=== PATIENT | female | born 1935 | race Caucasian/White ===

== ENCOUNTER 2018-02-02 11:30 | Outpatient (CLI) | payer MEDICARE, BC, SELFPAY ==
[2018-02-02 13:31] LABS: Vitamin B12 418 pg/mL (193-986)
== END 2018-02-02 11:50 ==
PROVIDERS: PCP General Practice; Visit Provider General Practice
DX: R26.89 Other abnormalities of gait and mobility (principal); G62.89 Other specified polyneuropathies
CPT/HCPCS: 36415; 82607

== ENCOUNTER 2018-08-15 01:29 | Outpatient (CLI) | payer MEDICARE, BC, SELFPAY ==
--- NOTE | 2018-08-15 13:38 | DI.MAMMO_ITS ---
SYMPTOMS/DIAGNOSIS: SCREENING MAMMOGRAM: Mammograms were interpreted according to the usual protocol including computer analysis with CAD system, tomosynthesis and C view imaging. The patient has reportedly had a prior right mastectomy and left lumpectomy for breast carcinoma. There is apparent post lumpectomy scarring in the left breast. No dominant mass seen. A few nonspecific calcifications are noted at the lumpectomy site, consistent with dystrophic change. No remote clumped microcalcification seen. No previous images available for comparison. CONCLUSION: No specific evidence of malignancy at this time. Routine screening examinations are suggested at yearly intervals due to the history of breast carcinoma. Category 1, breast density category B. MQSA ASSESSMENT OF FINDINGS: Negative. Category 1. Patient will receive a letter notifying them of these results. BI-RADS category B. There are scattered areas of fibroglandular density.
== END 2018-08-15 01:49 ==
PROVIDERS: PCP General Practice; Visit Provider General Practice
DX: Z12.31 Encounter for screening mammogram for malignant neoplasm of breast (principal); Z85.3 Personal history of malignant neoplasm of breast; Z90.11 Acquired absence of right breast and nipple; Z98.890 Other specified postprocedural states
CPT/HCPCS: 77063; 77067

== ENCOUNTER 2018-09-13 07:30 | Outpatient (CLI) | payer MEDICARE, BC, SELFPAY ==
[2018-09-13 08:41] LABS: Anion Gap 12.1 mmol/L (3-11); BUN 21 mg/dL (7-18); CO2 24.9 mmol/L (21.0-32.0); CREATININE 0.94 mg/dL (0.55-1.02); Chloride 104 mmol/L (98-107); Cholesterol 292 mg/dL (50-200); Estimated GFR 57.01 (mL/min/1.73m2); HDL Cholesterol 64 mg/dL (40-60); LDL CHOLESTEROL 188 mg/dL (<100); Sodium 141 mmol/L (136-145); Triglyceride 218 mg/dL (30-150)
== END 2018-09-13 07:50 ==
PROVIDERS: PCP General Practice; Visit Provider General Practice
DX: I10 Essential (primary) hypertension (principal); E78.5 Hyperlipidemia, unspecified
CPT/HCPCS: 36415; 80051; 80061; 83721; 84520; 82565

== ENCOUNTER 2018-12-29 02:52 | Outpatient (CLI) | payer MEDICARE, BC, SELFPAY ==
--- NOTE | 2018-12-29 10:37 | DI.RAD_ITS ---
SYMPTOMS/DIAGNOSIS: CHRONIC PAIN RIGHT KNEE: Five views were obtained. There is marked loss of the cartilaginous joint spaces of the medial and lateral tibiofemoral joints and probably the patellofemoral joint as well. There are very prominent hypertrophic marginal osteophytes at all the joints. There is deformity of the articular surfaces particularly at the medial tibiofemoral joint. CONCLUSION: Severe DJD as described above, multicompartment.
== END 2018-12-29 03:12 ==
PROVIDERS: PCP General Practice; Visit Provider General Practice
DX: M25.561 Pain in right knee (principal); G89.29 Other chronic pain; M17.11 Unilateral primary osteoarthritis, right knee
CPT/HCPCS: 73562

== ENCOUNTER 2019-07-11 02:49 | Outpatient (CLI) | payer MEDICARE, BC, SELFPAY ==
[2019-07-11 12:50] LABS: Abs Immature Grans 0.02 k/cumm (0.0-0.09); Absolute Basophil Count 0.03 k/cumm (0.0-0.2); Absolute Eosinophil Count 0.21 k/cumm (0.0-0.7); Absolute Lymphocyte Count 1.41 k/cumm (1.2-3.4); Absolute Monocyte Count 0.69 k/cumm (0.11-0.7); Absolute Neutrophil Count 5.95 k/cumm (1.2-6.7); Basophils % 0.4; Eosinophils % 2.5; HCT 37.9 % (36.0-46.0); HGB 12.4 g/dL (12.0-15.5); Immature Grans % 0.2 %; Mean Corp. HGB Concentration 32.7 g/dL (32.0-36.0); Mean Corpuscular Volume 94.8 fL (80-95); Mean Platelet Volume 8.8 fL (8.0-11.0); Monocytes % 8.3; Neutrophils % 71.6; Platelet Count 291 x1000/uL (130-400); RBC Distribution Width 13.1 % (11.7-14.6); White Blood Cell Count 8.31 k/cumm (4.4-10.8)
[2019-07-11 13:04] LABS: PTT Activated 24.7 sec (21.0-31.4); Prothrombin Time 9.9 sec (9.3-11.0)
[2019-07-11 13:34] LABS: Bilirubin Negative (Negative); Blood Negative (Negative); Clarity Clear (Clear); Glucose Negative (Negative); Ketones Negative (Negative); Leukocyte Esterase Negative (Negative); Nitrite Negative (Negative); Specific Gravity 1.025 (1.005-1.025); Urobilinogen 0.2 EU/dL (Up TO 0.2); pH 6.5 (5-8)
[2019-07-11 13:54] LABS: ALT 20 U/L (14-59); AST 17 U/L (15-37); Albumin 3.6 g/dL (3.4-5.0); Alkaline Phosphatase 95 U/L (46-116); Anion Gap 8.9 mmol/L (3-11); BUN 26 mg/dL (7-18); Bilirubin, Total 0.5 mg/dL (0.2-1.0); CO2 27.1 mmol/L (21.0-32.0); CREATININE 0.82 mg/dL (0.55-1.02); Calcium 9.1 mg/dL (8.5-10.1); Chloride 105 mmol/L (98-107); Glucose 90 mg/dL (74-106); Potassium 3.9 mmol/L (3.5-5.1); Sodium 141 mmol/L (136-145); Total Protein 6.7 g/dL (6.4-8.2)
== END 2019-07-11 03:09 ==
PROVIDERS: PCP Family Medicine; Visit Provider Family Medicine
DX: D68.8 Other specified coagulation defects (principal); I10 Essential (primary) hypertension; R39.11 Hesitancy of micturition; Z01.818 Encounter for other preprocedural examination
CPT/HCPCS: 80053; 81003; 85025; 85610; 85730

== ENCOUNTER 2019-11-02 03:29 | Outpatient (CLI) | payer MEDICARE, BC, SELFPAY ==
[2019-11-02 12:42] LABS: Bilirubin Negative (Negative); Blood Negative (Negative); Clarity Clear (Clear); Glucose Negative (Negative); Ketones Trace mg/dL (Negative); Leukocyte Esterase Negative (Negative); Nitrite Negative (Negative); Specific Gravity 1.025 (1.005-1.025); Urobilinogen 0.2 EU/dL (Up TO 0.2)
[2019-11-02 12:47] LABS: Abs Immature Grans 0.03 k/cumm (0.0-0.09); Absolute Basophil Count 0.03 k/cumm (0.0-0.2); Absolute Eosinophil Count 0.21 k/cumm (0.0-0.7); Absolute Lymphocyte Count 1.19 k/cumm (1.2-3.4); Absolute Monocyte Count 0.88 k/cumm (0.11-0.7); Absolute Neutrophil Count 6.39 k/cumm (1.2-6.7); Basophils % 0.3; Eosinophils % 2.4; HCT 40.3 % (36.0-46.0); HGB 12.8 g/dL (12.0-15.5); Immature Grans % 0.3 %; Lymphocytes % 13.6; Mean Corp. HGB Concentration 31.8 g/dL (32.0-36.0); Mean Corpuscular Hemoglobin 30.4 pg (27.0-33.0); Mean Corpuscular Volume 95.7 fL (80-95); Mean Platelet Volume 8.9 fL (8.0-11.0); Monocytes % 10.1; Neutrophils % 73.3; Platelet Count 328 x1000/uL (130-400); RBC 4.21 m/cumm (4.00-5.20); RBC Distribution Width 13.3 % (11.7-14.6); White Blood Cell Count 8.73 k/cumm (4.4-10.8)
[2019-11-02 13:20] LABS: Prothrombin Time 9.8 sec (9.3-11.0)
[2019-11-02 13:43] LABS: ALT 20 U/L (14-59); AST 15 U/L (15-37); Albumin 3.9 g/dL (3.4-5.0); Alkaline Phosphatase 95 U/L (46-116); Anion Gap 8.6 mmol/L (3-11); BUN 25 mg/dL (7-18); Bilirubin, Total 0.4 mg/dL (0.2-1.0); CO2 26.4 mmol/L (21.0-32.0); CREATININE 0.84 mg/dL (0.55-1.02); Calcium 10.1 mg/dL (8.5-10.1); Chloride 104 mmol/L (98-107); Glucose 87 mg/dL (74-106); Potassium 4.5 mmol/L (3.5-5.1); Sodium 139 mmol/L (136-145); Total Protein 6.9 g/dL (6.4-8.2)
[2019-11-02 14:12] LABS: ESR 35 mm/hr (0-30)
== END 2019-11-02 03:49 ==
PROVIDERS: PCP Family Medicine; Visit Provider Family Medicine
DX: Z01.818 Encounter for other preprocedural examination (principal)
CPT/HCPCS: 36415; 80053; 85652; 81003; 85025; 85610

== ENCOUNTER 2019-11-06 10:26 | Outpatient (CLI) | payer MEDICARE, BC, SELFPAY ==
--- NOTE | 2019-11-06 13:35 | DI.US_ITS ---
APPROVED REPORT EXAM: Comprehensive 2D, Doppler, and color-flow Echocardiogram Patient Location: Out-Patient Screen Making Supervisor: Radha Rutherford RDCS (AE) Indications: Edema, Pre op Other Information Study Quality: Adequate Conclusion Normal left ventricular chamber size and wall thickness. Normal wall motion. Estimated ejection fra ction is 60 to 65%. The right ventricle is normal in size and systolic function Left atrium is mildly dilated. The right atrium is normal in size The aortic valve is structurally normal. There is no aortic stenosis or regurgitation Mild mitral annular calcification. Trace to mild mitral regurgitation The pulmonic and tricuspid valves are structurally normal. There is trace physiologic tricuspid regu rgitation with normal estimated right ventricular systolic pressure. Trace physiologic pulmonic regu rgitation Wall motion Left Ventricle The left ventricle is normal size. The left ventricular systolic function is normal. The left ventric ular ejection fraction is within the normal range. There is normal left ventricular wall thickness. T here is normal LV segmental wall motion. Left ventricular filling pattern is normal for age. There is no ventricular septal defect visualized. The RVSP is 26.5mmHg. LVEF is 60%-65%. Right Ventricle The right ventricle is normal size. The right ventricular systolic function is normal. Atria Left atrium is mildly dilated. The right atrium size is normal. The interatrial septum is intact with no evidence for an atrial septal defect. Aortic Valve Aortic valve is trileaflet. There is no aortic valvular stenosis. No aortic regurgitation is present. Mitral Valve Mild mitral annular calcification. No evidence of mitral valve stenosis. Trace to mild mitral regurgi tation. Tricuspid Valve The tricuspid valve is normal in structure. There is no tricuspid valve stenosis. Trace tricuspid reg urgitation. Pulmonic Valve The pulmonary valve is normal in structure. There is no pulmonic valvular stenosis. Trace pulmonic re gurgitation. Great Vessels The aortic root is normal in size. The ascending aorta is borderline normal in size. IVC is normal in size and collapses >50% with inspiration. Pericardium There is no pericardial effusion. There is no pleural effusion. 2D Dimensions IVSD d PLAX 0.93 cm F: 0.6-1.0 LV Vol A2C d MOD 104.8 mL LVPW d PLAX 0.90 cm F: 0.6 - 1.0 LV Vol A4C d MOD 106.1 mL LVID d PLAX 4.44 cm F: 3.8 - 5.2 LA vol/ BSA A2C s A-L 37.1 mL/m2 LVDs 2.90 cm F: 2.2 - 3.5 LA vol/ BSA A4C s A-L 34.8 mL/m2 Ao Root d 2.72 cm F: 2.7 - 3.3 LA Vol/ BSA Biplane s A-L 36.0 mL/m2 RA Area A4C 16.01 cm2 LA Area A4C s MOD 23.05 cm2 RA Vol/ BSA A4C s A-L 20.2 mL/m2 LA Area A2C s MOD 23.85 cm2 Ao Asc Diam d 3.34 cm F: 2.3 - 3.1 LV EF A4C MOD 60.2 % LV EF Teichholz 63.2 % LV EF A2C MOD 60.6 % LVEF (Chiang's) 60.32 % F: 54 - 74 LV EF Biplane MOD 60.3 % LV Volume 79.80 mL F: 46 - 106 SV 64.97 mL LV Volume Index 38.55 mL/m2 F: 29 - 61 SV Index 31.30 mL/m2 LV Vol Biplane MOD 107.7 mL FS 34.00 % M-Mode TAPSE 2.63 cm (M/F) >1.7 LV Diastology MV E' medial 0.072 (>0.07 m/s) E/A Ratio 0.8 LV E/e MED 10.45 (<14) MV E Vmax 0.76 (0.4-1.3 m/s) MV E' lateral 0.086 (>0.1 m/s) MV A Vmax 1.00 (0.4-1.3 m/s) LV E/e LAT 8.80 (<14) MV E/A Ratio 0.74 MV E/E' medial 10.49 MV E/E' lateral 8.84 Aortic Valve LVOT Area 3.08 cm2 AoV Area Vmax 2.01 cm2 LVOT Vmax 1.12 m/s AoV Area/ BSA (Vmax) 0.97 cm2/m2 LVOT Mean Jarrod. 0.85 m/s CARROLL Mean Jarrod. 1.98 cm2 LVOT Peak Grad 5.1 mmHg CARROLL Mean Jarrod. Index 0.95 cm2/m2 LVOT Mean Grad 3.2 mmHg LVOT VTI 0.266 m LVOT Diam s 1.95 cm AoV Vmax 1.73 m/s Velocity Ratio 0.64 AoV Mean Jarrod. 1.32 m/s AoV Peak Grad 11.9 mmHg LVOT SV 82.05 mL AoV Mean Grad 7.5 mmHg AoV VTI 0.410 m AoV Area VTI 2.00 cm2 AoV Area/ BSA (VTI) 0.96 cm/m2 Mitral Valve MV DT 370 (160-240 msec) MV PHT 107 msec MV Area PHT 2.05 cm2 Pulmonary Valve PV Vmax 1.37 (0.5-1.5 m/s) RVOT Peak Gr. 2.15 mmHg PV Peak Grad 7.5 mmHg RVOT Mean Gr. 1.45 mmHg PV Mean Grad 3.6 mmHg RVOT VTI 0.159 m PV VTI 0.261 m RVOT Vmax 0.73 m/s Tricuspid Valve TR Peak Grad 23.5 mmHg TR Vmax 2.43 m/s RA Pressure 3.00 mmHg RVSP (TR) 26.5 mmHg
== END 2019-11-06 10:46 ==
PROVIDERS: PCP Family Medicine; Visit Provider Family Medicine
DX: R60.0 Localized edema (principal); I34.0 Nonrheumatic mitral (valve) insufficiency; I10 Essential (primary) hypertension; E78.00 Pure hypercholesterolemia, unspecified
CPT/HCPCS: 93306

== ENCOUNTER 2019-11-09 08:22 | Outpatient (CLI) | payer MEDICARE, BC, SELFPAY ==
[2019-11-09 21:10] LABS: COVID-19 RT-PCR UVMMC Result Negative (Negative)
== END 2019-11-09 08:42 ==
PROVIDERS: PCP Family Medicine; Visit Provider Family Medicine
DX: Z01.818 Encounter for other preprocedural examination (principal)
CPT/HCPCS: U0003

== ENCOUNTER 2020-06-24 13:37 | Inpatient (IN) | payer MEDICARE, BC, SELFPAY ==
[2020-06-24] VITALS (131 sets, daily range): BP systolic 109–130; BP diastolic 46–101; PULSE 65–84; RESP 11–25; TEMP 36.1–36.5; O2SAT 90–98
--- NOTE | 2020-06-24 13:30 | RT.EKG_ITS ---
APPROVED REPORT Exam: Resting ECG Patient Location: E HR:82 bpm ECG Measurements Heart Rate 82 AXIS AL 165 P 77 QRSd 97 QRS 33 QT 395 T 21 QTc 462 Conclusion Sinus rhythm...normal P axis, V-rate 60- [address] depression, diffuse leads...ST <-0.07mV, ant/lat/inf. No STEMI. I have reviewed and interpreted ECG and agree with software generated interpretation.
--- NOTE | 2020-06-24 13:44 | ED.GENADUL_ITS ---
Discharge Plan Disposition Patient Disposition: [facility] INPATIENT Condition: Serious Discharge Details Clinical Impression: Non-ST elevation OK (NSTEMI), Acute UTI Admit Date/Time: 06/24/20 19:10 Admit Provider: Nicholas Espinoza Attending Provider: Nicholas Espinoza Primary Care Provider: Alfonso Bonilla ED Provider: Anna Nix Discharge Data Discharge Date/Time-TO BE ENTERED AT DEPARTURE: 06/24/20 20:09 Medical Decision Making <Malu Carcamo - Last Filed: 06/25/20 08:31> 85-year-old female presents to the ED via EMS with chief complaint of generalized weakness and frequent falls. Patient states that since her knee replacement October 2019 she has had frequent falls with her knees giving out and buckling today she was walking out to get her food delivery with her walker when she fell landing on her bilateral knees which were bent for approximately 45 minutes she was unable to get up after the fall. EMS was called and transported here. She denies any chest pain, shortness of breath, headache. She states that she took all her normal medications this morning except for her vitamins and Lasix. 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 Vital signs are stable prior to arrival, per EMS report, patient is alert and oriented x4, BGL is 180, Zofran was given prior to arrival. Normal sinus rhythm on monitor. Patient has a history of hyperlipidemia, osteoporosis, obesity, hypertension, breast cancer, obesity, glaucoma. Surgical history includes appendectomy, melanoma removal, left total knee replacement, and cholecystectomy. EKG was reviewed by Dr. Ayleen Benz MD ER attending, old EKG was available for review please see her official read. Shows new ST depression 1433: Critical result received, initial troponin is 0.99. CBC is largely within normal limits, no leukocytosis absolute neutrophils 8.16, sodium 143, potassium 3.5 BUN is 20 creatinine 0.8, GFR greater than 60, urine does show UTI 30 protein positive nitrites trace leukocytes 3-5 RBCs, 20-50 WBCs culture is pending at this time. 1458: Upon further questioning of patient, she does state that she has had chest pressure for the last hour, and the other day she had some sharp left-sided chest pain. She also endorses shortness of breath prior to her knees buckling. At this time Furosemide 20mg PO, 324 mg chewable aspirin ordered, Plavix 75 mg PO, chest x-ray, Micki. 1510: Spoke with patient's sister whom she lives with regarding lab results patient sister verbalized understanding. Patient does give verbal consent for me to discuss her results with her sister. Will keep informed of plan of care. 1520: Spoke with Dr. Worley who is in-house cardiology today he does recommend possible transfer since patient is willing to have a cardiac catheterization or interventional cardiac procedures if needed. Echocardiogram initially ordered which was canceled at this time. 1529: [facility] transfer center page at this time they are currently listing beds for tomorrow. 1545: [facility] transfer center called, theyare at capacity and have no beds at this time. EXAM: XR PORTABLE CHEST AP CLINICAL HISTORY: Weakness, TECHNIQUE: COMPARISON: No exams were available for comparison FINDINGS: The heart is not enlarged. The lungs are predominantly clear, there may be mild changes pulmonary fibrosis and/or senile changes of the lungs. No focal consolidation. No pleural effusion seen on this frontal film. IMPRESSION: No evidence of acute process. Patient care to be transferred over to BECKY Cunha oncoming provider discussed patient case and details of her. Awaiting callback from [facility] regarding cardiology consult and or bed availability. <BECKY Mittal - Last Filed: 06/24/20 19:47> Care transition myself from Maite Lauren NP. Please see her note regarding initial presentation, history and exam. In brief, patient is a pleasant 85-year-old female with past medical history is significant for glaucoma, breast cancer, hyperlipidemia, hypertension, obesity and pulmonary embolism. Patient reports the pulmonary embolism was postsurgical approximately 7 years ago. At the time that she started having symptoms today she did have a cardiac cath which was clean. She presented today with chief complaint of weakness. On further discussion, patient is reporting some shortness of breath as well as some chest tightness associated with exertion. She is denying any chest pain currently. Her initial troponin was 0.99. At the time I assume care, waiting for consultation with cardiology as well as repeat troponin. Patient has received 75 mg of Plavix and full dose of aspirin. There was concern for potential UTI the patient was noted to be nitrite positive with a small amount of leukocyte esterase. Patient denying any increased frequency, urgency or dysuria. No flank pain on exam. Repeat troponin is elevated to 2.71. Consulted with cardiology at [facility]. At this time, they do not have beds states that the patient. However, they plan to assess the patient tomorrow with plan for cardiac catheterization. Advised starting the patient on a heparin drip and augmented with Plavix already given to give a loading dose of 50 mg. He advised use of nitroglycerin as needed if she does develop chest pain. Her blood pressure has been stable. Discussed the risk/benefits of heparin and Plavix with the patient. We discussed bleeding risk. Patient does not have any history of bleeding disorder, does not have intracranial hemorrhage, GI bleed or other acute event in her life. She agrees to move forward with medical management at this time with plan for transfer to [facility] tomorrow. Patient given full dose of 600 mg Plavix and started on the heparin drip. I consulted with Dr. Espinoza who agrees to accept patient for admission for NSTEMI with plan for patient to go to [facility] for definitive management tomorrow. Patient has allergy listed to statin. Also discussed the findings of the patient's UA. As the patient is asymptomatic, will hold off on treatment at this time. He has asked that I place holding orders. Patient remains asymptomatic, resting comfortably eating and drinking. HPI <Malu Carcamo - Last Filed: 06/25/20 08:31> General Mode of arrival: EMS . Date/Time Provider Initiated Documentation: 06/24/20 13:39 . Information obtained by: patient, EMS and RN notes reviewed . HPI Narrative: 85-year-old female presents to the ED via EMS with chief complaint of gene ralized weakness and frequent falls. Patient states that since her knee replacement October 2019 she has had frequent falls with her knees giving out and buckling today she was walking out to get her food delivery with her walker when she fell landing on her bilateral knees which were bent for approximately 45 minutes she was unable to get up after the fall. EMS was called and transported here. She denies any chest pain, shortness of breath, headache. She states that she took all her normal medications this morning except for her vitamins and Lasix. 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 Vital signs are stable prior to arrival, per EMS report, patient is alert and oriented x4, BGL is 180, Zofran was given prior to arrival. Normal sinus rhythm on monitor. Patient has a history of hyperlipidemia, osteoporosis, obesity, hypertension, breast cancer, obesity, glaucoma. Surgical history includes appendectomy, melanoma removal, left total knee replacement, and cholecystectomy Related Data Home Medications Medication Instructions Recorded Confirmed ascorbic acid-ascorbate sodium 1 tab PO DAILY 08/16/17 06/24/20 aspirin [Aspir-81] 1 tab PO DAILY 08/16/17 03/03/20 vitamin B complex 1 cap PO DAILY 08/16/17 06/24/20 calcium carb,citrat 500 tab PO DAILY tab 06/04/19 03/03/20 mg-magnesium #12 250 mg-vit D3 200 unit tablet magnesium 250 mg tablet 250 mg PO DAILY 06/04/19 06/24/20 acetaminophen 325 mg capsule 975 mg PO QID PRN cap 12/14/19 06/24/20 docusate sodium 100 mg capsule 100 mg PO DAILY 12/14/19 06/24/20 furosemide 20 mg tablet 20 mg PO QAM #90 tab 02/18/20 06/24/20 latanoprost 0.005 % eye drops 1 drp OU HS #2.5 ml 02/18/20 06/24/20 alendronate 70 mg tablet 70 mg PO QWEEK #13 tab 03/03/20 06/24/20 losartan 50 mg tablet 50 mg PO DAILY #90 tab 03/03/20 06/24/20 Previous Rx's Medication Instructions Recorded furosemide 20 mg tablet 20 mg PO QAM #90 tab 02/18/20 latanoprost 0.005 % eye drops 1 drp OU HS #2.5 ml 02/18/20 alendronate 70 mg tablet 70 mg PO QWEEK #13 tab 03/03/20 losartan 50 mg tablet 50 mg PO DAILY #90 tab 03/03/20 Allergies Allergy/AdvReac Type Severity Reaction Status Date / Time demeclocycline HCl Allergy Intermediate Hives Unverified 03/03/20 12:15 [From Declomycin] acetaminophen [From Percocet] Allergy Mild Hives Unverified 03/03/20 12:15 aspirin [From Percodan] Allergy Mild Hives Unverified 03/03/20 12:15 oxycodone [From Percocet] Allergy Mild Hives Unverified 03/03/20 12:15 Penicillins Allergy Mild Hives Unverified 03/03/20 12:15 Tdalkfo-Jva-Nov Reductase AdvReac Intermediate nauesa Verified 03/03/20 12:15 Inhibitor /vomiting Review of Systems <Malu Carcamo - Last Filed: 06/25/20 08:31> Narrative: Constitutional: Negative for weight loss, alert and oriented, well groomed, obese body habitus, appears comfortable. HEENT: Denies head trauma, headaches, blurry vision, nasal discharge, sore throat, trouble swallowing. Chest: Denies chest pain, palpitations, irregular rhythm, does have a history of hypertension, hyperlipidemia, obesity Respiratory: Denies Shortness of breath, cough, hemoptysis. GI: Denies abdominal pain, nausea, vomiting, diarrhea, constipation. : Denies dysuria, hematuria, flank pain, rectal bleeding. Neuro: Denies dizziness, blurry vision, syncope, headache or facial numbness. Reports generalized weakness and frequent falls. Musculoskeletal: History of right total knee replacement October 2019 does have a previous history of left total knee replacement as well. Is using a walker and has frequent falls and knees giving out. Hematologic: Denies easy bruising, intolerance to heat or cold, hair loss. PFSH <Malu Carcamo - Last Filed: 06/25/20 08:31> Medical History Glaucoma History of left breast cancer History of right breast cancer Hyperlipidemia Hypertension Left fibular fracture 2018 Melanoma 2017 Obesity Osteoarthritis Pulmonary embolism following a TKR Surgical History History of appendectomy History of melanoma excision History of total left knee replacement (TKR) S/P cholecystectomy Family History Mother , age 100 Heart disease Hypertension Father , age 78 Non-Hodgkin lymphoma Sister Breast cancer Brother Bladder cancer Alcohol abuse Maternal Grandfather , age 58 Heart disease Paternal Grandfather , age 75 No problems noted. Maternal Grandmother , age 63 Thyroid cancer Heart disease Hyperlipidemia Hypertension Stroke Paternal Grandmother , age 93 Heart disease Social History (Updated 06/24/20 @ 22:16 by Nicholas Espinoza) Smoking/Tobacco Use Status: Never Second Hand Exposure: Yes Smoking risk assessment performed?: Yes Alcohol Intake: never Drug use: Never Caregiver/Support person: No Household members: other Details: Sister Housing: house Communication Needs: Hard of Hearing Do you need help understanding health information?: Never Pets and animals: Yes Pets and animals: dog(s) Sexually active: No What is your relationship status?: never How often do you talk on the phone with friends or family?: twice per week How often do you get together with friends or relatives?: twice per week How often do you attend yarsani or pentecostalism services?: 4 or more times per year Do you belong to any clubs or organized social groups?: yes Panel score (0-1 are the most socially isolated patients): 3 What type of physical activity do you participate in: decline to answer Duration: decline to answer Frequency: decline to answer Annia/Caodaism: Yarsanism Special annia needs: Yes (abstain from meat on Tuesday) Seatbelt use: always Helmet use: No Drive intox or ride w/intox hazmat tanker driver: No Do you feel safe at home: Yes (pt states sometimes her and her sister become verbal) Do you feel safe in your relationship?: Yes Additional Social history: Lives in [place], [place] having moved up from [facility]. 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 Appears stated age. Obese body habitus. Head: Normocephalic, no trauma. Eyes: Pupils PERRLA, Red reflex noted, EOM's intact. Eyelids symmetrical without lesions, discharge, or swelling. ENT: Bilateral TM's WNL, External ear normal to inspection, no mastoid TTP, swelling, or erythema, Nasal turbinates WNL, no nasal discharge. Does not have upper dentures in,, Posterior pharynx WNL, no exudate. Chest: RRR, Normal S1, S2, distal pulses intact. Resp: Lungs clear to auscultation bilaterally, no wheezes, rales, or rhonchi. Musculoskeletal: Unable to assess gait, bilateral lower extremities are edematous, does appear to be peripheral vascular disease and appears chronic. Does have redness noted to her bilateral anterior shins. Surgical incisions noted over bilateral knees anteriorly, no obvious deformity or significant swelling noted to her knees. No abrasions noted. Skin: Capillary refill less than 2 sec. Neurologic: Cranial nerves II-XII intact. Alert and oriented x 4. Hematologic/Lymphatic: No ecchymosis, no lymphadenopathy. Sign Out <Malu Carcamo - Last Filed: 06/25/20 08:31> Sign Out Data: Sign Out Comment: NSTEMI, UTI, Pending repeat Troponin, and admission versus transfer. Last updated by Malu Carcamo at 06/24/20 16:16
[2020-06-24 14:14] LABS: Abs Immature Grans 0.04 10^3/uL (0.0-0.06); Absolute Basophil Count 0.04 10^3/uL (0.0-0.2); Absolute Eosinophil Count 0.13 10^3/uL (0.0-0.7); Absolute Lymphocyte Count 0.74 10^3/uL (1.2-3.4); Absolute Monocyte Count 0.75 10^3/uL (0.1-0.8); Absolute Neutrophil Count 8.16 10^3/uL (1.2-6.7); Basophils % 0.4; Eosinophils % 1.3; HGB 12.3 g/dL (11.2-15.7); Immature Grans % 0.4; Lymphocytes % 7.5; MCH 30.7 pg (27.0-33.0); MCHC 32.4 % (32.0-36.0); MCV 94.8 fL (80-95); MPV 8.7 fL (8.0-11.0); Monocytes % 7.6; Neutrophils % 82.8; Nucleated RBC 0 %; Platelet Count 230 10^3/uL (130-400); RBC 4.01 10^6/uL (3.93-5.22); RDW 12.7 % (11.7-14.6); WBC 9.86 10^3/uL (4.4-10.8)
[2020-06-24 14:17] LABS: Bilirubin Negative (Negative); Blood Negative (Negative); Clarity Sl Cloudy (Clear); Glucose Negative (Negative); Ketones Negative (Negative); Leukocyte Esterase Trace (Negative); Nitrite Positive (Negative); Specific Gravity 1.025 (1.005-1.025); Urobilinogen 0.2 EU/dL (Up TO 0.2); pH 6.5 (5-8)
[2020-06-24 14:26] LABS: Epithelial Cells Few HPF (Negative); WBC 20-50 HPF (0-5)
[2020-06-24 14:27] LABS: Bacteria Many HPF (Negative); C & S Indicated? Yes; Casts Negative LPF (Negative); Crystals Rare Calcium Oxalate HPF (Negative); Mucus Negative (Negative)
[2020-06-24 14:32] LABS: ALT 20 U/L (14-59); AST 19 U/L (15-37); Albumin 3.4 g/dL (3.4-5.0); Alkaline Phosphatase 80 U/L (46-116); Anion Gap 8.7 mmol/L (3-11); BUN 20 mg/dL (7-18); Bilirubin, Total 0.5 mg/dL (0.2-1.0); CO2 28.3 mmol/L (21.0-32.0); CREATININE 0.8 mg/dL (0.55-1.02); Calcium 9.7 mg/dL (8.5-10.1); Chloride 106 mmol/L (98-107); Glucose 97 mg/dL (74-106); Magnesium 2.1 mg/dL (1.8-2.4); Potassium 3.5 mmol/L (3.5-5.1); Sodium 143 mmol/L (136-145); Total Protein 6.9 g/dL (6.4-8.2)
[2020-06-24 14:33] LABS: Troponin I 0.99 ng/mL (<0.06)
[2020-06-24] MEDS: Furosemide 20 MG TAB PO (14:43)
--- NOTE | 2020-06-24 14:57 | DI.RAD_ITS ---
EXAM: XR PORTABLE CHEST AP CLINICAL HISTORY: Weakness, TECHNIQUE: COMPARISON: No exams were available for comparison FINDINGS: The heart is not enlarged. The lungs are predominantly clear, there may be mild changes pulmonary fi brosis and/or senile changes of the lungs. No focal consolidation. No pleural effusion seen on this frontal film. IMPRESSION: No evidence of acute process. RADIATION DOSE DELIVERED: Total DLP
[2020-06-24] MEDS: Aspirin 81 MG CHEW 324 MG CH ×2 (15:00→15:01)
[2020-06-24] MEDS: Clopidogrel 75 MG TAB (15:01)
[2020-06-24 15:14] LABS: Prothrombin Time 10.1 sec (9.3-11.0)
[2020-06-24 15:19] LABS: NT-proBNP 267 pg/mL (<300)
[2020-06-24 17:27] LABS: Troponin I 2.71 ng/mL (<0.06)
[2020-06-24] MEDS: Clopidogrel 300 MG TAB 525 MG PO (18:45)
[2020-06-24 19:24] LABS: Source Nasal/Nares
[2020-06-24 20:17] LABS: COVID-19 PCR Negative (Negative); Influenza A PCR Negative (Negative); Influenza B PCR Negative (Negative); RSV PCR Negative (Negative)
--- NOTE | 2020-06-24 22:08 | W.PM.HP.N ---
Date of service: 06/24/20 Time of Service: 22:08 Assessment and Plan Assessment and plan (1) Non-ST elevation MT (NSTEMI): Status: Acute Assessment and plan: I agree with assessment of acute non-ST elevation MT. Patient currently on appropriate dual antiplatelet therapy and heparin drip. Plan per emergency room discussion with [facility] is to transfer her for cardiac catheterization tomorrow. Patient understands this and agrees. Her chest pressure is currently resolved. (2) Acute UTI: Status: Acute Assessment and plan: Patient denies symptoms currently. I will not treat unless symptoms develop. (3) Hyperlipidemia: Status: Acute Assessment and plan: LDL was quite high when last checked in August 2017 at 188 with a total cholesterol of 292 and a HDL of 64. She has not been able to tolerate a statin. We did discuss newer medications including PSK 9 inhibitors. Will defer this to [facility]. (4) Hypertension: Status: Chronic Assessment and plan: Blood pressure adequately controlled, continue outpatient medication. (5) DVT prophylaxis: Status: Acute Assessment and plan: She is on full dose heparin as above. (6) Discharge planning issues: Status: Acute Assessment and plan: Patient is currently medically stable. Awaiting transfer to [facility] for cardiac catheterization tomorrow. She is DNR/DNI but she does want a cardiac procedure. History of Present Illness History of Present Illness Chief Complaint: general weakness Narrative: 85-year-old female with history of hypertension and hyperlipidemia untreated due to statin allergy who presented emergency room today with progressive episodic general weakness associated with chest pressure today. Patient relates her initial symptoms to be buckling of her legs that she experienced after complicated knee replacement in October 2019. This had improved with physical therapy, but for the past week she has been noting increased general weakness when her legs would buckle under her as they did during that post operative period. On the day of admission around 11 AM, she had an episode of general weakness after answering the door and walking back into another room. Her legs gave out and she fell into her walker, but could not push herself back up on her feet. This episode was associated with some pressure in her mid to left chest, which she had never had before. It was associated with shortness of breath, nausea, lightheadedness, and diaphoresis. There was no radiation. It lasted about 30 minutes. This prompted her sister to call 911 to bring her to the emergency room. Review of Systems Constitutional Constitutional: Denies anorexia, Denies chills, Denies fever(s) and Reports lethargy Eyes Eyes: Denies change in vision and Denies irritation ENT Ears, Nose, Mouth, and Throat: Denies dental pain, Denies dysphagia, Denies nasal congestion, Denies nasal discharge and Denies sore throat Comments: She did have a cold with nasal congestion last week Cardiovascular Cardiovascular: Reports leg edema, Denies radiating jaw, neck or arm pain, Denies palpitations and Denies orthopnea Respiratory Respiratory: Denies cough, Denies excessive phlegm production and Denies wheezing Gastrointestinal Gastrointestinal: Denies abdominal pain, Denies hematochezia, Denies constipation, Denies dysphagia, Reports heartburn (Occasionally gets heartburn, none currently or since yesterday) and Denies vomiting Genitourinary Genitourinary: Denies hematuria, Denies dysuria and Denies urinary incontinence Musculoskeletal Musculoskeletal: Denies joint swelling Integumentary/Breasts Skin/Breast: Denies rash and Denies skin ulcer Neurologic Neurologic: Denies sensory deficit Comments: No focal weakness Psychiatric Psychiatric: Denies mood swings and Denies panic attacks Endocrine Endocrine: Denies palpitations Hematologic/Lymphatic Hematologic/Lymphatic: Denies easy bleeding Allergic/Immunologic Allergic/Immunologic: Denies wheezing PFSH Medical History Glaucoma History of left breast cancer History of right breast cancer Hyperlipidemia Hypertension Left fibular fracture 2018 Melanoma 2017 Obesity Osteoarthritis Pulmonary embolism following a TKR Surgical History History of appendectomy History of melanoma excision History of total left knee replacement (TKR) S/P cholecystectomy Family History Mother , age 100 Heart disease Hypertension Father , age 78 Non-Hodgkin lymphoma Sister Breast cancer Brother Bladder cancer Alcohol abuse Maternal Grandfather , age 58 Heart disease Paternal Grandfather , age 75 No problems noted. Maternal Grandmother , age 63 Thyroid cancer Heart disease Hyperlipidemia Hypertension Stroke Paternal Grandmother , age 93 Heart disease Social History (Updated 06/24/20 @ 22:16 by Nicholas Espinoza) Smoking/Tobacco Use Status: Never Second Hand Exposure: Yes Smoking risk assessment performed?: Yes Alcohol Intake: never Drug use: Never Caregiver/Support person: No Household members: other Details: Sister Housing: house Communication Needs: Hard of Hearing Do you need help understanding health information?: Never Pets and animals: Yes Pets and animals: dog(s) Sexually active: No What is your relationship status?: never How often do you talk on the phone with friends or family?: twice per week How often do you get together with friends or relatives?: twice per week How often do you attend zoroastrianism or temple services?: 4 or more times per year Do you belong to any clubs or organized social groups?: yes Panel score (0-1 are the most socially isolated patients): 3 What type of physical activity do you participate in: decline to answer Duration: decline to answer Frequency: decline to answer Annia/Hinduism: Orthodox Special annia needs: Yes (abstain from meat on Tuesday) Seatbelt use: always Helmet use: No Drive intox or 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 [employer] Meds Home Medications and Allergies Allergies Allergy/AdvReac Type Severity Reaction Status Date / Time demeclocycline HCl Allergy Intermediate Hives Unverified 03/03/20 12:15 [From Declomycin] acetaminophen [From Percocet] Allergy Mild Hives Unverified 03/03/20 12:15 aspirin [From Percodan] Allergy Mild Hives Unverified 03/03/20 12:15 oxycodone [From Percocet] Allergy Mild Hives Unverified 03/03/20 12:15 Penicillins Allergy Mild Hives Unverified 03/03/20 12:15 [place]-Jrp-Gsl Reductase AdvReac Intermediate nauesa Verified 03/03/20 12:15 Inhibitor /vomiting Home Medications Medication Instructions Recorded Confirmed Type ascorbic acid-ascorbate sodium 1 tab PO DAILY 08/16/17 06/24/20 History aspirin [Aspir-81] 1 tab PO DAILY 08/16/17 03/03/20 History vitamin B complex 1 cap PO DAILY 08/16/17 06/24/20 History calcium carb,citrat 500 tab PO DAILY tab 06/04/19 03/03/20 History mg-magnesium #12 250 mg-vit D3 200 unit tablet magnesium 250 mg tablet 250 mg PO DAILY 06/04/19 06/24/20 History acetaminophen 325 mg capsule 975 mg PO QID PRN cap 12/14/19 06/24/20 History docusate sodium 100 mg capsule 100 mg PO DAILY 12/14/19 06/24/20 History furosemide 20 mg tablet 20 mg PO QAM #90 tab 02/18/20 06/24/20 Rx latanoprost 0.005 % eye drops 1 drp OU HS #2.5 ml 02/18/20 06/24/20 Rx alendronate 70 mg tablet 70 mg PO QWEEK #13 tab 03/03/20 06/24/20 Rx losartan 50 mg tablet 50 mg PO DAILY #90 tab 03/03/20 06/24/20 Rx Exam Narrative Exam Narrative: GEN: Alert and oriented x3, pleasent and cooperative, gives linear history. No acute distress at rest. HEENT: Head atraumatic. Conjunctiva clear, no icterus. PEERL, EOMI. no rhinorrhea. MMM, OP benign. Neck is supple with no masses or lymphadenopathy, trachea midline LUNGS: CTAB with normal effort CV: RRR with no murmurs, gallops, or rubs. ABD: +BS, soft, NT/ND EXT: no cyanosis, clubbing. 2+ bilateral pitting edema with thickened pink skin on bilateral shins. Calves not tender to palpation, no cords. MSK: No joint redness or swelling NEURO: CN 2-12 grossly intact. Normal movement of 4 extremities. Normal speech and coordination SKIN: No rashs other than venous stasis changes or open wounds. PSYCH: normal mood and affect Results Labs Result diagrams: 06/24/20 14:00 06/24/20 14:00 Labs: Laboratory Results - last 24 hr 06/24/20 06/24/20 06/24/20 14:00 14:00 14:00 WBC 9.86 RBC 4.01 Hgb 12.3 Hct 38.0 MCV 94.8 MCH 30.7 MCHC 32.4 RDW 12.7 Plt Count 230 MPV 8.7 Immature Gran % 0.4 Neutrophils % 82.8 Lymphocytes % 7.5 Monocytes % 7.6 Eosinophils % 1.3 Basophils % 0.4 Nucleated RBC % 0 Absolute Neutrophils 8.16 H Absolute Lymphocytes 0.74 L Absolute Monocytes 0.75 Absolute Eosinophils 0.13 Absolute Basophils 0.04 PT INR Sodium 143 Potassium 3.5 Chloride 106 Carbon Dioxide 28.3 Anion Gap 8.7 BUN 20 H Creatinine 0.8 Estimated GFR/1.73 m2 >= 60.00 Glucose 97 Calcium 9.7 Magnesium 2.1 Total Bilirubin 0.5 AST 19 ALT 20 Alkaline Phosphatase 80 Troponin I 0.99 H* NT-Pro-B Natriuret Pep Total Protein 6.9 Albumin 3.4 Urine Color Yellow Urine Clarity Sl cloudy Urine pH 6.5 Ur Specific [place] 1.025 Urine Protein 30 H Urine Ketones Negative Urine Blood Negative Urine Nitrite Positive H Urine Bilirubin Negative Urine Urobilinogen 0.2 Ur Leukocyte Esterase Trace H Urine RBC 3-5 H Urine WBC 20-50 H Ur Epithelial Cells Few Urine Crystals Rare calcium oxalate Urine Bacteria Many Urine Casts Negative Urine Mucus Negative Ur Culture Indicated? Yes Urine Glucose Negative COVID-19 Source SARS-CoV-2 (PCR) Influenza Type A (PCR) Influenza Type B (PCR) RSV (PCR) 06/24/20 06/24/20 06/24/20 14:00 14:00 16:56 WBC RBC Hgb Hct MCV MCH MCHC RDW Plt Count MPV Immature Gran % Neutrophils % Lymphocytes % Monocytes % Eosinophils % Basophils % Nucleated RBC % Absolute Neutrophils Absolute Lymphocytes Absolute Monocytes Absolute Eosinophils Absolute Basophils PT 10.1 INR 1.0 Sodium Potassium Chloride Carbon Dioxide Anion Gap BUN Creatinine Estimated GFR/1.73 m2 Glucose Calcium Magnesium Total Bilirubin AST ALT Alkaline Phosphatase Troponin I 2.71 H* NT-Pro-B Natriuret Pep 267 Total Protein Albumin Urine Color Urine Clarity Urine pH Ur Specific [place] Urine Protein Urine Ketones Urine Blood Urine Nitrite Urine Bilirubin Urine Urobilinogen Ur Leukocyte Esterase Urine RBC Urine WBC Ur Epithelial Cells Urine Crystals Urine Bacteria Urine Casts Urine Mucus Ur Culture Indicated? Urine Glucose COVID-19 Source SARS-CoV-2 (PCR) Influenza Type A (PCR) Influenza Type B (PCR) RSV (PCR) 06/24/20 19:22 WBC RBC Hgb Hct MCV MCH MCHC RDW Plt Count MPV Immature Gran % Neutrophils % Lymphocytes % Monocytes % Eosinophils % Basophils % Nucleated RBC % Absolute Neutrophils Absolute Lymphocytes Absolute Monocytes Absolute Eosinophils Absolute Basophils PT INR Sodium Potassium Chloride Carbon Dioxide Anion Gap BUN Creatinine Estimated GFR/1.73 m2 Glucose Calcium Magnesium Total Bilirubin AST ALT Alkaline Phosphatase Troponin I NT-Pro-B Natriuret Pep Total Protein Albumin Urine Color Urine Clarity Urine pH Ur Specific [place] Urine Protein Urine Ketones Urine Blood Urine Nitrite Urine Bilirubin Urine Urobilinogen Ur Leukocyte Esterase Urine RBC Urine WBC Ur Epithelial Cells Urine Crystals Urine Bacteria Urine Casts Urine Mucus Ur Culture Indicated? Urine Glucose COVID-19 Source Nasal/nares SARS-CoV-2 (PCR) Negative Influenza Type A (PCR) Negative Influenza Type B (PCR) Negative RSV (PCR) Negative Last Vital Signs Temp 36.1 C L 06/24/20 13:48 Pulse 70 06/24/20 19:15 Resp 19 06/24/20 19:20 BP 126/54 L 06/24/20 19:15 Pulse Ox 97 06/24/20 19:20 COVID-19 Screening Have you, or household traveled for leisure in last 14 days?: No Had IN PERSON contact w/suspected or confirmed C-19 person: No
[2020-06-25] VITALS (55 sets, daily range): BP systolic 86–108; BP diastolic 34–59; PULSE 48–93; RESP 10–24; TEMP 36–36.6; O2SAT 93–95
[2020-06-25] MEDS: Latanoprost 0.005% 2.5 ML BTL OU ×2 (00:09→22:02)
[2020-06-25] MEDS: Acetaminophen 325 MG TAB 975 MG PO (00:25)
[2020-06-25 01:15] LABS: PTT Activated 62.4 sec (21.0-27.5)
--- NOTE | 2020-06-25 05:00 | RT.EKG_ITS ---
APPROVED REPORT Exam: Resting ECG Patient Location: I HR:69 bpm ECG Measurements Heart Rate 69 AXIS NV 163 P 51 QRSd 88 QRS 38 QT 442 T 73 QTc 474 Conclusion Sinus rhythm...normal P axis, V-rate 60- 99
--- NOTE | 2020-06-25 05:55 | NUR.NOTE ---
The patient's BP has been trending down and has been 90s/30-40s (MAP 50s) for the past several readings. I took the BP on both arms manually and it matched 90s/50 bilaterally. The patient's urine output is decreased from 500ml evening shift to 150ml the last 6 hours. I did a repeat EKG and it still showed no ST changes from former EKG (no elevation/depression). After reviewing the patient chart, I noted that the patient has a -2,500ml output with less than 150ml intake over the past 2 days. The patient's urine is also concentrated/dark. I called Dr. Espinoza and he ordered LR 500ml bolus with [id number] 75ml/hr maintenance. I started the bolus and fluid and the patient's BP is 100sys (MAP 61, 59). Dr. Espinoza aware of ongoing chest pressure. Further AM labs ordered. Nursing Note:
[2020-06-25] MEDS: Normal Saline Flush 10 ML SYR IVP ×2 (06:14→08:05)
[2020-06-25] MEDS: POTASSIUM CHLORIDE/D5-0.45NACL 1,000 ML 75 MEQ IV ×2 (06:14→18:48)
[2020-06-25] MEDS: Lactated Ringers 1,000 ML 500 ML IV (06:15)
[2020-06-25 06:58] LABS: PTT Activated 42.7 sec (21.0-27.5)
[2020-06-25 06:59] LABS: Calculated LDL 104 mg/dL (<100); Cholesterol 179 mg/dL (<200); HDL Cholesterol 55 mg/dL (40-60); Triglyceride 103 mg/dL (<150)
[2020-06-25 07:09] LABS: Troponin I 1.83 ng/mL (<0.06)
[2020-06-25] MEDS: Vitamins B Comp w/C TAB 1 TAB PO (08:03)
[2020-06-25] MEDS: Calcium 600mg/Vit D 200U TAB 1 TAB PO (08:04)
[2020-06-25] MEDS: Docusate Sodium 100 MG CAP PO ×2 (08:04→19:54)
[2020-06-25] MEDS: Furosemide 20 MG TAB PO (08:04)
[2020-06-25] MEDS: Aspirin E.C. 81 MG TABEC PO (08:04)
[2020-06-25] MEDS: Magnesium Oxide 400 MG TAB PO (08:04)
[2020-06-25] MEDS: Losartan 50 MG TAB PO (08:05)
[2020-06-25] MEDS: Clopidogrel 75 MG TAB PO (08:05)
--- NOTE | 2020-06-25 08:41 | PGE_ITS ---
Subjective Subjective Interval history since last seen: Still having mid-chest pressure. No other sx at this time. No radiation, SOB. SBP in the 90s. Nursing feels she is dry. 150 cc output overnight. Objective Last Vital Signs Temp 36.4 C L 06/25/20 08:12 Pulse 66 06/25/20 08:12 Resp 19 06/25/20 08:12 BP 90/59 L 06/25/20 08:12 Pulse Ox 93 06/25/20 08:12 Laboratory Results - last 24 hr 06/24/20 06/24/20 06/24/20 14:00 14:00 14:00 WBC 9.86 RBC 4.01 Hgb 12.3 Hct 38.0 MCV 94.8 MCH 30.7 MCHC 32.4 RDW 12.7 Plt Count 230 MPV 8.7 Immature Gran % 0.4 Neutrophils % 82.8 Lymphocytes % 7.5 Monocytes % 7.6 Eosinophils % 1.3 Basophils % 0.4 Nucleated RBC % 0 Absolute Neutrophils 8.16 H Absolute Lymphocytes 0.74 L Absolute Monocytes 0.75 Absolute Eosinophils 0.13 Absolute Basophils 0.04 PT INR APTT Sodium 143 Potassium 3.5 Chloride 106 Carbon Dioxide 28.3 Anion Gap 8.7 BUN 20 H Creatinine 0.8 Estimated GFR/1.73 m2 >= 60.00 Glucose 97 Calcium 9.7 Magnesium 2.1 Total Bilirubin 0.5 AST 19 ALT 20 Alkaline Phosphatase 80 Troponin I 0.99 H* NT-Pro-B Natriuret Pep Total Protein 6.9 Albumin 3.4 Triglycerides Total Cholesterol LDL Cholesterol, Calc HDL Cholesterol Urine Color Yellow Urine Clarity Sl cloudy Urine pH 6.5 Ur Specific [place] 1.025 Urine Protein 30 H Urine Ketones Negative Urine Blood Negative Urine Nitrite Positive H Urine Bilirubin Negative Urine Urobilinogen 0.2 Ur Leukocyte Esterase Trace H Urine RBC 3-5 H Urine WBC 20-50 H Ur Epithelial Cells Few Urine Crystals Rare calcium oxalate Urine Bacteria Many Urine Casts Negative Urine Mucus Negative Ur Culture Indicated? Yes Urine Glucose Negative COVID-19 Source SARS-CoV-2 (PCR) Influenza Type A (PCR) Influenza Type B (PCR) RSV (PCR) 06/24/20 06/24/20 06/24/20 14:00 14:00 16:56 WBC RBC Hgb Hct MCV MCH MCHC RDW Plt Count MPV Immature Gran % Neutrophils % Lymphocytes % Monocytes % Eosinophils % Basophils % Nucleated RBC % Absolute Neutrophils Absolute Lymphocytes Absolute Monocytes Absolute Eosinophils Absolute Basophils PT 10.1 INR 1.0 APTT Sodium Potassium Chloride Carbon Dioxide Anion Gap BUN Creatinine Estimated GFR/1.73 m2 Glucose Calcium Magnesium Total Bilirubin AST ALT Alkaline Phosphatase Troponin I 2.71 H* NT-Pro-B Natriuret Pep 267 Total Protein Albumin Triglycerides Total Cholesterol LDL Cholesterol, Calc HDL Cholesterol Urine Color Urine Clarity Urine pH Ur Specific [place] Urine Protein Urine Ketones Urine Blood Urine Nitrite Urine Bilirubin Urine Urobilinogen Ur Leukocyte Esterase Urine RBC Urine WBC Ur Epithelial Cells Urine Crystals Urine Bacteria Urine Casts Urine Mucus Ur Culture Indicated? Urine Glucose COVID-19 Source SARS-CoV-2 (PCR) Influenza Type A (PCR) Influenza Type B (PCR) RSV (PCR) 06/24/20 06/25/20 06/25/20 19:22 00:55 06:15 WBC RBC Hgb Hct MCV MCH MCHC RDW Plt Count MPV Immature Gran % Neutrophils % Lymphocytes % Monocytes % Eosinophils % Basophils % Nucleated RBC % Absolute Neutrophils Absolute Lymphocytes Absolute Monocytes Absolute Eosinophils Absolute Basophils PT INR APTT 62.4 H Sodium Potassium Chloride Carbon Dioxide Anion Gap BUN Creatinine Estimated GFR/1.73 m2 Glucose Calcium Magnesium Total Bilirubin AST ALT Alkaline Phosphatase Troponin I NT-Pro-B Natriuret Pep Total Protein Albumin Triglycerides 103 Total Cholesterol 179 LDL Cholesterol, Calc 104 H HDL Cholesterol 55 Urine Color Urine Clarity Urine pH Ur Specific [place] Urine Protein Urine Ketones Urine Blood Urine Nitrite Urine Bilirubin Urine Urobilinogen Ur Leukocyte Esterase Urine RBC Urine WBC Ur Epithelial Cells Urine Crystals Urine Bacteria Urine Casts Urine Mucus Ur Culture Indicated? Urine Glucose COVID-19 Source Nasal/nares SARS-CoV-2 (PCR) Negative Influenza Type A (PCR) Negative Influenza Type B (PCR) Negative RSV (PCR) Negative 06/25/20 06/25/20 06:15 06:15 WBC RBC Hgb Hct MCV MCH MCHC RDW Plt Count MPV Immature Gran % Neutrophils % Lymphocytes % Monocytes % Eosinophils % Basophils % Nucleated RBC % Absolute Neutrophils Absolute Lymphocytes Absolute Monocytes Absolute Eosinophils Absolute Basophils PT INR APTT 42.7 H D Sodium Potassium Chloride Carbon Dioxide Anion Gap BUN Creatinine Estimated GFR/1.73 m2 Glucose Calcium Magnesium Total Bilirubin AST ALT Alkaline Phosphatase Troponin I 1.83 H* NT-Pro-B Natriuret Pep Total Protein Albumin Triglycerides Total Cholesterol LDL Cholesterol, Calc HDL Cholesterol Urine Color Urine Clarity Urine pH Ur Specific [place] Urine Protein Urine Ketones Urine Blood Urine Nitrite Urine Bilirubin Urine Urobilinogen Ur Leukocyte Esterase Urine RBC Urine WBC Ur Epithelial Cells Urine Crystals Urine Bacteria Urine Casts Urine Mucus Ur Culture Indicated? Urine Glucose COVID-19 Source SARS-CoV-2 (PCR) Influenza Type A (PCR) Influenza Type B (PCR) RSV (PCR)
[2020-06-25] MEDS: nitroGLYcerin 0.4 MG TAB SL (08:53)
[2020-06-25] MEDS: Normal Saline 250 ML IV ×2 (08:54→10:09)
[2020-06-25 09:26] LABS: Anion Gap 9.5 mmol/L (3-11); BUN 15 mg/dL (7-18); CO2 25.5 mmol/L (21.0-32.0); CREATININE 0.6 mg/dL (0.55-1.02); Chloride 108 mmol/L (98-107); Glucose 88 mg/dL (74-106); Potassium 3.4 mmol/L (3.5-5.1); Sodium 143 mmol/L (136-145)
[2020-06-25] MEDS: Potassium Chloride 20 MEQ TABCR 40 MEQ PO (11:16)
--- NOTE | 2020-06-25 11:18 | DSE_ITS ---
Date of service: 06/25/20 Time of Service: 11:19 DS: Diagnosis Discharge Diagnosis (1) Non-ST elevation IL (NSTEMI): Status: Acute (2) Hypotension: Status: Acute (3) Dehydration: Status: Acute (4) Hypokalemia: Status: Acute (5) Hyperlipidemia: Status: Chronic (6) Asymptomatic bacteriuria: Status: Acute (7) Hypertension: Status: Chronic Asessment and Plan: history of. Presently borderline hypotensive. (8) COVID-19 ruled out by laboratory testing: Status: Ruled-out Discharge Plan Disposition Patient Disposition: [facility] Condition: Serious Discharge Details Reason For Visit: NSTEMI Admit Date/Time: 06/24/20 19:10 Admit Provider: Nicholas Espinoza Attending Provider: Nicholas Espinoza Primary Care Provider: Alfonso Bonilla [facility] Hospital Course: Ms Colbert is an 85 year old female with PMHx of hypertension, hyperlipidemia (with statin allergy), pulmonary hypertension with RVSP of 26.5 mmHg by echo in 10/2019, and obesity with BMI of 36.6, who was admitted to [facility] ICU on 06/24/2020 under the hospitalist service for an NSTEMI. She had presented to [facility] with weakness and falls. Her initial troponin was 0.99, which then went up to 2.71, and then down to 1.83. Her EKGs have been negative for any obvious acute ischemia with very slight nonspecific St-T changes diffusely. Her chest pain is relieved with nitroglycerin. She has been borderline hypotensive but responsive to IVF. She has not had any arrhythmic events on the monitor. She is being treated with aspirin, plavix, and IV heparin. She was accepted in transfer by Dr Orellana of [facility] cardiology for evaluation for a cardiac cath. Of note, the patient has a positive UA, but no dysuria/frequncy. For this reason, she is not being treated with antibiotics. Total Critical Care Time 35 minutes. For current inpatient medications, please see MAR. Home Meds and New Rx's Prescriptions: No Action calcium carb,[id number] D3 500-250-200 mg-mg-unit tablet PO DAILY RF: 0 magnesium 250 mg tablet 250 mg PO DAILY RF: 0 docusate sodium [Colace] 100 mg capsule 100 mg PO DAILY RF: 0 acetaminophen [Tylenol] 325 mg capsule 975 mg PO QID PRNRF: 0 latanoprost 0.005 % drops 1 drp OU HS Qty: 2.5 RF: 5 furosemide 20 mg tablet 20 mg PO QAM Qty: 90 RF: 1 alendronate 70 mg tablet 70 mg PO QWEEK Qty: 13 RF: 3 losartan 50 mg tablet 50 mg PO DAILY Qty: 90 RF: 3 aspirin [Aspir-81] 81 MG tablet,delayed release (DR/EC) 1 tab PO DAILY RF: 0 vitamin B complex 1 EACH capsule 1 cap PO DAILY RF: 0 ascorbic acid-ascorbate sodium 500 MG wafer 1 tab PO DAILY RF: 0 Discharge Instructions Referrals: Alfonso Bonilla [Primary Care Provider] - Barry Worley MD [MD CONSULTING PHYSICIAN] - Activity:: bedrest Diet:: NPO Discharge Orders Discharge Orders: Discharge Order (Routine); Ordered 06/25/20 Ordered By: Luisa Bethea DS: Summary Time Spent with Patient providing and/or coordinating discharge services: Greater than 30 minutes Status at Discharge Functional status at discharge: bed bound Overall status at discharge: patient is not back to baseline Mental Status: mental status grossly normal Speech and Movement: speech and movement normal Mood: congruent mood Affect: normal affect Exam Narrative Exam Narrative: General: Pleasant elderly female, A&Ox3, laying comfortably in bed HEENT: EOMI, MMM Heart: RRR, no m/r/g Lungs: CTAB Abdomen: soft, nontender, nondistended Extremities: trace edema BLEs. Psych Mental Status: mental status grossly normal Speech and Movement: speech and movement normal Mood: congruent mood Affect: normal affect DS: Data Vitals/I&O Vitals and I&O: Vital Signs Temperature 36.4 C L 06/25/20 08:12 Temperature Source Temporal Artery Scan 06/25/20 08:12 Pulse 67 06/25/20 08:58 Pulse 67 06/25/20 08:58 Respiratory Rate 19 06/25/20 08:58 Respiratory Effort Non-Labored 06/25/20 08:12 Respiratory Depth Normal 06/25/20 08:12 Respiratory Pattern Normal 06/25/20 08:12 Blood Pressure 86/47 L 06/25/20 08:58 Blood Pressure Mean 56 06/25/20 08:58 Blood Pressure Position Supine 06/25/20 08:12 Pulse Oximetry 93 06/25/20 08:12 Oxygen Delivery Method Room Air 06/25/20 08:12 Oxygen Flow Rate 0 06/25/20 08:12 Pain Level 1 06/25/20 09:01 Comment 06/25/20 04:35 Intake & Output 06/24/20 06/24/20 06/25/20 11:59 23:59 11:59 Intake Total 43 / 43 1666.1 / 1666.1 Output Total 1999 250 / 250 Balance -195 / -1956 1416.1 / 1416.1 Weight 99.7 kg Intake: IV 43 / 43 1576.1 / 1576.1 Oral 90 / 90 Output: Urine 1999 250 / 250 Other: Urine Color Pale Light Edith Yellow Urine Appearance Clear Sediment Comment bella patent Bella catheter intact and draining clear yellow urine with sediment. Data Completed and Pending Completed studies during hospitalization [Text1]: EKG #1: HR 74, NSR, Nonspecific ST-T changes EKG #2: HR 69, NSR, nonspecific ST-T changes are less pronounced, no acute ischemia CXR: No evidence of acute process. Labs on day of discharge: Labs from last 24 hours 06/25/20 06/25/20 06/25/20 06:15 06:15 06:15 WBC RBC Hgb Hct MCV MCH MCHC RDW Plt Count MPV Immature Gran % Neutrophils % Lymphocytes % Monocytes % Eosinophils % Basophils % Nucleated RBC % Absolute Neutrophils Absolute Lymphocytes Absolute Monocytes Absolute Eosinophils Absolute Basophils PT INR APTT 42.7 H D Sodium 143 Potassium 3.4 L Chloride 108 H Carbon Dioxide 25.5 Anion Gap 9.5 BUN 15 Creatinine 0.6 Estimated GFR/1.73 m2 >= 60.00 Glucose 88 Calcium 9.0 Magnesium 2.0 Total Bilirubin AST ALT Alkaline Phosphatase Troponin I 1.83 H* NT-Pro-B Natriuret Pep Total Protein Albumin Triglycerides Total Cholesterol LDL Cholesterol, Calc HDL Cholesterol Urine Color Urine Clarity Urine pH Ur Specific [place] Urine Protein Urine Ketones Urine Blood Urine Nitrite Urine Bilirubin Urine Urobilinogen Ur Leukocyte Esterase Urine RBC Urine WBC Ur Epithelial Cells Urine Crystals Urine Bacteria Urine Casts Urine Mucus Ur Culture Indicated? Urine Glucose COVID-19 Source SARS-CoV-2 (PCR) Influenza Type A (PCR) Influenza Type B (PCR) RSV (PCR) 06/25/20 06/25/20 06/24/20 06:15 00:55 19:22 WBC RBC Hgb Hct MCV MCH MCHC RDW Plt Count MPV Immature Gran % Neutrophils % Lymphocytes % Monocytes % Eosinophils % Basophils % Nucleated RBC % Absolute Neutrophils Absolute Lymphocytes Absolute Monocytes Absolute Eosinophils Absolute Basophils PT INR APTT 62.4 H Sodium Potassium Chloride Carbon Dioxide Anion Gap BUN Creatinine Estimated GFR/1.73 m2 Glucose Calcium Magnesium Total Bilirubin AST ALT Alkaline Phosphatase Troponin I NT-Pro-B Natriuret Pep Total Protein Albumin Triglycerides 103 Total Cholesterol 179 LDL Cholesterol, Calc 104 H HDL Cholesterol 55 Urine Color Urine Clarity Urine pH Ur Specific [place] Urine Protein Urine Ketones Urine Blood Urine Nitrite Urine Bilirubin Urine Urobilinogen Ur Leukocyte Esterase Urine RBC Urine WBC Ur Epithelial Cells Urine Crystals Urine Bacteria Urine Casts Urine Mucus Ur Culture Indicated? Urine Glucose COVID-19 Source Nasal/nares SARS-CoV-2 (PCR) Negative Influenza Type A (PCR) Negative Influenza Type B (PCR) Negative RSV (PCR) Negative 06/24/20 06/24/20 06/24/20 16:56 14:00 14:00 WBC RBC Hgb Hct MCV MCH MCHC RDW Plt Count MPV Immature Gran % Neutrophils % Lymphocytes % Monocytes % Eosinophils % Basophils % Nucleated RBC % Absolute Neutrophils Absolute Lymphocytes Absolute Monocytes Absolute Eosinophils Absolute Basophils PT 10.1 INR 1.0 APTT Sodium Potassium Chloride Carbon Dioxide Anion Gap BUN Creatinine Estimated GFR/1.73 m2 Glucose Calcium Magnesium Total Bilirubin AST ALT Alkaline Phosphatase Troponin I 2.71 H* NT-Pro-B Natriuret Pep 267 Total Protein Albumin Triglycerides Total Cholesterol LDL Cholesterol, Calc HDL Cholesterol Urine Color Urine Clarity Urine pH Ur Specific [place] Urine Protein Urine Ketones Urine Blood Urine Nitrite Urine Bilirubin Urine Urobilinogen Ur Leukocyte Esterase Urine RBC Urine WBC Ur Epithelial Cells Urine Crystals Urine Bacteria Urine Casts Urine Mucus Ur Culture Indicated? Urine Glucose COVID-19 Source SARS-CoV-2 (PCR) Influenza Type A (PCR) Influenza Type B (PCR) RSV (PCR) 06/24/20 06/24/20 06/24/20 14:00 14:00 14:00 WBC 9.86 RBC 4.01 Hgb 12.3 Hct 38.0 MCV 94.8 MCH 30.7 MCHC 32.4 RDW 12.7 Plt Count 230 MPV 8.7 Immature Gran % 0.4 Neutrophils % 82.8 Lymphocytes % 7.5 Monocytes % 7.6 Eosinophils % 1.3 Basophils % 0.4 Nucleated RBC % 0 Absolute Neutrophils 8.16 H Absolute Lymphocytes 0.74 L Absolute Monocytes 0.75 Absolute Eosinophils 0.13 Absolute Basophils 0.04 PT INR APTT Sodium 143 Potassium 3.5 Chloride 106 Carbon Dioxide 28.3 Anion Gap 8.7 BUN 20 H Creatinine 0.8 Estimated GFR/1.73 m2 >= 60.00 Glucose 97 Calcium 9.7 Magnesium 2.1 Total Bilirubin 0.5 AST 19 ALT 20 Alkaline Phosphatase 80 Troponin I 0.99 H* NT-Pro-B Natriuret Pep Total Protein 6.9 Albumin 3.4 Triglycerides Total Cholesterol LDL Cholesterol, Calc HDL Cholesterol Urine Color Yellow Urine Clarity Sl cloudy Urine pH 6.5 Ur Specific [place] 1.025 Urine Protein 30 H Urine Ketones Negative Urine Blood Negative Urine Nitrite Positive H Urine Bilirubin Negative Urine Urobilinogen 0.2 Ur Leukocyte Esterase Trace H Urine RBC 3-5 H Urine WBC 20-50 H Ur Epithelial Cells Few Urine Crystals Rare calcium oxalate Urine Bacteria Many Urine Casts Negative Urine Mucus Negative Ur Culture Indicated? Yes Urine Glucose Negative COVID-19 Source SARS-CoV-2 (PCR) Influenza Type A (PCR) Influenza Type B (PCR) RSV (PCR) Preliminary micro results at discharge 06/24/20 14:00 Urine Culture - Preliminary Urine - Reflex from Ua Gram Negative [facility] Medical History Glaucoma History of left breast cancer History of right breast cancer Hyperlipidemia Hypertension Left fibular fracture 2018 Melanoma 2017 Obesity Osteoarthritis Pulmonary embolism following a TKR Surgical History History of appendectomy History of melanoma excision History of total left knee replacement (TKR) S/P cholecystectomy Family History Mother , age 100 Heart disease Hypertension Father , age 78 Non-Hodgkin lymphoma Sister Breast cancer Brother Bladder cancer Alcohol abuse Maternal Grandfather , age 58 Heart disease Paternal Grandfather , age 75 No problems noted. Maternal Grandmother , age 63 Thyroid cancer Heart disease Hyperlipidemia Hypertension Stroke Paternal Grandmother , age 93 Heart disease Social History (Updated 06/24/20 @ 22:16 by Nicholas Espinoza) Smoking/Tobacco Use Status: Never Second Hand Exposure: Yes Smoking risk assessment performed?: Yes Alcohol Intake: never Drug use: Never Caregiver/Support person: No Household members: other Details: Sister Housing: house Communication Needs: Hard of Hearing Do you need help understanding health information?: Never Pets and animals: Yes Pets and animals: dog(s) Sexually active: No What is your relationship status?: never How often do you talk on the phone with friends or family?: twice per week How often do you get together with friends or relatives?: twice per week How often do you attend mosque or yarsani services?: 4 or more times per year Do you belong to any clubs or organized social groups?: yes Panel score (0-1 are the most socially isolated patients): 3 What type of physical activity do you participate in: decline to answer Duration: decline to answer Frequency: decline to answer Annia/Confucianism: Yazidism Special annia needs: Yes (abstain from meat on Tuesday) Seatbelt use: always Helmet use: No Drive intox or ride w/intox otr owner operator truck driver: No Do you feel safe at home: Yes (pt states sometimes her and her sister become verbal) Do you feel safe in your relationship?: Yes Additional Social history: Lives in [place], [place] having moved up from [facility]. 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
--- NOTE | 2020-06-25 12:16 | PDOC.CMPRO ---
- If Service Date Differs Date of service: 06/25/20 Time of Service: 12:16 Care Management Progress Note S/O: Per report, Dinorah has been accepted for transfer at [facility] and will be leaving later today. CM met with her while she was lying in her bed in the ICU. She was aware of the transfer, and his happy to be going to a tertiary facility. She stated that she lives with her sister Bette Vallejo, who is a , and they help support each other. 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 She stated that she has a FWW, which she uses to ambulate, has her groceries delivered, and has had out patient PT in the past, but not currently. She is independent with ADL's, but does not drive. She reported that she has been in contact with her sister, who is aware of her transfer. CM will continue to follow. A: Dinorah is an 85 year old female admitted to [facility] on 06/24/20 with NSTEMI. P: Dinorah is being transferred to [facility] today via [facility]. She will be evaluated by [facility] Cardiology for cardiac cath. She is agreeable to this transfer. CM will continue to follow.
--- NOTE | 2020-06-25 16:36 | CHAPLAIN ---
Dinorah was resting in bed when I visited. She shared some personal history, telling me about living in [facility] with her sister who's a few years ago. Dinorah said they bought the property when she was first out of college and vacationed here. Her brother in law's was at the [facility]. Dinorah said is Alevism. She is expecting to be transferred to [facility] later today.
[2020-06-25] MEDS: Normal Saline 500 ML IV (17:00)
[2020-06-25] MEDS: Bisacodyl 5 MG TABEC 10 MG PO (18:47)
[2020-06-25] MEDS: Senna TAB 1 TAB PO (19:54)
[2020-06-25] MEDS: Acetaminophen 325 MG TAB 650 MG PO (22:12)
[2020-06-26] VITALS (49 sets, daily range): BP systolic 90–129; BP diastolic 29–72; PULSE 55–73; RESP 10–29; TEMP 36.1–36.4; O2SAT 90–97
[2020-06-26] MEDS: Normal Saline 250 ML IV (00:46)
[2020-06-26 05:34] LABS: HCT 33.7 % (36.0-46.0); MCH 30.6 pg (27.0-33.0); MCHC 32.6 % (32.0-36.0); MCV 93.6 fL (80-95); MPV 9.3 fL (8.0-11.0); Platelet Count 204 10^3/uL (130-400); RDW 12.8 % (11.7-14.6); RDW-SD 44.2 fL
[2020-06-26 05:54] LABS: PTT Activated 38.8 sec (21.0-27.5)
[2020-06-26 05:55] LABS: Magnesium 1.9 mg/dL (1.8-2.4)
[2020-06-26 06:07] LABS: ALT 16 U/L (14-59); AST 23 U/L (15-37); Albumin 2.7 g/dL (3.4-5.0); Alkaline Phosphatase 66 U/L (46-116); Anion Gap 8.7 mmol/L (3-11); BUN 12 mg/dL (7-18); Bilirubin, Total 0.4 mg/dL (0.2-1.0); CO2 25.3 mmol/L (21.0-32.0); CREATININE 0.8 mg/dL (0.55-1.02); Calcium 8.7 mg/dL (8.5-10.1); Chloride 107 mmol/L (98-107); Glucose 102 mg/dL (74-106); Potassium 3.9 mmol/L (3.5-5.1); Sodium 141 mmol/L (136-145); Total Protein 5.8 g/dL (6.4-8.2)
[2020-06-26] MEDS: POTASSIUM CHLORIDE/D5-0.45NACL 1,000 ML 75 MEQ IV (07:55)
[2020-06-26] MEDS: Aspirin E.C. 81 MG TABEC PO (08:06)
[2020-06-26] MEDS: Clopidogrel 75 MG TAB PO (08:06)
[2020-06-26] MEDS: Magnesium Oxide 400 MG TAB PO (08:06)
[2020-06-26] MEDS: Calcium 600mg/Vit D 200U TAB 1 TAB PO (08:06)
[2020-06-26] MEDS: Vitamins B Comp w/C TAB 1 TAB PO (08:07)
[2020-06-26] MEDS: Senna TAB 1 TAB PO (08:07)
[2020-06-26] MEDS: Docusate Sodium 100 MG CAP PO (08:07)
--- NOTE | 2020-06-26 08:17 | W.PM.PROGNOT ---
Subjective Subjective Interval history since last seen: Had an episode of feeling claustrophobic, short of breath, anxious. Sat at the side of the bed. Vomited 100 cc of bile. No chest pain with it. No changes on monitor. 90/50 overnight - got 250 cc bolus. SBP 120s this am. O2 sats remains in the 90s. Objective Last Vital Signs Temp 36.2 C L 06/26/20 03:49 Pulse 61 06/26/20 04:00 Resp 19 06/26/20 05:20 BP 122/72 06/26/20 04:00 Pulse Ox 94 06/26/20 05:20 Laboratory Results - last 24 hr 06/25/20 06/26/20 06/26/20 06:15 05:25 05:25 WBC RBC Hgb Hct MCV MCH MCHC RDW Plt Count MPV APTT 38.8 H Sodium 143 Cancelled Potassium 3.4 L Cancelled Chloride 108 H Cancelled Carbon Dioxide 25.5 Cancelled Anion Gap 9.5 Cancelled BUN 15 Cancelled Creatinine 0.6 Cancelled Estimated GFR/1.73 m2 >= 60.00 Cancelled Glucose 88 Cancelled Calcium 9.0 Cancelled Magnesium 2.0 1.9 Total Bilirubin AST ALT Alkaline Phosphatase Troponin I 0.50 H* Total Protein Albumin 06/26/20 06/26/20 05:25 05:25 WBC 8.30 RBC 3.60 L Hgb 11.0 L Hct 33.7 L MCV 93.6 MCH 30.6 MCHC 32.6 RDW 12.8 Plt Count 204 MPV 9.3 APTT Sodium 141 Potassium 3.9 Chloride 107 Carbon Dioxide 25.3 Anion Gap 8.7 BUN 12 Creatinine 0.8 Estimated GFR/1.73 m2 >= 60.00 Glucose 102 Calcium 8.7 Magnesium Total Bilirubin 0.4 AST 23 ALT 16 Alkaline Phosphatase 66 Troponin I Total Protein 5.8 L Albumin 2.7 L
[2020-06-26] MEDS: Normal Saline Flush 10 ML SYR IVP (08:43)
--- NOTE | 2020-06-26 11:00 | DI.US_ITS ---
EXAM: US EXTREMITY VENOUS BI CLINICAL HISTORY: h/o DVT; here with elevated troponin; ?DVT. TECHNIQUE: Bilateral lower extremity venous ultrasound performed using grayscale, color-flow, and sp ectral Doppler analysis. COMPARISON: No exams were available for comparison FINDINGS: The bilateral common femoral, femoral and popliteal veins demonstrate normal compressibility, augment ation, and color Doppler. The posterior tibial veins are patent. The saphenofemoral junctions are unr emarkable. There is no evidence of a Hanson's cyst. The soft tissues are unremarkable. IMPRESSION: Right: Negative for DVT Left: Negative for DVT DATA REPOSITORY:
[2020-06-26 12:09] LABS: D-Dimer 1098 ng/mlFEU (<500)
--- NOTE | 2020-06-26 12:35 | TELEFU_ITS ---
Date of service: 06/26/20 Time of Service: 12:35 Nutritional Follow up NOTE: 85 year old female admitted with NSTEMI, awaiting transfer to [facility]: obesity, HTN. Following heart healthy diet with excellent intake (>75%). Not considered at nutritional risk at this time. will continue to follow. Time Spent in Nutritional Counseling and Treatment: 0
[2020-06-26 13:54] LABS: PTT Activated 56.5 sec (21.0-27.5)
--- NOTE | 2020-06-26 16:47 | CMPROGNOTE_ITS ---
- If Service Date Differs Date of service: 06/26/20 Time of Service: 16:47 Care Management Progress Note S/O: CM met with Dinroah this morning before she transferred to [facility] for possible cardiac cath. She was pleasant and engaged in conversation. She reported that she is feeling much better today, and is anticipating her transfer. She stated that she would call her sister once she knew when she was leaving. CM will continue to follow. A: Dinorah is an 85 year old female admitted to [facility] on 06/24/20 with NSTEMI. P: Dinorah is being transferred to [facility] today via [facility]. She will be evaluated by [facility] for cardiac cath. She is agreeable to this transfer. CM will continue to follow.
--- NOTE | 2020-06-26 16:47 | PDOC.CMPRO ---
- If Service Date Differs Date of service: 06/26/20 Time of Service: 16:47 Care Management Progress Note S/O: CM met with Dinorah this morning before she transferred to [facility] for possible cardiac cath. She was pleasant and engaged in conversation. She reported that she is feeling much better today, and is anticipating her transfer. She stated that she would call her sister once she knew when she was leaving. CM will continue to follow. A: Dinorah is an 85 year old female admitted to [facility] on 06/24/20 with NSTEMI. P: Dinorah is being transferred to [facility] today via [facility]. She will be evaluated by [facility] Cardiology for cardiac cath. She is agreeable to this transfer. CM will continue to follow.
== END 2020-06-26 15:30 | disposition short-term general hospital (02) | DRG 282 ==
LOC: ER 19:47 → ICU 20:14
PROVIDERS: Internal Medicine; Registered Nurse Emergency; Admitting Provider Family Medicine; Emergency Provider Physician Assistant; PCP Family Medicine; Visit Provider Family Medicine
DX: I21.4 Non-ST elevation (NSTEMI) myocardial infarction (principal); I10 Essential (primary) hypertension; E66.9 Obesity, unspecified; E78.5 Hyperlipidemia, unspecified; H40.9 Unspecified glaucoma; E87.6 Hypokalemia; Z20.822 Contact with and (suspected) exposure to COVID-19; E86.0 Dehydration; Z85.3 Personal history of malignant neoplasm of breast; Z68.37 Body mass index [BMI] 37.0-37.9, adult; Z86.711 Personal history of pulmonary embolism; R82.71 Bacteriuria
CPT/HCPCS: 36415; 51702; 80048; 80053; 80061; 85027; 87077; 93005; 96365; 96376; 99222; 99285; 99291; 71045; 81003; 81015; 83735; 83880; 84484; 85025; 85379; 85610; 85730; 87086; 87186; 93010; 93306; 93970; 94667

== ENCOUNTER 2020-09-10 02:38 | Outpatient (CLI) | payer MEDICARE, BC, SELFPAY ==
[2020-09-10 14:32] LABS: CREATININE 0.7 mg/dL (0.55-1.02); Potassium 3.9 mmol/L (3.5-5.1)
== END 2020-09-10 02:39 | disposition home or self-care (01) ==
LOC: LBO 02:38
PROVIDERS: PCP Nurse Practitioner; Visit Provider Nurse Practitioner
DX: I50.9 Heart failure, unspecified (principal); I10 Essential (primary) hypertension
CPT/HCPCS: 36415; 82565; 84132

== ENCOUNTER → 2020-09-12 10:38 | Outpatient (BNVA) | payer MEDICARE, BC, SELFPAY | PROVIDERS: PCP Nurse Practitioner; Referring Provider Nurse Practitioner; Visit Provider Internal Medicine Cardiovascular Disease | DX: I25.2 Old myocardial infarction (principal); I10 Essential (primary) hypertension; E78.5 Hyperlipidemia, unspecified; E66.9 Obesity, unspecified; R60.0 Localized edema | CPT/HCPCS: 99204; 99215 ==

== ENCOUNTER 2020-10-23 15:56 | Outpatient (CLI) | payer MEDICARE, BC, SELFPAY ==
--- NOTE | 2020-10-23 11:30 | DI.RAD_ITS ---
Exam(s) XR ANKLE RT COMPLETE EXAM: XR ANKLE RT COMPLETE CLINICAL HISTORY: ankle pain. TECHNIQUE: 2D digital imaging was performed. COMPARISON: CR LEFT ANKLE COMPLETE from 08/31/2017 FINDINGS: Three views of the right ankle reveal no evidence of fracture nor widening of the ankle mortise. How ever, there is advanced pes planus. Also significant degenerative changes in the talonavicular and c alcaneocuboid joints as well as joints of the midfoot. Talar dome appears unremarkable. There appea rs to be an element of eversion of the foot. IMPRESSION: DATA REPOSITORY: RADIATION DOSE DELIVERED:
== END 2020-10-23 15:57 | disposition home or self-care (01) ==
LOC: DIORS 15:57
PROVIDERS: PCP Nurse Practitioner; Referring Provider Nurse Practitioner; Visit Provider Student in an Organized Health Care Education/Training Program
DX: M21.41 Flat foot [pes planus] (acquired), right foot (principal); I10 Essential (primary) hypertension; M25.571 Pain in right ankle and joints of right foot
CPT/HCPCS: 99214; 73610

== ENCOUNTER 2020-11-17 00:49 | Outpatient (CLI) | payer MEDICARE, BC, SELFPAY ==
--- NOTE | 2020-11-17 07:00 | DI.MAMMO_ITS ---
Exam(s) MG MAMMO SCREENING 60 MIN DUR EXAM: MG MAMMO SCREENING UNILATERAL LEFT CLINICAL HISTORY: breast cancer screening, PERSONAL H/O BREAST CA,Z85.3. TECHNIQUE: Bilateral full field digital CC and MLO mammographic images were obtained with 3D tomosyn thesis and utilizing computer aided detection (CAD). COMPARISON: Prior mammogram performed 08/15/2018, this being the only prior mammogram available. Th is patient has had prior right mastectomy and left lumpectomy for bilateral malignancies. . FINDINGS: Scarring and architectural distortion in the upper-outer quadrant of the left breast is unchanged fro 2018. Few benign microcalcifications in this area are unchanged. Also benign-appearing micro and macrocalcifications are again noted elsewhere in the breast. There are no new spiculated masses nor new malignant appearing microcalcification groups. IMPRESSION: Stable appearance of left breast lumpectomy site. No radiographic evidence of malignancy in left ubaldo ast. There has been previous right mastectomy. BI-RADS Category 2 - Benign Findings Breast Density - Category B - Scattered areas of fibroglandular density Breast density Category C or D implies that the patient has dense breast tissue. Dense breast tissue can make it harder to find cancer on a mammogram. Dense breast tissue is also associated with an incr eased risk of breast cancer. This information about the result of the mammogram report was provided to the patient to raise their awareness. Use this report when you speak with the patient about their risks for breast cancer, which includes their family history. At that time, you may recommend additional screening tests (Ultrasoun d or MRI) as these tests may add significant information. A negative radiographic report should not delay biopsy if a dominant or clinically suspicious mass is present. Up to ten percent of cancers are not identified on mammography. A negative report may reinforce clinical impression. Adenosis and dense breasts may obscure an underlying neoplasm. False positive reports average 6 to 10%. Patient will receive a letter notifying them of these results.
== END 2020-11-17 01:09 ==
PROVIDERS: PCP Nurse Practitioner; Visit Provider Nurse Practitioner
DX: Z12.31 Encounter for screening mammogram for malignant neoplasm of breast (principal); R92.8 Other abnormal and inconclusive findings on diagnostic imaging of breast; Z85.3 Personal history of malignant neoplasm of breast; Z90.13 Acquired absence of bilateral breasts and nipples
CPT/HCPCS: 77063; 77067

== ENCOUNTER 2020-12-04 02:39 | Outpatient (CLI) | payer MEDICARE, BC, SELFPAY ==
--- NOTE | 2020-12-04 06:45 | DI.DEXA_ITS ---
Exam(s) XR DEXA BONE DENSITY W/WO SIRISHA EXAM: XR DEXA BONE DENSITY W/WO SIRISHA CLINICAL HISTORY: osteopenia,osteoporosis, m81.0 TECHNIQUE: COMPARISON: No exams were available for comparison FINDINGS: Lateral Spine Image: Unremarkable. No compression deformities identified. Left hip: Total T-Score: -0.7 Total Z-Score: 1.6 T- and Z-scores: Within normal limits. Lumbar Spine: Total T-Score: 2.2 Total Z-Score: 5.1 T- and Z-scores: Within normal limits. IMPRESSION: No evidence of osteoporosis.
== END 2020-12-04 02:59 ==
PROVIDERS: PCP Nurse Practitioner; Visit Provider Nurse Practitioner
DX: M85.80 Other specified disorders of bone density and structure, unspecified site (principal)
CPT/HCPCS: 77080

== ENCOUNTER → 2021-03-12 10:52 | Outpatient (BNVA) | payer MEDICARE, BC, SELFPAY | PROVIDERS: PCP Nurse Practitioner; Referring Provider Nurse Practitioner; Visit Provider Internal Medicine Cardiovascular Disease | DX: R60.9 Edema, unspecified (principal); I21.4 Non-ST elevation (NSTEMI) myocardial infarction; E78.5 Hyperlipidemia, unspecified; I10 Essential (primary) hypertension; Z79.899 Other long term (current) drug therapy | CPT/HCPCS: 99214; 99213 ==

== ENCOUNTER 2021-04-22 19:06 | Inpatient (IN) | payer MEDICARE, BC, SELFPAY ==
[2021-04-22] VITALS (39 sets, daily range): BP systolic 65–133; BP diastolic 41–53; PULSE 59–98; RESP 18–34; TEMP 37.1; O2SAT 92–96
--- NOTE | 2021-04-22 19:00 | RT.EKG_ITS ---
APPROVED REPORT Exam: Resting ECG Reason for Exam: [facility] Patient Location: E HR:96 bpm ECG Measurements Heart Rate 96 AXIS MI 160 P 68 QRSd 89 QRS 34 QT 322 T 73 QTc 408 Conclusion Sinus rhythm. Borderline repol abnormality, diffuse leads...ST dep, T flat/neg, ant/lat/inf
--- NOTE | 2021-04-22 20:53 | W.ED.GENAD ---
Discharge Plan Disposition Patient Disposition: [facility] INPATIENT Condition: Stable Discharge Details Clinical Impression: Bacteremia, Hypomagnesemia, Hypokalemia, Generalized weakness Admit Date/Time: 04/23/21 00:29 Admit Provider: Nicholas Baron Attending Provider: Nicholas Baron Primary Care Provider: Luisa Rivera ED Provider: Michael Perdomo Discharge Data Discharge Date/Time-TO BE ENTERED AT DEPARTURE: 04/23/21 01:40 Medical Decision Making Patient presenting to the emergency department via EMS for chief complaint of not feeling well. She states that after receiving medication to dilate her eyes at the eye doctor today she began feeling nausea vomiting, chest discomfort, and generalized weakness. She does states she has had bilateral lower extremity edema that has been going on for months with some crusting and erythema but has not rapidly changed recently. EMS did report poor social situation living with elderly sibling and concern for wellbeing of patient at home. Physical exam shows bilateral lower extremity edema with what appears to be venous stasis type wounds to the anterior shins that are chronic in nature. Lungs are clear and regular S1-S2. Patient is neurologically intact with no focal findings except for generalized weakness. Plan to perform labs and ekg. Please see provider's review of EKG. Review of labs show slightly elevated troponin without EKG findings to suggest STEMI. Leukocytosis/bandemia, elevated lactate, hypomagnesemia, hypokalemia. Ordered chest abdomen pelvis CT due to elevated white count and lactate. Plan to give patient IV fluids along with potassium and magnesium replacements. Patient remained stable with no new or worsening complaint. Received results from CT image of the chest abdomen pelvis per radiologist showed no acute findings. We are still pending urinalysis but suspect bacteremia given high white count with bandemia and elevated lactate so plan to treat with broad-spectrum antibiotic pending blood cultures. Still pending repeat troponin but review of previous labs shows patient has had NSTEMI in the past. Comparatively today's troponin is only mildly elevated. Repeat troponin is lower than initial troponin. Patient is agreeable to admission. Called and spoke to Dr. Baron who is willing to admit the patient and ER admission orders were placed per his request. Patient is stable at time of admission order placement and states no further complaints or changing complaint. Lab Data Labs: Abnormal Labs 04/22/21 04/22/21 04/22/21 20:47 20:47 20:47 WBC 22.79 H MCV 95.7 H MCHC 31.9 L Absolute Neutrophils 21.42 H Absolute Lymphocytes 0.23 L Absolute Monocytes 0.91 H VBG Lactate 2.7 H* Potassium 2.9 L Anion Gap 11.6 H BUN 23 H Calcium 10.2 H Magnesium 1.7 L Troponin I 195 H* Albumin 3.3 L Urine Blood Urine Nitrite 04/22/21 04/22/21 23:10 23:27 WBC MCV MCHC Absolute Neutrophils Absolute Lymphocytes Absolute Monocytes VBG Lactate Potassium Anion Gap BUN Calcium Magnesium Troponin I 170 H* Albumin Urine Blood Trace-lysed H Urine Nitrite Positive H 04/22/21 23:27 Urine - Reflex from Ua Urine Culture - Final Escherichia coli HPI General Mode of arrival: EMS. Date/Time Provider Initiated Documentation: 04/22/21 19:23. Limitations to Documentation: no limitations. Information obtained by: patient and family. History of Present Illness 86 year old F presents to the emergency department with the chief complaint of N/V generalized weakness, chest tightness, described as mild, with intensity rated at 3. Quality is described as other (thightness), and is localized to the chest. Patient reports no radiation. Patient started experiencing this hour(s) (7) and it has been constant. No relieving factors improve symptom(s), Other factors that worsen symptoms (Eye dilation medication eye doctors) . Patient notes malaise and weakness. Patient did receive the following treatments prior to arrival, none Related Data Home Medications Medication Instructions Recorded Confirmed ascorbic acid-ascorbate sodium 1 wafer PO DAILY 08/16/17 04/23/21 calcium carb,citrat 500 tab PO DAILY tab 06/04/19 03/26/21 mg-magnesium #12 250 mg-vit D3 200 unit tablet magnesium 250 mg tablet 250 mg PO DAILY 06/04/19 04/23/21 docusate sodium 100 mg capsule 100 mg PO DAILY 12/14/19 04/23/21 latanoprost 0.005 % eye drops 1 drp OU HS #2.5 ml 07/03/20 04/23/21 metoprolol succinate 25 mg 25 mg PO DAILY #90 tab 07/03/20 04/23/21 tablet,extended release 24 hr rosuvastatin 5 mg tablet 5 mg PO .Every other day #90 tab 07/03/20 04/23/21 furosemide 20 mg tablet 20 mg PO BID #180 tab 08/22/20 04/23/21 Ankle Foot Orthosis #1 ea 10/29/20 03/26/21 losartan 50 mg tablet 50 mg PO DAILY #90 tab 03/26/21 04/23/21 aspirin 81 mg PO DAILY 04/23/21 04/23/21 Previous Rx's Medication Instructions Recorded latanoprost 0.005 % eye drops 1 drp OU HS #2.5 ml 07/03/20 metoprolol succinate 25 mg 25 mg PO DAILY #90 tab 07/03/20 tablet,extended release 24 hr rosuvastatin 5 mg tablet 5 mg PO .Every other day #90 tab 07/03/20 furosemide 20 mg tablet 20 mg PO BID #180 tab 08/22/20 Ankle Foot Orthosis #1 ea 10/29/20 losartan 50 mg tablet 50 mg PO DAILY #90 tab 03/26/21 Allergies Allergy/AdvReac Type Severity Reaction Status Date / Time demeclocycline HCl Allergy Intermediate Hives Verified 03/26/21 11:55 [From Declomycin] acetaminophen [From Percocet] Allergy Mild Hives Verified 03/26/21 11:55 oxycodone [From Percocet] Allergy Mild Hives Verified 03/26/21 11:55 Penicillins Allergy Mild Hives Verified 03/26/21 11:55 [id number] Reductase AdvReac Intermediate nauesa Verified 03/26/21 11:55 Inhibitor /vomiting [Jmrleem-Tqk-Fxm Reductase Inhibitor] General Stated Complaint: Nausea/Vomit/Diar ADE: 3 Review of Systems Constitutional Constitutional: Denies fever(s), Reports malaise and Reports weakness Eyes Eyes: Reports blurry vision ENT Ears, Nose, Mouth, and Throat: Reports disequilibrium Cardiovascular Cardiovascular: Reports chest pain, Denies syncope, Reports pedal edema, Reports leg ulcers, Reports leg edema and Reports dyspnea Respiratory Respiratory: Denies chest congestion, Denies cough and Reports dyspnea Gastrointestinal Gastrointestinal: Denies abdominal pain, Reports nausea and Denies vomiting Genitourinary Genitourinary: Denies dysuria and Denies urinary urgency Musculoskeletal Musculoskeletal: Reports other (leg pain) Integumentary/Breasts Skin/Breast: Reports non-healing lesions and Reports wounds Neurologic Neurologic: Denies syncope, Reports disequilibrium and Reports weakness PFSH All Active Problems (Updated 04/24/21 @ 15:32 by Teodoro Hernandes) Wheezing (Acute) UTI (urinary tract infection) (Acute) Painful total knee replacement, left (Acute) Elevated troponin (Acute) Sepsis (Acute) Cellulitis (Acute) Bacteremia (Acute) Hypomagnesemia (Acute) Hypokalemia (Acute) Generalized weakness (Acute) Right knee pain (Acute) 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) Pes planus of right foot (Acute) Edema (Acute) Non-ST elevation IN (NSTEMI) (Acute) Hyperlipidemia (Chronic) Obesity (Chronic) Osteoarthritis (Chronic) Hypertension (Chronic) Medical History Glaucoma History of left breast cancer History of right breast cancer Left fibular fracture 2018 Melanoma 2017 Pulmonary embolism following a TKR Surgical History History of appendectomy History of melanoma excision History of total left knee replacement (TKR) S/P cholecystectomy S/P total knee replacement right 11/12/2019 Family History Mother , age 100 Heart disease Hypertension Dementia Father , age 78 Non-Hodgkin lymphoma Hyperlipidemia Sister Breast cancer Brother Bladder cancer Alcohol abuse Maternal Grandfather , age 58 Heart disease Paternal Grandfather , age 75 No problems noted. Maternal Grandmother , age 63 Thyroid cancer Heart disease Hyperlipidemia Hypertension Stroke Paternal Grandmother , age 93 Heart disease Social History Smoking/Tobacco Use Status: Never Second Hand Exposure: Yes Smoking risk assessment performed?: Yes Alcohol Intake: never Drug use: Never Substance use type: does not use Caregiver/Support person: No Household members: family and other Details: Sister Housing: house Communication Needs: Corrective Lenses Do you need help understanding health information?: Never Pets and animals: Yes Pets and animals: dog(s) Sexually active: No Do you think of yourself as: straight/heterosexual Current gender identity: female What is your relationship status?: never How often do you talk on the phone with friends or family?: three or more times per week How often do you get together with friends or relatives?: twice per week How often do you attend druze or adventist services?: 4 or more times per year Do you belong to any clubs or organized social groups?: yes Panel score (0-1 are the most socially isolated patients): 3 Duration: 45-60 minutes/day Frequency: daily Annia/Mormon: Zoroastrian Special annia needs: Yes (priestly visits for [employer] administrator, [facility]) Seatbelt use: always Helmet use: No Drive intox or ride w/intox hazmat cdl driver: No Do you feel safe at home: Yes (pt states sometimes her and her sister become verbal) Do you feel safe in your relationship?: Yes Additional Social history: Lives in [place], [place] having moved up from [facility]. 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 [employer] Exam Const General: cooperative, comfortable, no acute distress, not diaphoretic and ill appearing Nutritional Appearance: obese Orientation: alert, awake and oriented x3 Limitations: mental status not altered Neck Neck: normal visual inspection, full ROM, trachea midline, supple and no anterior neck swelling Resp Effort & Inspection: normal respiratory effort and able to speak in complete sentences Auscultation: clear to auscultation bilaterally Cardio Jugular venous pressure: no JVD Palpation: normal PMI Rate: regular rate Rhythm: regular rhythm Heart Sounds: S1 normal, S2 normal, no click, no gallops, no murmurs and no rubs Bruits: no abdominal aortic bruits and no carotid bruits Pulses: radial pulses present bilaterally 2+ GI Inspection: obesity Palpation: soft and nontender Auscultation: normal bowel sounds Skin General skin exam: crusts (Bilateral anterior lower legs), dry skin and erythema (Bilateral lower extremities) Neuro General: patient alert, patient awake, patient oriented x3, tone normal and moves all extremities Extrem General: edema Laterality: bilateral (lower extremities) Course Vital Signs Vital signs: Vital Signs Temperature 37.1 C 04/22/21 19:16 Pulse 98 H 04/22/21 19:16 Respiratory Rate 18 04/22/21 19:16 Blood Pressure 133/42 L 04/22/21 19:16 Pulse Oximetry 94 04/22/21 19:16 Temperature 37.1 C 04/22/21 19:16 Temperature Source Temporal Artery Scan 04/22/21 19:16 Pulse 98 H 04/22/21 19:16 Respiratory Rate 18 04/22/21 19:16 Respiratory Effort 04/22/21 19:19 Blood Pressure 133/42 L 04/22/21 19:16 Blood Pressure Position Supine 04/22/21 19:16 Pulse Oximetry 94 04/22/21 19:16 Oxygen Delivery Method Room Air 04/22/21 19:16 Oxygen Flow Rate 0 04/22/21 19:16 Pain Level 4 04/22/21 19:16 Lab/Test Results Lab/Test Results: 04/22/21 19:51 Blood Blood Culture - Pending 04/22/21 19:51 Blood Blood Culture - Pending
[2021-04-22 21:06] LABS: Lactate 2.7 mmol/L (0.6-1.4)
[2021-04-22 21:16] LABS: Abs Immature Grans 0.35 10^3/uL (0.0-0.06); HCT 37.9 % (36.0-46.0); HGB 12.1 g/dL (11.2-15.7); MCH 30.6 pg (27.0-33.0); MCHC 31.9 % (32.0-36.0); MCV 95.7 fL (80-95); MPV 8.9 fL (8.0-11.0); Nucleated RBC 0 %; Platelet Count 204 10^3/uL (130-400); RBC 3.96 10^6/uL (3.93-5.22); RDW 13.1 % (11.7-14.6); RDW-SD 46.1 fL; WBC 22.79 10^3/uL (4.4-10.8)
[2021-04-22 21:22] LABS: ALT 19 U/L (14-59); AST 23 U/L (15-37); Albumin 3.3 g/dL (3.4-5.0); Alkaline Phosphatase 74 U/L (46-116); Anion Gap 11.6 mmol/L (3-11); BUN 23 mg/dL (7-18); Bilirubin, Total 0.6 mg/dL (0.2-1.0); CO2 26.4 mmol/L (21.0-32.0); CREATININE 0.9 mg/dL (0.55-1.02); Calcium 10.2 mg/dL (8.5-10.1); Chloride 105 mmol/L (98-107); Estimated GFR 59.51 (mL/min/1.73m2); Glucose 106 mg/dL (74-106); Lipase 74 U/L (73-393); Magnesium 1.7 mg/dL (1.8-2.4); Sodium 143 mmol/L (136-145); Total Protein 6.9 g/dL (6.4-8.2)
[2021-04-22 21:25] LABS: Potassium 2.9 mmol/L (3.5-5.1); Troponin I 195 ng/L (<or=60)
[2021-04-22 21:53] LABS: Absolute Eosinophil Count 0.23 10^3/uL (0.0-0.7); Absolute Lymphocyte Count 0.23 10^3/uL (1.2-3.4); Absolute Monocyte Count 0.91 10^3/uL (0.1-0.8); Absolute Neutrophil Count 21.42 10^3/uL (1.2-6.7); Atypical Lymphocytes % 0; Bands % 3; Diff Comment Manual Differential; RBC Morphology Normal
[2021-04-22] MEDS: MAGNESIUM SULFATE 2 GM/50 ML BAG IVPB (22:07)
[2021-04-22] MEDS: POTASSIUM CHLORIDE 20 MEQ/100 ML BAG 50 MEQ IVPB (22:08)
[2021-04-22] MEDS: Normal Saline 500 ML IV (22:09)
[2021-04-22 22:17] LABS: Source Nasal/Nares
[2021-04-22] MEDS: Omnipaque 350 MG/ML 100 ML BTL IJ (22:17)
--- NOTE | 2021-04-22 22:23 | DI.CT_ITS ---
Exam(s) CT CHEST/ABD/PEL W EXAM: CT CHEST/ABD/PEL W CLINICAL HISTORY: Chest pain, n/v. TECHNIQUE: Imaging Protocol: Axial computed tomography images with coronal and sagittal reformatted images were created and reviewed CONTRAST MATERIAL: Intravenous: Omnipaque 350 Contrast volume:100 ml Oral: None COMPARISON: No exams were available for comparison FINDINGS: CHEST: Images are somewhat blurred by respiratory motion artifact. LUNGS: There is a 7 x 5 millimeter nodular infiltrate in the posterior basal segment of right lower l obe. (Series a 4/image 31) no other significant focal right lung findings. No discrete focal findin gs in the opposite-left lung. No pleural effusions. No findings in trachea and mainstem bronchi. MEDIASTINUM: There is no hilar nor mediastinal adenopathy. Visualized thyroid unremarkable. CARDIAC: Heart size upper normal. No pericardial effusion.Caliber of the thoracic aorta is within no rmal limits. OSSEOUS: No significant osseous lesions.. ABDOMEN: There is no ascites. LIVER: There are 3 benign-appearing cysts in the right hepatic lobe. The largest of these measures 5 .8 x 4.7 cm. No focal findings in the left hepatic lobe. No dilatation of intrahepatic ducts. GALLBLADDER/BILIARY: Gallbladder surgically absent. CBD is not dilated. PANCREAS: No evidence of pancreatic mass nor dilatation of the pancreatic duct. SPLEEN: Spleen is not enlarged. There are no intrasplenic lesions. Splenic and portal veins are pa nt. ADRENALS: There are no significant adrenal masses. KIDNEYS: No calculi nor hydronephrosis. No solid renal masses. No cysts evident. ABDOMINAL AORTA: Abdominal aorta is not enlarged. LYMPH NODES: There is no retroperitoneal nor paraaortic adenopathy. ABDOMINAL WALL: There is anterior abdominal wall fat supraumbilical fat containing containing hernia sac. This does not contain bowel loops. No bowel obstruction evident. There is also left inguinal hernia which contains streaky fat well as a few sub cm lymph nodes. GI: There is no evidence of bowel obstruction. PELVIS: LYMPH NODES: There is no intrapelvic nor inguinal adenopathy. GI: No evidence of appendicitis.No evidence of sigmoid diverticulitis. URINARY BLADDER: No calculi nor masses evident REPRODUCTIVE: Uterus is surgically absent. There are no abnormal adnexal masses nor free fluid. OSSEOUS: No significant osseous lesions. IMPRESSION: 1. There is a 7 x 5 millimeter small nodular infiltrate in the right lower lobe. Appropriate follow- up recommended. No pleural effusions nor intrathoracic adenopathy. 2. There is a left inguinal hernia which contains streaky fat as well as lymph nodes. Correlation wi th site of tenderness recommended. There is no diverticulitis. 3. Previous cholecystectomy and hysterectomy. 4. Benign hepatic cysts noted. Study 1st read by [facility] Final report called by myself to ER physician 04/23/2021 at 8 :05 a.m. RADIATION DOSE DELIVERED: 1,494.78mGy.cm Total DLP DATA REPOSITORY: All CT scans at this facility are submitted to the National Radiology Data Registry (NRDR) Dose Index Registry (DIR) with the [employer] (A[employer]). RADIATION OPTIMIZATION: All CT scans at this facility use at least one of these dose optimization te chniques: automated exposure control; mA and/or kV adjustment per patient size (includes targeted exa ms where dose is matched to clinical indication); or iterative reconstruction.
--- NOTE | 2021-04-22 22:45 | RT.EKG_ITS ---
APPROVED REPORT Exam: Resting ECG Reason for Exam: Chest tightness Patient Location: E HR:81 bpm ECG Measurements Heart Rate 81 AXIS NC 160 P 62 QRSd 99 QRS 34 QT 359 T 58 QTc 416 Conclusion Sinus rhythm...normal P axis, V-rate 60- [address] depression, anterolateral leads...ST <-0.07mV, I aVL V2-V6 Physician: no stemi
--- NOTE | 2021-04-22 23:08 | DI.VRAD_ITS ---
PROCEDURE INFORMATION: Exam: CT Chest With Contrast; Diagnostic Exam date and time: 04/22/2021 10:09 PM Age: 86 years old Clinical indication: Abdominal pain; Generalized; Chest pressure; Patient HX: Chest pain, n/v TECHNIQUE: Imaging protocol: Diagnostic computed tomography of the chest with contrast. 3D rendering (Not supervised by radiologist): MIP and/or 3D reconstructed images were created by the technologist. Radiation optimization: All CT scans at this facility use at least one of these dose optimization techniques: automated exposure control; mA and/or kV adjustment per patient size (includes targeted exams where dose is matched to clinical indication); or iterative reconstruction. Contrast material: OMNI-PAQUE 350; Contrast volume: 100 ml; Contrast route: INTRAVENOUS (IV); COMPARISON: CR XR PORTABLE CHEST AP 06/24/2020 2:52 PM FINDINGS: Lungs: Unremarkable. No consolidation. No masses. Pleural spaces: Unremarkable. No pneumothorax. No pleural effusion. Heart: Unremarkable. No cardiomegaly. No pericardial effusion. Aorta: Unremarkable. No aortic aneurysm. Lymph nodes: Unremarkable. No enlarged lymph nodes. Bones/joints: Unremarkable. No acute fracture. Soft tissues: Unremarkable. IMPRESSION: No acute findings. PROCEDURE INFORMATION: Exam: CT Abdomen And Pelvis With Contrast Exam date and time: 04/22/2021 10:09 PM Age: 86 years old Clinical indication: Abdominal pain; Generalized; Chest pressure; Patient HX: Chest pain, n/v TECHNIQUE: Imaging protocol: Computed tomography of the abdomen and pelvis with contrast. 3D rendering (Not supervised by radiologist): MIP and/or 3D reconstructed images were created by the technologist. Radiation optimization: All CT scans at this facility use at least one of these dose optimization techniques: automated exposure control; mA and/or kV adjustment per patient size (includes targeted exams where dose is matched to clinical indication); or iterative reconstruction. Contrast material: OMNI-PAQUE 350; Contrast volume: 100 ml; Contrast route: INTRAVENOUS (IV); COMPARISON: CR XR PORTABLE CHEST AP 06/24/2020 2:52 PM FINDINGS: Liver: Hepatic cyst. Gallbladder and bile ducts: Status post cholecystectomy. Pancreas: Normal. No ductal dilation. Spleen: Normal. No splenomegaly. Adrenal glands: Normal. No mass. Kidneys and ureters: Normal. No hydronephrosis. Stomach and bowel: Unremarkable. No obstruction. No mucosal thickening. Appendix: No evidence of appendicitis. Intraperitoneal space: Unremarkable. No free air. No significant fluid collection. Vasculature: Unremarkable. No abdominal aortic aneurysm. Lymph nodes: Unremarkable. No enlarged lymph nodes. Urinary bladder: Unremarkable as visualized. Reproductive: Status post hysterectomy. Bones/joints: Unremarkable. No acute fracture. Soft tissues: Unremarkable. IMPRESSION: No acute finding. Dictated and Authenticated by: Ez Leon MD. Ordering:GABINO Rodriguez MD
[2021-04-22 23:16] LABS: COVID-19 PCR Negative (Negative)
[2021-04-22 23:34] LABS: Bilirubin Negative (Negative); Blood Trace-lysed (Negative); Clarity Sl Cloudy (Clear); Glucose Negative (Negative); Ketones Negative (Negative); Leukocyte Esterase Negative (Negative); Nitrite Positive (Negative); Specific Gravity 1.015 (1.005-1.025); Urobilinogen 0.2 EU/dL (Up TO 0.2)
[2021-04-22 23:42] LABS: Troponin I 170 ng/L (<or=60)
[2021-04-22 23:43] LABS: Bacteria Many HPF (Negative); C & S Indicated? Yes; Casts Negative LPF (Negative); Crystals Negative HPF (Negative); Epithelial Cells Few HPF (Negative); Mucus Negative (Negative); RBC 0-2 HPF (0-2)
[2021-04-23] VITALS (37 sets, daily range): BP systolic 98–118; BP diastolic 31–69; PULSE 70–80; RESP 18–37; TEMP 36.2–38.7; O2SAT 89–96
[2021-04-23] MEDS: levoFLOXacin 750 MG/150 ML BAG 100 MG IVPB (00:22)
[2021-04-23] MEDS: Lactated Ringers 1,000 ML 150 ML IV (02:30)
[2021-04-23 03:30] LABS: Lactate 2.7 mmol/L (0.9-1.7)
[2021-04-23 03:41] LABS: Anion Gap 10.5 mmol/L (3-11); BUN 21 mg/dL (7-18); CO2 25.5 mmol/L (21.0-32.0); CREATININE 0.9 mg/dL (0.55-1.02); Calcium 9.4 mg/dL (8.5-10.1); Chloride 106 mmol/L (98-107); Estimated GFR 59.51 (mL/min/1.73m2); Glucose 106 mg/dL (74-106); Potassium 3.4 mmol/L (3.5-5.1); Sodium 142 mmol/L (136-145)
[2021-04-23 03:44] LABS: Troponin I 169 ng/L (<or=60)
--- NOTE | 2021-04-23 06:03 | HPE_ITS ---
Date of service: 04/23/21 Time of Service: 06:03 Assessment and Plan Assessment and plan (1) Hypomagnesemia: Status: Acute Assessment and plan: Her magnesium was replaced in the emergency department. Repeat labs are pending this morning. (2) Hypokalemia: Status: Acute Assessment and plan: Her potassium was low and she was given supplemental potassium in the emergency department. Follow-up potassium is pending for this morning. (3) Generalized weakness: Status: Acute Assessment and plan: This weakness is likely due to urosepsis. I am checking a TSH and CK level this morning. (4) Cellulitis: Status: Acute Assessment and plan: I believe this is a source of her symptoms. She is going to be started on cefazolin this morning. (5) Sepsis: Status: Acute Assessment and plan: She has an elevated white blood cell count as well as an elevated lactate. Both of these will be rechecked this morning. She is receiving intravenous fluids and antibiotics at this time. Blood and urine cultures are pending. (6) Elevated troponin: Status: Acute Assessment and plan: Troponin is slightly elevated on admission and this was repeated today. Electrocardiogram shows slight ST depression in leads II and V4 through V6. This will be repeated today. History of Present Illness History of Present Illness Chief Complaint: weakness and shakiness Narrative: This 86-year-old female came emergency department with some chest tightness, na usea vomiting and weakness. She went to her eye doctor's appointment [facility] yesterday and said she felt fine before going there but she states after her eyes were dilated she began feeling poorly. She had some chest tightness with weakness, nausea and vomiting and dizziness. She presented to the emergency department last night because of the symptoms. She said her eye doctor's appointment was at 11 AM. She began having shakiness of her arms and legs with chills following the appointment. She checked her temperature at home it is about 99.1?F. She says that her sister who she lives with has been sick with the flu. She and her sister both received 2 chronic virus vaccines but has not received a booster yet. The patient did have a NSTEMI in June of this year and went to [facility] and had a cardiac catheterization but she says they did not need to do any stents. She has been having trouble walking for about 1 year. She says she has not talked to her doctor about this problem. 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 She said she is homebound now and is considering moving to an assisted living facility. She acknowledges both she and her sister not well and will likely need more care soon. They do have some friends that help them with various needs that they have. She does not use tobacco or alcohol. She has no children and was never . She did have some central chest discomfort associated with this illness. Emergency department did a CT of her chest abdomen pelvis without any abnormalities noted except for a large hepatic cyst. She has some nitrates in her urine and was treated with levofloxacin. She was noted to have an elevated white blood cell count and an elevated lactate and troponins. Review of Systems Constitutional Constitutional: Reports chills, Denies fever(s), Reports headache(s) and Reports weakness ENT Ears, Nose, Mouth, and Throat: Reports headache(s) Cardiovascular Cardiovascular: Reports chest pain, Denies radiating jaw, neck or arm pain, Denies palpitations and Denies dyspnea Respiratory Respiratory: Denies cough, Denies dyspnea, Denies stridor and Denies wheezing Gastrointestinal Gastrointestinal: Denies abdominal pain, Denies constipation, Denies diarrhea, Reports nausea and Reports vomiting Genitourinary Genitourinary: Denies urinary frequency and Denies difficulty voiding Musculoskeletal Musculoskeletal: Denies back pain and Reports muscle weakness Neurologic Neurologic: Reports headache(s) and Reports weakness Endocrine Endocrine: Denies palpitations Allergic/Immunologic Allergic/Immunologic: Denies wheezing PFSH All Active Problems (Updated 04/23/21 @ 06:44 by Nicholas Baron MD) Elevated troponin (Acute) Sepsis (Acute) Cellulitis (Acute) Bacteremia (Acute) Hypomagnesemia (Acute) Hypokalemia (Acute) Generalized weakness (Acute) Right knee pain (Acute) 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) Pes planus of right foot (Acute) Edema (Acute) Non-ST elevation AK (NSTEMI) (Acute) Hyperlipidemia (Chronic) Obesity (Chronic) Osteoarthritis (Chronic) Hypertension (Chronic) Medical History Glaucoma History of left breast cancer History of right breast cancer Left fibular fracture 2018 Melanoma 2017 Pulmonary embolism following a TKR Surgical History History of appendectomy History of melanoma excision History of total left knee replacement (TKR) S/P cholecystectomy S/P total knee replacement right 11/12/2019 Family History Mother , age 100 Heart disease Hypertension Dementia Father , age 78 Non-Hodgkin lymphoma Hyperlipidemia Sister Breast cancer Brother Bladder cancer Alcohol abuse Maternal Grandfather , age 58 Heart disease Paternal Grandfather , age 75 No problems noted. Maternal Grandmother , age 63 Thyroid cancer Heart disease Hyperlipidemia Hypertension Stroke Paternal Grandmother , age 93 Heart disease Social History Smoking/Tobacco Use Status: Never Second Hand Exposure: Yes Smoking risk assessment performed?: Yes Alcohol Intake: never Drug use: Never Substance use type: does not use Caregiver/Support person: No Household members: family and other Details: Sister Housing: house Communication Needs: Corrective Lenses Do you need help understanding health information?: Never Pets and animals: Yes Pets and animals: dog(s) Sexually active: No Do you think of yourself as: straight/heterosexual Current gender identity: female What is your relationship status?: never How often do you talk on the phone with friends or family?: three or more times per week How often do you get together with friends or relatives?: twice per week How often do you attend gnosticist or yazidism services?: 4 or more times per year Do you belong to any clubs or organized social groups?: yes Panel score (0-1 are the most socially isolated patients): 3 Duration: 45-60 minutes/day Frequency: daily Annia/Sabianist: Christian Special annia needs: Yes ([facility] visits for [facility] administrator, [facility]) Seatbelt use: always Helmet use: No Drive intox or ride w/intox city bus driver: No Do you feel safe at home: Yes (pt states sometimes her and her sister become verbal) Do you feel safe in your relationship?: Yes Additional Social history: Lives in [place], [place] having moved up from [facility]. 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 [employer] Meds Allergies and Home Medications Allergies Allergy/AdvReac Type Severity Reaction Status Date / Time demeclocycline HCl Allergy Intermediate Hives Verified 03/26/21 11:55 [From Declomycin] acetaminophen [From Percocet] Allergy Mild Hives Verified 03/26/21 11:55 oxycodone [From Percocet] Allergy Mild Hives Verified 03/26/21 11:55 Penicillins Allergy Mild Hives Verified 03/26/21 11:55 Tcwkeyp-GNZ-OcH Reductase AdvReac Intermediate nauesa Verified 03/26/21 11:55 Inhibitor /vomiting [Dralxnd-Uyc-Ydw Reductase Inhibitor] Home Medications Medication Instructions Recorded Confirmed Type ascorbic acid-ascorbate sodium 1 tab PO DAILY 08/16/17 03/26/21 History aspirin [Aspir-81] 1 tab PO DAILY 08/16/17 03/26/21 History vitamin B complex 1 cap PO DAILY 08/16/17 03/26/21 History calcium carb,citrat 500 tab PO DAILY tab 06/04/19 03/26/21 History mg-magnesium #12 250 mg-vit D3 200 unit tablet magnesium 250 mg tablet 250 mg PO DAILY 06/04/19 03/26/21 History acetaminophen 325 mg capsule 975 mg PO QID PRN cap 12/14/19 03/26/21 History docusate sodium 100 mg capsule 100 mg PO DAILY 12/14/19 03/26/21 History latanoprost 0.005 % eye drops 1 drp OU HS #2.5 ml 07/03/20 03/26/21 Rx metoprolol succinate 25 mg 25 mg PO DAILY #90 tab 07/03/20 03/26/21 Rx tablet,extended release 24 hr rosuvastatin 5 mg tablet 5 mg PO .Every other day #90 tab 07/03/20 03/26/21 Rx furosemide 20 mg tablet 20 mg PO BID #180 tab 08/22/20 03/26/21 Rx Ankle Foot Orthosis #1 ea 10/29/20 03/26/21 Rx losartan 50 mg tablet 50 mg PO DAILY #90 tab 03/26/21 03/26/21 Rx Exam Const General: cooperative, comfortable, no acute distress, not ill appearing and not lethargic Nutritional Appearance: overweight Orientation: alert, awake and oriented x3 HENMT Head: normal to inspection Ears: hearing grossly normal bilaterally Mouth: mucous membranes dry Throat: posterior oropharynx normal Eyes Eyelids: eyelids normal Pupils: PERRL EOM: EOM intact bilaterally Neck Neck: normal visual inspection and no lymphadenopathy Thyroid: thyroid normal Resp Effort & Inspection: normal respiratory effort and able to speak in complete se ntences Auscultation: clear to auscultation bilaterally, no rales, no rhonchi and no wheezes Cardio Rate: regular rate Rhythm: regular rhythm Heart Sounds: S1 normal, S2 normal and murmur (1/6 LILLY) systolic GI Palpation: soft, no hepatosplenomegaly, not firm and nontender Skin Other: She has chronic venous stasis changes of both lower legs but the left lower extremity has some crusting and erythema over the anterior tobias. There is no sharp demarcation between erythema in the surrounding skin but I do think this represents a cellulitis. Extrem General: no calf tenderness Results Labs Result diagrams: 04/22/21 20:47 04/23/21 03:17 Labs: Laboratory Results - last 24 hr 04/22/21 04/22/21 04/22/21 20:47 20:47 20:47 WBC 22.79 H RBC 3.96 Hgb 12.1 Hct 37.9 MCV 95.7 H MCH 30.6 MCHC 31.9 L RDW 13.1 Plt Count 204 MPV 8.9 Immature Gran % 0.0 Neutrophils % 91.0 Band Neutrophils % 3 Lymphocytes % 1.0 Atypical Lymphs % 0 Monocytes % 4.0 Eosinophils % 1.0 Basophils % 0.0 Nucleated RBC % 0 Absolute Neutrophils 21.42 H Absolute Lymphocytes 0.23 L Absolute Monocytes 0.91 H Absolute Eosinophils 0.23 Absolute Basophils 0.00 RBC Morphology Normal VBG Lactate 2.7 H* Sodium 143 Potassium 2.9 L Chloride 105 Carbon Dioxide 26.4 Anion Gap 11.6 H BUN 23 H Creatinine 0.9 Estimated GFR/1.73 m2 59.51 Glucose 106 Calcium 10.2 H Magnesium 1.7 L Total Bilirubin 0.6 AST 23 ALT 19 Alkaline Phosphatase 74 Troponin I 195 H* Total Protein 6.9 Albumin 3.3 L Lipase 74 Urine Color Urine Clarity Urine pH Ur Specific Reed Urine Protein Urine Ketones Urine Blood Urine Nitrite Urine Bilirubin Urine Urobilinogen Ur Leukocyte Esterase Urine RBC Urine WBC Ur Epithelial Cells Urine Crystals Urine Bacteria Urine Casts Urine Mucus Ur Culture Indicated? Urine Glucose COVID-19 Source SARS-CoV-2 (PCR) 1204/22/21 04/22/21 22:12 23:10 23:27 WBC RBC Hgb Hct MCV MCH MCHC RDW Plt Count MPV Immature Gran % Neutrophils % Band Neutrophils % Lymphocytes % Atypical Lymphs % Monocytes % Eosinophils % Basophils % Nucleated RBC % Absolute Neutrophils Absolute Lymphocytes Absolute Monocytes Absolute Eosinophils Absolute Basophils RBC Morphology VBG Lactate Sodium Potassium Chloride Carbon Dioxide Anion Gap BUN Creatinine Estimated GFR/1.73 m2 Glucose Calcium Magnesium Total Bilirubin AST ALT Alkaline Phosphatase Troponin I 170 H* Total Protein Albumin Lipase Urine Color Yellow Urine Clarity Sl Cloudy Urine pH 6.0 Ur Specific Reed 1.015 Urine Protein Negative Urine Ketones Negative Urine Blood Trace-lysed H Urine Nitrite Positive H Urine Bilirubin Negative Urine Urobilinogen 0.2 Ur Leukocyte Esterase Negative Urine RBC 0-2 Urine WBC 3-5 Ur Epithelial Cells Few Urine Crystals Negative Urine Bacteria Many Urine Casts Negative Urine Mucus Negative Ur Culture Indicated? Yes Urine Glucose Negative COVID-19 Source Nasal/Nares SARS-CoV-2 (PCR) Negative 04/23/21 04/23/21 04/23/21 03:17 03:17 03:17 WBC RBC Hgb Hct MCV MCH MCHC RDW Plt Count MPV Immature Gran % Neutrophils % Band Neutrophils % Lymphocytes % Atypical Lymphs % Monocytes % Eosinophils % Basophils % Nucleated RBC % Absolute Neutrophils Absolute Lymphocytes Absolute Monocytes Absolute Eosinophils Absolute Basophils RBC Morphology VBG Lactate Cancelled 2.7 H* Sodium 142 Potassium 3.4 L Chloride 106 Carbon Dioxide 25.5 Anion Gap 10.5 BUN 21 H Creatinine 0.9 Estimated GFR/1.73 m2 59.51 Glucose 106 Calcium 9.4 Magnesium Total Bilirubin AST ALT Alkaline Phosphatase Troponin I 169 H* Total Protein Albumin Lipase Urine Color Urine Clarity Urine pH Ur Specific Reed Urine Protein Urine Ketones Urine Blood Urine Nitrite Urine Bilirubin Urine Urobilinogen Ur Leukocyte Esterase Urine RBC Urine WBC Ur Epithelial Cells Urine Crystals Urine Bacteria Urine Casts Urine Mucus Ur Culture Indicated? Urine Glucose COVID-19 Source SARS-CoV-2 (PCR) Last Vital Signs Temp 36.4 C L 04/23/21 04:15 Pulse 70 04/23/21 02:00 Resp 18 04/23/21 04:00 BP 113/39 L 04/23/21 04:15 Pulse Ox 92 04/23/21 04:00
--- NOTE | 2021-04-23 06:45 | RT.EKG_ITS ---
APPROVED REPORT Exam: Resting ECG Reason for Exam: elevated Troponin, abn ECG Patient Location: I HR:73 bpm ECG Measurements Heart Rate 73 AXIS GA 159 P 53 QRSd 76 QRS 24 QT 405 T 31 QTc 447 Conclusion Sinus rhythm...normal P axis, V-rate 60- 99
[2021-04-23 06:48] LABS: Lactate 1.7 mmol/L (0.6-1.4)
[2021-04-23 07:07] LABS: Anion Gap 9.3 mmol/L (3-11); BUN 21 mg/dL (7-18); CO2 24.7 mmol/L (21.0-32.0); CREATININE 0.9 mg/dL (0.55-1.02); Chloride 106 mmol/L (98-107); Creatine Kinase 181 U/L (26-192); Estimated GFR 59.51 (mL/min/1.73m2); Glucose 109 mg/dL (74-106); Magnesium 2.1 mg/dL (1.8-2.4); Potassium 3.4 mmol/L (3.5-5.1); Sodium 140 mmol/L (136-145)
[2021-04-23 07:08] LABS: Troponin I 154 ng/L (<or=60)
--- NOTE | 2021-04-23 08:25 | PGE_ITS ---
Date of Service Date of service: 04/23/21 Time of Service: 12:33 Subjective Subjective Interval history since last seen: Ms Colbert states that she feels better today. Her biggest complaint is L knee pain. She has had a h/o infection in that knee, and she is s/p TKR. It was treated at [facility] by Dr Brown. We are requesting those records. She requests ibuprofen for the pain. She denies dizziness, chest pain/heaviness, shortness of breath, n/v today. She states that when she had chest heaviness yesterday, it was at the same time as having rigors, n/v and shortness of breath. I discussed her case with Dr Warren today who pointed out that she had a negative cardiac cath in 06/2020 and that her elevated troponin is not due to an ACS. I have ordered XR of L knee and consulted Dr Clarke for what I suspect is a infected prosthesis. Blood cultures are pending. Being transferred [facility] floor. Objective Last Vital Signs Temp 36.4 C L 04/23/21 04:15 Pulse 70 04/23/21 02:00 Resp 18 04/23/21 04:00 BP 113/39 L 04/23/21 04:15 Pulse Ox 92 04/23/21 04:00 Laboratory Results - last 24 hr 04/22/21 04/22/21 04/22/21 20:47 20:47 20:47 WBC 22.79 H RBC 3.96 Hgb 12.1 Hct 37.9 MCV 95.7 H MCH 30.6 MCHC 31.9 L RDW 13.1 Plt Count 204 MPV 8.9 Immature Gran % 0.0 Neutrophils % 91.0 Band Neutrophils % 3 Lymphocytes % 1.0 Atypical Lymphs % 0 Monocytes % 4.0 Eosinophils % 1.0 Basophils % 0.0 Nucleated RBC % 0 Absolute Neutrophils 21.42 H Absolute Lymphocytes 0.23 L Absolute Monocytes 0.91 H Absolute Eosinophils 0.23 Absolute Basophils 0.00 RBC Morphology Normal VBG Lactate 2.7 H* Sodium 143 Potassium 2.9 L Chloride 105 Carbon Dioxide 26.4 Anion Gap 11.6 H BUN 23 H Creatinine 0.9 Estimated GFR/1.73 m2 59.51 Glucose 106 Calcium 10.2 H Magnesium 1.7 L Total Bilirubin 0.6 AST 23 ALT 19 Alkaline Phosphatase 74 Creatine Kinase Troponin I 195 H* Total Protein 6.9 Albumin 3.3 L Lipase 74 TSH Urine Color Urine Clarity Urine pH Ur Specific [place] Urine Protein Urine Ketones Urine Blood Urine Nitrite Urine Bilirubin Urine Urobilinogen Ur Leukocyte Esterase Urine RBC Urine WBC Ur Epithelial Cells Urine Crystals Urine Bacteria Urine Casts Urine Mucus Ur Culture Indicated? Urine Glucose COVID-19 Source SARS-CoV-2 (PCR) 04/22/21 04/22/21 04/22/21 22:12 23:10 23:27 WBC RBC Hgb Hct MCV MCH MCHC RDW Plt Count MPV Immature Gran % Neutrophils % Band Neutrophils % Lymphocytes % Atypical Lymphs % Monocytes % Eosinophils % Basophils % Nucleated RBC % Absolute Neutrophils Absolute Lymphocytes Absolute Monocytes Absolute Eosinophils Absolute Basophils RBC Morphology VBG Lactate Sodium Potassium Chloride Carbon Dioxide Anion Gap BUN Creatinine Estimated GFR/1.73 m2 Glucose Calcium Magnesium Total Bilirubin AST ALT Alkaline Phosphatase Creatine Kinase Troponin I 170 H* Total Protein Albumin Lipase TSH Urine Color Yellow Urine Clarity Sl Cloudy Urine pH 6.0 Ur Specific [place] 1.015 Urine Protein Negative Urine Ketones Negative Urine Blood Trace-lysed H Urine Nitrite Positive H Urine Bilirubin Negative Urine Urobilinogen 0.2 Ur Leukocyte Esterase Negative Urine RBC 0-2 Urine WBC 3-5 Ur Epithelial Cells Few Urine Crystals Negative Urine Bacteria Many Urine Casts Negative Urine Mucus Negative Ur Culture Indicated? Yes Urine Glucose Negative COVID-19 Source Nasal/Nares SARS-CoV-2 (PCR) Negative 04/23/21 04/23/21 04/23/21 03:17 03:17 03:17 WBC RBC Hgb Hct MCV MCH MCHC RDW Plt Count MPV Immature Gran % Neutrophils % Band Neutrophils % Lymphocytes % Atypical Lymphs % Monocytes % Eosinophils % Basophils % Nucleated RBC % Absolute Neutrophils Absolute Lymphocytes Absolute Monocytes Absolute Eosinophils Absolute Basophils RBC Morphology VBG Lactate Cancelled 2.7 H* Sodium 142 Potassium 3.4 L Chloride 106 Carbon Dioxide 25.5 Anion Gap 10.5 BUN 21 H Creatinine 0.9 Estimated GFR/1.73 m2 59.51 Glucose 106 Calcium 9.4 Magnesium Total Bilirubin AST ALT Alkaline Phosphatase Creatine Kinase Troponin I 169 H* Total Protein Albumin Lipase TSH Urine Color Urine Clarity Urine pH Ur Specific [place] Urine Protein Urine Ketones Urine Blood Urine Nitrite Urine Bilirubin Urine Urobilinogen Ur Leukocyte Esterase Urine RBC Urine WBC Ur Epithelial Cells Urine Crystals Urine Bacteria Urine Casts Urine Mucus Ur Culture Indicated? Urine Glucose COVID-19 Source SARS-CoV-2 (PCR) 04/23/21 04/23/21 04/23/21 05:35 06:33 06:33 WBC RBC Hgb Hct MCV MCH MCHC RDW Plt Count MPV Immature Gran % Neutrophils % Band Neutrophils % Lymphocytes % Atypical Lymphs % Monocytes % Eosinophils % Basophils % Nucleated RBC % Absolute Neutrophils Absolute Lymphocytes Absolute Monocytes Absolute Eosinophils Absolute Basophils RBC Morphology VBG Lactate Cancelled Sodium 140 Potassium 3.4 L Chloride 106 Carbon Dioxide 24.7 Anion Gap 9.3 BUN 21 H Creatinine 0.9 Estimated GFR/1.73 m2 59.51 Glucose 109 H Calcium 9.0 Magnesium 2.1 Total Bilirubin AST ALT Alkaline Phosphatase Creatine Kinase 181 Troponin I 154 H* Total Protein Albumin Lipase TSH 0.70 Urine Color Urine Clarity Urine pH Ur Specific [place] Urine Protein Urine Ketones Urine Blood Urine Nitrite Urine Bilirubin Urine Urobilinogen Ur Leukocyte Esterase Urine RBC Urine WBC Ur Epithelial Cells Urine Crystals Urine Bacteria Urine Casts Urine Mucus Ur Culture Indicated? Urine Glucose COVID-19 Source SARS-CoV-2 (PCR) 04/23/21 06:33 WBC RBC Hgb Hct MCV MCH MCHC RDW Plt Count MPV Immature Gran % Neutrophils % Band Neutrophils % Lymphocytes % Atypical Lymphs % Monocytes % Eosinophils % Basophils % Nucleated RBC % Absolute Neutrophils Absolute Lymphocytes Absolute Monocytes Absolute Eosinophils Absolute Basophils RBC Morphology VBG Lactate 1.7 H Sodium Potassium Chloride Carbon Dioxide Anion Gap BUN Creatinine Estimated GFR/1.73 m2 Glucose Calcium Magnesium Total Bilirubin AST ALT Alkaline Phosphatase Creatine Kinase Troponin I Total Protein Albumin Lipase TSH Urine Color Urine Clarity Urine pH Ur Specific [place] Urine Protein Urine Ketones Urine Blood Urine Nitrite Urine Bilirubin Urine Urobilinogen Ur Leukocyte Esterase Urine RBC Urine WBC Ur Epithelial Cells Urine Crystals Urine Bacteria Urine Casts Urine Mucus Ur Culture Indicated? Urine Glucose COVID-19 Source SARS-CoV-2 (PCR)
[2021-04-23 08:28] LABS: C-Reactive Protein 17.77 mg/dL (0.0-0.3)
--- NOTE | 2021-04-23 09:13 | DI.US_ITS ---
APPROVED REPORT EXAM: Comprehensive 2D, Doppler, and color-flow Echocardiogram Patient Location: In-Patient Room/Bed: [id number] Indications: Elevated troponin Other Information Study Quality: Adequate. Technically limited study due to inability to position patient. Conclusion Normal left ventricular wall thickness and chamber size. Estimated ejection fraction is 60%. Wall m otion is normal Borderline dilated right ventricle with normal systolic function Mildly dilated left atrium. Right atrium is normal in size Trileaflet aortic valve without stenosis or regurgitation Mild mitral annular calcification, trace mitral regurgitation Normal tricuspid valve with trace regurgitation. Estimated right ventricular systolic pressure is 34 mmHg Mildly dilated ascending aorta, 3.36 cm Wall motion Left Ventricle The left ventricle is normal size. The left ventricular systolic function is normal. The left ventric ular ejection fraction is within the normal range. There is normal left ventricular wall thickness. T here is normal LV segmental wall motion. There is no ventricular septal defect visualized. LVEF is 60 %. Right Ventricle Right ventricle is borderline dilated. The right ventricular systolic function is normal. The RVSP is 34.4mmHg. Atria Left atrium is mildly dilated. The right atrium size is normal. The interatrial septum is intact with no evidence for an atrial septal defect. Aortic Valve The aortic valve is normal in structure. Aortic valve is trileaflet. There is no aortic valvular sten osis. No aortic regurgitation is present. Mitral Valve Mild mitral annular calcification. No evidence of mitral valve stenosis. Trace mitral regurgitation. Tricuspid Valve The tricuspid valve is normal in structure. There is no tricuspid valve stenosis. Trace tricuspid reg urgitation. Pulmonic Valve The pulmonary valve is normal in structure. There is no pulmonic valvular stenosis. Trace pulmonic re gurgitation. Great Vessels The aortic root is normal in size. The ascending aorta is mildly dilated. Aortic arch is not well vis ualized. IVC is normal in size and collapses >50% with inspiration. Pericardium There is no pericardial effusion. 2D Dimensions IVSD d PLAX 0.96 cm F: 0.6-1.0 LV Vol A2C d MOD 103.9 mL LVPW d PLAX 0.90 cm F: 0.6 - 1.0 LV Vol A4C d MOD 109.4 mL LVID d PLAX 4.52 cm F: 3.8 - 5.2 LA vol/ BSA A4C s A-L 46.4 mL/m2 LVDs 3.05 cm F: 2.2 - 3.5 LA Area A4C s MOD 27.54 cm2 Ao Root d 2.62 cm F: 2.7 - 3.3 LV EF A4C MOD 60.3 % RA Area A4C 18.11 cm2 LV EF A2C MOD 60.6 % RA Vol/ BSA A4C s A-L 25.8 mL/m2 LV EF Biplane MOD 60.4 % Ao Asc Diam d 3.36 cm F: 2.3 - 3.1 SV 64.90 mL LV EF Teichholz 60.7 % SV Index 30.41 mL/m2 LVEF (Chiang's) 60.36 % F: 54 - 74 LV Volume 78.94 mL F: 46 - 106 LV Volume Index 37.06 mL/m2 F: 29 - 61 LV Vol Biplane MOD 107.5 mL FS 32.25 % M-Mode TAPSE 2.86 cm (M/F) >1.7 LV Diastology MV E' medial 0.079 (>0.07 m/s) E/A Ratio 1.1 LV E/e MED 11.40 (<14) MV E Vmax 0.91 (0.4-1.3 m/s) MV E' lateral 0.120 (>0.1 m/s) MV A Vmax 0.85 (0.4-1.3 m/s) LV E/e LAT 7.55 (<14) MV E/A Ratio 1.03 MV E/E' medial 11.41 MV E/E' lateral 7.57 Aortic Valve LVOT Area 3.23 cm2 AoV Area Vmax 2.26 cm2 LVOT Vmax 1.46 m/s AoV Area/ BSA (Vmax) 1.06 cm2/m2 LVOT Mean Jarrod. 0.90 m/s CARROLL Mean Jarrod. 1.89 cm2 LVOT Peak Grad 8.5 mmHg CARROLL Mean Jarrod. Index 0.88 cm2/m2 LVOT Mean Grad 3.9 mmHg LVOT VTI 0.313 m LVOT Diam s 2.00 cm AoV Vmax 2.09 m/s Velocity Ratio 0.69 AoV Mean Jarrod. 1.53 m/s AoV Peak Grad 17.4 mmHg LVOT SV 101.14 mL AoV Mean Grad 10.2 mmHg AoV VTI 0.394 m AoV Area VTI 2.57 cm2 AoV Area/ BSA (VTI) 1.20 cm/m2 Mitral Valve MV DT 184 (160-240 msec) MV PHT 53 msec MV Area PHT 4.13 cm2 MV VTI 0.328 m MV Area VTI 3.08 (4.0-6.0 cm2) Pulmonary Valve PV Vmax 1.24 (0.5-1.5 m/s) RVOT Peak Gr. 4.31 mmHg PV Peak Grad 6.1 mmHg RVOT Mean Gr. 2.20 mmHg PV Mean Grad 3.4 mmHg RVOT VTI 0.216 m PV VTI 0.248 m RVOT Vmax 1.04 m/s Tricuspid Valve TR Peak Grad 31.4 mmHg TR Vmax 2.80 m/s RA Pressure 3.00 mmHg RVSP (TR) 34.4 mmHg
[2021-04-23 09:17] LABS: Procalcitonin 26.1 ng/mL
[2021-04-23] MEDS: Docusate Sodium 100 MG CAP PO (09:17)
[2021-04-23] MEDS: Potassium Chloride 20 MEQ TABCR 40 MEQ PO (09:17)
[2021-04-23] MEDS: Metoprolol CR 25 MG TABCR PO (09:17)
[2021-04-23] MEDS: Aspirin E.C. 81 MG TABEC PO (09:17)
--- NOTE | 2021-04-23 10:20 | PDOC.CMIN ---
- If Service Date Differs Date of service: 04/23/21 Time of Service: 10:20 Care Management Initial Assess REASON FOR HOSPITALIZATION:: Hypomagnesemia, sepsis, cellulitis PAST MEDICAL HISTORY/PAST SURGICAL HISTORY:: All Active Problems (Updated 04/23/21 @ 06:44 by Nicholas Baron MD). Elevated troponin (Acute). Sepsis (Acute). Cellulitis (Acute). Bacteremia (Acute). Hypomagnesemia (Acute). Hypokalemia (Acute). Generalized weakness (Acute). Right knee pain (Acute). 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 Pes planus of right foot (Acute). Edema (Acute). Non-ST elevation AL (NSTEMI) (Acute). Hyperlipidemia (Chronic). Obesity (Chronic). Osteoarthritis (Chronic). Hypertension (Chronic). Medical History . Glaucoma. History of left breast cancer. History of right breast cancer. Left fibular fracture. 2018. Melanoma. 2017. Pulmonary embolism. following a TKR. Surgical History . History of appendectomy. History of melanoma excision. History of total left knee replacement (TKR). S/P cholecystectomy. S/P total knee replacement. right 11/12/2019 PREVIOUS FUNCTIONAL STATUS/SOCIAL/FAMILY SUPPORTS:: Dinorah lives with her sister Bette Vallejo in [place], [place]. Her sister is disabled and unable to help Dinorah at all at this time. 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 where she is from. CURRENT FUNCTIONAL STATUS:: Dinorah was sitting up in bed when BRIDGETT met with her. She was pleasant and agreeable to conversation. She talked about her many years in nursing and the changes in healthcare today. Dinorah informed BRIDGETT that she dooes not plan to return to her home. She would like to transition to an assisted living facility. Per her nurse, her family is all in the [facility] and would like Dinorah to be situated near them. ADVANCE DIRECTIVES:: none on file Has patient been provided with info about the portal/API?: Yes Did the patient sign up for the portal?: No CODE STATUS:: DNR/DNI INSURANCE COVERAGE / FINANCIAL ISSUES:: Medicare. BC BS PRIMARY CARE PHYSICIAN:: Luisa Rivera POTENTIAL DISCHARGE NEEDS:: Follow up with PCP and plan of care PATIENT/FAMILY EDUCATION NEEDS:: Review of discharge instructions, medications, activity, limitations, follow up plan, Ask Me Three TRANSPORTATION:: via private vehicle with family PLAN:: Dinorah's discharge plan is not clear at this time. She has indicated that she does not feel able to return to her home and is seeking alternative living arrangements. CM will explore options with Dinorah and her family and send referrals as appropriate. CM will continue to support Dinorah and her discharge concerns.
[2021-04-23] MEDS: ceFAZolin 1 GM/50 ML BAG IVPB ×3 (11:33→22:52)
[2021-04-23 12:00] LABS: Abs Immature Grans 0.15 10^3/uL (0.0-0.06); HCT 34.5 % (36.0-46.0); HGB 10.9 g/dL (11.2-15.7); MCH 31.1 pg (27.0-33.0); MCHC 31.6 % (32.0-36.0); MCV 98.3 fL (80-95); MPV 9.3 fL (8.0-11.0); Nucleated RBC 0 %; Platelet Count 187 10^3/uL (130-400); RBC 3.51 10^6/uL (3.93-5.22); RDW 13.7 % (11.7-14.6); RDW-SD 49.1 fL; WBC 24.12 10^3/uL (4.4-10.8)
[2021-04-23 12:22] LABS: Absolute Lymphocyte Count 0.24 10^3/uL (1.2-3.4); Absolute Monocyte Count 1.21 10^3/uL (0.1-0.8); Absolute Neutrophil Count 22.67 10^3/uL (1.2-6.7); Atypical Lymphocytes % 0; Bands % 11
[2021-04-23 12:23] LABS: Diff Comment Manual Differential; RBC Morphology Normal
[2021-04-23] MEDS: Normal Saline Flush 10 ML SYR IVP ×3 (13:15→22:53)
[2021-04-23] MEDS: VANCOMYCIN/WATER (PEG) 1.5 GM/300 ML BAG IVPB (13:15)
[2021-04-23] MEDS: Magnesium Oxide 400 MG TAB PO (13:16)
--- NOTE | 2021-04-23 13:22 | CHAPLAIN ---
Dinorah is [employer] and lives in [facility]. She requested a visit from a build master for blessings. I spoke with Fr. Barclay and he said he would be able to visit this morning. Then I called back and asked the school attendance secretary at the [facility] to remind Fr. Barclay that visiting hours are between 1 p.m and 6 p.m. and he'd need to visit within that time frame.
--- NOTE | 2021-04-23 14:15 | DI.RAD_ITS ---
Exam(s) XR KNEE LT 2V AP,LAT EXAM: XR KNEE LT 2V AP,LAT CLINICAL HISTORY: L knee pain, suspected septic knee, h/o TKR. TECHNIQUE: 2D digital imaging was performed. COMPARISON: CR XR knee RT 3V AP,lat,liam from 12/29/2018 . No prior left knee films for comparison FINDINGS: There is a left knee prosthesis Dystrophic calcification is noted anteriorly at the level of the joint. Femoral component appears sa tisfactory. Tibial component appears somewhat radiolucent. Recommend comparison to any prior images of the same-left knee. I do not see any in our PACS; only of the opposite-right knee.. IMPRESSION: DATA REPOSITORY: RADIATION DOSE DELIVERED:
[2021-04-23] MEDS: Ibuprofen 400 MG TAB PO (14:34)
[2021-04-23] MEDS: Furosemide 20 MG/2 ML VIAL IVP (14:34)
--- NOTE | 2021-04-23 15:16 | PHA.REVIEW ---
Pharmacy Admission Review - Admission Clinical Review (Last Reviewed 04/22/21 @ 21:01 by Michael Perdomo NP) Elevated troponin (Acute) Sepsis (Acute) Cellulitis (Acute) Bacteremia (Acute) Hypomagnesemia (Acute) Hypokalemia (Acute) Generalized weakness (Acute) demeclocycline HCl [From Declomycin] Allergy (Intermediate, Verified 03/26/21 11:55) Hives acetaminophen [From Percocet] Allergy (Mild, Verified 03/26/21 11:55) Hives oxycodone [From Percocet] Allergy (Mild, Verified 03/26/21 11:55) Hives Penicillins Allergy (Mild, Verified 03/26/21 11:55) Hives Ohcibkk-PQU-OdE Reductase Inhibitor [Qrypepl-Mto-Jdw Reductase Inhibitor] Adverse Reaction (Intermediate, Verified 03/26/21 11:55) nauesa /vomiting Resuscitation Status DNR/DNI Height 5 ft 6 in Weight 106 kg - Renal Dosing Renal Dosing: BUN 21 mg/dL (7-18) H 04/23/21 06:33 Creatinine 0.9 mg/dL (0.55-1.02) 04/23/21 06:33 Medications needing adjustments: Reviewed (SCr: 0.9, CrCl~56.3mL/min (using adjusted body weight). All medications dosed appropriately.) - Anticoagulation Anticoagulation: Hgb 10.9 g/dL (11.2-15.7) L 04/23/21 06:33 Hct 34.5 % (36.0-46.0) L 04/23/21 06:33 Plt Count 187 10^3/uL (130-400) 04/23/21 06:33 Creatinine 0.9 mg/dL (0.55-1.02) 04/23/21 06:33 DVT Prophylaxis: Intervened Medications: Enoxaparin (Provider will start patient on Enoxaparin.) - Opiate Usage Evaluate Pain Scale/Pains Meds: N/A (No opiates this admission.) - Relevant Labs Sodium 140 mmol/L (136-145) 04/23/21 06:33 Potassium 3.4 mmol/L (3.5-5.1) L 04/23/21 06:33 Chloride 106 mmol/L (98-107) 04/23/21 06:33 Magnesium 2.1 mg/dL (1.8-2.4) 04/23/21 06:33 C-Reactive Protein 17.77 mg/dL (0.0-0.3) H 04/23/21 06:33 Electrolytes, C-Reactive P, ESR: Reviewed (Potassium and magnesium repleted.) - DM Control DM Control: Glucose 109 mg/dL (74-106) H 04/23/21 06:33 Insulin Dosing: N/A - Heart Failure/SC Heart Failure/SC: Troponin I 154 ng/L (<or=60) H* 04/23/21 06:33 EF%, ARETHA's, B-Blockers, Diuretics: N/A - BP Control BP Control: Blood Pressure [Right Arm] 113/39 Blood Pressure 117/49 Blood Pressure 112/41 Blood Pressure 113/39 If elevated: Reviewed (Blood pressure low, Losartan currently held.) - Qtc Review If Elevated: N/A (QTc 408 on admission) - IV to PO Switch IV Medications: Reviewed - Home Meds Home Med List reviewed: Reviewed Relevent Home Meds Not ordered & why?: Furosemide 20mg daily currently not ordered, rec'd 20mg IVP today. - Current meds Current Medication Order Review: Reviewed - Comments Comments/Follow Ups: Continue to monitor potassium, magnesium, blood pressure, labs, vitals and for medication changes. Antibiotic Activity - Pharmacy Antibiotic Review Pharmacy Antibiotic Activity: Reviewed, no change (Vancomycin 1500mg loading dose (day 1), Cefazolin 1gm Q8H (day 1))
--- NOTE | 2021-04-23 16:05 | OCONE_ITS ---
Date of service: 04/23/21 Time of Service: 13:20 History of Present Illness History of Present Illness Chief Complaint: Left knee pain Narrative: Dinorah is a 86-year-old who was admitted to the hospital for concerning features of sepsis. She was admitted from the emergency department for management of fatigue, malaise, fever, chills. She had elevated white blood cell count and there was great concern for bacteremia and sepsis. During the admission she reported having left knee pain. Today, she says that she is feeling better. She has chronic left knee pain. Interestingly, she has a complex story about her left knee. She underwent a knee replacement many years ago and approximate 10 years ago, she remembers correctly, she suffered an infection into the left knee. This was explanted and treated with IV antibiotics. She had a low friction spacer placed by Dr. Perera at [facility]. The decision at the time was to leave the spacer in place since she was doing well from a. It was expected that this would need to be revised at some time but she never had it revised. She reports having some baseline pain about the left knee. It always aches. Always has some restricted motion. Most the pain that she has in the knee is over the anterior medial aspect of the knee. When I discussed this with her today she feels that it is roughly the same as it always is. It is somewhat painful but not excruciatingly so. She has had a right knee replacement done at [facility] in 2020 which has no pain. She does report having increasing swelling about both legs and increasing redness and warmth in addition to longstanding exudate. Currently all blood cultures are still pending. She is COVID-19 negative. Consult Reason Concern for left periprosthetic knee infection Assessment and Plan Assessment and plan (1) Painful total knee replacement, left: Status: Acute Assessment and plan: Dinorah is a 89-year-old who clinically has a picture of sepsis with an unclear source. She has significantly elevated sed rate and C- reactive protein in addition to an elevated procalcitonin and white blood cell count. There was concern about her left knee. Her clinical history suggest that she has had left knee pain for some time, which would not be that unexpected given the longstanding low friction spacer that she has had. The x-rays do not show any suspicious lesions but she does have a spacer which was placed previously for an infection in the left knee. Given her other medical issues and how well she was doing, her and her surgeon had decided to leave the spacer in place to revise at a later date. Her clinical picture and exam is not fitting for infection at this point. However, I am quite concerned especially with her lab markers and the apparent cellulitis adjacent to both knees. I think she is a high risk for developing bilateral periprosthetic knee infections. The appearance of the legs would indicate this has been longstanding and I would not be surprised if the blood cultures do turn positive. At this point I would follow her with serial exams. An aspiration was attempted today but was unsuccessful with no significant fluid and she does not have much of an effusion at all and her exam is also reassuring. I will continue to follow her clinical examination. If anything changes, such as acute pain, we may need to consider intervention. As for the left knee, if you become infected there would be an exchange of spacer required. Qualifiers: Encounter type: initial encounter Qualified Code(s): T84.84XA - Pain due to internal orthopedic prosthetic devices, implants and grafts, initial encounter; Z96.652 - Presence of left artificial knee joint Review of Systems All systems reviewed & are unremarkable except as noted in HPI and below PFSH All Active Problems (Updated 04/23/21 @ 21:12 by Matthew Clarke MD) Painful total knee replacement, left (Acute) Elevated troponin (Acute) Sepsis (Acute) Cellulitis (Acute) Bacteremia (Acute) Hypomagnesemia (Acute) Hypokalemia (Acute) Generalized weakness (Acute) Right knee pain (Acute) 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) Pes planus of right foot (Acute) Edema (Acute) Non-ST elevation [place] (NSTEMI) (Acute) Hyperlipidemia (Chronic) Obesity (Chronic) Osteoarthritis (Chronic) Hypertension (Chronic) Medical History Glaucoma History of left breast cancer History of right breast cancer Left fibular fracture 2018 Melanoma 2017 Pulmonary embolism following a TKR Surgical History History of appendectomy History of melanoma excision History of total left knee replacement (TKR) S/P cholecystectomy S/P total knee replacement right 11/12/2019 Family History Mother , age 100 Heart disease Hypertension Dementia Father , age 78 Non-Hodgkin lymphoma Hyperlipidemia Sister Breast cancer Brother Bladder cancer Alcohol abuse Maternal Grandfather , age 58 Heart disease Paternal Grandfather , age 75 No problems noted. Maternal Grandmother , age 63 Thyroid cancer Heart disease Hyperlipidemia Hypertension Stroke Paternal Grandmother , age 93 Heart disease Social History Smoking/Tobacco Use Status: Never Second Hand Exposure: Yes Smoking risk assessment performed?: Yes Alcohol Intake: never Drug use: Never Substance use type: does not use Caregiver/Support person: No Household members: family and other Details: Sister Housing: house Communication Needs: Corrective Lenses Do you need help understanding health information?: Never Pets and animals: Yes Pets and animals: dog(s) Sexually active: No Do you think of yourself as: straight/heterosexual Current gender identity: female What is your relationship status?: never How often do you talk on the phone with friends or family?: three or more times per week How often do you get together with friends or relatives?: twice per week How often do you attend advent or church services?: 4 or more times per year Do you belong to any clubs or organized social groups?: yes Panel score (0-1 are the most socially isolated patients): 3 Duration: 45-60 minutes/day Frequency: daily Annia/Advent: Orthodoxy Special annia needs: Yes ([facility] visits for [facility] 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 She is in no acute distress. She is alert and oriented x3. Evaluation of the left lower extremity shows a well-healed incision over the anterior aspect of the knee. There is no notable redness but there is a notable bogginess about the knee. With deep palpation I do not detect any effusion. She has very minimal pain to palpation throughout the knee. Passive range of motion of the is limited to about 15 degrees of extension to 80 degrees of flexion. She does have pain at those endpoints. Through the passive range of motion arc of 20-70 she has no significant pain. Due to positioning the bed is difficult to appreciate significant straight leg raise there does appear to be a flexion contracture. Just distal to the incision starting about the mid proximal aspect of the leg there is notable erythema. There is peau d'orange changes of the skin with notable edematous changes. There is a thickened exudate seen over the anterior surface of the tibia which is well fixed without gross purulence. This roughly stops at the level of the ankle. She is able to demonstrate active dorsiflexion and plantarflexion of the ankle as well as extension flexion of the great toe. She endorses good sensation over the deep and superficial peroneal nerve and tibial nerve. CR < 2 seconds. Evaluation of the right knee shows a well-healed incision over the midline of the anterior right knee. There is no associated erythema. No effusion. No significant pain to palpation. No significant pain with passive range of motion of the right knee. As in the left knee there is notable erythematous changes from the proximal aspect of the right leg down through the ankle. There is associated notable edema and exudative changes to the anterior surface of the right leg. Results Last Vital Signs Temp 37.9 C H 04/23/21 12:28 Pulse 72 04/23/21 08:01 Resp 23 04/23/21 14:00 BP 117/49 L 04/23/21 08:01 Pulse Ox 96 04/23/21 14:00 Labs Result diagrams: 04/23/21 06:33 04/23/21 06:33 Labs: Laboratory Results - last 24 hr 04/22/21 04/22/21 04/22/21 20:47 20:47 20:47 WBC 22.79 H RBC 3.96 Hgb 12.1 Hct 37.9 MCV 95.7 H MCH 30.6 MCHC 31.9 L RDW 13.1 Plt Count 204 MPV 8.9 Immature Gran % 0.0 Neutrophils % 91.0 Band Neutrophils % 3 Lymphocytes % 1.0 Atypical Lymphs % 0 Monocytes % 4.0 Eosinophils % 1.0 Basophils % 0.0 Nucleated RBC % 0 Absolute Neutrophils 21.42 H Absolute Lymphocytes 0.23 L Absolute Monocytes 0.91 H Absolute Eosinophils 0.23 Absolute Basophils 0.00 RBC Morphology Normal VBG Lactate 2.7 H* Sodium 143 Potassium 2.9 L Chloride 105 Carbon Dioxide 26.4 Anion Gap 11.6 H BUN 23 H Creatinine 0.9 Estimated GFR/1.73 m2 59.51 Glucose 106 Calcium 10.2 H Magnesium 1.7 L Total Bilirubin 0.6 AST 23 ALT 19 Alkaline Phosphatase 74 Creatine Kinase Troponin I 195 H* C-Reactive Protein Total Protein 6.9 Albumin 3.3 L Lipase 74 Procalcitonin TSH Urine Color Urine Clarity Urine pH Ur Specific Rebuck Urine Protein Urine Ketones Urine Blood Urine Nitrite Urine Bilirubin Urine Urobilinogen Ur Leukocyte Esterase Urine RBC Urine WBC Ur Epithelial Cells Urine Crystals Urine Bacteria Urine Casts Urine Mucus Ur Culture Indicated? Urine Glucose COVID-19 Source SARS-CoV-2 (PCR) 04/22/21 04/22/21 04/22/21 22:12 23:10 23:27 WBC RBC Hgb Hct MCV MCH MCHC RDW Plt Count MPV Immature Gran % Neutrophils % Band Neutrophils % Lymphocytes % Atypical Lymphs % Monocytes % Eosinophils % Basophils % Nucleated RBC % Absolute Neutrophils Absolute Lymphocytes Absolute Monocytes Absolute Eosinophils Absolute Basophils RBC Morphology VBG Lactate Sodium Potassium Chloride Carbon Dioxide Anion Gap BUN Creatinine Estimated GFR/1.73 m2 Glucose Calcium Magnesium Total Bilirubin AST ALT Alkaline Phosphatase Creatine Kinase Troponin I 170 H* C-Reactive Protein Total Protein Albumin Lipase Procalcitonin TSH Urine Color Yellow Urine Clarity Sl Cloudy Urine pH 6.0 Ur Specific Rebuck 1.015 Urine Protein Negative Urine Ketones Negative Urine Blood Trace-lysed H Urine Nitrite Positive H Urine Bilirubin Negative Urine Urobilinogen 0.2 Ur Leukocyte Esterase Negative Urine RBC 0-2 Urine WBC 3-5 Ur Epithelial Cells Few Urine Crystals Negative Urine Bacteria Many Urine Casts Negative Urine Mucus Negative Ur Culture Indicated? Yes Urine Glucose Negative COVID-19 Source Nasal/Nares SARS-CoV-2 (PCR) Negative 04/23/21 04/23/21 04/23/21 03:17 03:17 03:17 WBC RBC Hgb Hct MCV MCH MCHC RDW Plt Count MPV Immature Gran % Neutrophils % Band Neutrophils % Lymphocytes % Atypical Lymphs % Monocytes % Eosinophils % Basophils % Nucleated RBC % Absolute Neutrophils Absolute Lymphocytes Absolute Monocytes Absolute Eosinophils Absolute Basophils RBC Morphology VBG Lactate Cancelled 2.7 H* Sodium 142 Potassium 3.4 L Chloride 106 Carbon Dioxide 25.5 Anion Gap 10.5 BUN 21 H Creatinine 0.9 Estimated GFR/1.73 m2 59.51 Glucose 106 Calcium 9.4 Magnesium Total Bilirubin AST ALT Alkaline Phosphatase Creatine Kinase Troponin I 169 H* C-Reactive Protein Total Protein Albumin Lipase Procalcitonin TSH Urine Color Urine Clarity Urine pH Ur Specific Rebuck Urine Protein Urine Ketones Urine Blood Urine Nitrite Urine Bilirubin Urine Urobilinogen Ur Leukocyte Esterase Urine RBC Urine WBC Ur Epithelial Cells Urine Crystals Urine Bacteria Urine Casts Urine Mucus Ur Culture Indicated? Urine Glucose COVID-19 Source SARS-CoV-2 (PCR) 04/23/21 04/23/21 04/23/21 05:35 06:33 06:33 WBC 24.12 H RBC 3.51 L Hgb 10.9 L Hct 34.5 L MCV 98.3 H MCH 31.1 MCHC 31.6 L RDW 13.7 Plt Count 187 MPV 9.3 Immature Gran % 0.0 Neutrophils % 83.0 Band Neutrophils % 11 Lymphocytes % 1.0 Atypical Lymphs % 0 Monocytes % 5.0 Eosinophils % 0.0 Basophils % 0.0 Nucleated RBC % 0 Absolute Neutrophils 22.67 H Absolute Lymphocytes 0.24 L Absolute Monocytes 1.21 H Absolute Eosinophils 0.00 Absolute Basophils 0.00 RBC Morphology Normal VBG Lactate Cancelled Sodium 140 Potassium 3.4 L Chloride 106 Carbon Dioxide 24.7 Anion Gap 9.3 BUN 21 H Creatinine 0.9 Estimated GFR/1.73 m2 59.51 Glucose 109 H Calcium 9.0 Magnesium 2.1 Total Bilirubin AST ALT Alkaline Phosphatase Creatine Kinase 181 Troponin I 154 H* C-Reactive Protein 17.77 H Total Protein Albumin Lipase Procalcitonin TSH Urine Color Urine Clarity Urine pH Ur Specific Rebuck Urine Protein Urine Ketones Urine Blood Urine Nitrite Urine Bilirubin Urine Urobilinogen Ur Leukocyte Esterase Urine RBC Urine WBC Ur Epithelial Cells Urine Crystals Urine Bacteria Urine Casts Urine Mucus Ur Culture Indicated? Urine Glucose COVID-19 Source SARS-CoV-2 (PCR) 04/23/21 04/23/21 06:33 06:33 WBC RBC Hgb Hct MCV MCH MCHC RDW Plt Count MPV Immature Gran % Neutrophils % Band Neutrophils % Lymphocytes % Atypical Lymphs % Monocytes % Eosinophils % Basophils % Nucleated RBC % Absolute Neutrophils Absolute Lymphocytes Absolute Monocytes Absolute Eosinophils Absolute Basophils RBC Morphology VBG Lactate 1.7 H Sodium Potassium Chloride Carbon Dioxide Anion Gap BUN Creatinine Estimated GFR/1.73 m2 Glucose Calcium Magnesium Total Bilirubin AST ALT Alkaline Phosphatase Creatine Kinase Troponin I C-Reactive Protein Total Protein Albumin Lipase Procalcitonin 26.1 TSH 0.70 Urine Color Urine Clarity Urine pH Ur Specific Rebuck Urine Protein Urine Ketones Urine Blood Urine Nitrite Urine Bilirubin Urine Urobilinogen Ur Leukocyte Esterase Urine RBC Urine WBC Ur Epithelial Cells Urine Crystals Urine Bacteria Urine Casts Urine Mucus Ur Culture Indicated? Urine Glucose COVID-19 Source SARS-CoV-2 (PCR) Imaging Imaging Studies: X-ray of the left knee shows a knee with a spacer currently in place. There is cement seen in the proximal tibia and a cruciate retaining type femoral component. There seems to be some dystrophic application over the anterior medial aspect of the knee. The patella does seem to be slightly high riding. No suspicious lesions are identified.
[2021-04-23] MEDS: Enoxaparin 40 MG/0.4 ML SYR SC (17:08)
[2021-04-23] MEDS: Latanoprost 0.005% 2.5 ML BTL OU (21:29)
[2021-04-24] VITALS (8 sets, daily range): BP systolic 108–151; BP diastolic 63–70; PULSE 69–81; RESP 3–20; TEMP 37–37.6; O2SAT 94–98
[2021-04-24] MEDS: VANCOMYCIN/WATER (PEG) 1 GM/200 ML BAG IV ×2 (03:17→18:17)
[2021-04-24] MEDS: Normal Saline Flush 10 ML SYR IVP ×4 (03:20→20:02)
[2021-04-24] MEDS: ceFAZolin 1 GM/50 ML BAG IVPB (04:28)
[2021-04-24 06:50] LABS: Absolute Eosinophil Count 0.25 10^3/uL (0.0-0.7); Absolute Monocyte Count 0.83 10^3/uL (0.1-0.8); Basophils % 0.2; Eosinophils % 1.1; HCT 29.5 % (36.0-46.0); HGB 9.4 g/dL (11.2-15.7); Immature Grans % 1.8; Lymphocytes % 3.3; MCH 30.8 pg (27.0-33.0); MCHC 31.9 % (32.0-36.0); MCV 96.7 fL (80-95); Monocytes % 3.7; Neutrophils % 89.9; Nucleated RBC 0 %; Platelet Count 136 10^3/uL (130-400); RBC 3.05 10^6/uL (3.93-5.22); RDW 13.5 % (11.7-14.6); RDW-SD 48.1 fL; WBC 22.32 10^3/uL (4.4-10.8)
[2021-04-24 06:52] LABS: Absolute Basophil Count 0.04 10^3/uL (0.0-0.2); Absolute Lymphocyte Count 0.74 10^3/uL (1.2-3.4); Absolute Neutrophil Count 20.07 10^3/uL (1.2-6.7)
[2021-04-24 07:05] LABS: BUN 22 mg/dL (7-18); CREATININE 0.8 mg/dL (0.55-1.02); Calcium 8.3 mg/dL (8.5-10.1); Chloride 104 mmol/L (98-107); Glucose 100 mg/dL (74-106); Magnesium 2.3 mg/dL (1.8-2.4); Potassium 3.3 mmol/L (3.5-5.1); Sodium 136 mmol/L (136-145)
[2021-04-24 07:15] LABS: C-Reactive Protein > 25.00 mg/dL (0.0-0.3)
[2021-04-24 07:29] LABS: Calculated LDL 81 mg/dL (<100); Cholesterol 149 mg/dL (<200); HDL Cholesterol 52 mg/dL (40-60); Triglyceride 82 mg/dL (<150)
[2021-04-24] MEDS: Docusate Sodium 100 MG CAP PO (07:47)
[2021-04-24] MEDS: Rosuvastatin 5 MG TAB PO (07:47)
[2021-04-24] MEDS: Metoprolol CR 25 MG TABCR PO (07:47)
[2021-04-24] MEDS: Aspirin E.C. 81 MG TABEC PO (07:48)
[2021-04-24] MEDS: Magnesium Oxide 400 MG TAB PO (07:48)
[2021-04-24] MEDS: cefTRIAXone 2 GM/50 ML BAG IVPB (08:49)
[2021-04-24] MEDS: Potassium Chloride 20 MEQ TABCR PO ×4 (08:50→20:20)
--- NOTE | 2021-04-24 10:11 | PT.INIE ---
Date of service: 04/24/21 Time of Service: 09:00 PT Notes Visit Reasons: Sepsis,NSTEMI Inpatient Physical Therapy Evaluation Date: March Referring Doctor: Luisa Bethea PT Orders: PT CONSULT: limited ability Precautions: Standard, Falls Patient Profile/Admitting Diagnosis: Dinorah is a 86 year old female admitted to hospital secondary to hypomagnesemia, sepsis, cellulitis and generalized weakness. 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) Pes planus of right foot (Acute) Edema (Acute) Non-ST elevation MS (NSTEMI) (Acute) Hyperlipidemia (Chronic) Obesity (Chronic) Osteoarthritis (Chronic) Hypertension (Chronic) Medical History Glaucoma History of left breast cancer History of right breast cancer Left fibular fracture 2018 Melanoma 2017 Pulmonary embolism following a TKR Surgical History History of appendectomy History of melanoma excision History of total left knee replacement (TKR) S/P cholecystectomy S/P total knee replacement right 11/12/2019 Social History/Home Situation: Dinorah reports that she lives with her sister in a private home in [place]. She reports that her sister is also disabled due to her back and is unable to assist her. She would like to look into an Assisted Living Center more around her family in the [place] area Current Functional Limitations: generalized weakness with limited ability to ambulate. Utilizes a FWW at all times. Reports independence prior to admission with ADL's including showering and dressing with use of shower bench. Equipment Owned/DME: Shower chair, FWW Subjective: Dinorah is very pleasant and was agreeable to PT consult this am. She notes that she is very weak and needs PT to get her strength back. Objective: General Observation: IV access, catheter, telemetry. Significant erythema bilateral lower extremity with notable erythematous changes into the anterior tobias with appearance of venous stasis ulcerations. No drainage present Mental Status: Alert and oriented x3 Pain: 8/10 left knee ROM: Right Upper Extremity: Limited right shoulder flexion to 80 degrees with significant crepitation. IR chest wall. ER to neutral. WFL elbow, wrist, and hand Left Upper Extremity: Demonstrates WNL AROM L UE Right Lower Extremity: Hip flexion 90 degrees, knee 90 degrees, knee extension lacking 10 degrees, DF limited to neutral Left Lower Extremity: Hip flexion 90 degrees, knee flexion 80 degrees, extension lacking 15 degrees, dorsiflexion neutral Strength: Right Upper Extremity: Shoulder flexion 3/5, bicep 4/5, good functional grasp Left Upper Extremity: Demonstrates 4+/5 left upper extremity strength Right Lower Extremity: Independent straight leg raise with notable extension lag. Hip flexion 3+/5, knee flexion 4 -/5 Left Lower Extremity: Unable to perform independent straight leg raise. Hip flexion 3/5, knee flexion 3+/5 Sensation: Intact light touch Bed Mobility/Transfers: Transfers not assessed for patient had just gotten up with nursing to bedside chair. Patient reports need of moderate assistance of 2 nurses due to extreme weakness of the left lower extremity. Heavy UE assistance also required. Gait: Not assessed- patient refused at time of PT consult for had just gotten up with nursing to bedside chair. She notes that this really tired her out and was very frustrated by this for prior to admission was independent with use of her FWW for all ambulation. Balance: Static Sitting: Normal Dynamic Sitting: Good Static Standing: Not assessed Dynamic Standing: Not assessed Special Tests: Mobility Limitations Standardized Measure [facility] AM-PAC 6 clicks Basic Mobility Inpatient Short Form: Raw Score: 13 CMS Score: 65% Completed LE strengthening in recliner per flow sheet via A/AAROM and isometric activities. Tolerated these well without complaints. Informed Consent/Education: Patient instructed in purpose of PT consult and plan of care. Assessment: Patient is a 86 year old female referred to physical therapy services with the diagnosis of hypomagnesium, sepsis, cellulitis and generalized weakness. Patient presents with clinical signs and symptoms consistent with diagnosis, as demonstrated by the following impairment level findings: Impaired joint mobility bilateral knees, impaired muscle performance bilateral lower extremities and right shoulder, requires significant assistance for all functional transfers and mobility even with use of front wheeled walker. Impairments are contributing to the following functional limitations: Diminished range of motion bilateral knees, diminished range of motion right shoulder, diminished lower extremity strength, decreased functional transfers and limited ambulation tolerance Patient is assessed as a Moderate 66808 complexity based on the following: History: As above Examination: As above Presentation: Evolving Decision Making: Moderate Goals: Goals X1 week 1. Supine-Sit independent 2. Sit-Supine independent 3. Sit-Stand standby assist with front wheeled walker 4. Stand-Sit standby assist 5. Bed-Chair contact-guard assist with front wheeled walker 6. Chair-Bed contact-guard assist with front wheel walker 7. Gait contact-guard assist with front wheeled walker x50 feet or greater 8. Stairs up/down 3-5 steps with contact-guard assist 9. Independent with home exercise program Plan of Care/Treatment Plan: 1-2x/day, 7 days/week x 1 week. Plan of care has been reviewed with the CREDIT COUNSELOR providing the service under Physical Therapy direction. Initiate Physical Therapy intervention for strengthening, bed mobility, transfers, gait, stairs, balance training, use of assistive device. DISCHARGE RECOMMENDATIONS: Patient expressed concerns regarding her current living situation and would like to look into Assisted Living options closer to her family in [place]. TREATMENT CODE/TIME: 68694, IE, 25 minutes [facility] Disclaimer: This note was created using [employer] voice recognition software. It was reviewed for major content. However, there may be multiple small discrepancies and errors due to the voice recognition aspects of the software.
[2021-04-24 12:40] LABS: Clarity Purulent
[2021-04-24 12:42] LABS: Mononuclear Cells 6 %; Polynuclear Cells 94 %
--- NOTE | 2021-04-24 12:45 | PDOC.CMPRO ---
- If Service Date Differs Date of service: 04/24/21 Time of Service: 12:45 Care Management Progress Note S/O:Dinorah was sitting up in bed when CM met with her. She stated that she is feeling better but is still weak. In discussing discharge plans, Dinorah indicated that she definitely does not want to return home. She shared that she will feel more comfortable in an assisted living facility in the [place] area where her niece Rajani lives. She and her niece are very close and she will feel more supported in that environment. Dinorah talked a lot about her family today. Her grandfather was the president and chief operating officer at [employer] in [place], [place]. Her great nephew, Rajani's son, also wants to be a psychiatrist. Dinorah also talked about her father and what a kind man and wonderful father he was. A: Dinorah is an 86 year old woman admitted on 04/23/21 with sepsis and NSTEMI P:Dinorah will likely go to a senior living facility for short term rehab before transitioning to an assisted living facility near [place] where her family is. Referrals were sent by [facility] to [facility] and [facility].She will follow up with the facility providers and plan of care and transport via private vehicle vs RCT. CM will continue to support Dinorah and assess for ongoing discharge planning concerns.
--- NOTE | 2021-04-24 13:55 | DI.RAD_ITS ---
Exam(s) XR KNEE RT 2V AP,LAT EXAM: XR KNEE RT 2V AP,LAT CLINICAL HISTORY: eval R TKA in setting of [id number] TECHNIQUE: COMPARISON: CR XR KNEE LT 2V AP,LAT from 04/23/2021 FINDINGS: Two views were obtained. There is a total knee joint replacement in position. Components appear wel l seated. There is reportedly history of infectious process, there is no specific evidence of osteom yelitis on this study. IMPRESSION: RADIATION DOSE DELIVERED: Total DLP
[2021-04-24] MEDS: Ibuprofen 400 MG TAB PO (14:12)
--- NOTE | 2021-04-24 14:30 | DI.RAD_ITS ---
Exam(s) XR PORTABLE CHEST AP EXAM: XR PORTABLE CHEST AP CLINICAL HISTORY: dyspnea, wheezing TECHNIQUE: COMPARISON: CR XR PORTABLE CHEST AP from 06/24/2020 FINDINGS: Portable upright chest at 1454 hours. The heart is at the upper limits of normal in size. Lungs are grossly clear and well expanded. No pleural effusion seen on this frontal film. IMPRESSION: No evidence of acute process. RADIATION DOSE DELIVERED: Total DLP
--- NOTE | 2021-04-24 14:36 | CHAPLAIN ---
Dinorah remembered meeting me on a previous admission, and remembered receiving a prayer shawl. She told me she just found out that her left knee is infected and she may need surgery, here or at [facility]. (Later, I saw her in the hallway, in her bed, being wheeled somewhere and she told me she is having surgery tomorrow. I don't know where the surgery will be.) Dinorah talked about moving to the [facility] to be closer to her niece and nephew with whom she is very close. She also enjoys the company of her 16 year old great nephew who lives there.
--- NOTE | 2021-04-24 14:36 | W.PM.PROGNOT ---
Date of Service Date of service: 04/24/21 Time of Service: 14:36 Assessment and Plan Assessment and plan (1) Sepsis: Status: Acute Assessment and plan: continue w/ Rocephin and Vancomycin pending culture results. plan for knee washout and polymer exchange tomorrow. adjust antibiotics per culture results Qualifiers: Sepsis type: sepsis due to unspecified organism Sepsis acute organ dysfunction status: without acute organ dysfunction Qualified Code(s): A41.9 - Sepsis, unspecified organism (2) Septic arthritis of knee, left: Status: Suspected Assessment and plan: still suspected septic arthritis. Dr. Clarke did an aspiration today. Fluid results are pending but he suspects that the joint is infected and plans to proceed w/ surgery tomorrow. Qualifiers: Septic arthritis organism: due to unspecified organism Qualified Code(s): M00.9 - Pyogenic arthritis, unspecified (3) Cellulitis: Status: Acute Assessment and plan: as above Qualifiers: Site of cellulitis: extremity Site of cellulitis of extremity: lower extremity Laterality: left Qualified Code(s): L03.116 - Cellulitis of left lower limb (4) UTI (urinary tract infection): Status: Acute Assessment and plan: gram negative Qualifiers: Urinary tract infection type: acute cystitis Hematuria presence: without hematuria Qualified Code(s): N30.00 - Acute cystitis without hematuria (5) Elevated troponin: Status: Acute Assessment and plan: echocardiogram showed no RWMA and EKG was unremarkable. Suspect that elevated troponin is d/t sepsis (6) Wheezing: Status: Acute Assessment and plan: may be bronchospasm however given her chronic bilateral leg edema I am concerned for possible fluid overload/CHF. Will check CXR and BNP and give her DuoNeb to see if this clears up. If BNP is significantly high and CXR shows congestion then will give lasix. Subjective Subjective Interval history since last seen: Patient still w/ swelling and pain in her left knee and redness and increased warmth over her left lower leg. She is currently on Ancef and Vancomycin. However, her urine is now growing >100,000 CFU gram negative rods. Her WBC remains high at 22,000. Blood cultures so far show no growth. Today, Dr. Clarke again performed arthrocentesis of her left knee. 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 Apparently she had this before and had been [place] [facility] [place]. Per Dr. Clarke, she just has a spacer in her left knee and he plans to take her to the OR tomorrow for washout and removal of the spacer w/ replacement. Patient notes some increased dyspnea and wheezing that began last night. Some vague chest discomfort last night but none now. Patient had cardiac cath in June 2020 which reportedly was negative for any hemodynamically significant stenosis and she did not get any stents. I will check PCXR and EKG and BNP. She has significant bilateral leg edema and apparently on a chronic basis. I suspect that she has some degree of diastolic CHF, however her recent echo from 04/23 did not support this diagnosis (see LV E/e medial and lateral). Exam Narrative Exam Narrative: Obese white female sitting up in her chair; no acute respiratory distress Lungs: diffuse expiratory wheezing; no rhonchi or rales Heart: RRR, no appreciable murmur Abdomen: soft, nontender Legs: 2+ pitting edema; excoriation over left pretibial surface; diffuse redness over left pretibial surface; increased warmth over left leg compared to right leg left knee tender and swollen but not erythematous Objective Last Vital Signs Temp 37 C 04/24/21 08:55 Pulse 74 04/24/21 08:55 Resp 18 04/24/21 08:55 BP 135/70 04/24/21 08:55 Pulse Ox 95 04/24/21 08:55 Laboratory Results - last 24 hr 04/23/21 04/24/21 04/24/21 12:35 06:30 06:30 WBC 22.32 H RBC 3.05 L Hgb 9.4 L Hct 29.5 L MCV 96.7 H MCH 30.8 MCHC 31.9 L RDW 13.5 Plt Count 136 MPV 9.0 Immature Gran % 1.8 Neutrophils % 89.9 Lymphocytes % 3.3 Monocytes % 3.7 Eosinophils % 1.1 Basophils % 0.2 Nucleated RBC % 0 Absolute Neutrophils 20.07 H Absolute Lymphocytes 0.74 L Absolute Monocytes 0.83 H Absolute Eosinophils 0.25 Absolute Basophils 0.04 Sodium 136 Potassium 3.3 L Chloride 104 Carbon Dioxide 27.0 Anion Gap 5.0 BUN 22 H Creatinine 0.8 Estimated GFR/1.73 m2 >= 60.00 Glucose 100 Calcium 8.3 L Magnesium 2.3 C-Reactive Protein > 25.00 H Triglycerides 82 Total Cholesterol 149 LDL Cholesterol, Calc 81 HDL Cholesterol 52 Fluid Source Cancelled Fluid Color Cancelled Fluid Clarity Cancelled Fluid WBC Cancelled Fld Polynuclear WBCs % Cancelled Fluid Mononuclear Cell Cancelled Fluid Other Cells Cancelled Path Cons Comment Cancelled 04/24/21 11:50 WBC RBC Hgb Hct MCV MCH MCHC RDW Plt Count MPV Immature Gran % Neutrophils % Lymphocytes % Monocytes % Eosinophils % Basophils % Nucleated RBC % Absolute Neutrophils Absolute Lymphocytes Absolute Monocytes Absolute Eosinophils Absolute Basophils Sodium Potassium Chloride Carbon Dioxide Anion Gap BUN Creatinine Estimated GFR/1.73 m2 Glucose Calcium Magnesium C-Reactive Protein Triglycerides Total Cholesterol LDL Cholesterol, Calc HDL Cholesterol Fluid Source L Knee Fluid Color Other Fluid Clarity Purulent Fluid WBC Fld Polynuclear WBCs % 94 Fluid Mononuclear Cell 6 Fluid Other Cells Path Cons Comment
--- NOTE | 2021-04-24 14:45 | RT.EKG_ITS ---
APPROVED REPORT Exam: Resting ECG Reason for Exam: dyspnea Patient Location: I HR:80 bpm ECG Measurements Heart Rate 80 AXIS OR 157 P 52 QRSd 92 QRS 21 QT 369 T 4 QTc 427 Conclusion Sinus rhythm...normal P axis, V-rate 60- 99 Normal Electrocardiogram
--- NOTE | 2021-04-24 15:47 | W.PM.PROGNOT ---
Date of Service Date of service: 04/24/21 Time of Service: 12:47 Assessment and Plan Assessment and plan (1) Septic arthritis of knee, left: Status: Suspected Assessment and plan: Dinorah is a 86-year-old female who has a history of a chronic infection of the left knee which was treated with explantation and spacer. The spacer is been left in place for some years. This is always been somewhat painful but has been relatively stable for her. Is allowed her to walk with assistance of a cane or walker. However, she now is unable to move and unable to lift it. Yesterday, her exam is much more encouraging and there is no fluid on aspiration attempt. However, given the increase in pain today I did perform an aspiration. I was only able to aspirate approximately 8 cc of fluid with the needle contacting the femoral component. However, this fluid was obviously purulent. Cell count was not obtainable since the fluid clotted but it had greater than 90% poly-Redding for nuclear cells. Given this presentation Acticin that is infected. Because she had a previous explantation the best treatment option would be explant of the spacer with aggressive debridement and synovectomy followed by placement of a new spacer with broad-spectrum antibiotic coverage within the cement. I also worry that her right knee consisting going infected as well and I would recommend that we perform an aspiration of the right knee at the same time as we treat the left side. I did express my concerns about the surgery given the longstanding nature of the spacer and some of the dystrophic calcification seen on the x-rays. Her patella also seems to be high riding and I am concerned she could have had some injury to her patellar tendon or the extensor mechanism complex. This will be evaluated at time of surgery and may alter her total recovery plan and potential need for tertiary referral. She also has some medical issues but they all seem to be controlled at this point. She is 86 and obese which unfortunately portends a poor prognosis for her. I reviewed all this with her. She does feel that something is definitely wrong with the left knee at this point and agrees to proceed. I did review risk to include bleeding, continued infection, pain, stiffness, damage to nerves and vessels, damage to muscles and tendons, need for repeat procedures, fracture, blood clot, cardiopulmonary demise. Despite these risk, she elects to proceed. Qualifiers: Septic arthritis organism: due to unspecified organism Qualified Code(s): M00.9 - Pyogenic arthritis, unspecified Subjective Subjective Patient reports: no new complaints Interval history since last seen: Dinorah reports increasing left knee pain. She feels unable to bear weight on the left leg and now feels that any motion is more limited and more painful. This is much worse than yesterday. She reports malaise but no chest pain or fever. Blood cultures are negative. WBC and CRP are still significantly elevated. Urine culture is growing Gram Negative Rods with >100,000 CFU. Exam Narrative Exam Narrative: Sitting up in the chair. NAD. AAOx3. Left leg shows continued errythema of the left leg with crusted exudate and edema from the proximal aspect of the leg down through the ankle. The erythema actually seems to be more proximal and onto the distal aspect o fthe knee today, worse than yesterday. She is unable to straight leg raise. She cannot tolerated any passive motion without significant pain. No significant effusion but there is some bogginess to the knee. No pain with pasive motion of the ankle but it is restricted. Right leg shows similar findings of errythema and crusted exudate. This is largely unchanged from yesterday. There is some bogginess of the right knee but no effusion and only mild pain with passive ROM of the right knee. She is able to actively move it and straight leg raise without significant limitation. Bilateral legs show intact sensation the deep and superficial peroneal nerve and tibial nerve. Capillary refill less than 2 seconds. Objective Last Vital Signs Temp 37.3 C 04/24/21 15:34 Pulse 81 04/24/21 15:34 Resp 20 04/24/21 15:34 BP 151/66 H 04/24/21 15:34 Pulse Ox 98 04/24/21 15:34 Laboratory Results - last 24 hr 04/23/21 04/24/21 04/24/21 12:35 06:30 06:30 WBC 22.32 H RBC 3.05 L Hgb 9.4 L Hct 29.5 L MCV 96.7 H MCH 30.8 MCHC 31.9 L RDW 13.5 Plt Count 136 MPV 9.0 Immature Gran % 1.8 Neutrophils % 89.9 Lymphocytes % 3.3 Monocytes % 3.7 Eosinophils % 1.1 Basophils % 0.2 Nucleated RBC % 0 Absolute Neutrophils 20.07 H Absolute Lymphocytes 0.74 L Absolute Monocytes 0.83 H Absolute Eosinophils 0.25 Absolute Basophils 0.04 Sodium 136 Potassium 3.3 L Chloride 104 Carbon Dioxide 27.0 Anion Gap 5.0 BUN 22 H Creatinine 0.8 Estimated GFR/1.73 m2 >= 60.00 Glucose 100 Calcium 8.3 L Magnesium 2.3 C-Reactive Protein > 25.00 H Triglycerides 82 Total Cholesterol 149 LDL Cholesterol, Calc 81 HDL Cholesterol 52 Fluid Source Cancelled Fluid Color Cancelled Fluid Clarity Cancelled Fluid WBC Cancelled Fld Polynuclear WBCs % Cancelled Fluid Mononuclear Cell Cancelled Fluid Other Cells Cancelled Path Cons Comment Cancelled 04/24/21 11:50 WBC RBC Hgb Hct MCV MCH MCHC RDW Plt Count MPV Immature Gran % Neutrophils % Lymphocytes % Monocytes % Eosinophils % Basophils % Nucleated RBC % Absolute Neutrophils Absolute Lymphocytes Absolute Monocytes Absolute Eosinophils Absolute Basophils Sodium Potassium Chloride Carbon Dioxide Anion Gap BUN Creatinine Estimated GFR/1.73 m2 Glucose Calcium Magnesium C-Reactive Protein Triglycerides Total Cholesterol LDL Cholesterol, Calc HDL Cholesterol Fluid Source L Knee Fluid Color Other Fluid Clarity Purulent Fluid WBC Fld Polynuclear WBCs % 94 Fluid Mononuclear Cell 6 Fluid Other Cells Path Cons Comment
[2021-04-24 16:00] LABS: Potassium 3.6 mmol/L (3.5-5.1)
[2021-04-24 16:13] LABS: NT-proBNP 2317 pg/mL (<300)
[2021-04-24] MEDS: Enoxaparin 40 MG/0.4 ML SYR SC (16:21)
[2021-04-24] MEDS: Albuterol/Ipratropium 3 ML UPD VIAL UPD ×2 (16:21→20:22)
[2021-04-24] MEDS: Furosemide 20 MG/2 ML VIAL IVP ×2 (18:17→22:56)
[2021-04-24] MEDS: Ketorolac 15 MG/ML VIAL IVP (20:02)
[2021-04-24] MEDS: Lactated Ringers 1,000 ML 80 ML IV (20:22)
[2021-04-24] MEDS: Latanoprost 0.005% 2.5 ML BTL OU (22:56)
[2021-04-25] VITALS (10 sets, daily range): BP systolic 109–133; BP diastolic 66–75; PULSE 64–80; RESP 4–19; TEMP 36.4–38.4; O2SAT 93–98
[2021-04-25 07:22] LABS: Abs Immature Grans 0.25 10^3/uL (0.0-0.06); Absolute Monocyte Count 0.73 10^3/uL (0.1-0.8); Absolute Neutrophil Count 13.66 10^3/uL (1.2-6.7); Basophils % 0.2; Eosinophils % 2.5; HCT 29.7 % (36.0-46.0); HGB 9.4 g/dL (11.2-15.7); Immature Grans % 1.5; Lymphocytes % 6.9; MCH 30.1 pg (27.0-33.0); MCHC 31.6 % (32.0-36.0); MCV 95.2 fL (80-95); MPV 9.5 fL (8.0-11.0); Monocytes % 4.5; Neutrophils % 84.4; Nucleated RBC 0 %; Platelet Count 140 10^3/uL (130-400); RBC 3.12 10^6/uL (3.93-5.22); RDW 13.2 % (11.7-14.6); WBC 16.19 10^3/uL (4.4-10.8)
[2021-04-25 07:26] LABS: Absolute Basophil Count 0.03 10^3/uL (0.0-0.2); Absolute Lymphocyte Count 1.12 10^3/uL (1.2-3.4)
[2021-04-25] MEDS: Normal Saline Flush 10 ML SYR IVP ×4 (07:29→10:43)
[2021-04-25] MEDS: Furosemide 20 MG/2 ML VIAL IVP (07:29)
[2021-04-25] MEDS: cefTRIAXone 2 GM/50 ML BAG IVPB (07:32)
[2021-04-25 07:42] LABS: Anion Gap 8.3 mmol/L (3-11); BUN 23 mg/dL (7-18); C-Reactive Protein 23.76 mg/dL (0.0-0.3); CO2 23.7 mmol/L (21.0-32.0); CREATININE 0.8 mg/dL (0.55-1.02); Calcium 8.9 mg/dL (8.5-10.1); Chloride 107 mmol/L (98-107); Glucose 94 mg/dL (74-106); Sodium 139 mmol/L (136-145)
[2021-04-25] MEDS: Ketorolac 15 MG/ML VIAL IVP (08:03)
[2021-04-25] MEDS: Albuterol/Ipratropium 3 ML UPD VIAL UPD ×2 (08:08→21:18)
--- NOTE | 2021-04-25 08:32 | W.PM.PROGNOT ---
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 This was infected about 10 years ago for which she went underwent explantation of the knee components and placement of a low fraction spacer. She has done quite well on this up to recently. She is very clear that prior to this admission she had no difficulty with ambulating. She did have some very mild pain about the left knee, which she was explained was to be expected. This was relatively constant except for more recently when the last few days she is unable to move or stand on this left leg. While the cell count clotted yesterday the fluid was grossly purulent and given her inflammatory markers has to be assumed to be infected and therefore I recommended we proceed with explantation of the left knee spacer, aggressive debridement synovectomy, and placement of a new antibiotic spacer with therapeutic doses of antibiotic cement. I reviewed all this with Dinorah in detail. This will be a challenging procedure given the dystrophic calcification seen on the x-ray about the left knee and the chronic nature of this spacer. Her patella also looks to be slightly high riding which may be projectional on the x-ray but could also signify potential extensor mechanism disruption which would complicate these matters and require further tertiary involvement. I did briefly discuss other technical features about this case including removing all the other components and remnant cement. We would place new spacers after thorough debridement of all 4 material. We would be delivering high-dose antibiotics within the knee to cover broad-spectrum microbes although it could be related to her current UTI and E. coli. Reportedly, her previous and left knee infection was also of a source. I reviewed the risk of the procedure to include bleeding, infection persistence, stiffness, pain, need for repeat procedures, weakness, fracture, rupture of muscles or tendons, damage to nerves and vessels, instability, blood clot, cardiopulmonary demise. Given her starting hemoglobin today I also find that will be necessary to transfuse as we will lose blood today during the case. I greatly appreciate medicine involvement with the management of her medical complexity especially with fluid management in the setting of surgery, anemia, and expected blood loss. I will also take multiple cultures at the time of the case including tissue, sending for aerobic, anaerobic, and fungal. Qualifiers: Septic arthritis organism: due to unspecified organism Qualified Code(s): M00.9 - Pyogenic arthritis, unspecified (2) Painful total knee replacement, left: Status: Acute Qualifiers: Encounter type: initial encounter Qualified Code(s): T84.84XA - Pain due to internal orthopedic prosthetic devices, implants and grafts, initial encounter; Z96.652 - Presence of left artificial knee joint Subjective Subjective Interval history since last seen: Dinorah continues to report pain about the left knee. She denies any pain in the right knee. The pain left knee is precluding her ability to move the left knee or to stand on it. Prior to this hospitalization she was able to ambulate with mild pain but with no significant limitations. She denies any fevers or chills. She does have a positive urine culture for E. coli. Blood cultures are still negative x48 hours. Culture from yesterday is still pending although the fluid was purulent in its appearance with an abundance of polymorphonuclear cells but no cell count due to clotting. He has had some increasing wheezing and dyspnea which is thought to be related to some fluid overload state with an elevated BNP. This morning her white blood cell count and CRP have trended downwards for the first time after the switch to ceftriaxone and vancomycin yesterday. Yesterday I had a long discussion with her about her treatment options and recommended to proceed with explantation, debridement, and antibiotic spacer placement within the left knee. She has no further questions about this procedure. Exam Narrative Exam Narrative: Resting in the hospital bed having a breathing treatment. No acute distress. Alert orient x3. Evaluation the left knee shows erythema throughout the midportion of the left leg. The erythema seems to be slightly less than it was yesterday. However, any attempted passive range of motion of the left knee causes exquisite pain. She is unable to straight leg raise the left side. She has no significant pain with ankle dorsiflexion and plantarflexion or great toe extension or flexion actively. Evaluation of the right knee shows a well-healed incision. Once again there are some chronic changes about the right distal leg with some exudate and erythema to suggest a chronic cellulitis. However, the knee is not involved. She is able to actively straight leg raise the right side. I am also able to flex and extend the right knee without any significant pain. No effusion. Mild bogginess. Objective Last Vital Signs Temp 36.5 C 04/25/21 07:40 Pulse 64 04/25/21 07:40 Resp 19 04/25/21 07:40 BP 109/71 04/25/21 07:40 Pulse Ox 96 04/25/21 07:40 Laboratory Results - last 24 hr 04/24/21 04/24/21 04/24/21 11:50 15:45 15:45 WBC RBC Hgb Hct MCV MCH MCHC RDW Plt Count MPV Immature Gran % Neutrophils % Lymphocytes % Monocytes % Eosinophils % Basophils % Nucleated RBC % Absolute Neutrophils Absolute Lymphocytes Absolute Monocytes Absolute Eosinophils Absolute Basophils Sodium Potassium 3.6 Chloride Carbon Dioxide Anion Gap BUN Creatinine Estimated GFR/1.73 m2 Glucose Calcium C-Reactive Protein NT-Pro-B Natriuret Pep 2317 H Fluid Source L Knee Fluid Color Other Fluid Clarity Purulent Fluid WBC Fld Polynuclear WBCs % 94 Fluid Mononuclear Cell 6 04/25/21 04/25/21 06:42 06:42 WBC 16.19 H RBC 3.12 L Hgb 9.4 L Hct 29.7 L MCV 95.2 H MCH 30.1 MCHC 31.6 L RDW 13.2 Plt Count 140 MPV 9.5 Immature Gran % 1.5 Neutrophils % 84.4 Lymphocytes % 6.9 Monocytes % 4.5 Eosinophils % 2.5 Basophils % 0.2 Nucleated RBC % 0 Absolute Neutrophils 13.66 H Absolute Lymphocytes 1.12 L Absolute Monocytes 0.73 Absolute Eosinophils 0.40 Absolute Basophils 0.03 Sodium 139 Potassium 4.0 Chloride 107 Carbon Dioxide 23.7 Anion Gap 8.3 BUN 23 H Creatinine 0.8 Estimated GFR/1.73 m2 >= 60.00 Glucose 94 Calcium 8.9 C-Reactive Protein 23.76 H NT-Pro-B Natriuret Pep Fluid Source Fluid Color Fluid Clarity Fluid WBC Fld Polynuclear WBCs % Fluid Mononuclear Cell Objective Narrative Objective Narrative: X-ray of the right knee performed yesterday shows a cruciate retaining component. There is no significant signs of loosening. No suspicious lesions.
[2021-04-25] MEDS: VANCOMYCIN/WATER (PEG) 1 GM/200 ML BAG IV ×2 (08:47→22:48)
[2021-04-25 08:53] LABS: NT-proBNP 3048 pg/mL (<300); Troponin I < 50 ng/L (<or=60)
[2021-04-25] MEDS: Metoprolol CR 25 MG TABCR PO (08:54)
--- NOTE | 2021-04-25 09:37 | W.ANESPRE ---
General Info Date of Service Date Performed: 04/25/21 Height: 5 ft 6 in Weight: 106.8 kg Body Mass Index (BMI): 38.0 Surgical Procedure: Operation Date: 04/25/21 07:15 Proposed Procedures Side Surgeon p Knee Polyethylene Exchange Left Matthew Clarke MD Meds Allergies and Home Medications Allergies Allergy/AdvReac Type Severity Reaction Status Date / Time demeclocycline HCl Allergy Intermediate Hives Verified 03/26/21 11:55 [From Declomycin] acetaminophen [From Percocet] Allergy Mild Hives Verified 03/26/21 11:55 oxycodone [From Percocet] Allergy Mild Hives Verified 03/26/21 11:55 Penicillins Allergy Mild Hives Verified 03/26/21 11:55 Ktsoimr-QKN-AkN Reductase AdvReac Intermediate nauesa Verified 03/26/21 11:55 Inhibitor /vomiting [Znhoxni-Oba-Gte Reductase Inhibitor] Home Medication Medication Instructions Recorded ascorbic acid-ascorbate sodium 1 wafer PO DAILY 08/16/17 calcium carb,citrat 500 tab PO DAILY tab 06/04/19 mg-magnesium #12 250 mg-vit D3 200 unit tablet magnesium 250 mg tablet 250 mg PO DAILY 06/04/19 docusate sodium 100 mg capsule 100 mg PO DAILY 12/14/19 latanoprost 0.005 % eye drops 1 drp OU HS #2.5 ml 07/03/20 metoprolol succinate 25 mg 25 mg PO DAILY #90 tab 07/03/20 tablet,extended release 24 hr rosuvastatin 5 mg tablet 5 mg PO .Every other day #90 tab 07/03/20 furosemide 20 mg tablet 20 mg PO BID #180 tab 08/22/20 Ankle Foot Orthosis #1 ea 10/29/20 losartan 50 mg tablet 50 mg PO DAILY #90 tab 03/26/21 aspirin 81 mg PO DAILY 04/23/21 Current Visit Medications: Current Medications Generic Name Dose Route Start Last Admin Trade Name Freq PRN Reason Stop Dose Admin Albuterol/Ipratropium 3 ml 04/24/21 14:43 04/25/21 08:08 Albuterol/Ipratropium 3 Ml Upd Vial UPD 3 ml Q4H PRN PRN Administration Aspirin 81 mg 04/23/21 08:30 04/25/21 08:54 Aspirin E.C. 81 Mg Tabec PO Not Given DAILY CALLY Docusate Sodium 100 mg 04/23/21 08:30 04/25/21 08:54 Docusate Sodium 100 Mg Cap PO Not Given DAILY [facility] Enoxaparin Sodium 40 mg 04/23/21 16:00 04/24/21 16:21 Enoxaparin 40 Mg/0.4 Ml Syr SC 40 mg Q24H CALLY Administration Vancomycin/PEG/NADA/Lysine/Water 1 gm in 200 mls @ 133.333 mls/hr 04/24/21 04:00 04/25/21 08:47 Vancocin Injection IV 133.33 mls/hr Q14H CALLY Administration Protocol Per Protocol Ceftriaxone Sodium/Dextrose 2 gm in 50 mls @ 100 mls/hr 04/24/21 08:00 04/25/21 07:32 Rocephin IVPB 100 mls/hr Q24H CALLY Administration Cefazolin Sodium/Dextrose 2 gm in 50 mls @ 100 mls/hr 04/25/21 06:00 Ancef Duplex IVPB 04/25/21 16:00 PREOP CALLY Tranexamic Acid 1,000 mg/ 60 mls @ 360 mls/hr 04/25/21 06:00 Sodium Chloride IVPB 04/25/21 16:00 PREOP CALLY Ringer's Solution 1,000 mls @ 80 mls/hr 04/24/21 16:45 04/24/21 20:22 IV 80 mls/hr INFUSION CALLY Administration IV Miscellaneous Supplies 1 each 04/22/21 20:00 Iv Access IV DIRECTED [facility] Ketorolac Tromethamine 15 mg 04/24/21 20:00 04/25/21 08:03 Ketorolac 15 Mg/Ml Vial IVP 04/29/21 19:59 15 mg Q6H PRN PRN Administration Latanoprost 0 ml 04/23/21 22:00 04/24/21 22:56 Latanoprost 0.005% 2.5 Ml Btl OU 1 drp HS CALLY Administration Losartan Potassium 50 mg 04/23/21 08:30 Losartan 50 Mg Tab PO DAILY [facility] Magnesium Oxide 400 mg 04/23/21 08:30 04/25/21 08:54 Magnesium Oxide 400 Mg Tab PO Not Given DAILY [facility] Metoprolol Succinate 25 mg 04/23/21 08:30 04/25/21 08:54 Metoprolol Cr 25 Mg Tabcr PO 25 mg DAILY CALLY Administration Rosuvastatin Calcium 5 mg 04/24/21 08:30 04/24/21 07:47 Rosuvastatin 5 Mg Tab PO 5 mg Q48H CALLY Administration Sodium Chloride 0 ml 04/22/21 23:47 04/25/21 08:04 Normal Saline Flush 10 Ml Syr IVP 10 ml PRN PRN Administration PFSH Active Problems Active Problems: Problem Status Onset Code Wheezing R06.2 UTI (urinary tract infection) N39.0 Painful total knee replacement, left T84.84XA, Z96.652 Elevated troponin R77.8 Sepsis A41.9 Cellulitis L03.90 Bacteremia R78.81 Hypomagnesemia E83.42 Hypokalemia E87.6 Generalized weakness R53.1 Right knee pain M25.561 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 Pes planus of right foot M21.41 Edema R60.9 Non-ST elevation [place] (NSTEMI) I21.4 Hyperlipidemia E78.5 Obesity E66.9 Osteoarthritis M19.90 Hypertension I10 Medical History Medical History Glaucoma History of left breast cancer History of right breast cancer Left fibular fracture 2018 Melanoma 2017 Pulmonary embolism following a TKR Surgical History Surgical History History of appendectomy History of melanoma excision History of total left knee replacement (TKR) S/P cholecystectomy S/P total knee replacement right 11/12/2019 Tobacco Smoking/Tobacco Use Status: Never Passive smoking exposure: Yes Second hand exposure: Yes Alcohol Alcohol Intake: never Substance Use Substance use: Never Substance use type: does not use Vital Signs and Lab Results Vital Signs Most Recent Vital Signs in EMR: Most Recent Vital Signs Temp Pulse Resp BP Pulse Ox 36.5 C 64 19 109/71 96 04/25/21 07:40 04/25/21 07:40 04/25/21 07:40 04/25/21 07:40 04/25/21 07:40 Lab Results Result Diagrams: 04/25/21 06:42 04/25/21 06:42 Blood Type / Crossmatch: No Data to Display Complete Blood Count: White Blood Count 16.19 10^3/uL (4.4-10.8) H 04/25/21 06:42 04/25/21 Red Blood Count 3.12 10^6/uL (3.93-5.22) L 04/25/21 06:42 04/25/21 Hemoglobin 9.4 g/dL (11.2-15.7) L 04/25/21 06:42 04/25/21 Hematocrit 29.7 % (36.0-46.0) L 04/25/21 06:42 04/25/21 Platelet Count 140 10^3/uL (130-400) 04/25/21 06:42 04/25/21 Venous Blood Lactate 1.7 mmol/L (0.6-1.4) H 04/23/21 06:33 04/23/21 Complete Metabolic Panel: Sodium Level 139 mmol/L (136-145) 04/25/21 06:42 04/25/21 Potassium Level 4.0 mmol/L (3.5-5.1) 04/25/21 06:42 04/25/21 Chloride Level 107 mmol/L (98-107) 04/25/21 06:42 04/25/21 Carbon Dioxide Level 23.7 mmol/L (21.0-32.0) 04/25/21 06:42 04/25/21 Blood Urea Nitrogen 23 mg/dL (7-18) H 04/25/21 06:42 04/25/21 Creatinine 0.8 mg/dL (0.55-1.02) 04/25/21 06:42 04/25/21 Estimated GFR/1.73 m2 >= 60.00 (mL/min/1.73m2) 04/25/21 06:42 04/25/21 Magnesium Level 2.3 mg/dL (1.8-2.4) 04/24/21 06:30 04/24/21 Calcium Level 8.9 mg/dL (8.5-10.1) 04/25/21 06:42 04/25/21 Albumin 3.3 g/dL (3.4-5.0) L 04/22/21 20:47 04/22/21 Glucose Level 94 mg/dL (74-106) 04/25/21 06:42 04/25/21 C-Reactive Protein 23.76 mg/dL (0.0-0.3) H 04/25/21 06:42 04/25/21 Liver Function Panel: Alanine Aminotransferase (ALT/SGPT) 19 U/L (14-59) 04/22/21 20:47 04/22/21 Aspartate Amino Transf (AST/SGOT) 23 U/L (15-37) 04/22/21 20:47 04/22/21 Coagulation Panel: No Data to Display Cardiac Panel: Troponin I < 50 ng/L (<or=60) 04/25/21 06:42 04/25/21 TA-Wce-O-Type Natriuretic Peptide 3048 pg/mL (<300) H 04/25/21 06:42 04/25/21 Creatine Kinase 181 U/L (26-192) 04/23/21 06:33 04/23/21 Arterial Blood Gas: No Data to Display Venous Blood Gas: No Data to Display Pancreas Panel: Lipase 74 U/L (73-393) 04/22/21 20:47 04/22/21 Thyroid Panel: Thyroid Stimulating Hormone (TSH) 0.70 uIU/mL (0.36-3.74) 04/23/21 06:33 04/23/21 Infectious Disease: Coronavirus (COVID-19)(PCR) Negative (Negative) 04/22/21 22:12 04/22/21 Coronavirus 2019 Source Nasal/Nares 04/22/21 22:12 04/22/21 Blood Cultures: No Data to Display Toxicology Panel: No Data to Display Imaging and Studies Imaging and Studies Study information below may be from another EMR and interpreted by another provider. Please see original notes in EMR for more complete details. EKG Summary: Conclusion Sinus rhythm...normal P axis, V-rate 60- 99 04/23/21 Echocardiogram Summary: Conclusion Normal left ventricular wall thickness and chamber size. Estimated ejection fraction is 60%. Wall motion is normal Borderline dilated right ventricle with normal systolic function Mildly dilated left atrium. Right atrium is normal in size Trileaflet aortic valve without stenosis or regurgitation Mild mitral annular calcification, trace mitral regurgitation Normal tricuspid valve with trace regurgitation. Estimated right ventricular systolic pressure is 34 mmHg Mildly dilated ascending aorta, 3.36 cm 04/23/21 Anesthesia Assessment and Plan Anesthesia History Personal History: No History of Anesthesia Complications Family History: No Family History of Anesthesia Complications Exercise Tolerance Exercise Tolerance: Metabolic Equivalents<4 Pertinent Negatives Pertinent Negatives: No Major Cardiovascular Symptoms or Complaints and No Major Pulmonary Symptoms or Complaints Cardiac & Pulmonary Exam Cardiac Exam: Normal S1/S2 Heart Sounds Pulmonary Exam: Clear Bilateral Breath Sounds (Occ. wheeze with cough, otherwise clear. Diuresed 4-5 L in last 24 hours. Plan nebulizer just prior to surgery. ) Implantable Cardiac Device Does patient have a Pacemaker or an ICD?: No Airway Exam Known Difficult Airway: Yes Previous Airway Comments:: In distant past was a difficult intubation, ?they said my tongue was the problem?. States she has had intubations since without a problem. Mallampati Class: 4 Mouth Opening: Normal (> 3cm) Thyromental Distance: Greater than 3 cm Neck Range of Motion: Full ROM Neck Circumference: Normal Teeth Condition: Normal Dentition (Lower teeth only, all bottom molars missing, edentulous upper) and Removable Dentures/Plates Upper ASA Classification ASA Score: ASA 3 Emergency Case?: Yes NPO Status NPO Status: NPO Clears >2 hours, Solids >8 hours Anesthesia Plan Resuscitation Status: DNR Fully Suspended During Perioperative Period Anesthesia Technique: General Anesthesia Airway Planned: Endotracheal Tube Pain Management: Surgeon and patient request nerve block Monitors Used: Standard Monitors Preoperative Comments:: Suspect elevated troponin is attributed to sepsis per Dr. Hernandes. Patient had cardiac cath in June 2020 which reportedly was negative for any hemodynamically significant stenosis and she did not get any stents.
--- NOTE | 2021-04-25 09:52 | NT_ITS ---
PT Notes Visit Reasons: Sepsis,NSTEMI 04/25/2021 Hold PT today as pt is going into surgery. Hedy Kuamr, RESERVOIR ENGINEER
--- NOTE | 2021-04-25 09:55 | W.PM.PROGNOT ---
Date of Service Date of service: 04/25/21 Time of Service: 09:55 Assessment and Plan Assessment and plan (1) Sepsis: Status: Acute Assessment and plan: Blood cultures have shown no growth. Urine culture shows E. coli which is pansensitive.Patient remains afebrile and her white cell count is gone down to 16,000. CRP remains elevated at 23. Patient remains on ceftriaxone 2 g IV daily along with vancomycin dosing per pharmacy. Ancef was added perioperatively for her left knee surgery. Source of her sepsis likely from her left knee but may have originated from urinary tract infection. We will see with the washout from the left knee shows. Qualifiers: Sepsis acute organ dysfunction status: without acute organ dysfunction Sepsis type: sepsis due to unspecified organism Qualified Code(s): A41.9 - Sepsis, unspecified organism (2) Septic arthritis of knee, left: Status: Suspected Assessment and plan: Left knee aspirate from yesterday Gram stain showed many white blood cells but no bacteria were seen. Patient is to go to the OR today for washout of the left knee and replacement of the polymer spacer. Per my discussion with Dr. Clarke he anticipates significant blood loss and patient likely will need transfusion. I advised him that the patient has some CHF but that I am diuresing her. Ideally we should try to diurese her more prior to surgery and anticipated blood transfusions to avoid any perioperative pulmonary edema. Other than her wheezing, she is relatively asymptomatic from the CHF i.e. not hypoxemic, not tachypneic and not dyspneic however, I would like her more euvolemic prior to surgery. I will discuss management further w/ anesthesia. Apparently the OR room is already prepped. I had anticipated that she would have had a better response overnight from the diuretics yesterday. Qualifiers: Septic arthritis organism: due to unspecified organism Qualified Code(s): M00.9 - Pyogenic arthritis, unspecified (3) Cellulitis: Status: Acute Assessment and plan: as above Qualifiers: Laterality: left Site of cellulitis: extremity Site of cellulitis of extremity: lower extremity Qualified Code(s): L03.116 - Cellulitis of left lower limb (4) UTI (urinary tract infection): Status: Acute Assessment and plan: E. coli which is pansensitive currently responding to high-dose Rocephin. Qualifiers: Hematuria presence: without hematuria Urinary tract infection type: acute cystitis Qualified Code(s): N30.00 - Acute cystitis without hematuria (5) Elevated troponin: Status: Acute Assessment and plan: echocardiogram showed no RWMA and EKG was unremarkable. Suspect that elevated troponin is d/t sepsis. Troponin is now normalized. (6) Wheezing: Status: Acute Assessment and plan: Her wheezing is most likely due to CHF. I will put her on scheduled Lasix and give her a dose preoperatively.. (7) Right heart failure: Status: Acute Assessment and plan: echo showed borderline dilated RV but normal RV systolic function. Mild PHTN RVSP 34 mm. I suspect underlying MYLES (never worked up for this per patient) Will diurese her overnight and hopefully plan for surgery tomorrow. Case discussed w/ Dr. Duvall and the nurse parts department supervisor Subjective Subjective Interval history since last seen: Patient still is having some wheezing. Nursing staff is given her an albuterol treatment which they felt improved her wheezing however by my exam she still has audible wheezing. Her proBNP remains elevated 3048. However troponin is now normal. Patient denies any chest pain or chest pressure or dyspnea. Patient did receive Lasix last night did not get much response from the first dose of 20 mg so she was given additional 20 mg. She did get a diuretics response. She put out a total of 2800 mL throughout the entire 24 hours yesterday and since midnight has put out 2400. However since midnight she has been put on IV fluids. Exam Narrative Exam Narrative: Pleasant 86-year-old white female who is lying in bed alert and oriented person place time circumstance not wearing any oxygen not tachypneic not using accessory respiratory muscles able to talk to me in complete conversation without getting dyspneic. Neck is difficult to evaluate for JVD due to her obesity. Lungs reveal diffuse bilateral expiratory wheezes without rhonchi Heart regular rate and rhythm no appreciable murmur rub Abdomen is obese soft nontender Both legs are edematous left more so than the right. Left tibia is still erythematous and warm and left knee is tender. Objective Last Vital Signs Temp 36.5 C 04/25/21 07:40 Pulse 64 04/25/21 07:40 Resp 19 04/25/21 07:40 BP 109/71 04/25/21 07:40 Pulse Ox 96 04/25/21 07:40 Laboratory Results - last 24 hr 04/24/21 04/24/21 04/24/21 11:50 15:45 15:45 WBC RBC Hgb Hct MCV MCH MCHC RDW Plt Count MPV Immature Gran % Neutrophils % Lymphocytes % Monocytes % Eosinophils % Basophils % Nucleated RBC % Absolute Neutrophils Absolute Lymphocytes Absolute Monocytes Absolute Eosinophils Absolute Basophils Sodium Potassium 3.6 Chloride Carbon Dioxide Anion Gap BUN Creatinine Estimated GFR/1.73 m2 Glucose Calcium Troponin I C-Reactive Protein NT-Pro-B Natriuret Pep 2317 H Fluid Source L Knee Fluid Color Other Fluid Clarity Purulent Fluid WBC Fld Polynuclear WBCs % 94 Fluid Mononuclear Cell 6 04/25/21 04/25/21 04/25/21 06:42 06:42 06:42 WBC 16.19 H RBC 3.12 L Hgb 9.4 L Hct 29.7 L MCV 95.2 H MCH 30.1 MCHC 31.6 L RDW 13.2 Plt Count 140 MPV 9.5 Immature Gran % 1.5 Neutrophils % 84.4 Lymphocytes % 6.9 Monocytes % 4.5 Eosinophils % 2.5 Basophils % 0.2 Nucleated RBC % 0 Absolute Neutrophils 13.66 H Absolute Lymphocytes 1.12 L Absolute Monocytes 0.73 Absolute Eosinophils 0.40 Absolute Basophils 0.03 Sodium 139 Potassium 4.0 Chloride 107 Carbon Dioxide 23.7 Anion Gap 8.3 BUN 23 H Creatinine 0.8 Estimated GFR/1.73 m2 >= 60.00 Glucose 94 Calcium 8.9 Troponin I < 50 C-Reactive Protein 23.76 H NT-Pro-B Natriuret Pep 3048 H Fluid Source Fluid Color Fluid Clarity Fluid WBC Fld Polynuclear WBCs % Fluid Mononuclear Cell
[2021-04-25] MEDS: Furosemide 40 MG/4 ML VIAL IVP ×2 (10:43→15:38)
[2021-04-25] MEDS: Docusate Sodium 100 MG CAP PO ×2 (11:28→21:18)
[2021-04-25] MEDS: Aspirin E.C. 81 MG TABEC PO (11:28)
[2021-04-25] MEDS: Magnesium Oxide 400 MG TAB PO (11:28)
[2021-04-25] MEDS: Polyethylene Glycol 3350 17 GM PACKET PO (13:30)
[2021-04-25] MEDS: Enoxaparin 40 MG/0.4 ML SYR SC (15:38)
[2021-04-25] MEDS: Senna TAB 1 TAB PO (21:18)
[2021-04-25] MEDS: Latanoprost 0.005% 2.5 ML BTL OU (21:18)
[2021-04-25 21:28] LABS: Vancomycin, Trough 15.1 ug/mL (10.0-20.0)
[2021-04-26] VITALS (18 sets, daily range): BP systolic 85–136; BP diastolic 33–77; PULSE 56–84; RESP 1–27; TEMP 36.1–38.3; O2SAT 92–98; BMI 38.0
[2021-04-26] MEDS: Normal Saline Flush 10 ML SYR IVP ×3 (00:56→23:19)
[2021-04-26] MEDS: Ketorolac 15 MG/ML VIAL IVP ×3 (00:57→23:18)
[2021-04-26] MEDS: Metoprolol CR 25 MG TABCR PO (07:16)
[2021-04-26] MEDS: Furosemide 40 MG/4 ML VIAL IVP (07:16)
[2021-04-26] MEDS: cefTRIAXone 2 GM/50 ML BAG IVPB (07:16)
--- NOTE | 2021-04-26 07:17 | W.PM.PROGNOT ---
Date of Service Date of service: 04/26/21 Time of Service: 07:17 Assessment and Plan Assessment and plan (1) Cellulitis: Status: Acute Qualifiers: Site of cellulitis: extremity Site of cellulitis of extremity: lower extremity Laterality: left Qualified Code(s): L03.116 - Cellulitis of left lower limb (2) Septic arthritis of knee, left: Status: Suspected Assessment and plan: Dinorah is a 89-year-old who has what appears to be an infected left knee. This hardware is actually a spacer from a previous infection about 10 years ago. The cell count clotted but the fluid was grossly purulent with greater than 90% PMNs. She continues have pain which limits all activity about the left knee and has continued to have some fevers overnight to elevate inflammatory markers. Blood cultures been negative. Urine culture grew E. coli. It is unclear where the primary sources at this point the knee is definitely infected and therefore I recommend proceeding with explantation of current spacer, aggressive synovectomy debridement with new spacer placement. I will await the greenlight from the hospitalist and anesthesia but she seems to be much better and therefore we should build to proceed today. All questions were answered. Qualifiers: Septic arthritis organism: due to unspecified organism Qualified Code(s): M00.9 - Pyogenic arthritis, unspecified Subjective Subjective Interval history since last seen: In general, Dinorah reports to be feeling better. She no longer has the wheezing and feels the breathing is easier. She continues to have pain in the left knee but no other new complaints. She feels that the right leg swelling/erythema appears much better to her. Surgery yesterday was postponed given her wheezing, ultrasound exam, and fluid positivity with associated high BNP. She did diuresis greater than 5 L yesterday. She has required no oxygen overnight and reports no dyspnea. Exam Narrative Exam Narrative: Laying in the bed comfortably. Evaluation of the right leg shows receding erythema and significant diminishment of swelling about the right leg. No pain with passive or active range of motion of the right knee. Evaluation of the left leg shows continued cellulitis about the left leg although slightly better than on initial evaluation. She attempts active straight leg raise but is limited by pain. She is able to tolerate some range of motion for about 30 to 60 degrees but otherwise she has significant pain which limits further examination. Objective Last Vital Signs Temp 37.2 C 04/26/21 07:16 Pulse 77 04/26/21 07:16 Resp 18 04/26/21 07:16 BP 130/73 04/26/21 07:16 Pulse Ox 95 04/26/21 07:16 Laboratory Results - last 24 hr 04/25/21 04/25/21 04/25/21 06:42 06:42 06:42 WBC 16.19 H RBC 3.12 L Hgb 9.4 L Hct 29.7 L MCV 95.2 H MCH 30.1 MCHC 31.6 L RDW 13.2 Plt Count 140 MPV 9.5 Immature Gran % 1.5 Neutrophils % 84.4 Lymphocytes % 6.9 Monocytes % 4.5 Eosinophils % 2.5 Basophils % 0.2 Nucleated RBC % 0 Absolute Neutrophils 13.66 H Absolute Lymphocytes 1.12 L Absolute Monocytes 0.73 Absolute Eosinophils 0.40 Absolute Basophils 0.03 Sodium 139 Potassium 4.0 Chloride 107 Carbon Dioxide 23.7 Anion Gap 8.3 BUN 23 H Creatinine 0.8 Estimated GFR/1.73 m2 >= 60.00 Glucose 94 Calcium 8.9 Troponin I < 50 C-Reactive Protein 23.76 H NT-Pro-B Natriuret Pep 3048 H Vancomycin Trough 04/25/21 21:00 WBC RBC Hgb Hct MCV MCH MCHC RDW Plt Count MPV Immature Gran % Neutrophils % Lymphocytes % Monocytes % Eosinophils % Basophils % Nucleated RBC % Absolute Neutrophils Absolute Lymphocytes Absolute Monocytes Absolute Eosinophils Absolute Basophils Sodium Potassium Chloride Carbon Dioxide Anion Gap BUN Creatinine Estimated GFR/1.73 m2 Glucose Calcium Troponin I C-Reactive Protein NT-Pro-B Natriuret Pep Vancomycin Trough 15.1
[2021-04-26 07:26] LABS: Abs Immature Grans 0.21 10^3/uL (0.0-0.06); Absolute Basophil Count 0.08 10^3/uL (0.0-0.2); Absolute Eosinophil Count 0.51 10^3/uL (0.0-0.7); Absolute Lymphocyte Count 1.36 10^3/uL (1.2-3.4); Absolute Monocyte Count 1.02 10^3/uL (0.1-0.8); Absolute Neutrophil Count 9.79 10^3/uL (1.2-6.7); Basophils % 0.6; Eosinophils % 3.9; HCT 30.6 % (36.0-46.0); HGB 9.8 g/dL (11.2-15.7); Immature Grans % 1.6; Lymphocytes % 10.5; MCH 30.3 pg (27.0-33.0); MCV 94.7 fL (80-95); MPV 9.3 fL (8.0-11.0); Monocytes % 7.9; Neutrophils % 75.5; Nucleated RBC 0 %; Platelet Count 201 10^3/uL (130-400); RBC 3.23 10^6/uL (3.93-5.22); RDW 13.1 % (11.7-14.6); RDW-SD 45.6 fL; WBC 12.97 10^3/uL (4.4-10.8)
[2021-04-26] MEDS: Albuterol/Ipratropium 3 ML UPD VIAL UPD (07:38)
[2021-04-26 07:41] LABS: Anion Gap 8.1 mmol/L (3-11); BUN 21 mg/dL (7-18); CO2 25.9 mmol/L (21.0-32.0); CREATININE 0.7 mg/dL (0.55-1.02); Calcium 8.8 mg/dL (8.5-10.1); Chloride 104 mmol/L (98-107); Glucose 88 mg/dL (74-106); Potassium 3.5 mmol/L (3.5-5.1); Sodium 138 mmol/L (136-145)
[2021-04-26] MEDS: Lactated Ringers 1,000 ML 30 ML IV (08:27)
[2021-04-26 08:28] LABS: NT-proBNP 2964 pg/mL (<300)
--- NOTE | 2021-04-26 09:05 | W.ANESNERVE ---
Nerve Block Single Injection Procedure Date and Time Date Performed: 04/26/21 Procedure Start: 08:20 Location Where Procedure Performed Procedure Location: Operating Room Procedure Stop: 08:26 Reason Performed: Postoperative Analgesia Requesting Provider: Matthew Clarke Timeout Performed Timeout Performed: Yes Monitoring Used ECG, Blood Pressure and SpO2 Sterility Sterility: Hand Hygiene, Surgical Cap, Surgical Mask, Sterile Gloves and Chlorhexidine Sedation Given During Procedure Sedation Given (Indicate Dose Given): Precedex IV Dose:: 12 mcg Patient Mental Status Patient Mental Status: Sedate with meaningful communication Nerve Block 1st Nerve Block: Laterality: Left Block Type: Adductor Canal Needle / Catheter Used: 120mm SonoPlex II Local Anesthetic Bolus (Indicate Dose Given): Lidocaine used for local infiltration of skin, Injected in 3-5ml increments after negative blood aspiration and Bupivacaine 0.25% Dose:: 15 ml Additives (Indicate Dose Given): None Ultrasound: Sterile probe cover and gel used Ultrasound Image Saved?: Yes Nerve Stimulator: Not Used Paresthesia: None Procedure Tolerated: No Complications and Patient tolerated well Procedure Outcome: Successful Performed By: Eliza Greenfield
[2021-04-26] MEDS: Bupivacaine 0.25% Pres-Free 30 ML VIAL (11:48)
[2021-04-26] MEDS: Normal Saline 50 ML (11:48)
[2021-04-26] MEDS: Ketorolac 30 MG/ML VIAL (11:48)
--- NOTE | 2021-04-26 12:35 | W.PM.OP ---
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 I prediscussed treatment options with her. I recommend proceeding with operative intervention to include explantation of the current knee prosthesis, aggressive debridement and synovectomy, and placement of an antibiotic spacer. I discussed the risk of the procedure with her to include bleeding, infection persistence, damage to nerves and vessels, damage to muscle and tendons, weakness, hardware loosening, fracture, need for repeat procedures, blood clot, cardiopulmonary demise. Despite these risk, she elects to proceed. Findings: There is gross purulent fluid seen within the knee. The femoral component was explanted with flexible osteotomes. There was minimal bone loss with the explantation but the bone itself was quite poor in quality. The tibial component was also removed which appeared to be slightly loose. Once a component was removed cement was removed from the tibia. The tibial canal had some apparent purulent material as well or significant fatty replacement of the bony marrow. Culture swabs were taken from within the knee, within the femoral canal, and within the tibial canal. Tissue samples were also taken from within the knee and within the tibia. A low friction antibiotic spacer was placed utilizing 2 g of vancomycin and 2.4 g of tobramycin per batch of cement. Procedure Description: Dinorah was greeted in the preoperative holding area where the correct side was identified and marked. The consent was previously reviewed with the patient and signed. All questions were answered. An adductor canal block was then administered by the anesthesia team in the operating room. A general anesthestic was administered. The patient was placed into the supine position on the operating room table. Posts were placed for positioning during the procedure. All bony prominences were well padded. Prophylactic antibiotics in the form of Cefazolin were administered. The left leg was then prepped with Chloraprep and draped in a standard fashion with impervious stockinette. A second prep with Chloraprep was performed prior to application of Iodine impregnated skin protection. A timeout to confirm correct identity, side and site, procedure, allergies, anesthesia, and medical concerns was performed. With the knee in some flexion, a midline incision was made overlying the knee utilizing the previous incision. Full thickness skin flaps were raised once the extensor mechanism was encountered. These were raised medially and laterally. Any bleeding was controlled with electrocautery. A medial parapatellar arthrotomy was then performed. The patella was noted to be quite high riding. There is also calcification seen within the patella tendon itself. I stayed medial to this. This is taken down and full-thickness flaps immediately we encountered purulent appearing fluid. Culture swabs were taken of this. Synovial samples were also sent to microbiology for aerobic, anaerobic, fungal. A medial subperiosteal peel was then performed. This had to be extended quite distally given the amount of cement present anteromedially. There also was bone within the patellar tendon and I was concerned that this could have represented a patellar tendon avulsion from her previous surgery. I did remove some of this bone to decrease his prominence but did not violate any of the tissues attachment. There was a soft tissue sleeve connecting this to the tibia which I left intact and elevated slightly off of the periphery of the proximal tibia to expose the tibial component, polyethylene, and cement interface. A thorough synovectomy is then performed utilizing 2 Allis and 2 Tatiana clamps. Starting medially this was performed using blunt dissection to separate the tissue planes and electrocautery to fully dissect this out. This was taken aggressively around each gutter and into the suprapatellar pouch. This was also performed overlying the anterior femur removing all synovium from the anterior distal femur. Likewise, the lateral soft tissues were also dissected down. In general, there was not an appearance of a chronic infection and that the synovium was not particularly thickened but was notably inflamed on its articular surface. This was removed in whole. I then flexed the knee and remove the tibial component with an osteotome. This removed quite freely from the cement. I then used small flexible osteotomes to separate the femoral component from the cement. This was done circumferentially around the femoral component. Then a bone tamp was used to tap the femoral component off of the end of the femur. There is some notable large amount of cement that came with the femoral component attached to the region of the lugs. There was some bone that came off of this as well. The bone in general underneath the femoral component was quite soft and unhealthy appearing. Tibia was subluxed forward and I began removing cement. Using a small osteotome and created cruciate cazares of the cement cement from the bone. Rongeur was utilized to remove these pieces. All the surface cement was removed first. There is significant irregularity on the surface with large rim of cement and of bone both medially and laterally and posteriorly with significant irregularity of the bone underlying the cement. Once the surface of it was removed and then work to remove the cement down into the tibial canal. This segment was quite thick. I proceeded slowly to make sure to not penetrate through the tibia. A drill was also used to penetrate past the distal end of the tibial cement plug. This was removed with a series of osteotomes and curettes as well as rongeurs. Once the cement was fully removed I then had excellent access to the tibial canal. Back onto the femur, I debrided the surface of the femur of any clot and soft tissue. In excess of cement was removed. Any soft bone that could easily be removed with a curette was also removed as well. While there was some bone missing the general outline of the femur was still intact and there was an nice rim both medially and laterally and posteriorly. A size 5 attune femoral component cut the guide was then placed onto the end of the femur. This was compared on the back table to the original component seen to be similar in size. It fit actually quite nicely with good rotational control and therefore was selected as the size to be used. This was then removed. Using a flexible reamer system I then reamed both canals. The tibia was reamed up to a size 12 mm and the femur was reamed to 14 mm. The canals were cleaned with a wire brush and then with a pulse lavage. Measures were taken of each and intramedullary rods were prepared on the back table. 2 batches of medium viscosity cement were mixed by hand with 4 g of vancomycin and 4.8 g of tobramycin. This is maxed without vacuum assistance. The cement was then rolled into rods of appropriate size over a 2.8 mm Steinmann pin, which had been cut for both the tibia and the femur. While these intramedullary dowels were setting up on the back table I continued with an aggressive synovectomy debridement. The wound was thoroughly irrigated with 3 L normal saline using cystoscopy tubing. I washed out the intramedullary spaces as well. Once this was completed and all debridement of soft tissue necrotic tissue had been performed I then performed a dilute Betadine wash using a wash of Betadine (17.5 mL and 500 cc of normal saline). This is allowed to sit in the wound for 3 minutes. It was then irrigated thoroughly afterwards with normal saline. The knee was brought back up into flexion and a tourniquet was inflated. Now that the dowels repair in the back table I trialed components. Unfortunately the extension and flexion spaces were quite large. The extension space was larger than the flexion space by a small amount. Therefore, I went with a posterior stabilized implant. I sized a 20 mm poly which provided adequate balance although still 3 to 4 mm of play in both flexion and extension in both varus and valgus stress. The notch cutting guide for the posterior stabilized implant was placed onto the femur and the notch was prepared. The trial femoral component was placed and the lug holes were drilled. 2 more batches of cement were prepared once again with 2 batches of medium discussed the cement along with 4 g of vancomycin and 4.8 g of tobramycin. This was once again mixed by hand with methylene blue added for distinction. Once this was in a workable phase I placed the dowel for the femur into the femur and allowed to be prominent. Cement was placed onto the back of the femoral component as well as onto the femur itself while it was away. Was then pushed onto the in the femur and manually impacted to place it appropriately. Excess amount was removed and this was held in place while the tibia subluxed forward. Cement was placed on the back of the polyethylene after I had drilled some holes to fenestrate the surface of the polyethylene. The dowel was placed into the tibial canal. Unfortunately, this stuck slightly proud and so I had to advance it with a mallet. Extra cement was then placed on the back of the tibia as well as the tibial surface in the popping was placed in position and the leg was brought into extension removing some extra cement. It was held in extension until the cement had fully cured. The periosteal and capsular tissues were then systematically injected with a periarticular cocktail consisting of 50cc 0.25% Marcaine, 30mg Ketorolac, 20cc of Exparal. It appeared that the polyethylene component had settled medially and slightly posteriorly. However, it seemed to have normal alignment and after the cement cured the testing showed that the extension of flexion gaps were within about 3 to 4 mm at most. I then subluxed the tibial component forward and removed extra cement from around the polyethylene. Once all the cement was removed the tibia was reduced back underneath the femur. The patella was tracking in its normal position, over the lateral femoral condyle through the ridge in the middle portion of the patella. Once again, the knee was thoroughly irrigated with irrisept chlorhexidine solution as well as normal saline. Using #1 Antimicrobial PDS, the arthrotomy and quadriceps split was repaired. This was done in interrupted fashion using [id number] and simple sutures. Focus was also placed the medial soft tissues. There is no notable gapping of the arthrotomy site. Once again, the wound was thoroughly irrigated. Deep tissues were then reapproximated with 0 PDS and 2-0 PDS. The skin was closed with elle. A ceferino vacuum-assisted dressing was applied to assist with skin edge healing and drainage. Following this a [id number] ARETHA wrap was applied. A CryoCuff was applied. Dinorah was transferred to the hospital stretcher without difficulty an suffering no apparent complication. Dinorah has a gaurded prognosis. The position of the tibial polyethylene and the large gap along with the appearance of a chronically subluxed and elongated patellar tendon gives me some pause to recommend that we keep this in place for life. However, at the age of 86 I still think this will suffice. More importantly an aggressive synovectomy debridement was performed along with the delivery of antibiotics locally. She may be weightbearing as tolerated with an assistive device. Aspirin 81mg BID will be used for DVT prophylaxis.
--- NOTE | 2021-04-26 13:10 | PGE_ITS ---
Date of Service Date of service: 04/26/21 Time of Service: 13:10 Assessment and Plan Assessment and plan (1) Septic arthritis of knee, left: Status: Suspected Assessment and plan: Preliminary Gram stain taken from surgical wound culture showed a moderate white blood cells but no bacteria. Left knee aspirate culture from 04/24/2021 showed many white blood cells but no bacteria. Blood cultures from admission show no growth. Continue high-dose ceftriaxone 2 g daily along with vancomycin pending results of her surgical wound culture. Patient will complete perioperative treatment with Ancef. Qualifiers: Septic arthritis organism: due to unspecified organism Qualified Code(s): M00.9 - Pyogenic arthritis, unspecified (2) Cellulitis: Status: Acute Assessment and plan: as above Qualifiers: Site of cellulitis: extremity Site of cellulitis of extremity: lower extremity Laterality: left Qualified Code(s): L03.116 - Cellulitis of left lower limb (3) UTI (urinary tract infection): Status: Acute Assessment and plan: E. coli which is pansensitive currently responding to high-dose Rocephin. Qualifiers: Urinary tract infection type: acute cystitis Hematuria presence: without hematuria Qualified Code(s): N30.00 - Acute cystitis without hematuria (4) Elevated troponin: Status: Acute Assessment and plan: echocardiogram showed no RWMA and EKG was unremarkable. Suspect that elevated troponin is d/t sepsis. Troponin is now normalized. (5) Wheezing: Status: Resolved Assessment and plan: Her wheezing definitey was d/t CHF as this has resolved w/ aggressive diuresis yesterday (6) Right heart failure: Status: Acute Assessment and plan: echo showed borderline dilated RV but normal RV systolic function. Mild PHTN RVSP 34 mm. I suspect underlying MYLES (never worked up for this per patient). Patient has been aggressively diuresed overnight (negative 3800 mL yesterday and another net negative 2400 mL since midnight. At this point I will hold her iv lasix unless she needs transfusion in which I will give lasix w/ her blood transfusion. Once she is taking po well and her BP and hemoglobin are stable she will need to go back on oral lasix to maintain euvolemia. She also would benefit from either ARB or Entresto for HFPEF. Also would consider use of SGLT2 inhibitor Subjective Subjective Interval history since last seen: Patient underwent surgery on her left knee that included explantation of her polymer spacer and washout of her infected knee. I discussed her case with Dr. Clarke who indicated that it was clearly infected. Estimated blood loss around 400 mL. He is going to check a stat H&H and if her hemoglobin is below 8 g we will give her transfusion of blood. Patient did very well with diuresis yesterday and according to the [employer] her lungs were clear prior to going into surgery. I evaluated the patient in PACU the patient is groggy but arousable but states that her breathing is much better today. She has no chest discomfort or dyspnea. She does feel little bit nauseated and the [employer] is medicating her with Phenergan. Patient's blood pressures a little on the low side with a systolic pressure in the mid 90s and for that reason we will get a check of repeat H&H and give her some blood if needed. I will put her Lasix on hold as she clearly has diuresed significantly. Exam Narrative Exam Narrative: Elderly white female who is somewhat groggy but arousable and answers appropriately. Lungs are clear to auscultation Heart is regular rate and rhythm Abdomen soft nondistended Lower extremities feet are warm with palpable pedal pulses. I did not examine the left knee or tobias since this is just been bandaged. Dr. Clarke indicated that he debrided some of the skin off of the left pretibial surface to help with healing from her cellulitis. Objective Last Vital Signs Temp 37.2 C 04/26/21 07:16 Pulse 77 04/26/21 07:16 Resp 18 04/26/21 07:16 BP 130/73 04/26/21 07:16 Pulse Ox 95 04/26/21 07:16 Laboratory Results - last 24 hr 04/25/21 04/26/21 04/26/21 21:00 06:38 06:38 WBC 12.97 H RBC 3.23 L Hgb 9.8 L Hct 30.6 L MCV 94.7 MCH 30.3 MCHC 32.0 RDW 13.1 Plt Count 201 MPV 9.3 Immature Gran % 1.6 Neutrophils % 75.5 Lymphocytes % 10.5 Monocytes % 7.9 Eosinophils % 3.9 Basophils % 0.6 Nucleated RBC % 0 Absolute Neutrophils 9.79 H Absolute Lymphocytes 1.36 Absolute Monocytes 1.02 H Absolute Eosinophils 0.51 Absolute Basophils 0.08 Sodium 138 Potassium 3.5 Chloride 104 Carbon Dioxide 25.9 Anion Gap 8.1 BUN 21 H Creatinine 0.7 Estimated GFR/1.73 m2 >= 60.00 Glucose 88 Calcium 8.8 NT-Pro-B Natriuret Pep 2964 H Vancomycin Trough 15.1
--- NOTE | 2021-04-26 13:40 | W.ANESPOSTOP ---
Postoperative Evaluation Date, Time and Location Date Performed: 04/26/21 Time Performed: 13:40 Patient Location: PACU Vital Signs Most Recent Imported Vital Signs: Most Recent Vital Signs Temp Pulse Resp BP Pulse Ox 36.1 C L 59 L 25 H 101/44 L 94 04/26/21 13:35 04/26/21 13:35 04/26/21 13:35 04/26/21 13:35 04/26/21 13:35 Pain Score Most Recent Pain Score: Most Recent Pain Score Pain Level 0 04/26/21 13:35 Assessment Mental Status: Awake (Alert & Oriented to Patient Baseline) Airway and Respiratory Function: Patent airway with normal (patient baseline) respiratory exam Cardiovascular Function: Hemodynamically Stable Hydration Status: Adequately Hydrated Nausea & Vomiting: No Nausea or Vomiting (Resolved with phenergan in PACU) Pain: Pt. Denies Any Pain Peripheral Nerve Block: Regional nerve block not resolved at time of post operative discharge
[2021-04-26] MEDS: VANCOMYCIN/WATER (PEG) 1 GM/200 ML BAG IV (14:02)
[2021-04-26 14:06] LABS: HCT 33.1 % (36.0-46.0); HGB 10.3 g/dL (11.2-15.7)
[2021-04-26] MEDS: Magnesium Oxide 400 MG TAB PO (15:55)
[2021-04-26] MEDS: Rosuvastatin 5 MG TAB PO (15:55)
[2021-04-26] MEDS: Senna TAB 1 TAB PO (20:40)
[2021-04-26] MEDS: Docusate Sodium 100 MG CAP PO (20:40)
[2021-04-26] MEDS: Latanoprost 0.005% 2.5 ML BTL OU (20:40)
--- NOTE | 2021-04-26 23:05 | NUR.NOTE ---
Nursing Note: Pt called nursing into room as she was cold and shivering. Ice removed from knee and blanket given to her. Temperature obtained. 38.1. Charge nurse made aware of temperature of 38.1.
[2021-04-27] VITALS (14 sets, daily range): BP systolic 112–136; BP diastolic 49–70; PULSE 69–86; RESP 16–24; TEMP 37.1–39.1; O2SAT 90–96
--- NOTE | 2021-04-27 | DI.RAD_ITS ---
Exam(s) XR KNEE LT 2V AP,LAT EXAM: XR KNEE LT 2V AP,LAT CLINICAL HISTORY: f/u L knee pain s/p TKA explant. TECHNIQUE: 2D digital imaging was performed of the left knee. Two images were obtained. AP and lat eral views were obtained. COMPARISON: CR XR KNEE LT 2V AP,LAT from 04/23/2021 CR XR KNEE RT 2V AP,LAT from 04/24/2021 FINDINGS: BONES: No acute fracture is present. No bony destructive lesion is seen. JOINTS: Since the prior examination there has been a revision of the left total knee replacement. Th e tibial component has been removed. The femoral component appears to have been revised. There is c ortical irregularity at the surface of the proximal tibia. This may be postsurgical. Infection olamide ot be excluded. Please correlate clinically. No joint effusion is seen. SOFT TISSUE: There is diffuse soft tissue swelling. Skin elle are present. IMPRESSION: 1. S/p left TKA explant. 2. Diffuse soft tissue swelling about the knee. DATA REPOSITORY: RADIATION DOSE DELIVERED:
[2021-04-27] MEDS: VANCOMYCIN/WATER (PEG) 1 GM/200 ML BAG IV ×2 (01:44→16:23)
[2021-04-27] MEDS: ACETAMINOPHEN 1,000 MG/100 ML BTL 400 MG IVPB ×3 (06:39→22:47)
--- NOTE | 2021-04-27 06:57 | NUR.NOTE ---
Nursing Note: Temp 39.1. Charge nurse and Surgeon made aware. Bc ordered. IV tylenol ordered and administered. Ice packs placed in groin and under arms. Will recheck temperature for effectivess.
--- NOTE | 2021-04-27 07:04 | PGE_ITS ---
Date of Service Date of service: 04/27/21 Time of Service: 07:05 Assessment and Plan Assessment and plan (1) Septic arthritis of knee, left: Status: Suspected Assessment and plan: Dinorah is an 86-year-old who is status post explantation of her left knee spacer with aggressive synovectomy, debridement, and reimplantation of a new low friction antibiotic spacer. The case was nimesh llenging given the deficiency of her bone from the previous surgeries. There is also some limitations in equipment capabilities that we had here. Nevertheless, she did well and the components should suffice to allow her to mobilize and also treat the local infection. At this point, all cultures continue to be negative. The knee was grossly purulent with a greenish tent which would suggest it could be from a gram-negative source such as E. coli, which has grown in her urine. She also reports that her previous left knee infection was from a source as well. Given this information I think is reasonable to consider stopping vancomycin. An infectious disease consult would be beneficial to sort this out. However, the likelihood of MRSA at this point seems to be relatively low and something like ceftriaxone could adequately treat both sensitive staph and E. coli. I will continue to follow her labs and her clinical exam. Will get x-ray of the left knee today. We will attempt some mobilization a physical therapy if possible. However, would not lema it. It is also possible need to consider use the brace. 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 Qualifiers: Septic arthritis organism: due to unspecified organism Qualified Code(s): M00.9 - Pyogenic arthritis, unspecified Subjective Subjective Interval history since last seen: And reports to be doing fairly well. She does feel the left knee is much better now than it was from before surgery. She is been able to move her left knee in the bed on her own without significant pain. She did have notable pain in the left knee prior to her surgery. She has had fevers overnight, T-max of 39. She otherwise feels well. She denies chest pain or shortness of breath. She denies a cough. She denies significant pain. She has been receiving acetaminophen and ketorolac. She continues on her IV antibiotics. Exam Narrative Exam Narrative: Resting comfortably in the hospital bed. She is alert and orien jeremy x3. No acute distress. Evaluation of the left knee shows it is wrapped in an Hiren wrap. There is notable swelling about the left foot. She does have a palpable DP pulse. He is able demonstrate ankle dorsiflexion and plantarflexion as well as great toe extension and flexion. She is able to gently move the knee in the bed without significant pain. Objective Last Vital Signs Temp 39.1 C H 04/27/21 06:06 Pulse 86 04/27/21 03:08 Resp 16 04/27/21 03:08 BP 121/49 L 04/27/21 03:08 Pulse Ox 95 04/27/21 03:08 Laboratory Results - last 24 hr 04/26/21 04/26/21 04/26/21 06:38 06:38 13:58 WBC 12.97 H RBC 3.23 L Hgb 9.8 L 10.3 L Hct 30.6 L 33.1 L MCV 94.7 MCH 30.3 MCHC 32.0 RDW 13.1 Plt Count 201 MPV 9.3 Immature Gran % 1.6 Neutrophils % 75.5 Lymphocytes % 10.5 Monocytes % 7.9 Eosinophils % 3.9 Basophils % 0.6 Nucleated RBC % 0 Absolute Neutrophils 9.79 H Absolute Lymphocytes 1.36 Absolute Monocytes 1.02 H Absolute Eosinophils 0.51 Absolute Basophils 0.08 Sodium 138 Potassium 3.5 Chloride 104 Carbon Dioxide 25.9 Anion Gap 8.1 BUN 21 H Creatinine 0.7 Estimated GFR/1.73 m2 >= 60.00 Glucose 88 Calcium 8.8 NT-Pro-B Natriuret Pep 2964 H Patient ABO/Rh Antibody Screen 04/26/21 15:25 WBC RBC Hgb Hct MCV MCH MCHC RDW Plt Count MPV Immature Gran % Neutrophils % Lymphocytes % Monocytes % Eosinophils % Basophils % Nucleated RBC % Absolute Neutrophils Absolute Lymphocytes Absolute Monocytes Absolute Eosinophils Absolute Basophils Sodium Potassium Chloride Carbon Dioxide Anion Gap BUN Creatinine Estimated GFR/1.73 m2 Glucose Calcium NT-Pro-B Natriuret Pep Patient ABO/Rh O Positive Antibody Screen NEGATIVE
[2021-04-27 07:36] LABS: HGB 8.3 g/dL (11.2-15.7); MCH 31.1 pg (27.0-33.0); MCHC 32.8 % (32.0-36.0); MCV 94.8 fL (80-95); MPV 8.9 fL (8.0-11.0); Platelet Count 197 10^3/uL (130-400); RBC 2.67 10^6/uL (3.93-5.22); RDW 13.2 % (11.7-14.6); RDW-SD 45.8 fL; WBC 14.66 10^3/uL (4.4-10.8)
[2021-04-27 07:41] LABS: HCT 25.3 % (36.0-46.0)
[2021-04-27 08:01] LABS: ALT 47 U/L (14-59); AST 37 U/L (15-37); Albumin 1.8 g/dL (3.4-5.0); Alkaline Phosphatase 124 U/L (46-116); Anion Gap 9.1 mmol/L (3-11); BUN 23 mg/dL (7-18); Bilirubin, Total 0.4 mg/dL (0.2-1.0); CO2 24.9 mmol/L (21.0-32.0); CREATININE 0.8 mg/dL (0.55-1.02); Calcium 8.6 mg/dL (8.5-10.1); Chloride 103 mmol/L (98-107); Glucose 94 mg/dL (74-106); Sodium 137 mmol/L (136-145); Total Protein 5.6 g/dL (6.4-8.2)
[2021-04-27] MEDS: Polyethylene Glycol 3350 17 GM PACKET PO (08:51)
[2021-04-27] MEDS: Docusate Sodium 100 MG CAP PO ×2 (08:52→20:03)
[2021-04-27] MEDS: Metoprolol CR 25 MG TABCR PO (08:52)
[2021-04-27] MEDS: cefTRIAXone 2 GM/50 ML BAG IVPB (08:52)
[2021-04-27] MEDS: Magnesium Oxide 400 MG TAB PO (08:52)
[2021-04-27] MEDS: Aspirin E.C. 81 MG TABEC PO (08:53)
[2021-04-27 08:57] LABS: Iron 16 ug/dL (50-170); Total Iron Binding Capacity 156 ug/dL (250-450); Transferrin Sat 10 % (15-50)
--- NOTE | 2021-04-27 09:22 | PDOC.CMPRO ---
- If Service Date Differs Date of service: 04/27/21 Time of Service: 09:22 Care Management Progress Note S/O: Dinorah continues to be closely monitored and treated for septic knee, she remains on IV ABX and had a wash out of the infection over the weekend. [facility] called to decline referral today; further SNF discussion and referrals will be completed. CM continues to follow. A: Dinorah is an 86 year old woman admitted on 04/23/21 with sepsis and NSTEMI P: Dinorah will likely go to a detention facility for short term rehab before transitioning to an assisted living facility near [place] where her family is. Referrals were sent by CM to [facility].She will follow up with the facility providers and plan of care and transport via private vehicle vs RCT. CM will continue to support Dinorah and assess for ongoing discharge planning concerns.
[2021-04-27 09:24] LABS: Ferritin 361 ng/mL (8-252); Folate > 20.0 ng/mL (8.6-20.0); Vitamin B12 320 pg/mL (193-986)
--- NOTE | 2021-04-27 09:41 | PT.INIE ---
Date of service: 04/27/21 Time of Service: 09:41 PT Notes Visit Reasons: Sepsis,NSTEMI Inpatient Physical Therapy Evaluation Date: 04/27/2020 Referring Doctor: Matthew Clarke MD PT Orders: PT CONSULT: Status post Ortho surgery. Status post left TKA explant and placement. WBAT with walker. Precautions: WBAT on left LE with AD. Patient Profile/Admitting Diagnosis: Dinorah is a 86-year-old female admitted to this hospital secondary to hypomagnesemia, sepsis, cellulitis and generalized weakness. She is status post left TKA explantation of knee spacer with synovectomy, debridement, and reimplantation of infection antibiotic spacer on postoperative day 1 due to septic arthritis of left knee. 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) Pes planus of right foot (Acute) Edema (Acute) Non-ST elevation NM (NSTEMI) (Acute) Hyperlipidemia (Chronic) Obesity (Chronic) Osteoarthritis (Chronic) Hypertension (Chronic) Medical History Glaucoma History of left breast cancer History of right breast cancer Left fibular fracture 2018 Melanoma 2017 Pulmonary embolism following a TKR Surgical History History of appendectomy History of melanoma excision History of total left knee replacement (TKR) S/P cholecystectomy S/P total knee replacement right 11/12/2019 Social History/Home Situation: Dinorah reports that she lives with her sister in a private home in [place]. She reports that her sister is also disabled due to her back and is unable to assist her. She would like to look into an Assisted Living Center more around her family in the [place] area Current Functional Limitations: generalized weakness with limited ability to ambulate. Utilizes a FWW at all times. Reports independence prior to admission with ADL's including showering and dressing with use of shower bench. Equipment Owned/DME: Shower chair, FWW Subjective: Agreeable to PT consult. Could not wait to get out of bed and sit on chair. Objective: General Observation: IV access, catheter, telemetry. Mental Status: Alert and oriented x3 Pain: 3-4/10 left knee ROM: Right Upper Extremity: Limited right shoulder flexion to 80 degrees with significant crepitation. IR chest wall. ER to neutral. WFL elbow, wrist, and hand Left Upper Extremity: Demonstrates WNL AROM L UE Right Lower Extremity: Hip flexion 90 degrees, knee 90 degrees, knee extension lacking 10 degrees, DF limited to neutral Left Lower Extremity: Hip flexion 90 degrees, knee flexion 80 degrees, extension lacking 15 degrees, dorsiflexion neutral Strength: Right Upper Extremity: Shoulder flexion 3/5, bicep 4/5, good functional grasp Left Upper Extremity: Demonstrates 4+/5 left upper extremity strength Right Lower Extremity: Independent straight leg raise with notable extension lag. Hip flexion 3+/5, knee flexion 4 -/5 Left Lower Extremity: Unable to perform independent straight leg raise. Hip flexion 3/5, knee flexion 3+/5 Sensation: Intact light touch Bed Mobility/Transfers: Supine to sit minimal assist with HOB at 45 degrees Sit to supine minimal assist Sit to stand minimal assist using FWW Stand to sit minimal assist using FWW Bed to chair minimal assist using FWW Gait: Instructed patient with short distance in room ambulation of eight steps using front wheeled walker with WBAT on left LE with step to gait pattern. No report of increased pain level on the left LE. No giving way or buckling on the left knee. Balance: Static Sitting: Normal Dynamic Sitting: Good Static Standing: Fair Dynamic Standing: Fair Special Tests: Mobility Limitations Standardized Measure [facility] AM-PAC 6 clicks Basic Mobility Inpatient Short Form: Raw Score: 18 CMS Score: 47% deficit Informed Consent/Education: Patient instructed in purpose of PT consult and plan of care. Patient provided with quadriceps in child setting exercises along with ankle pumping activities to be done on her own while seated on chair. Assessment: Dinorah demonstrates functional mobility decline requiring the use of front-wheeled walker and assistance of a caregiver for all transfers and ambulation task performance, impairment with balance, decreased activity tolerance, increased risk for falls. Patient presents with clinical signs and symptoms consistent with current/admitting diagnoses that have resulted to mobility limitations, gait instability, generalized weakness, and overall ADL decline as demonstrated by the following impairment level findings: 1. Decreased strength to left knee major muscle groups 2. Impaired standing balance 3. Impaired activity tolerance 4. Limitation of joint range of motion in left knee 5. Swelling of legs [id number] moderate 85 Impairments are contributing to the following functional limitations: 1. Decline in bed mobility skills 2. Decline in transfer skills 3. Difficulty with ambulation without assistive device and physical assistance 4. Increased completion time for mobility ADL performance 5. Increased risk for falls 6. Difficulty with managing steps alone safely Patient is assessed as a complexity based on the following: History: -year-old female with with past medical history as indicated above Examination: Demonstrable impairment in strength, balance, and mobility level with underlying impairments and functional limitations as exhibited above as well as deficit score of 47 % utilizing the [facility] Mobility Inpatient Short Form Presentation: Evolving Decision Makin moderate complexity Goals: Goals X1 week 1. Supine-Sit independent 2. Sit-Supine independent 3. Sit-Stand standby assist with front wheeled walker 4. Stand-Sit standby assist 5. Bed-Chair contact-guard assist with front wheeled walker 6. Chair-Bed contact-guard assist with front wheel walker 7. Gait contact-guard assist with front wheeled walker x50 feet or greater 8. Stairs up/down 3-5 steps with contact-guard assist 9. Independent with home exercise program Plan of Care/Treatment Plan: 1-2x/day, 7 days/week x 1 week. Plan of care has been reviewed with the [employer]PA[employer] providing the service under Physical Therapy direction. Initiate Physical Therapy intervention for strengthening, bed mobility, transfers, gait, stairs, balance training, use of assistive device. DISCHARGE RECOMMENDATIONS: [] Home with no services [] [] Home with services [specify] [] Home with outpatient PT [] [] SNF for continued rehabilitation [] [] [facility] [] [] SNF versus LTC based on ability to participate and progress [] [X] SNF vs LONG TERM depending on patient's progress towards goals. Will update care management as needed regarding D/C recommendatrions TREATMENT CODE/TIME: 9716 2 x 15 minutes, 86734 x 17 minutes beginning at 9:41 AM. Thank you for the opportunity to participate in the care of this patient. Jagruti Nelson PT, DPT, CLT [facility] [place], [place]
[2021-04-27] MEDS: IRON SUCROSE COMPLEX 300 MG in Normal Saline 250 ML 167 MG IVPB (10:23)
--- NOTE | 2021-04-27 13:01 | PGE_ITS ---
Date of Service Date of service: 04/27/21 Time of Service: 13:01 Assessment and Plan Assessment and plan (1) Septic arthritis of knee, left: Status: Suspected Assessment and plan: Patient remains on ceftriaxone 2 g IV daily along with vancomycin dosed per pharmacist. I spoke with the pharmacist she is going to get a repeat trough level before the next dose and adjust the dose accordingly. Blood cultures have been no growth. Left knee aspirate from prior surgery showed white blood cells but no bacteria. Joint fluid cultures from surgery are pending at this time. Qualifiers: Septic arthritis organism: due to unspecified organism Qualified Code(s): M00.9 - Pyogenic arthritis, unspecified (2) Cellulitis: Status: Acute Assessment and plan: Continue ceftriaxone along with vancomycin. Adjust based on her wound cultures from her left knee surgery. Qualifiers: Site of cellulitis: extremity Site of cellulitis of extremity: lower extremity Laterality: left Qualified Code(s): L03.116 - Cellulitis of left lower limb (3) UTI (urinary tract infection): Status: Acute Assessment and plan: E. coli which is pansensitive currently responding to high-dose Rocephin. Patient has a Sweet catheter in place and draining clear yellow urine Qualifiers: Urinary tract infection type: acute cystitis Hematuria presence: without hematuria Qualified Code(s): N30.00 - Acute cystitis without hematuria (4) Elevated troponin: Status: Acute Assessment and plan: echocardiogram showed no RWMA and EKG was unremarkable. Suspect that elevated troponin is d/t sepsis. Troponin is now normalized. (5) Wheezing: Status: Resolved Assessment and plan: Aggressive diuresis improved her wheezing prior to surgery however the patient was on IV fluids overnight is now having some expiratory wheezing and bibasilar rales. Lasix was put on hold because of low blood pressure readings. Blood pressures have recovered. I will resume her furosemide (6) Right heart failure: Status: Acute Assessment and plan: echo showed borderline dilated RV but normal RV systolic function. Mild PHTN RVSP 34 mm. I suspect underlying MYLES (never worked up for this per patient). Resume diuretics. Subjective Subjective Interval history since last seen: Patient had a fever 39.1 this morning. Blood cultures were ordered this morning. Dr. Clarke is indicated that quite often patients after explantation and joint infusion of antibiotics will have low- grade fevers for the first day. Patient has a cough but no sputum production. She is not short of breath. Says her knee feels much better today. Feet edema has improved. She is more anemic this morning with a hemoglobin 8.3 g with low iron counts. I started on venofer. However we will repeat her H&H this afternoon and if it continues to drop she will receive a transfusion of 1 unit of packed cells. Exam Narrative Exam Narrative: Pleasant elderly obese female in no acute distress sitting up in her chair. Lungs with some faint bibasilar rales along with some end expiratory wheezing Heart regular rate and rhythm with a soft systolic murmur Abdomen is obese soft and nontender Lower extremities with 1+ pitting edema. Pedal pulses intact. No cyanosis. Left leg is still bandaged from surgery and she is currently receiving cryotherapy with cold packs to the left knee. Objective Last Vital Signs Temp 37.1 C 04/27/21 11:15 Pulse 85 04/27/21 11:19 Resp 24 04/27/21 11:15 BP 112/49 L 04/27/21 11:15 Pulse Ox 96 04/27/21 11:15 Laboratory Results - last 24 hr 04/26/21 04/26/21 04/27/21 13:58 15:25 07:20 WBC RBC Hgb 10.3 L Hct 33.1 L MCV MCH MCHC RDW Plt Count MPV Sodium 137 Potassium 4.0 Chloride 103 Carbon Dioxide 24.9 Anion Gap 9.1 BUN 23 H Creatinine 0.8 Estimated GFR/1.73 m2 >= 60.00 Glucose 94 Calcium 8.6 Iron TIBC Transferrin % Sat Ferritin Total Bilirubin 0.4 AST 37 ALT 47 Alkaline Phosphatase 124 H C-Reactive Protein 16.40 H Total Protein 5.6 L Albumin 1.8 L Vitamin B12 Folate Patient ABO/Rh O Positive Antibody Screen NEGATIVE 04/27/21 04/27/21 04/27/21 07:20 07:29 07:29 WBC 14.66 H RBC 2.67 L Hgb 8.3 L Hct 25.3 L D MCV 94.8 MCH 31.1 MCHC 32.8 RDW 13.2 Plt Count 197 MPV 8.9 Sodium Potassium Chloride Carbon Dioxide Anion Gap BUN Creatinine Estimated GFR/1.73 m2 Glucose Calcium Iron 16 L TIBC 156 L Transferrin % Sat 10 L Ferritin 361 H Total Bilirubin AST ALT Alkaline Phosphatase C-Reactive Protein Total Protein Albumin Vitamin B12 320 Folate > 20.0 H Patient ABO/Rh Antibody Screen
--- NOTE | 2021-04-27 13:08 | W.NUTRFU ---
Date of service: 04/27/21 Time of Service: 13:08 Nutrition Note NOTE: Ms. Colbert has excellent PO intake on a regular diet. Her BMI is 38.0 kg/m2 c/w class 2 obesity. Her weight has been stable. No nutritional issues noted at this time. Time Spent in Nutritional Counseling and Treatment: 0
--- NOTE | 2021-04-27 13:40 | WOUNDCONS ---
- If Service Date Differs Date of service: 04/27/21 Time of Service: 13:15 Wound Initial Evaluation Narrative: Patient is an 86 yof, she is seen here for Sepsis. She had an I&D performed on the left knee yesterday. Dr. Clarke described the drainage as purulent, and he told wound nursing that he was able to remove most of the Keratosis while performing the I&D. Hiren wrap is in place . Wound nursing will concentrate on the right leg at this time. Goal of treatment was discussed with the patient who agrees to the consult. H&P, allergies, and labs as well as other pertinent information were reviewed. - Wound Right Tib/Fib(lower leg) Wound Type: Other (Rash with edema) Wound General Appearance: Healing Well Wound Bed Greatest Portion: Other (Keratosis) Wound Surrounding Tissue Appearance: Normal/Healthy Wound Length: 13 cm Wound Width: 6.5 cm Wound Depth: 0.1 cm (less than) Wound Drainage Amount: None Wound Drainage Odor: None/Absent Wound Drainage Description: No drainage Wound Topical Solution/Irrigant: Antibiotic Irrigant Wound Debridement Method: Mechanical Wound Debridement Result: Healthy Tissue Revealed Wound Debridement Amount of Tissue Removed: Minimal - Circulation, Sensation, Motion Edema Degree: 3+ Peripheral Pulse Strength: Weak Capillary Refill: Less than 3 seconds Sensation Description: Within Normal Limits Skin Temperature: Warm Skin Color: Pale - MALVIN Comment:: unable to perform at this time - Pain Pain Level: 0 Patient who has had a hx of swollen legs. I&D performed on left knee yesterday, continues here with ABX treatment. Discussed case with Dr. Hernandes and he concurs with goal of treatment. - Treatment/Dressing Change Topicals/Ointments: None Cleanse With: Anasept, Debrisoft Dressing Types: Other (hiren wrap) - Recomendation Recomendation:: Right leg. Cleanse with Anasept spray and Debrisoft sponge. Then pat dry. Apply compression with hiren wrap to just below the knee. Perform daily. Physcian/Nurse Practioner Notified: Yes (Dr. Hernandes) Treatment Time - Time Total Time Spent with Patient: 30 minutes - Patient Will be Seen Weekly Treatment: daily - For: For:: 1 week
[2021-04-27] MEDS: Protein Nutritional Supplement 16 GM 1 OUNCE PACKET PO ×2 (14:02→20:03)
[2021-04-27] MEDS: guaiFENesin/D-METHORPHAN HB 5 ML CUP PO ×2 (14:16→20:17)
[2021-04-27] MEDS: Ketorolac 15 MG/ML VIAL IVP (14:17)
--- NOTE | 2021-04-27 14:28 | PT.INTREAT ---
Date of service: 04/27/21 Time of Service: 14:03 PT Notes Visit Reasons: Sepsis,NSTEMI Inpatient Physical Therapy Treatment Note [facility] Date: 04/27/2020 PRECAUTIONS: Activity as tolerated, WBAT L SUBJECTIVE: Dinorah states that she cannot get out of the chair this afternoon. She feels that she cannot walk at this time. She is agreeable to participating in ther ex program. OBJECTIVE: PAIN: Patient c/o L knee pain BED MOBILITY/TRANSFERS/GAIT: Refused THEREX: Patient was instructed in a long-sitting LE strengthening and stabilization program, as per flow sheet. She requires assist for exercise completion due to pain and weakness. ASSESSMENT: Patient tolerated session with complaint of L knee pain with ther ex completion. PLAN: Continue with global strengthening and general conditioning for improved mobility. TREATMENT CODE/TIME: 10 minutes; 26666 (14:03)
[2021-04-27 15:37] LABS: HCT 27.8 % (36.0-46.0); HGB 8.8 g/dL (11.2-15.7)
[2021-04-27] MEDS: Enoxaparin 40 MG/0.4 ML SYR SC (15:43)
[2021-04-27] MEDS: Furosemide 40 MG TAB PO (15:44)
[2021-04-27 15:58] LABS: Vancomycin, Trough 13.9 ug/mL (10.0-20.0)
--- NOTE | 2021-04-27 18:14 | DI.VRAD_ITS ---
PROCEDURE INFORMATION: Exam: XR Left Knee Exam date and time: 04/27/2021 5:17 PM Age: 86 years old Clinical indication: Left; Prior surgery; Patient HX: F/u L knee pain, S/P tka explant TECHNIQUE: Imaging protocol: XR Left knee. Views: 1 or 2 views. COMPARISON: CR XR KNEE LT 2V AP,LAT 04/23/2021 2:00 PM FINDINGS: Bones/joints: Status post explant of the tibial component of the total knee replacement. Femoral component of the knee replacement is intact. A pin is in place within the proximal tibia. Soft tissues: Skin elle noted anteriorly. Soft tissue swelling is noted. IMPRESSION: 1. Status post explant of the tibial component of the total knee replacement. 2. Soft tissue swelling is noted. Dictated and Authenticated by: Ish Esqueda MD. Ordering:ZAINA Castro MD
[2021-04-27] MEDS: Sacubitril/Valsartan 24 mg/26 mg TAB 1 EACH PO (20:03)
[2021-04-27] MEDS: Normal Saline Flush 10 ML SYR IVP (20:03)
[2021-04-27] MEDS: Senna TAB 1 TAB PO (22:39)
[2021-04-27] MEDS: Latanoprost 0.005% 2.5 ML BTL OU (22:40)
[2021-04-28] MEDS: Ketorolac 15 MG/ML VIAL IVP ×3 (00:29→23:12)
[2021-04-28] MEDS: guaiFENesin/D-METHORPHAN HB 5 ML CUP PO (00:29)
[2021-04-28] MEDS: Normal Saline Flush 10 ML SYR IVP ×4 (00:30→20:24)
[2021-04-28] MEDS: Albuterol/Ipratropium 3 ML UPD VIAL UPD (00:35)
[2021-04-28] MEDS: VANCOMYCIN/WATER (PEG) 1 GM/200 ML BAG IV ×2 (04:25→15:56)
[2021-04-28 04:28] VITALS: BP 127/64; PULSE 74; RESP 19; TEMP 37.1; O2SAT 91
[2021-04-28 07:07] LABS: Abs Immature Grans 1.39 10^3/uL (0.0-0.06); Absolute Basophil Count 0.08 10^3/uL (0.0-0.2); Absolute Eosinophil Count 0.59 10^3/uL (0.0-0.7); Absolute Lymphocyte Count 1.54 10^3/uL (1.2-3.4); Absolute Monocyte Count 1.24 10^3/uL (0.1-0.8); Absolute Neutrophil Count 11.23 10^3/uL (1.2-6.7); Basophils % 0.5; Eosinophils % 3.7; HCT 25.8 % (36.0-46.0); HGB 8.1 g/dL (11.2-15.7); Immature Grans % 8.6; Lymphocytes % 9.6; MCH 30.3 pg (27.0-33.0); MCHC 31.4 % (32.0-36.0); MCV 96.6 fL (80-95); MPV 9.1 fL (8.0-11.0); Monocytes % 7.7; Neutrophils % 69.9; Nucleated RBC 0 %; Platelet Count 240 10^3/uL (130-400); RBC 2.67 10^6/uL (3.93-5.22); RDW 13.2 % (11.7-14.6); RDW-SD 47.1 fL; WBC 16.07 10^3/uL (4.4-10.8)
[2021-04-28 07:36] VITALS: BP 120/72; PULSE 82; RESP 19; TEMP 37.8; O2SAT 95
[2021-04-28] MEDS: Polyethylene Glycol 3350 17 GM PACKET PO ×2 (08:15→20:22)
[2021-04-28] MEDS: Protein Nutritional Supplement 16 GM 1 OUNCE PACKET PO ×3 (08:15→20:22)
[2021-04-28] MEDS: cefTRIAXone 2 GM/50 ML BAG IVPB (08:16)
[2021-04-28] MEDS: Furosemide 40 MG TAB PO ×2 (08:18→16:02)
[2021-04-28] MEDS: Aspirin E.C. 81 MG TABEC PO (08:18)
[2021-04-28] MEDS: Magnesium Oxide 400 MG TAB PO (08:19)
[2021-04-28] MEDS: Metoprolol CR 25 MG TABCR PO (08:19)
[2021-04-28] MEDS: Docusate Sodium 100 MG CAP PO ×2 (08:19→20:22)
[2021-04-28] MEDS: Sacubitril/Valsartan 24 mg/26 mg TAB 1 EACH PO ×2 (08:19→20:23)
[2021-04-28 08:39] LABS: Anion Gap 8.8 mmol/L (3-11); BUN 22 mg/dL (7-18); CO2 26.2 mmol/L (21.0-32.0); CREATININE 0.7 mg/dL (0.55-1.02); Calcium 9.3 mg/dL (8.5-10.1); Chloride 106 mmol/L (98-107); Glucose 88 mg/dL (74-106); Potassium 3.9 mmol/L (3.5-5.1); Sodium 141 mmol/L (136-145)
[2021-04-28 08:43] LABS: C-Reactive Protein > 25.00 mg/dL (0.0-0.3)
[2021-04-28] MEDS: Rosuvastatin 5 MG TAB PO (09:10)
[2021-04-28] MEDS: ACETAMINOPHEN 1,000 MG/100 ML BTL 400 MG IVPB (09:10)
[2021-04-28] MEDS: Senna TAB 2 TAB PO (10:22)
--- NOTE | 2021-04-28 10:26 | PTTR_ITS ---
Date of service: 04/28/21 Time of Service: 07:38 PT Notes Visit Reasons: Sepsis,NSTEMI Inpatient Physical Therapy Treatment Note [facility] Date: 04/28/2021 PRECAUTIONS: Fall, WBAT L, Activity as tolerated SUBJECTIVE: Dinorah reports that she has been out of bed to use the commode already this morning. She reports that she has not received her pain medication yet, but is willing to attempt to transfer to the chair for breakfast. OBJECTIVE: PAIN: Patient c/o L knee discomfort with gait training and ther ex BED MOBILITY/TRANSFERS Supine-sit: CGA with HOB at 50 degrees Sit-stand: SBA Stand-sit: SBA Bed-Chair: SBA GAIT Assistive Device: FWW Weight bearing: WBAT L Assist: SBA Distance: 6' in a.m.; 20' in p.m. Deviation: Step-through gait pattern, slow pacing, minimal increase in L knee discomfort THEREX: Patient was instructed in a LE strengthening and stabilization program, completed in a supine position in a.m., and in a long-sitting position in p.m., as per flow sheet. She ends with cryocuff to L knee for pain and swelling management. ASSESSMENT: Patient tolerated session well with minimal c/o increased L knee pain with gait training and ther ex completion. She continues to tolerate only short distance ambulation with FWW support due to global weakness and deconditioning. PLAN: Continue with global strengthening and general conditioning for improved mobility and activity tolerance. Recommend d/c to SNF level rehab when me dically cleared. TREATMENT CODE/TIME: Session 1: 23 minutes; 52453, [id number] (07:38) Session 2: 23 minutes; 37606, 71512 (14:21)
--- NOTE | 2021-04-28 12:03 | CMPROGNOTE_ITS ---
- If Service Date Differs Date of service: 04/28/21 Time of Service: 12:03 Care Management Progress Note S/O: Dinorah continues to be closely monitored and treated for septic knee, she remains on IV ABX and had a wash out of the infection over the weekend. Per Dr. Clarke, anticipate half-way course of IV ABX will be required; which will likely require SWB1 at [facility] for IV ABX and PT or coordination of IV ABX in home setting, if Dinorah progresses mobility to enable safe discharge home. Dinorah reports having six weeks of IV ABX years ago in her home in [place]. CM continues to follow. A: Dinorah is an 86 year old woman admitted on 04/23/21 with sepsis and NSTEMI P: Anticipate Dinorah will transition to SWB1 for PT and IV ABX when ready per MD. With mobility progression, coordination for IV ABX in home setting may be considered. CM continues to follow. CM will continue to support Dinorah and assess for ongoing discharge planning concerns.
--- NOTE | 2021-04-28 13:31 | PGE_ITS ---
Date of Service Date of service: 04/28/21 Time of Service: 13:31 Assessment and Plan Assessment and plan (1) Septic arthritis of knee, left: Status: Suspected Assessment and plan: Patient remains on ceftriaxone 2 g IV daily along with vancomycin dosed per pharmacist. Blood cultures have been no growth. Left knee aspirate from prior surgery showed white blood cells but no bacteria. Joint fluid cultures from surgery are pending at this time. WBC count has increased from yesterday and CRP significantly increased since yesterday. Rocephin should be providing good joint coverage and coverage of presumed E.Coli infection (+ E.Coli UTI). Clinically improving; no fever/chills. Will d/w Ortho. Qualifiers: Septic arthritis organism: due to unspecified organism Qualified Code(s): M00.9 - Pyogenic arthritis, unspecified (2) Cellulitis: Status: Acute Assessment and plan: Continue ceftriaxone along with vancomycin. Adjust based on her wound cultures from her left knee surgery. Qualifiers: Site of cellulitis: extremity Site of cellulitis of extremity: lower extremity Laterality: left Qualified Code(s): L03.116 - Cellulitis of left lower limb (3) UTI (urinary tract infection): Status: Acute Assessment and plan: E. coli which is pansensitive currently responding to high-dose Rocephin. Patient has a Sweet catheter in place and draining clear yellow urine Qualifiers: Urinary tract infection type: acute cystitis Hematuria presence: without hematuria Qualified Code(s): N30.00 - Acute cystitis without hematuria (4) Elevated troponin: Status: Acute Assessment and plan: echocardiogram showed no RWMA and EKG was unremarkab le. Suspect that elevated troponin is d/t sepsis. Troponin is now normalized. (5) Wheezing: Status: Resolved Assessment and plan: Aggressive diuresis improved her wheezing prior to surgery however the patient was on IV fluids overnight on the 2nd and had recurrence of expiratory wheezing and bibasilar rales. Lasix was put on hold because of low blood pressure readings. Blood pressures have recovered and lasix resumed. (6) Right heart failure: Status: Acute Assessment and plan: echo showed borderline dilated RV but normal RV systolic function. Mild PHTN RVSP 34 mm. Suspected underlying MYLES (never worked up for this per patient). Resume diuretics. (7) Constipation: Status: Acute Assessment and plan: Increase miralax to BID. Cont Senna, 1 tab nightly. Give 2 tabs this AM. Subjective Subjective Patient reports: feels better, tolerating a regular diet, bowel movement (Very small, hard pebble-like stool.) and afebrile; denies nausea, vomiting and shortness of breath Interval history since last seen: Pain controlled. Using her IS routinely and reaching goal level. Exam Narrative Exam Narrative: Pleasant elderly obese female in no acute distress sitting up in her chair. Lungs with some faint bibasilar rales along with some end expiratory wheezing Heart regular rate and rhythm with a soft systolic murmur Abdomen is obese soft and nontender Lower extremities with 1+ pitting edema. Pedal pulses intact. No cyanosis. Left leg is still bandaged from surgery and she is currently receiving cryotherapy with cold packs to the left knee. Const General: no acute distress, not ill appearing and not lethargic Nutritional Appearance: overweight Orientation: oriented x3 HENMT Head: normal to inspection Ears: hearing grossly normal bilaterally Mouth: mucous membranes dry Eyes Eyelids: eyelids normal Pupils: PERRL EOM: EOM intact bilaterally Neck Neck: no JVD Resp Effort & Inspection: normal respiratory effort and able to speak in complete sentences Auscultation: clear to auscultation bilaterally, no rales, no rhonchi and no wheezes Cardio Rate: regular rate Rhythm: regular rhythm Heart Sounds: S1 normal, S2 normal and murmur (1/6 LILLY) systolic GI Palpation: soft, no hepatosplenomegaly, not firm and nontender Extrem General: no calf tenderness and pedal edema bilaterally non-pitting Left lower extremity: knee (Bandage in place. ) Objective Last Vital Signs Temp 37.8 C H 04/28/21 07:36 Pulse 82 04/28/21 07:36 Resp 19 04/28/21 07:36 BP 120/72 04/28/21 07:36 Pulse Ox 95 04/28/21 07:36 Laboratory Results - last 24 hr 04/27/21 04/27/21 04/28/21 15:29 15:29 06:30 WBC RBC Hgb 8.8 L Hct 27.8 L MCV MCH MCHC RDW Plt Count MPV Immature Gran % Neutrophils % Lymphocytes % Monocytes % Eosinophils % Basophils % Nucleated RBC % Absolute Neutrophils Absolute Lymphocytes Absolute Monocytes Absolute Eosinophils Absolute Basophils Sodium 141 Potassium 3.9 Chloride 106 Carbon Dioxide 26.2 Anion Gap 8.8 BUN 22 H Creatinine 0.7 Estimated GFR/1.73 m2 >= 60.00 Glucose 88 Calcium 9.3 C-Reactive Protein > 25.00 H Vancomycin Trough 13.9 04/28/21 06:30 WBC 16.07 H RBC 2.67 L Hgb 8.1 L Hct 25.8 L MCV 96.6 H MCH 30.3 MCHC 31.4 L RDW 13.2 Plt Count 240 MPV 9.1 Immature Gran % 8.6 Neutrophils % 69.9 Lymphocytes % 9.6 Monocytes % 7.7 Eosinophils % 3.7 Basophils % 0.5 Nucleated RBC % 0 Absolute Neutrophils 11.23 H Absolute Lymphocytes 1.54 Absolute Monocytes 1.24 H Absolute Eosinophils 0.59 Absolute Basophils 0.08 Sodium Potassium Chloride Carbon Dioxide Anion Gap BUN Creatinine Estimated GFR/1.73 m2 Glucose Calcium C-Reactive Protein Vancomycin Trough
--- NOTE | 2021-04-28 14:25 | CHAPLAIN ---
Dinorah was on the commode when I visited. She said she would be there for a while, so said it was okay to stay and visit. Dinorah told me about her surgery over the weekend to wash out her knee. She is on IV antibiotics now and waiting to see if she'll need to stay on swingbed for more antibiotics or if she can receive them at home. Her long-term plan is to move back to the [facility] to be closer to her niece.
[2021-04-28 14:44] VITALS: TEMP 36.8
[2021-04-28 15:20] VITALS: BP 128/70; PULSE 71; RESP 19; TEMP 37.3; O2SAT 94
[2021-04-28] MEDS: Enoxaparin 40 MG/0.4 ML SYR SC (16:02)
--- NOTE | 2021-04-28 16:52 | W.PM.PROGNOT ---
Date of Service Date of service: 04/28/21 Time of Service: 14:15 Assessment and Plan Assessment and plan (1) Septic arthritis of knee, left: Status: Suspected Assessment and plan: Dinorah is a 86yo female who is s/p explant of a left knee spacer with synovectomy and revision spacer placement. She is clinically doing much better. Her CRP and WBC did jump up today but this is not surprising given the timing from Tuesday's surgery. I do expect that this is the peak but will continue to follow. I also don't believe that MRSA is a likely pathogen with the appearance of her clinical profile. Interestingly, all cultures are still negative. My suspicion is that this is from the UTI ut I would ask for reocmmendation from ID to determine the best antiobiotic moving foward and duration. 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 I would recommend we d/c the bella catheter. I will change the ARETHA wrap tomorrow. Qualifiers: Septic arthritis organism: due to unspecified organism Qualified Code(s): M00.9 - Pyogenic arthritis, unspecified Subjective Subjective Patient reports: no new complaints Interval history since last seen: In general, Dinorah reports to be doing better. She feels that the knee is much better and she was able to ambulate minimal steps today which she was unable to do previously. Still all cultures except for the urine are negative. Exam Narrative Exam Narrative: Sitting up in the chair. NAD. AAOx3. LLE dressing c/d/i. +ADF/APF/EHL/FHL. SILT DP/SP/Tib. Palpable PT/DP. Able to SLR with minimal pain. Objective Last Vital Signs Temp 36.8 C 04/28/21 14:44 Pulse 82 04/28/21 07:36 Resp 19 04/28/21 07:36 BP 120/72 04/28/21 07:36 Pulse Ox 95 04/28/21 07:36 Laboratory Results - last 24 hr 04/28/21 04/28/21 06:30 06:30 WBC 16.07 H RBC 2.67 L Hgb 8.1 L Hct 25.8 L MCV 96.6 H MCH 30.3 MCHC 31.4 L RDW 13.2 Plt Count 240 MPV 9.1 Immature Gran % 8.6 Neutrophils % 69.9 Lymphocytes % 9.6 Monocytes % 7.7 Eosinophils % 3.7 Basophils % 0.5 Nucleated RBC % 0 Absolute Neutrophils 11.23 H Absolute Lymphocytes 1.54 Absolute Monocytes 1.24 H Absolute Eosinophils 0.59 Absolute Basophils 0.08 Sodium 141 Potassium 3.9 Chloride 106 Carbon Dioxide 26.2 Anion Gap 8.8 BUN 22 H Creatinine 0.7 Estimated GFR/1.73 m2 >= 60.00 Glucose 88 Calcium 9.3 C-Reactive Protein > 25.00 H
[2021-04-28] MEDS: Senna TAB 1 TAB PO (21:30)
[2021-04-28] MEDS: Latanoprost 0.005% 2.5 ML BTL OU (21:30)
[2021-04-28 23:18] VITALS: BP 125/59; PULSE 80; RESP 20; TEMP 38; O2SAT 94
[2021-04-29] VITALS (7 sets, daily range): BP systolic 119–136; BP diastolic 66–68; PULSE 74–81; RESP 16–22; TEMP 36.9–38; O2SAT 94–98
[2021-04-29] MEDS: VANCOMYCIN/WATER (PEG) 1 GM/200 ML BAG IV ×2 (04:05→16:31)
[2021-04-29 07:01] LABS: HGB 8.3 g/dL (11.2-15.7); MCH 30.1 pg (27.0-33.0); MCHC 30.7 % (32.0-36.0); MCV 97.8 fL (80-95); MPV 8.8 fL (8.0-11.0); Nucleated RBC 0 %; Platelet Count 289 10^3/uL (130-400); RBC 2.76 10^6/uL (3.93-5.22); RDW 13.3 % (11.7-14.6); RDW-SD 47.7 fL; WBC 14.55 10^3/uL (4.4-10.8)
[2021-04-29 07:07] LABS: Anion Gap 8.1 mmol/L (3-11); BUN 20 mg/dL (7-18); CO2 25.9 mmol/L (21.0-32.0); CREATININE 0.7 mg/dL (0.55-1.02); Chloride 105 mmol/L (98-107); Glucose 96 mg/dL (74-106); Potassium 3.8 mmol/L (3.5-5.1); Sodium 139 mmol/L (136-145)
[2021-04-29 07:27] LABS: Absolute Basophil Count 0.29 10^3/uL (0.0-0.2); Absolute Eosinophil Count 0.29 10^3/uL (0.0-0.7); Absolute Lymphocyte Count 2.18 10^3/uL (1.2-3.4); Absolute Monocyte Count 0.29 10^3/uL (0.1-0.8); Atypical Lymphocytes % 1; Bands % 3; Diff Comment Manual Differential; Metamyelocytes % 2; RBC Morphology Normal
[2021-04-29] MEDS: Polyethylene Glycol 3350 17 GM PACKET PO (08:37)
[2021-04-29] MEDS: Protein Nutritional Supplement 16 GM 1 OUNCE PACKET PO ×2 (08:37→20:27)
[2021-04-29] MEDS: Magnesium Oxide 400 MG TAB PO (08:38)
[2021-04-29] MEDS: Aspirin E.C. 81 MG TABEC PO (08:38)
[2021-04-29] MEDS: Sacubitril/Valsartan 24 mg/26 mg TAB 1 EACH PO ×2 (08:38→20:27)
[2021-04-29] MEDS: Metoprolol CR 25 MG TABCR PO (08:38)
[2021-04-29] MEDS: Docusate Sodium 100 MG CAP PO (08:38)
[2021-04-29] MEDS: Furosemide 40 MG TAB PO ×2 (08:39→15:44)
[2021-04-29] MEDS: cefTRIAXone 2 GM/50 ML BAG IVPB (08:39)
[2021-04-29] MEDS: Normal Saline Flush 10 ML SYR IVP ×6 (08:41→21:18)
--- NOTE | 2021-04-29 10:44 | PDOC.CMPRO ---
- If Service Date Differs Date of service: 04/29/21 Time of Service: 10:44 Care Management Progress Note S/O: Dinorah was lying in bed when CM met with her. She was pleasant and easily engaged in conversation. She continues to be closely monitored and treated for septic knee. Per Dr. Clarke she will likely need SNF level care for watermaster ABX and PT. She will likely need to transition to SWB1 at [facility] since IV ABX are not traditionally administered at SNF. CM continues to follow. A: Dinorah is an 86 year old woman admitted on 04/23/21 with sepsis and NSTEMI P: Anticipate Dinorah will transition to SWB1 for PT and IV ABX when ready per MD. CM continues to follow. CM will continue to support Dinorah and assess for ongoing discharge planning concerns.
[2021-04-29] MEDS: Ketorolac 15 MG/ML VIAL IVP (12:47)
--- NOTE | 2021-04-29 14:07 | W.PM.PROGNOT ---
Date of Service Date of service: 04/29/21 Time of Service: 14:07 Assessment and Plan Assessment and plan (1) Septic arthritis of knee, left: Status: Suspected Assessment and plan: Patient remains on ceftriaxone 2 g IV daily along with vancomycin dosed per pharmacist. Blood cultures have been no growth. Left knee aspirate from prior surgery showed white blood cells but no bacteria. Joint fluid cultures from surgery are pending at this time. WBC count and CrP decreasing. Rocephin should be providing good joint coverage and coverage of presumed E.Coli infection (+ E.Coli UTI). Clinically improving; no fever/chills. Ortho following. Qualifiers: Septic arthritis organism: due to unspecified organism Qualified Code(s): M00.9 - Pyogenic arthritis, unspecified (2) Cellulitis: Status: Acute Assessment and plan: Continue ceftriaxone along with vancomycin. Adjust based on her wound cultures from her left knee surgery. Qualifiers: Site of cellulitis: extremity Site of cellulitis of extremity: lower extremity Laterality: left Qualified Code(s): L03.116 - Cellulitis of left lower limb (3) UTI (urinary tract infection): Status: Acute Assessment and plan: E. coli which is pansensitive currently responding to high-dose Rocephin. Patient has a Bella catheter in place and draining clear yellow urine Will d/c bella catheter. Qualifiers: Urinary tract infection type: acute cystitis Hematuria presence: without hematuria Qualified Code(s): N30.00 - Acute cystitis without hematuria (4) Elevated troponin: Status: Acute Assessment and plan: echocardiogram showed no RWMA and EKG was unremarkable. Suspect that elevated troponin is d/t sepsis. Troponin is now normalized. (5) Wheezing: Status: Resolved Assessment and plan: Aggressive diuresis improved her wheezing prior to surgery however the patient was on IV fluids overnight on the 2nd and had recurrence of expiratory wheezing and bibasilar rales. Lasix was put on hold because of low blood pressure readings. Blood pressures have recovered and lasix resumed. (6) Right heart failure: Status: Acute Assessment and plan: echo showed borderline dilated RV but normal RV systolic function. Mild PHTN RVSP 34 mm. Suspected underlying MYLES (never worked up for this per patient). Resume diuretics. (7) Constipation: Status: Acute Assessment and plan: Increase miralax to BID. Cont Senna, 1 tab nightly. Give 2 tabs this AM. Subjective Subjective Patient reports: no new complaints, tolerating a regular diet, bowel movement (Very small, hard pebble-like stool.) and afebrile; denies nausea, vomiting and shortness of breath Interval history since last seen: Pain controlled. Using her IS routinely and reaching goal level. Exam Narrative Exam Narrative: Lying in bed. PICC was just inserted prior to my arrival. Const General: no acute distress, not ill appearing and not lethargic Nutritional Appearance: overweight Orientation: oriented x3 HENMT Head: normal to inspection Ears: hearing grossly normal bilaterally Mouth: mucous membranes dry Eyes Eyelids: eyelids normal Pupils: PERRL EOM: EOM intact bilaterally Neck Neck: no JVD Resp Effort & Inspection: normal respiratory effort and able to speak in complete sentences Auscultation: clear to auscultation bilaterally, no rales, no rhonchi and no wheezes Cardio Rate: regular rate Rhythm: regular rhythm Heart Sounds: S1 normal, S2 normal and murmur (1/6 LILLY) systolic GI Palpation: soft, no hepatosplenomegaly, not firm and nontender Extrem General: no calf tenderness and pedal edema bilaterally non-pitting Left lower extremity: knee (Bandage in place. ) Objective Last Vital Signs Temp 37.3 C 04/29/21 07:52 Pulse 81 04/29/21 07:52 Resp 22 04/29/21 07:52 BP 125/59 L 04/28/21 23:18 Pulse Ox 94 04/29/21 07:52 Laboratory Results - last 24 hr 04/24/21 04/29/21 04/29/21 11:50 06:40 06:40 WBC 14.55 H RBC 2.76 L Hgb 8.3 L Hct 27.0 L MCV 97.8 H MCH 30.1 MCHC 30.7 L RDW 13.3 Plt Count 289 MPV 8.8 Immature Gran % 0.0 Neutrophils % 74.0 Band Neutrophils % 3 Lymphocytes % 14.0 Atypical Lymphs % 1 Monocytes % 2.0 Eosinophils % 2.0 Basophils % 2.0 Metamyelocytes % 2 Nucleated RBC % 0 Absolute Neutrophils 11.20 H Absolute Lymphocytes 2.18 Absolute Monocytes 0.29 Absolute Eosinophils 0.29 Absolute Basophils 0.29 H RBC Morphology Normal Sodium 139 Potassium 3.8 Chloride 105 Carbon Dioxide 25.9 Anion Gap 8.1 BUN 20 H Creatinine 0.7 Estimated GFR/1.73 m2 >= 60.00 Glucose 96 Calcium 9.0 C-Reactive Protein 22.10 H Path Cons Comment SEE COMMENT
[2021-04-29] MEDS: Bacitracin 1 PACKET (14:15)
[2021-04-29] MEDS: Enoxaparin 40 MG/0.4 ML SYR SC (15:44)
[2021-04-29 16:10] LABS: Vancomycin, Trough 15.9 ug/mL (10.0-20.0)
--- NOTE | 2021-04-29 19:35 | PGE_ITS ---
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 She is making good progress clinically and I expect that the CRP is going to continue to improve. I would default to Infectious Disease as to the antibotic choice and duration. She may continue to WBAT. ASA for DVT prophylaxis. The initial HIREN wrap is removed and I would recommend that wound care drive the treatment for her cellulitis and leg wounds. The MARQUISE dressing may be removed after 1 week and replaced with a Mepilex. F/U in 2 weeks for wound check and s taple removal. Qualifiers: Septic arthritis organism: due to unspecified organism Qualified Code(s): M00.9 - Pyogenic arthritis, unspecified Subjective Subjective Patient reports: no new complaints Interval history since last seen: Dinorah reports to be feeling much better. She has been able to ambulate with the nursing and physical therapy support. She feels that the left knee is much better. She is able to move it. She able to walk on it. She denies fevers or chills. She denies chest pain or shortness of breath. No new symptoms. She had a PICC line placed today. Sweet catheter has been removed. Exam Narrative Exam Narrative: Sitting up in the hospital bed. She looks well. No acute distress. Alert and oriented x3. Evaluation of the left leg entails removing the outer Hiren wrap. There has been significant reduction in swelling of the left leg although the foot itself is swollen. There still is erythema seen within the leg itself. The marquise dressing is in place and still with suction and minimal drainage. There is bogginess about the left leg and left knee. She is able to straight leg raise. She also has passive range of motion from about 10 degrees to 90 degrees all without pain. Knee is stable to varus and valgus stress. Objective Last Vital Signs Temp 37.7 C H 04/29/21 15:29 Pulse 74 04/29/21 15:29 Resp 18 04/29/21 15:29 BP 136/68 04/29/21 15:29 Pulse Ox 94 04/29/21 15:29 Laboratory Results - last 24 hr 04/24/21 04/29/21 04/29/21 11:50 06:40 06:40 WBC 14.55 H RBC 2.76 L Hgb 8.3 L Hct 27.0 L MCV 97.8 H MCH 30.1 MCHC 30.7 L RDW 13.3 Plt Count 289 MPV 8.8 Immature Gran % 0.0 Neutrophils % 74.0 Band Neutrophils % 3 Lymphocytes % 14.0 Atypical Lymphs % 1 Monocytes % 2.0 Eosinophils % 2.0 Basophils % 2.0 Metamyelocytes % 2 Nucleated RBC % 0 Absolute Neutrophils 11.20 H Absolute Lymphocytes 2.18 Absolute Monocytes 0.29 Absolute Eosinophils 0.29 Absolute Basophils 0.29 H RBC Morphology Normal Sodium 139 Potassium 3.8 Chloride 105 Carbon Dioxide 25.9 Anion Gap 8.1 BUN 20 H Creatinine 0.7 Estimated GFR/1.73 m2 >= 60.00 Glucose 96 Calcium 9.0 C-Reactive Protein 22.10 H Vancomycin Trough Path Cons Comment SEE COMMENT 04/29/21 15:30 WBC RBC Hgb Hct MCV MCH MCHC RDW Plt Count MPV Immature Gran % Neutrophils % Band Neutrophils % Lymphocytes % Atypical Lymphs % Monocytes % Eosinophils % Basophils % Metamyelocytes % Nucleated RBC % Absolute Neutrophils Absolute Lymphocytes Absolute Monocytes Absolute Eosinophils Absolute Basophils RBC Morphology Sodium Potassium Chloride Carbon Dioxide Anion Gap BUN Creatinine Estimated GFR/1.73 m2 Glucose Calcium C-Reactive Protein Vancomycin Trough 15.9 Path Cons Comment
[2021-04-29] MEDS: ACETAMINOPHEN 1,000 MG/100 ML BTL 400 MG IVPB (21:17)
[2021-04-29] MEDS: Latanoprost 0.005% 2.5 ML BTL OU (22:20)
[2021-04-30 04:27] VITALS: BP 144/67; PULSE 75; RESP 16; TEMP 37.1; O2SAT 93
[2021-04-30] MEDS: VANCOMYCIN/WATER (PEG) 1 GM/200 ML BAG IV ×2 (04:27→16:32)
[2021-04-30 06:50] LABS: HCT 25.3 % (36.0-46.0); HGB 7.9 g/dL (11.2-15.7); MCH 30.5 pg (27.0-33.0); MCHC 31.2 % (32.0-36.0); MCV 97.7 fL (80-95); MPV 8.6 fL (8.0-11.0); Nucleated RBC 0 %; Platelet Count 347 10^3/uL (130-400); RBC 2.59 10^6/uL (3.93-5.22); RDW 13.3 % (11.7-14.6); RDW-SD 47.6 fL; WBC 12.84 10^3/uL (4.4-10.8)
[2021-04-30] MEDS: ACETAMINOPHEN 1,000 MG/100 ML BTL 400 MG IVPB ×2 (06:50→15:35)
[2021-04-30 07:01] LABS: C-Reactive Protein 16.36 mg/dL (0.0-0.3)
[2021-04-30 07:18] LABS: Absolute Basophil Count 0.39 10^3/uL (0.0-0.2); Absolute Eosinophil Count 0.39 10^3/uL (0.0-0.7); Absolute Lymphocyte Count 1.67 10^3/uL (1.2-3.4); Absolute Neutrophil Count 9.12 10^3/uL (1.2-6.7); Bands % 9; Metamyelocytes % 3
[2021-04-30 07:19] LABS: Diff Comment Manual Differential; Hypochromasia 1+; Polychromasia Present
[2021-04-30] MEDS: Normal Saline Flush 10 ML SYR IVP ×3 (08:20→19:20)
[2021-04-30] MEDS: Sacubitril/Valsartan 24 mg/26 mg TAB 1 EACH PO ×2 (08:21→19:16)
[2021-04-30] MEDS: Polyethylene Glycol 3350 17 GM PACKET PO (08:21)
[2021-04-30] MEDS: Aspirin E.C. 81 MG TABEC PO (08:21)
[2021-04-30] MEDS: cefTRIAXone 2 GM/50 ML BAG IVPB (08:21)
[2021-04-30] MEDS: Docusate Sodium 100 MG CAP PO ×2 (08:21→19:17)
[2021-04-30] MEDS: Protein Nutritional Supplement 16 GM 1 OUNCE PACKET PO ×2 (08:21→19:17)
[2021-04-30] MEDS: Magnesium Oxide 400 MG TAB PO (08:21)
[2021-04-30] MEDS: Rosuvastatin 5 MG TAB PO (08:21)
[2021-04-30] MEDS: Metoprolol CR 25 MG TABCR PO (08:22)
[2021-04-30] MEDS: Furosemide 40 MG TAB PO ×2 (08:22→15:34)
--- NOTE | 2021-04-30 12:31 | PGE_ITS ---
Date of Service Date of service: 04/30/21 Time of Service: 12:31 Assessment and Plan Assessment and plan (1) Septic arthritis of knee, left: Status: Suspected Assessment and plan: Patient remains on ceftriaxone 2 g IV daily along with vancomycin dosed per pharmacist. Blood cultures have been no growth. Left knee aspirate from prior surgery showed white blood cells but no bacteria. Joint fluid cultures from surgery are pending at this time. WBC count and CrP decreasing. Rocephin should be providing good joint coverage and coverage of presumed E.Coli infection (+ E.Coli UTI). Clinically improving; no fever/chills. Qualifiers: Septic arthritis organism: due to unspecified organism Qualified Code(s): M00.9 - Pyogenic arthritis, unspecified (2) Cellulitis: Status: Acute Assessment and plan: Resolved. Continue ceftriaxone along with vancomycin for intra-articular knee infection. Wound culture and blood culture with no growth. Qualifiers: Site of cellulitis: extremity Site of cellulitis of extremity: lower extremity Laterality: left Qualified Code(s): L03.116 - Cellulitis of left lower limb (3) UTI (urinary tract infection): Status: Acute Assessment and plan: E. coli which is pansensitive currently responding to high-dose Rocephin. D/C'd bella catheter and is urinating. Qualifiers: Urinary tract infection type: acute cystitis Hematuria presence: without hematuria Qualified Code(s): N30.00 - Acute cystitis without hematuria (4) Elevated troponin: Status: Acute Assessment and plan: echocardiogram showed no RWMA and EKG was unremarkable. Suspect that elevated troponin is d/t sepsis. Troponin is now no rmalized. (5) Wheezing: Status: Resolved Assessment and plan: Aggressive diuresis improved her wheezing prior to surgery however the patient was on IV fluids overnight on the 2nd and had recurrence of expiratory wheezing and bibasilar rales. Lasix was put on hold because of low blood pressure readings. Blood pressures have recovered and lasix resumed. (6) Right heart failure: Status: Acute Assessment and plan: echo showed borderline dilated RV but normal RV systolic function. Mild PHTN RVSP 34 mm. Suspected underlying MYLES (never worked up for this per patient). Resume diuretics. (7) Constipation: Status: Acute Assessment and plan: Increase miralax to BID. Cont Senna, 1 tab nightly. Now having soft brown stools. (8) Iron deficiency anemia: Status: Acute Assessment and plan: Total iron of 16. Hgb decreased to 7.9 Venofer 300mg IV today. Monitor. Subjective Subjective Patient reports: still having pain (L knee with more pain today with wt bearing. ), tolerating a regular diet, shortness of breath (with exertion as noted by PT) and afebrile; denies nausea and vomiting Interval history since last seen: Pain controlled. Using her IS routinely and reaching goal level. Exam Narrative Exam Narrative: Sitting in chair. Appears tired. Const General: no acute distress, not ill appearing and not lethargic Nutritional Appearance: overweight Orientation: oriented x3 HENMT Head: normal to inspection Ears: hearing grossly normal bilaterally Mouth: mucous membranes dry Eyes Eyelids: eyelids normal Pupils: PERRL EOM: EOM intact bilaterally Neck Neck: no JVD Resp Effort & Inspection: normal respiratory effort and able to speak in complete sentences Auscultation: clear to auscultation bilaterally, no rales, no rhonchi and no wheezes Cardio Rate: regular rate Rhythm: regular rhythm Heart Sounds: S1 normal, S2 normal and murmur (1/6 LILLY) systolic GI Palpation: soft, no hepatosplenomegaly, not firm and nontender Extrem General: no calf tenderness and pedal edema bilaterally non-pitting Left lower extremity: knee (Bandage in place. ) Objective Last Vital Signs Temp 37.1 C 04/30/21 04:27 Pulse 75 04/30/21 04:27 Resp 16 04/30/21 04:27 BP 144/67 H 04/30/21 04:27 Pulse Ox 93 04/30/21 04:27 Laboratory Results - last 24 hr 04/29/21 04/30/21 04/30/21 15:30 06:30 06:30 WBC 12.84 H RBC 2.59 L Hgb 7.9 L Hct 25.3 L MCV 97.7 H MCH 30.5 MCHC 31.2 L RDW 13.3 Plt Count 347 MPV 8.6 Immature Gran % 0.0 Neutrophils % 62.0 Band Neutrophils % 9 Lymphocytes % 13.0 Monocytes % 7.0 Eosinophils % 3.0 Basophils % 3.0 Metamyelocytes % 3 Nucleated RBC % 0 Absolute Neutrophils 9.12 H Absolute Lymphocytes 1.67 Absolute Monocytes 0.90 H Absolute Eosinophils 0.39 Absolute Basophils 0.39 H RBC Morphology See Below Polychromasia Present Hypochromasia 1+ C-Reactive Protein 16.36 H Vancomycin Trough 15.9
[2021-04-30] MEDS: IRON SUCROSE COMPLEX 300 MG in Normal Saline 250 ML 167 MG IVPB (12:57)
--- NOTE | 2021-04-30 13:58 | PT.INTREAT ---
Date of service: 04/30/21 Time of Service: 07:29 PT Notes Visit Reasons: Sepsis,NSTEMI Inpatient Physical Therapy Treatment Note [facility] Date: 04/30/2021 PRECAUTIONS: Fall, WBAT L, Activity as tolerated SUBJECTIVE: Dinorah states that she is feeling more pain in the L knee today, that the block has likely worn off completely at this point. She states that they removed the catheter and have been diuresing her, so she has been up to the commode frequently. OBJECTIVE: PAIN: Patient c/o L knee pain across the front with ther ex and generalized knee pain with gait training BED MOBILITY/TRANSFERS Supine-sit: CGA with HOB at 50 degrees Sit-stand: SBA Stand-sit: SBA Bed-Chair: SBA GAIT Assistive Device: FWW Weight bearing: WBAT L Assist: SBA Distance: ~15' +10' Deviation: Step-through gait pattern, slow pacing, increased L knee pain, SOB THEREX: Patient was instructed in a LE strengthening and stabilization program, completed in a supine position in a.m., and in a long-sitting position in p.m., as per flow sheet. She ends with cryocuff to L knee for pain and swelling management. ASSESSMENT: Patient tolerated session well, although with c/o increased L knee pain with gait training and ther ex completion. She continues to tolerate only short distance ambulation with FWW support due to global weakness and SOB due to deconditioning. PLAN: Continue with global strengthening and general conditioning for improved mobility and activity tolerance. Recommend d/c to SNF level rehab when medically cleared. TREATMENT CODE/TIME: Session 1: 30 minutes; 15123, [id number] (07:29) Session 2: 15 minutes; 16163 (14:30)
[2021-04-30 15:05] VITALS: BP 143/60; PULSE 73; RESP 20; TEMP 37.9; O2SAT 95
[2021-04-30] MEDS: Enoxaparin 40 MG/0.4 ML SYR SC (15:36)
--- NOTE | 2021-04-30 16:47 | PDOC.CMPRO ---
Care Management Progress Note S/O: Dinorah remains pleasant and easily engages in conversation. She continues to be closely monitored and treated for septic knee. Per Dr. Clarke she will likely need SNF level care for group home ABX and PT. She will likely need to transition to SWB1 at [facility] since IV ABX are not traditionally administered at SNF and she remains a two-assist with mobility at this time. CM continues to follow. A: Dinorah is an 86 year old woman admitted on 04/23/21 with sepsis and NSTEMI P: Anticipate Dinorah will transition to SWB1 for PT and IV ABX when ready per MD. CM continues to follow. CM will continue to support Dinorah and assess for ongoing discharge planning concerns.
[2021-04-30] MEDS: Latanoprost 0.005% 2.5 ML BTL OU (19:16)
[2021-04-30 19:23] VITALS: BP 110/67; TEMP 38.4
[2021-04-30 20:41] VITALS: TEMP 36.9
[2021-04-30 23:25] VITALS: BP 132/70; PULSE 76; RESP 18; TEMP 36.6; O2SAT 95
[2021-05-01] MEDS: VANCOMYCIN/WATER (PEG) 1 GM/200 ML BAG IV ×2 (03:37→16:25)
[2021-05-01] MEDS: Normal Saline Flush 10 ML SYR IVP ×3 (03:37→19:40)
[2021-05-01] MEDS: ACETAMINOPHEN 1,000 MG/100 ML BTL 400 MG IVPB (06:08)
[2021-05-01 06:32] LABS: Abs Immature Grans 1.05 10^3/uL (0.0-0.06); HCT 26.3 % (36.0-46.0); HGB 8.1 g/dL (11.2-15.7); MCHC 30.8 % (32.0-36.0); MCV 97.4 fL (80-95); MPV 8.4 fL (8.0-11.0); Nucleated RBC 0 %; Platelet Count 430 10^3/uL (130-400); RDW 13.7 % (11.7-14.6); RDW-SD 48.3 fL; WBC 14.76 10^3/uL (4.4-10.8)
[2021-05-01 06:36] LABS: Absolute Monocyte Count 1.03 10^3/uL (0.1-0.8)
[2021-05-01 06:48] LABS: Absolute Eosinophil Count 0.44 10^3/uL (0.0-0.7); Absolute Lymphocyte Count 2.21 10^3/uL (1.2-3.4); Absolute Neutrophil Count 10.92 10^3/uL (1.2-6.7); C-Reactive Protein 16.19 mg/dL (0.0-0.3); Diff Comment Manual Differential; Microcytosis 1+; Myelocytes % 1
[2021-05-01 07:22] VITALS: BP 104/54; PULSE 70; RESP 20; TEMP 36.9; O2SAT 94
[2021-05-01] MEDS: Metoprolol CR 25 MG TABCR PO (08:03)
[2021-05-01] MEDS: cefTRIAXone 2 GM/50 ML BAG IVPB (08:03)
[2021-05-01] MEDS: Sacubitril/Valsartan 24 mg/26 mg TAB 1 EACH PO ×2 (08:03→19:39)
[2021-05-01] MEDS: Magnesium Oxide 400 MG TAB PO (08:03)
[2021-05-01] MEDS: Docusate Sodium 100 MG CAP PO ×2 (08:03→19:39)
[2021-05-01] MEDS: Aspirin E.C. 81 MG TABEC PO (08:03)
[2021-05-01] MEDS: Furosemide 40 MG TAB PO ×2 (08:03→16:25)
[2021-05-01] MEDS: Polyethylene Glycol 3350 17 GM PACKET PO ×2 (08:05→19:39)
[2021-05-01] MEDS: Protein Nutritional Supplement 16 GM 1 OUNCE PACKET PO ×3 (08:05→19:39)
--- NOTE | 2021-05-01 09:05 | PDOC.CMPRO ---
- If Service Date Differs Date of service: 05/01/21 Time of Service: 09:05 Care Management Progress Note S/O: Dinorah remains pleasant and easily engages in conversation. She continues to be closely monitored and treated for septic knee. Per MD she will likely need SNF level care for long-term ABX and PT. Anticipate she will transition to SWB1 at [facility] as IV ABX are not available at local SNFs and she remains a two-assist with mobility at this time. CM continues to follow. A: Dinorah is an 86 year old woman admitted on 04/23/21 with sepsis and NSTEMI P: Anticipate Dinorah will transition to SWB1 for PT and IV ABX when ready per MD. CM continues to follow. CM will continue to support Dinorah and assess for ongoing discharge planning concerns.
--- NOTE | 2021-05-01 11:02 | W.NUTRFU ---
Date of service: 05/01/21 Time of Service: 11:02 Nutrition Note NOTE: Ms. Colbert continues with excellent PO intake. She is on a regular diet. She receives 1 oz. liquid protein, tid. She has lost 6% of her body weight in one week, however she is getting lasix. Will continue to monitor nutritional status. Will evaluate nutrition care plan ongoing and adjust as needed. Time Spent in Nutritional Counseling and Treatment: 0
--- NOTE | 2021-05-01 13:26 | PT.INTREAT ---
Date of service: 05/01/21 Time of Service: 07:38 PT Notes Visit Reasons: Sepsis,NSTEMI Inpatient Physical Therapy Treatment Note [facility] Date: 05/01/2021 PRECAUTIONS: Fall, WBAT L, Activity as tolerated SUBJECTIVE: Dinorah is pleasant and agreeable to participating in PT. She reports that she slept well last night. OBJECTIVE: PAIN: Patient c/o L knee pain across the front with ther ex and generalized knee pain with gait training BED MOBILITY/TRANSFERS Supine-sit: S with HOB at 40 degrees Sit-stand: SBA Stand-sit: SBA GAIT Assistive Device: FWW Weight bearing: WBAT L Assist: SBA Distance: ~25' in a.m.; ~10' in p.m. Deviation: Step-through gait pattern, slow pacing, increased L knee pain, decreased SOB compared to yesterday THEREX: Patient was instructed in a LE strengthening and stabilization program, completed in a supine/seated position in a.m., and in a seated position in p.m., as per flow sheet. She ends with cryocuff to L knee for pain and swelling management. ASSESSMENT: Patient tolerated session well, although with c/o increased L knee pain with gait training and ther ex completion. She continues to tolerate only short distance ambulation with FWW support due to global weakness and SOB due to deconditioning. PLAN: Continue with global strengthening and general conditioning for improved mobility and activity tolerance. Recommend d/c to SNF level rehab when medically cleared. TREATMENT CODE/TIME: Session 1: 20 minutes; 19980 (07:38) Session 2: 16 minutes; 10171 (13:38)
--- NOTE | 2021-05-01 13:39 | CHAPLAIN ---
Dinorah was happy to tell me that her infection is better and she doesn't have a temperature. She continues to be in touch with her niece in [place]. She spoke to her sister recently. Her sister lives in [facility] and has health issues. 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 She continues to be pleasant and engage in conversations.
[2021-05-01] MEDS: Acetaminophen 500 MG TAB 1000 MG PO (14:37)
[2021-05-01 15:15] VITALS: BP 120/79; PULSE 69; RESP 18; TEMP 36.9; O2SAT 96
[2021-05-01 15:27] LABS: Vancomycin, Trough 17.1 ug/mL (10.0-20.0)
--- NOTE | 2021-05-01 15:47 | W.PM.PROGNOT ---
Date of Service Date of service: 05/01/21 Time of Service: 15:47 Assessment and Plan Assessment and plan (1) Septic arthritis of knee, left: Status: Suspected Assessment and plan: Patient remains on ceftriaxone 2 g IV daily along with vancomycin dosed per pharmacist. Blood cultures have been no growth. Left knee aspirate from prior surgery showed white blood cells but no bacteria. Joint fluid cultures from surgery are pending at this time. WBC count still elevated and up from 12 yesterday to 14. CRP at 16 yesterday and today. Temp of 38.4 last PM Discussed with ID at [facility]. They suggest discussing with ortho needle aspiration with cultures or proceeding with a wash-out of the knee. Will d/w ortho when they are available/out of a surgical procedure. Qualifiers: Septic arthritis organism: due to unspecified organism Qualified Code(s): M00.9 - Pyogenic arthritis, unspecified (2) Cellulitis: Status: Acute Assessment and plan: Abraded area of the left tobias likely the portal of entry. Continue ceftriaxone along with vancomycin for intra-articular knee infection. Erythema significantly improved. Wound culture and blood culture with no growth. Qualifiers: Site of cellulitis: extremity Site of cellulitis of extremity: lower extremity Laterality: left Qualified Code(s): L03.116 - Cellulitis of left lower limb (3) UTI (urinary tract infection): Status: Acute Assessment and plan: E. coli which is pansensitive currently responding to high-dose Rocephin. D/C'd bella catheter and is urinating. Qualifiers: Urinary tract infection type: acute cystitis Hematuria presence: without hematuria Qualified Code(s): N30.00 - Acute cystitis without hematuria (4) Elevated troponin: Status: Acute Assessment and plan: echocardiogram showed no RWMA and EKG was unremarkable. Suspect that elevated troponin is d/t sepsis. Troponin is now normalized. (5) Wheezing: Status: Resolved Assessment and plan: Aggressive diuresis improved her wheezing prior to surgery however the patient was on IV fluids overnight on the 2nd and had recurrence of expiratory wheezing and bibasilar rales. Lasix was put on hold because of low blood pressure readings. Blood pressures have recovered and lasix resumed. (6) Right heart failure: Status: Acute Assessment and plan: echo showed borderline dilated RV but normal RV systolic function. Mild PHTN RVSP 34 mm. Suspected underlying MYLES (never worked up for this per patient). Resume diuretics. (7) Constipation: Status: Acute Assessment and plan: Increased miralax to BID. Cont Senna, 1 tab nightly. Now having soft brown stools. (8) Iron deficiency anemia: Status: Acute Assessment and plan: Total iron of 16. Hgb decreased to 7.9 on 04/30. Hgb now 8.1. Venofer 300mg IV today. Has received a previous 300mg dose during this admission. Monitor. Subjective Subjective Patient reports: no new complaints, tolerating a regular diet and fever (38.4C last PM); denies nausea, vomiting and shortness of breath Interval history since last seen: No lethargy. No drainage noted at L knee surgical site. Less warmth of L knee. Exam Narrative Exam Narrative: Sitting in chair. Appears tired. Const General: no acute distress, not ill appearing and not lethargic Nutritional Appearance: overweight Orientation: oriented x3 HENMT Head: normal to inspection Ears: hearing grossly normal bilaterally Mouth: mucous membranes dry Eyes Eyelids: eyelids normal Pupils: PERRL EOM: EOM intact bilaterally Neck Neck: no JVD Resp Effort & Inspection: normal respiratory effort and able to speak in complete sentences Auscultation: clear to auscultation bilaterally, no rales, no rhonchi and no wheezes Cardio Rate: regular rate Rhythm: regular rhythm Heart Sounds: S1 normal, S2 normal and murmur (1/6 LILLY) systolic GI Palpation: soft, no hepatosplenomegaly, not firm and nontender Extrem General: no calf tenderness and pedal edema bilaterally non-pitting Left lower extremity: knee (Bandage in place. Cryopack in place.) Objective Last Vital Signs Temp 36.9 C 05/01/21 15:15 Pulse 69 05/01/21 15:15 Resp 18 05/01/21 15:15 BP 120/79 05/01/21 15:15 Pulse Ox 96 05/01/21 15:15 Laboratory Results - last 24 hr 05/01/21 05/01/21 05/01/21 06:20 06:20 15:00 WBC 14.76 H RBC 2.70 L Hgb 8.1 L Hct 26.3 L MCV 97.4 H MCH 30.0 MCHC 30.8 L RDW 13.7 Plt Count 430 H MPV 8.4 Immature Gran % 0.0 Neutrophils % 74.0 Lymphocytes % 15.0 Monocytes % 7.0 Eosinophils % 3.0 Basophils % 0.0 Myelocytes % 1 Nucleated RBC % 0 Absolute Neutrophils 10.92 H Absolute Lymphocytes 2.21 Absolute Monocytes 1.03 H Absolute Eosinophils 0.44 Absolute Basophils 0.00 RBC Morphology See Below Microcytosis 1+ C-Reactive Protein 16.19 H Vancomycin Trough 17.1
[2021-05-01] MEDS: Enoxaparin 40 MG/0.4 ML SYR SC (16:25)
[2021-05-01] MEDS: Latanoprost 0.005% 2.5 ML BTL OU (21:25)
[2021-05-02 00:01] VITALS: BP 136/76; PULSE 69; RESP 19; TEMP 36.5; O2SAT 95
[2021-05-02] MEDS: VANCOMYCIN/WATER (PEG) 1 GM/200 ML BAG IV ×2 (03:21→16:22)
[2021-05-02 05:36] LABS: HCT 26.3 % (36.0-46.0); HGB 8.1 g/dL (11.2-15.7); MCH 29.9 pg (27.0-33.0); MCHC 30.8 % (32.0-36.0); MPV 8.2 fL (8.0-11.0); Nucleated RBC 0 %; Platelet Count 497 10^3/uL (130-400); RBC 2.71 10^6/uL (3.93-5.22); RDW 13.8 % (11.7-14.6); RDW-SD 48.6 fL; WBC 15.33 10^3/uL (4.4-10.8)
[2021-05-02 05:44] LABS: ESR 43 mm/hr (0-30)
[2021-05-02 06:05] LABS: ALT 63 U/L (14-59); AST 39 U/L (15-37); Alkaline Phosphatase 145 U/L (46-116); Anion Gap 8.9 mmol/L (3-11); BUN 21 mg/dL (7-18); Bilirubin, Total 0.3 mg/dL (0.2-1.0); CO2 26.1 mmol/L (21.0-32.0); CREATININE 0.7 mg/dL (0.55-1.02); Calcium 8.6 mg/dL (8.5-10.1); Chloride 102 mmol/L (98-107); Glucose 92 mg/dL (74-106); Potassium 3.7 mmol/L (3.5-5.1); Sodium 137 mmol/L (136-145); Total Protein 6.2 g/dL (6.4-8.2)
[2021-05-02 06:14] LABS: C-Reactive Protein 13.56 mg/dL (0.0-0.3)
[2021-05-02 06:58] LABS: Absolute Lymphocyte Count 2.15 10^3/uL (1.2-3.4); Absolute Neutrophil Count 11.34 10^3/uL (1.2-6.7)
[2021-05-02 06:59] LABS: Absolute Eosinophil Count 0.31 10^3/uL (0.0-0.7); Absolute Monocyte Count 0.92 10^3/uL (0.1-0.8); Diff Comment Manual Differential; Metamyelocytes % 4; Microcytosis 2+; Polychromasia Present
[2021-05-02 07:36] VITALS: BP 114/64; PULSE 71; RESP 16; TEMP 37.5; O2SAT 94
[2021-05-02] MEDS: Normal Saline Flush 10 ML SYR IVP ×2 (07:52→19:49)
[2021-05-02] MEDS: Polyethylene Glycol 3350 17 GM PACKET PO (07:52)
[2021-05-02] MEDS: cefTRIAXone 2 GM/50 ML BAG IVPB (07:52)
[2021-05-02] MEDS: Protein Nutritional Supplement 16 GM 1 OUNCE PACKET PO ×3 (07:52→19:46)
[2021-05-02] MEDS: Sacubitril/Valsartan 24 mg/26 mg TAB 1 EACH PO ×2 (07:53→19:46)
[2021-05-02] MEDS: Furosemide 40 MG TAB PO ×2 (07:53→14:13)
[2021-05-02] MEDS: Acetaminophen 500 MG TAB 1000 MG PO ×2 (07:53→16:18)
[2021-05-02] MEDS: Docusate Sodium 100 MG CAP PO (07:54)
[2021-05-02] MEDS: Aspirin E.C. 81 MG TABEC PO (07:54)
[2021-05-02] MEDS: Rosuvastatin 5 MG TAB PO (07:54)
[2021-05-02] MEDS: Metoprolol CR 25 MG TABCR PO (07:54)
[2021-05-02] MEDS: Magnesium Oxide 400 MG TAB PO (07:54)
--- NOTE | 2021-05-02 11:35 | PT.INTREAT ---
Date of service: 05/02/21 Time of Service: 10:30 PT Notes Visit Reasons: Sepsis,NSTEMI Inpatient Physical Therapy Treatment Note [facility] Date: 05/02/2021 PRECAUTIONS:Fall, WBAT on left SUBJECTIVE: Stated she was told she is probably going back to the operating room to have her knee cleaned out. Have done my exercises twice this morning prior to PT. OBJECTIVE: PAIN: Not complaining to me of any increased pain with activity performed while doing PT BED MOBILITY/TRANSFERS Up in chair when I arrived to room Sit-stand: SBA Stand-sit: SBA GAIT Assistive Device: FWW Weight bearing: WBAT on left Assist: SBA Distance: 15ft THEREX: AP, GS, QS and LAQs as per flow sheet ASSESSMENT: Tolerated today's session well. PLAN: Continue with current POC with focus on strengthening and ambulation for improved ADL function. TREATMENT CODE/TIME: [id number], 10:30 to 10:50 (20')
[2021-05-02 15:44] VITALS: BP 146/67; PULSE 69; RESP 20; TEMP 37.1; O2SAT 96
--- NOTE | 2021-05-02 15:53 | W.PM.PROGNOT ---
Date of Service Date of service: 05/02/21 Time of Service: 15:54 Assessment and Plan Assessment and plan (1) Septic arthritis of knee, left: Status: Acute Assessment and plan: Unfortunately, there is not enough fluid in the lab to send for PCR analysis. Nursing is concerned about clinical worsening, but CRP is better today. Also, afebrile. Continue empiric ceftriaxone 2 g IV/ vancomycin as fluid and blood cx have been negative. Per Dr Narvaez's conversation with ID at [facility] [place], recommended repeat needle aspiration with cultures or proceeding with a wash-out of the knee by ortho. Discussed with both Dr Lundberg and Dr Clarke: the source is likely urinary (E. Coli). If CRP continued to trend down, would consider d/c vancomycin on Tuesday and keep on ceftriaxone. But if clinically worsens, may have to consider a re-aspiration and/or repeat visit to the OR, but this is not being currently planned. The cement spacer she has implanted currently is impregnated with tobramycin and vancomycin. Qualifiers: Septic arthritis organism: due to unspecified organism Qualified Code(s): M00.9 - Pyogenic arthritis, unspecified (2) Cellulitis: Status: Acute Assessment and plan: Abraded area of the left tobias could have been the port of entry. Continue ceftriaxone/ vancomycin as above. Blood cx neg. Qualifiers: Site of cellulitis: extremity Site of cellulitis of extremity: lower extremity Laterality: left Qualified Code(s): L03.116 - Cellulitis of left lower limb (3) UTI (urinary tract infection): Status: Acute Assessment and plan: Due to E. coli, present on admission. Pansensitive, on high-dose Rocephin. Sweet is out. Qualifiers: Urinary tract infection type: acute cystitis Hematuria presence: without hematuria Qualified Code(s): N30.00 - Acute cystitis without hematuria (4) Elevated troponin: Status: Resolved Assessment and plan: Suspect Type 2 NSTEMI due to sepsis. Negative Cardiac cath in 06/2020. (5) Wheezing: Status: Resolved Assessment and plan: Likely in setting of acute fluid overload in setting of R heart failure. Resolved with diuresis. Continue lasix. (6) Right heart failure: Status: Acute Assessment and plan: RVSP 34 mm. Will need outpatient workup for MYLES. Continue managing volume status. (7) Constipation: Status: Resolved Assessment and plan: Continue bowel regimen. (8) Iron deficiency anemia: Status: Acute Assessment and plan: Hgb stable, not actively bleeding. S/p IV iron x 2 on this admission. Continue to monitor H/H. (9) DVT prophylaxis: Status: Acute Assessment and plan: SC enoxaparin (10) Discharge planning issues: Status: Acute Assessment and plan: DNR/DNI Continues to require hospitalization. The patient will likely require snf IV abx - may require a swing bed level stay. Subjective Subjective Interval history since last seen: Ms Colbert states that she is feeling better. She states she is impressed that she was able to walk today with a walker. She has been participating with PT. She states that her pain is controlled as long as the pain medication is given 30 minutes before PT. Pain is in the L knee and L ankle. Denies dizziness, chest pain, shortness of breath, nausea. Constipation is controlled. Has been working with IS and acapella. Discussed case with microbiology: they do not have enough fluid left from the L knee to send for a PCR. Discussed with orthopedics. Currently, there is no plan to retap the knee unless the knee gets clinically worse. Exam Narrative Exam Narrative: General: Very pleasant elderly female who is sitting comfortably in a chair HEENT: EOMI, MMM Heart: RRR, no m/r/g Lungs: CTAB anteriorly Abdomen: soft, full, nontender, nondistended Extremities: 2+ BLE edema, B ankles in lee ann wrap. L knee incision is dressed - c/d/i. Mild erythema laterally superiorly and medially inferiorly from the dressing. Objective Last Vital Signs Temp 37.1 C 05/02/21 15:44 Pulse 69 05/02/21 15:44 Resp 20 05/02/21 15:44 BP 146/67 H 05/02/21 15:44 Pulse Ox 96 05/02/21 15:44 Laboratory Results - last 24 hr 05/02/21 05/02/21 05/02/21 05:12 05:12 05:12 WBC 15.33 H RBC 2.71 L Hgb 8.1 L Hct 26.3 L MCV 97.0 H MCH 29.9 MCHC 30.8 L RDW 13.8 Plt Count 497 H MPV 8.2 Immature Gran % 0.0 Neutrophils % 74.0 Lymphocytes % 14.0 Monocytes % 6.0 Eosinophils % 2.0 Basophils % 0.0 Metamyelocytes % 4 Nucleated RBC % 0 Absolute Neutrophils 11.34 H Absolute Lymphocytes 2.15 Absolute Monocytes 0.92 H Absolute Eosinophils 0.31 Absolute Basophils 0.00 RBC Morphology See Below Polychromasia Present Microcytosis 2+ ESR 43 H Sodium 137 Potassium 3.7 Chloride 102 Carbon Dioxide 26.1 Anion Gap 8.9 BUN 21 H Creatinine 0.7 Estimated GFR/1.73 m2 >= 60.00 Glucose 92 Calcium 8.6 Total Bilirubin 0.3 AST 39 H ALT 63 H Alkaline Phosphatase 145 H C-Reactive Protein 13.56 H Total Protein 6.2 L Albumin 2.0 L
[2021-05-02] MEDS: Enoxaparin 40 MG/0.4 ML SYR SC (16:22)
[2021-05-02 16:33] VITALS: TEMP 38.3
--- NOTE | 2021-05-02 16:51 | NUR.NOTE ---
Nursing Note: Discussed concerns with Dr. Bethea, increased pain, and swelling left knee. Increased calf tenderness, left calf. Patient developing a temperature again (38.1) . Following interventions to be performed. Measure circumference of knee, take a picture of the knee for chart. Venous US left lower extremity, remove lee ann wrap. blood cultures, one set off the line. continue supportive care, tylenol for pain and fever. will monitor and report changes.
--- NOTE | 2021-05-02 16:59 | WOUNDCONS_ITS ---
- If Service Date Differs Date of service: 05/02/21 Time of Service: 16:59 Wound Initial Evaluation Narrative: Clinically patient has started to present worse. Increased pain, redness, and swelling, calf tenderness, and a fever. Measurements in centimeters below the knee 49, at the knee cap 55, above the knee 61. Discussed all findings with Dr. bethea, At this time will dc lee ann wrap. Venous US tomorrow to rule out DVT. Blood cultures, one set nursing will draw off the line. procalcitonin. Wound nurse and DR.. Bethea will visit tomorrow together in the am. Nursing to cont inue supportive measures including, Tylenol for pain and fever, cryo cuff for swelling. Potential for Ortho to visit patient tomorrow.
[2021-05-02 17:10] VITALS: BP 139/74; PULSE 71; RESP 20; TEMP 38.2; O2SAT 96
[2021-05-02] MEDS: Latanoprost 0.005% 2.5 ML BTL OU (21:21)
[2021-05-02 23:09] VITALS: BP 130/70; PULSE 74; RESP 20; TEMP 37.1; O2SAT 93
--- NOTE | 2021-05-03 | DI.US_ITS ---
Exam(s) US LOWER EXTREMITY VENOUS LT EXAM: US LOWER EXTREMITY VENOUS LT CLINICAL HISTORY: worsening LE edema. TECHNIQUE: Lower extremity venous ultrasound performed using grayscale, color-flow, and spectral Do ppler analysis. COMPARISON: No exams were available for comparison FINDINGS: The common femoral, femoral and popliteal veins demonstrate normal compressibility, augmentation, and color Doppler. The posterior tibial veins are patent. No saphenous vein thrombosis or other superfi cial venous thrombosis is seen. No hematoma or Hanson's cyst is seen. IMPRESSION: Negative lower extremity ultrasound. No evidence of DVT. DATA REPOSITORY:
--- NOTE | 2021-05-03 | DI.RAD_ITS ---
Exam(s) XR FOOT LT LIMITED EXAM: XR FOOT LT LIMITED CLINICAL HISTORY: LLE 2nd digit erythema. TECHNIQUE: 2D digital imaging was performed. COMPARISON: No exams were available for comparison FINDINGS: This is a limited two view study (AP and lateral views only). There is soft tissue swelling around the entire foot. No soft tissue gas evident. No radiopaque for eign body. There is no evidence of acute fracture or diastasis of the Alycia frida joint. No pes planus. On the d orsal aspect of the navicular bone there is dorsal beaking, probably degenerative. Also digit degene rative changes are noted at the midfoot articulations between the navicular and medial cuneiform. No radiopaque foreign body. No obvious radiographic evidence of osteomyelitis evident on this limited two view study. IMPRESSION: There is abundant soft tissue swelling around the entire foot. Findings as above but no evidence of acute fracture on this limited two view study. Also no radiographic evidence of osteomyelitis. DATA REPOSITORY: RADIATION DOSE DELIVERED:
[2021-05-03] MEDS: VANCOMYCIN/WATER (PEG) 1 GM/200 ML BAG IV ×2 (03:25→16:14)
[2021-05-03] MEDS: Normal Saline Flush 10 ML SYR IVP ×4 (03:26→19:41)
[2021-05-03] MEDS: Furosemide 40 MG TAB PO (05:30)
[2021-05-03 06:41] VITALS: BP 147/71; PULSE 74; RESP 18; TEMP 37; O2SAT 97
[2021-05-03 07:00] LABS: Abs Immature Grans 0.56 10^3/uL (0.0-0.06); HCT 26.3 % (36.0-46.0); MCH 30.3 pg (27.0-33.0); MCHC 30.4 % (32.0-36.0); MCV 99.6 fL (80-95); MPV 8.2 fL (8.0-11.0); Platelet Count 551 10^3/uL (130-400); RBC 2.64 10^6/uL (3.93-5.22); RDW 13.9 % (11.7-14.6); RDW-SD 49.3 fL; WBC 14.66 10^3/uL (4.4-10.8)
[2021-05-03 07:16] LABS: ESR 49 mm/hr (0-30)
[2021-05-03 07:30] LABS: Anion Gap 7.5 mmol/L (3-11); BUN 26 mg/dL (7-18); C-Reactive Protein 12.19 mg/dL (0.0-0.3); CO2 27.5 mmol/L (21.0-32.0); CREATININE 0.6 mg/dL (0.55-1.02); Calcium 8.8 mg/dL (8.5-10.1); Chloride 104 mmol/L (98-107); Glucose 87 mg/dL (74-106); Magnesium 2.2 mg/dL (1.8-2.4); Potassium 3.7 mmol/L (3.5-5.1); Sodium 139 mmol/L (136-145)
[2021-05-03] MEDS: Protein Nutritional Supplement 16 GM 1 OUNCE PACKET PO ×3 (07:39→19:40)
[2021-05-03] MEDS: Polyethylene Glycol 3350 17 GM PACKET PO (07:39)
[2021-05-03] MEDS: cefTRIAXone 2 GM/50 ML BAG IVPB (07:39)
[2021-05-03 07:42] LABS: Procalcitonin 0.4 ng/mL
[2021-05-03 07:46] VITALS: TEMP 38.1
[2021-05-03] MEDS: Acetaminophen 500 MG TAB 1000 MG PO (07:46)
[2021-05-03] MEDS: Aspirin E.C. 81 MG TABEC PO (07:47)
[2021-05-03] MEDS: Metoprolol CR 25 MG TABCR PO (07:47)
[2021-05-03] MEDS: Docusate Sodium 100 MG CAP PO (07:47)
[2021-05-03] MEDS: Magnesium Oxide 400 MG TAB PO (07:47)
[2021-05-03] MEDS: Sacubitril/Valsartan 24 mg/26 mg TAB 1 EACH PO ×2 (07:47→19:40)
[2021-05-03 08:22] LABS: Absolute Basophil Count 0.15 10^3/uL (0.0-0.2); Absolute Eosinophil Count 0.15 10^3/uL (0.0-0.7); Absolute Lymphocyte Count 1.32 10^3/uL (1.2-3.4); Absolute Monocyte Count 0.88 10^3/uL (0.1-0.8); Absolute Neutrophil Count 12.17 10^3/uL (1.2-6.7); Nucleated RBC 3 %
[2021-05-03 08:23] LABS: Diff Comment Manual Differential; RBC Morphology Normal
--- NOTE | 2021-05-03 09:15 | DI.VRAD_ITS ---
PROCEDURE INFORMATION: Exam: US Duplex Left Lower Extremity Veins, Limited Exam date and time: 05/03/2021 8:35 AM Age: 86 years old Clinical indication: Edema, localized; Lower extremity, left TECHNIQUE: Imaging protocol: Real-time Duplex ultrasound of the Left Lower Extremity with 2-D mclain scale, color Doppler flow and spectral waveform analysis with image documentation. Limited exam focused on the left lower extremity veins. COMPARISON: US EXTREMITY VENOUS BI 06/26/2020 12:21 PM FINDINGS: Left deep veins: Unremarkable. The common femoral, femoral, proximal profunda femoral and popliteal veins are patent without thrombus. Normal Doppler waveforms. Normal compressibility and/or augmentation response. Left superficial veins: Unremarkable. Saphenofemoral junction is patent without thrombus. Soft tissues: Unremarkable. IMPRESSION: No evidence of deep vein thrombosis. Dictated and Authenticated by: Nicholas Santana MD. Ordering:SEAN Moran MD
--- NOTE | 2021-05-03 10:10 | PTTR_ITS ---
Date of service: 05/03/21 Time of Service: 09:40 PT Notes Visit Reasons: Sepsis,NSTEMI Inpatient Physical Therapy Treatment Note [facility] Date: 05/03/2021 PRECAUTIONS:Fall, WBAT on left SUBJECTIVE: Stated she is not feeling as well today. Had 2 bowel movements and now she is feeling weak. OBJECTIVE: PAIN: Indicated her pain was about a 7 out of 10 below left knee while walking. Patient did have pain meds prior to session. BED MOBILITY/TRANSFERS Up in chair when I arrived to room today. Sit-stand: SBA Stand-sit: SBA GAIT Assistive Device: FWW Weight bearing: WBAT on left Assist: SBA Distance: 15ft THEREX: Performed AP x 15, LAQ x 10, seated hip abd / add x 10 and seated m arching 2 x 10. Indicated she likes doing the exercises before walking to loosen her up. ASSESSMENT: Did not appear as motivated today, but gives good effort with activities. PLAN: Continue to focus on mobility and strengthening for improved ADL function. TREATMENT CODE/TIME: [id number], 9:40 to 9:55 (15')
--- NOTE | 2021-05-03 10:47 | WOUNDCARE ---
Wound Care Report Looked at the leg with Dr. Bethea. Leg is less swollen, and red, patient reporting decreased pain. dimensions at the knee, were in centimeters 45 low, 49 mid 60 above.this is a decrease in size. Concern over the 2 nd toe left foot bring red, Patient will have a podiatry consult and an X-ray of the site. Hold compression on left leg until podiatry sees her.
--- NOTE | 2021-05-03 10:50 | W.PM.PROGNOT ---
Date of Service Date of service: 05/03/21 Time of Service: 10:50 Assessment and Plan Assessment and plan (1) Septic arthritis of knee, left: Status: Acute Assessment and plan: Clinically better. CRP and WBC are also better. Unfortunately, there is not enough fluid in the lab to send for PCR analysis. Continue empiric ceftriaxone 2 g IV/ vancomycin. Await blood culture results. Per Dr Narvaez's conversation with ID at [facility] [place] [place], recommended repeat needle aspiration with cultures or proceeding with a wash-out of the knee by ortho. Discussed with both Dr Lundberg and Dr Clarke: the source is likely urinary (E. Coli). If CRP continued to trend down, would consider d/c vancomycin and keep on ceftriaxone, but would like to hear podiatry recommendations first. If clinically worsens, discussed with Dr Clarke - would get a WBC scan and consider transfer to a tertiary care facility if any further surgical intervention is deemed necessary, which it is not currently. The cement spacer she has implanted currently is impregnated with tobramycin and vancomycin. Qualifiers: Septic arthritis organism: due to unspecified organism Qualified Code(s): M00.9 - Pyogenic arthritis, unspecified (2) Cellulitis of second toe of left foot: Status: Acute Assessment and plan: Obtain XR; consult Dr Qureshi of podiatry. Continue above abx. (3) Cellulitis: Status: Acute Assessment and plan: BLEs; Abraded area of the left tobias could have been the port of entry. Continue ceftriaxone/ vancomycin as above. Blood cx neg. Qualifiers: Site of cellulitis: extremity Site of cellulitis of extremity: lower extremity Laterality: left Qualified Code(s): L03.116 - Cellulitis of left lower limb (4) UTI (urinary tract infection): Status: Acute Assessment and plan: Due to E. coli, present on admission. Pansensitive, on high-dose Rocephin. Sweet is out. Repeat UA today. Continue ceftriaxone. Qualifiers: Urinary tract infection type: acute cystitis Hematuria presence: without hematuria Qualified Code(s): N30.00 - Acute cystitis without hematuria (5) Elevated troponin: Status: Resolved Assessment and plan: Suspect Type 2 NSTEMI due to sepsis. Negative Cardiac cath in 06/2020. No further workup at this time. (6) Wheezing: Status: Resolved Assessment and plan: Likely in setting of acute fluid overload in setting of R heart failure. Resolved with diuresis. Continue lasix - switch to IV. (7) Right heart failure: Status: Acute Assessment and plan: RVSP 34 mm. Will need outpatient workup for MYLES. Continue managing volume status. (8) Constipation: Status: Resolved Assessment and plan: Continue bowel regimen. (9) Iron deficiency anemia: Status: Acute Assessment and plan: Hgb stable, not actively bleeding. S/p IV iron x 2 on this admission. Continue to monitor H/H. (10) DVT prophylaxis: Status: Acute Assessment and plan: SC enoxaparin (11) Discharge planning issues: Status: Acute Assessment and plan: DNR/DNI Continues to require hospitalization. The patient will likely require intermediate manager IV abx - may require a swing bed level stay. Subjective Subjective Interval history since last seen: Tmax 38.3 (38.1 on last check). Ms Colbert states she felt weak and nauseated this morning. She had two bowel movements, and then her symptoms got better. She did her PT exercises. The knee feels better. Her LLE 2nd digit is pink today, and she has never seen it pink like this. She sees Dr Qureshi as outpatient. She denies dizziness, chest pain, shortness of breath, nausea now. Blood cultures from yesterday are still pending. Exam Narrative Exam Narrative: General: Very pleasant elderly female who is sitting comfortably in a chair, A&Ox3 HEENT: EOMI, MMM Heart: RRR, no m/r/g Lungs: Crackles L base Abdomen: soft, full, nontender, nondistended Extremities: 2+ BLE edema, much better today on the right, and with some improvement on the left; L knee incision is dressed - c/d/i. Mild erythema laterally superiorly is better; I do not see erythema medially inferiorly today; new LLE 2nd digit erythema. Scabs over the LLE tibial surface visualized today as the Hiren wraps were taken off. Objective Last Vital Signs Temp 38.1 C H 05/03/21 07:46 Pulse 74 05/03/21 06:41 Resp 18 05/03/21 06:41 BP 147/71 H 05/03/21 06:41 Pulse Ox 97 05/03/21 06:41 Laboratory Results - last 24 hr 05/03/21 05/03/21 05/03/21 06:05 06:05 06:05 WBC 14.66 H RBC 2.64 L Hgb 8.0 L Hct 26.3 L MCV 99.6 H MCH 30.3 MCHC 30.4 L RDW 13.9 Plt Count 551 H MPV 8.2 Immature Gran % See Differential Neutrophils % 83.0 Lymphocytes % 9.0 Monocytes % 6.0 Eosinophils % 1.0 Basophils % 1.0 Nucleated RBC % 3 Absolute Neutrophils 12.17 H Absolute Lymphocytes 1.32 Absolute Monocytes 0.88 H Absolute Eosinophils 0.15 Absolute Basophils 0.15 RBC Morphology Normal ESR 49 H Sodium 139 Potassium 3.7 Chloride 104 Carbon Dioxide 27.5 Anion Gap 7.5 BUN 26 H Creatinine 0.6 Estimated GFR/1.73 m2 >= 60.00 Glucose 87 Calcium 8.8 Magnesium 2.2 C-Reactive Protein 12.19 H Procalcitonin 05/03/21 06:05 WBC RBC Hgb Hct MCV MCH MCHC RDW Plt Count MPV Immature Gran % Neutrophils % Lymphocytes % Monocytes % Eosinophils % Basophils % Nucleated RBC % Absolute Neutrophils Absolute Lymphocytes Absolute Monocytes Absolute Eosinophils Absolute Basophils RBC Morphology ESR Sodium Potassium Chloride Carbon Dioxide Anion Gap BUN Creatinine Estimated GFR/1.73 m2 Glucose Calcium Magnesium C-Reactive Protein Procalcitonin 0.4
--- NOTE | 2021-05-03 13:00 | WOUNDCARE ---
Wound Care Report Dr Qureshi has visited the patient and does not feel the left 2nd toe is a matter of great concern and will resolve on its own, he has suggested a change to the compression order on the left leg
--- NOTE | 2021-05-03 13:20 | POCOE_ITS ---
Date of service: 05/03/21 Time of Service: 13:21 History of Present Illness History of Present Illness Chief Complaint: swollen left 2nd toe Narrative: 86 yo Fe, well known to me admitted with a septic left knee, now s/p I&D with poly exchange. I've been asked to evaluate her left 2nd toe which is red and swollen. She denies any pain with the toe at this time. PE: chronic venous stasis changes are noted bilaterally. The RLE is wrappen with lee ann wraps. I did not takr these down. No reported wounds. The left LE has stasis changes with superficial wounds over the anterior tobias with low grade erythema. The left 2nd toe is bulbous but symmetrical to the right 2nd toe. No warmth and no fluid accumulations noted. The skin is intact, no openings detected. A distal corn is noted but no inflammation or signs of infection identified. The joints are free of heat or swelling, no effusion noted. She reported pain in the left calf previously and a negative venous ultra sound has been obtained. The calve is fairly soft to palpation, mildly tender which could be attributed to her knee revision surgery. The toenails are chronically fungal but free of erythema or drainage. Impressions: Non specific erythema, left 2nd toe Stasis dermatitis Onychomycotic toenails Plan: i BELIEVE THE LEFT 2ND TOE IS BENIGN AND WILL RESOLVE with the current care (ceftriaxone). An xray is pending but I suspect it will show degenertive changes, ST swelling, etc. I will follow up if anything surprising is noted. Debrided all toenails to patient tolerance. Recommend mepilex dressing to wounds on left leg and compression via lee ann wraps daily. 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) Pes planus of right foot (Acute) Edema (Acute) Non-ST elevation [place] (NSTEMI) (Acute) Hyperlipidemia (Chronic) Obesity (Chronic) Osteoarthritis (Chronic) Hypertension (Chronic) Medical History Glaucoma History of left breast cancer History of right breast cancer Left fibular fracture 2018 Melanoma 2017 Pulmonary embolism following a TKR Surgical History History of appendectomy History of melanoma excision History of total left knee replacement (TKR) S/P cholecystectomy S/P total knee replacement right 11/12/2019 Family History Mother , age 100 Heart disease Hypertension Dementia Father , age 78 Non-Hodgkin lymphoma Hyperlipidemia Sister Breast cancer Brother Bladder cancer Alcohol abuse Maternal Grandfather , age 58 Heart disease Paternal Grandfather , age 75 No problems noted. Maternal Grandmother , age 63 Thyroid cancer Heart disease Hyperlipidemia Hypertension Stroke Paternal Grandmother , age 93 Heart disease Social History Smoking/Tobacco Use Status: Never Second Hand Exposure: Yes Smoking risk assessment performed?: Yes Alcohol Intake: never Drug use: Never Substance use type: does not use Caregiver/Support person: No Household members: family and other Details: Sister Housing: house Communication Needs: Corrective Lenses Do you need help understanding health information?: Never Pets and animals: Yes Pets and animals: dog(s) Sexually active: No Do you think of yourself as: straight/heterosexual Current gender identity: female What is your relationship status?: never How often do you talk on the phone with friends or family?: three or more times per week How often do you get together with friends or relatives?: twice per week How often do you attend anglican or judaism services?: 4 or more times per year Do you belong to any clubs or organized social groups?: yes Panel score (0-1 are the most socially isolated patients): 3 Duration: 45-60 minutes/day Frequency: daily Annia/Mandaeism: Temple Special annia needs: Yes ([facility] visits for [employer] 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 [employer] Results Last Vital Signs Temp 38.1 C H 05/03/21 07:46 Pulse 74 05/03/21 06:41 Resp 18 05/03/21 06:41 BP 147/71 H 05/03/21 06:41 Pulse Ox 97 05/03/21 06:41 Labs Result diagrams: 05/03/21 06:05 05/03/21 06:05 Labs: Laboratory Results - last 24 hr 05/03/21 05/03/21 05/03/21 06:05 06:05 06:05 WBC 14.66 H RBC 2.64 L Hgb 8.0 L Hct 26.3 L MCV 99.6 H MCH 30.3 MCHC 30.4 L RDW 13.9 Plt Count 551 H MPV 8.2 Immature Gran % See Differential Neutrophils % 83.0 Lymphocytes % 9.0 Monocytes % 6.0 Eosinophils % 1.0 Basophils % 1.0 Nucleated RBC % 3 Absolute Neutrophils 12.17 H Absolute Lymphocytes 1.32 Absolute Monocytes 0.88 H Absolute Eosinophils 0.15 Absolute Basophils 0.15 RBC Morphology Normal ESR 49 H Sodium 139 Potassium 3.7 Chloride 104 Carbon Dioxide 27.5 Anion Gap 7.5 BUN 26 H Creatinine 0.6 Estimated GFR/1.73 m2 >= 60.00 Glucose 87 Calcium 8.8 Magnesium 2.2 C-Reactive Protein 12.19 H Procalcitonin 05/03/21 06:05 WBC RBC Hgb Hct MCV MCH MCHC RDW Plt Count MPV Immature Gran % Neutrophils % Lymphocytes % Monocytes % Eosinophils % Basophils % Nucleated RBC % Absolute Neutrophils Absolute Lymphocytes Absolute Monocytes Absolute Eosinophils Absolute Basophils RBC Morphology ESR Sodium Potassium Chloride Carbon Dioxide Anion Gap BUN Creatinine Estimated GFR/1.73 m2 Glucose Calcium Magnesium C-Reactive Protein Procalcitonin 0.4
[2021-05-03 13:40] LABS: Bilirubin Negative (Negative); Blood Negative (Negative); Clarity Clear (Clear); Glucose Negative (Negative); Ketones Negative (Negative); Leukocyte Esterase Negative (Negative); Nitrite Negative (Negative); Specific Gravity 1.015 (1.005-1.025); Urobilinogen 0.2 EU/dL (Up TO 0.2); pH 5.5 (5-8)
[2021-05-03] MEDS: Furosemide 40 MG/4 ML VIAL IVP (13:40)
--- NOTE | 2021-05-03 14:52 | W.PM.PROGNOT ---
Date of Service Date of service: 05/03/21 Time of Service: 14:52 Assessment and Plan Assessment and plan (1) Septic arthritis of knee, left: Status: Acute Assessment and plan: 86-year-old female 1 week status post Explantation of Left Knee Prosthesis, Aggressive Debridement and Synovectomy, Placement of Antiobiotic Spacer with Intramedullary Rods by Dr. Clarke Clinically, knee appears appropriate without signs or symptoms of recurrent infection. Evaluated with wound care nurse Steven and objective measurements show improvements. Lab work WBC somewhat plateaued and CRP mildly trending down. Intermittent low-grade fevers. Unfortunately, no targeted organism. Would be hesitate to discontinue any antibiotic given high risk situation and skin breakdown on leg possibly leading to gram-positive infection in addition to known gram-negative E. coli urinary infection. At this time, recommend continuing IV antibiotics, physical therapy, and strict elevation. May change Mepilex bandage as needed for any drainage, which may occur distally given dependent position for fluids. May loosen or adjust Hiren bandage compression as needed and as tolerated. Discussed with primary medical team. Recommend decreasing frequency of lab work (WBC, ESR, and CRP) unless there is an obvious change for the worse or high fevers. Continue following cultures. Would consider adding an NSAID as needed for swelling and discomfort. There is no indication for additional orthopedic surgical intervention like aspiration or repeat surgery at this time. Anticipate another 5 weeks of current treatments Qualifiers: Septic arthritis organism: due to unspecified organism Qualified Code(s): M00.9 - Pyogenic arthritis, unspecified (2) Painful total knee replacement, left: Status: Acute Qualifiers: Encounter type: initial encounter Qualified Code(s): T84.84XA - Pain due to internal orthopedic prosthetic devices, implants and grafts, initial encounter; Z96.652 - Presence of left artificial knee joint Subjective Subjective Interval history since last seen: Comfortable resting in chair. No pain in the knee at rest. Weakness and anterior soreness with use. Exam Narrative Exam Narrative: Comfortable. No acute distress. Left knee enlarged soft tissue envelope without any significant edema. Distal leg Mepilex applied over skin breakdown with Hiren wrap foot ankle and leg. Second toe mild generalized erythema without tenderness. Incisional VAC removed. Staple line and incision clean dry and intact. Unable to express any fluid. No fluctuance. No significant knee effusion although evaluation limited by soft tissue. Mepilex dressing placed over incision. No erythema about the knee. Minimal tenderness anteriorly laterally. No significant warmth. No significant Moderate what would appear to be dependent resolving bruising laterally and distally. Unable to strongly maintain straight leg raise. No pain with passive short arc motion. Gentle Hiren bandage compression placed from leg to distal thigh. Objective Last Vital Signs Temp 100.6 F H 05/03/21 07:46 Pulse 74 05/03/21 06:41 Resp 18 05/03/21 06:41 BP 147/71 H 05/03/21 06:41 Pulse Ox 97 05/03/21 06:41 Laboratory Results - last 24 hr 05/03/21 05/03/21 05/03/21 06:05 06:05 06:05 WBC 14.66 H RBC 2.64 L Hgb 8.0 L Hct 26.3 L MCV 99.6 H MCH 30.3 MCHC 30.4 L RDW 13.9 Plt Count 551 H MPV 8.2 Immature Gran % See Differential Neutrophils % 83.0 Lymphocytes % 9.0 Monocytes % 6.0 Eosinophils % 1.0 Basophils % 1.0 Nucleated RBC % 3 Absolute Neutrophils 12.17 H Absolute Lymphocytes 1.32 Absolute Monocytes 0.88 H Absolute Eosinophils 0.15 Absolute Basophils 0.15 RBC Morphology Normal ESR 49 H Sodium 139 Potassium 3.7 Chloride 104 Carbon Dioxide 27.5 Anion Gap 7.5 BUN 26 H Creatinine 0.6 Estimated GFR/1.73 m2 >= 60.00 Glucose 87 Calcium 8.8 Magnesium 2.2 C-Reactive Protein 12.19 H Procalcitonin Urine Color Urine Clarity Urine pH Ur Specific [place] Urine Protein Urine Ketones Urine Blood Urine Nitrite Urine Bilirubin Urine Urobilinogen Ur Leukocyte Esterase Urine Glucose 05/03/21 05/03/21 06:05 13:30 WBC RBC Hgb Hct MCV MCH MCHC RDW Plt Count MPV Immature Gran % Neutrophils % Lymphocytes % Monocytes % Eosinophils % Basophils % Nucleated RBC % Absolute Neutrophils Absolute Lymphocytes Absolute Monocytes Absolute Eosinophils Absolute Basophils RBC Morphology ESR Sodium Potassium Chloride Carbon Dioxide Anion Gap BUN Creatinine Estimated GFR/1.73 m2 Glucose Calcium Magnesium C-Reactive Protein Procalcitonin 0.4 Urine Color Yellow Urine Clarity Clear Urine pH 5.5 Ur Specific [place] 1.015 Urine Protein Negative Urine Ketones Negative Urine Blood Negative Urine Nitrite Negative Urine Bilirubin Negative Urine Urobilinogen 0.2 Ur Leukocyte Esterase Negative Urine Glucose Negative
[2021-05-03 14:54] VITALS: BP 100/68; PULSE 61; RESP 18; TEMP 36.5; O2SAT 96
[2021-05-03] MEDS: Ibuprofen 600 MG TAB PO ×2 (16:13→21:46)
[2021-05-03] MEDS: Enoxaparin 40 MG/0.4 ML SYR SC (16:14)
--- NOTE | 2021-05-03 17:00 | DI.VRAD_ITS ---
PROCEDURE INFORMATION: Exam: XR Left Foot Exam date and time: 05/03/2021 10:54 AM Age: 86 years old Clinical indication: Pain; Other: Redness; Foot; Left TECHNIQUE: Imaging protocol: XR Left foot. Views: 1 or 2 views. COMPARISON: CR LEFT ANKLE COMPLETE 08/31/2017 2:33 PM FINDINGS: Bones/joints: No acute fracture or dislocation. Productive bony degenerative changes of the midfoot. No evidence of bony erosion. Soft tissues: Soft tissue swelling about the foot. IMPRESSION: Prominent soft tissue swelling about the foot without acute bony findings. Dictated and Authenticated by: Ambrocio Garcia MD. Ordering:SEAN Moran MD
[2021-05-03] MEDS: Latanoprost 0.005% 2.5 ML BTL OU (21:47)
[2021-05-03 23:07] VITALS: BP 97/58; PULSE 67; RESP 14; TEMP 36.4; O2SAT 95
[2021-05-04] MEDS: Normal Saline Flush 10 ML SYR IVP ×5 (03:55→23:10)
[2021-05-04] MEDS: VANCOMYCIN/WATER (PEG) 1 GM/200 ML BAG IV ×2 (03:56→23:09)
[2021-05-04] MEDS: Furosemide 40 MG/4 ML VIAL IVP ×2 (05:46→17:17)
[2021-05-04] MEDS: Ibuprofen 600 MG TAB PO (05:49)
[2021-05-04 07:36] VITALS: BP 103/68; PULSE 59; RESP 17; TEMP 37; O2SAT 96
--- NOTE | 2021-05-04 08:13 | PDOC.CMPRO ---
- If Service Date Differs Date of service: 05/04/21 Time of Service: 08:13 Care Management Progress Note S/O: Dinorah remains pleasant and easily engages in conversation. She continues to be closely monitored and treated for septic knee. Per MD she will likely need SNF level care for residential ABX and PT. She continues to be followed by ortho and podiatry. Anticipate she will transition to SWB1 at [facility] as IV ABX are not available at local SNFs and she remains a two-assist with mobility at this time. CM continues to follow. A: Dinorah is an 86 year old woman admitted on 04/23/21 with sepsis and NSTEMI P: Anticipate Dinorah will transition to SWB1 for PT and IV ABX when ready per MD. CM continues to follow. CM will continue to support Dinorah and assess for ongoing discharge planning concerns.
[2021-05-04] MEDS: Sacubitril/Valsartan 24 mg/26 mg TAB 1 EACH PO ×2 (08:44→20:54)
[2021-05-04] MEDS: Rosuvastatin 5 MG TAB PO (08:44)
[2021-05-04] MEDS: Aspirin E.C. 81 MG TABEC PO (08:44)
[2021-05-04] MEDS: Docusate Sodium 100 MG CAP PO ×2 (08:44→20:54)
[2021-05-04] MEDS: Metoprolol CR 25 MG TABCR PO (08:44)
[2021-05-04] MEDS: Magnesium Oxide 400 MG TAB PO (08:44)
[2021-05-04] MEDS: Protein Nutritional Supplement 16 GM 1 OUNCE PACKET PO ×3 (08:45→20:54)
[2021-05-04] MEDS: cefTRIAXone 2 GM/50 ML BAG IVPB (08:46)
--- NOTE | 2021-05-04 14:46 | PT.INTREAT ---
Date of service: 05/04/21 PT Notes Visit Reasons: Sepsis,NSTEMI Inpatient Physical Therapy Treatment Note [facility] Date: 05/04/2021 PRECAUTIONS: Fall, WBAT L, Activity as tolerated SUBJECTIVE: Dinorah states that she slept well and is feeling good this morning. She reports a decrease in her L knee pain with activity compared to last week. She also reports that she has been completing her exercises independently several times throughout the day. OBJECTIVE: PAIN: Patient c/o increased knee discomfort with gait training BED MOBILITY/TRANSFERS Sit-stand: S Stand-sit: S GAIT Assistive Device: FWW Weight bearing: WBAT L Assist:SBA Distance: 70' in a.m.; 75' in p.m. Deviation: Standing rest x2 in a.m., standing rest x1 in p.m., c/o increased L knee discomfort THEREX: Patient was instructed in a LE strengthening and stabilization program, completed in both seated and long-sitting positions, as per flow sheet. She ends with cryocuff to L knee. ASSESSMENT: Patient tolerated session with c/o increased L knee discomfort with gait training, although was able to tolerate a progression in gait distance with FWW support and SBA. PLAN: Continue with gait training with FWW support and LE strengthening improved activity tolerance. TREATMENT CODE/TIME: Session 1: 18 minutes; 18914 (10:00) Session 2: 20 minutes; [id number], [id number] (13:43)
--- NOTE | 2021-05-04 14:47 | W.PM.PROGNOT ---
Date of Service Date of service: 05/04/21 Time of Service: 14:47 Assessment and Plan Assessment and plan (1) Septic arthritis of knee, left: Status: Acute Assessment and plan: Improved. No fever x 24 hrs. Continue empiric ceftriaxone 2 g IV (for the knee)/ vancomycin (covering for cellulitis/skin francis). Repeat blood work in am. No plans for repeat aspiration/OR at this time. If this becomes necessary, would need xfer to a tertiary care facility. The cement spacer she has implanted currently is impregnated with tobramycin and vancomycin. Qualifiers: Septic arthritis organism: due to unspecified organism Qualified Code(s): M00.9 - Pyogenic arthritis, unspecified (2) Cellulitis of second toe of left foot: Status: Acute Assessment and plan: No evidence of osteomyelitis per XR. Seen by Dr Qureshi. Continue above abx. (3) Cellulitis: Status: Acute Assessment and plan: BLEs; Abraded area of the left tobias could have been the port of entry. Continue ceftriaxone/ vancomycin as above. Blood cx neg. Qualifiers: Site of cellulitis: extremity Site of cellulitis of extremity: lower extremity Laterality: left Qualified Code(s): L03.116 - Cellulitis of left lower limb (4) UTI (urinary tract infection): Status: Resolved Assessment and plan: Due to E. coli, present on admission. Repeat UA yesterday is negative. Pansensitive, on high-dose Rocephin. Sweet is out. Possible source of entry for the knee infection - continue ceftriaxone at this time. Qualifiers: Urinary tract infection type: acute cystitis Hematuria presence: without hematuria Qualified Code(s): N30.00 - Acute cystitis without hematuria (5) Elevated troponin: Status: Resolved Assessment and plan: Suspect Type 2 NSTEMI due to sepsis. Negative Cardiac cath in 06/2020. No further workup at this time. (6) Wheezing: Status: Resolved Assessment and plan: Likely in setting of acute fluid overload in setting of R heart failure. Resolved with diuresis. Continue IV lasix. (7) Right heart failure: Status: Acute Assessment and plan: RVSP 34 mm. Will need outpatient workup for MYLES. Continue managing volume status. (8) Constipation: Status: Resolved Assessment and plan: Continue bowel regimen. (9) Iron deficiency anemia: Status: Acute Assessment and plan: Hgb stable, not actively bleeding. S/p IV iron x 2 on this admission. Continue to monitor H/H. (10) DVT prophylaxis: Status: Acute Assessment and plan: SC enoxaparin (11) Discharge planning issues: Status: Acute Assessment and plan: DNR/DNI Continues to require hospitalization. The patient will likely require detention IV abx - may require a swing bed level stay. Subjective Subjective Interval history since last seen: Ms Colbert states she is feeling a little better today. Afebrile. States got a little nauseated when working with PT, but did well with PT. Denies dizziness, chest pain, shortness of breath. Exam Narrative Exam Narrative: General: Very pleasant elderly female who is sitting comfortably in a chair, A&Ox3 HEENT: EOMI, MMM Heart: RRR, no m/r/g Lungs: CTAB Abdomen: soft, full, nontender, nondistended Extremities: 2+ BLE edema, improved, L knee incision is dressed - c/d/i. No erythema visible today.B feet wrapped in hiren bandages. Scabs over the LLE tibial surface visualized today as the Hiren wraps were taken off. Objective Last Vital Signs Temp 37.0 C 05/04/21 07:36 Pulse 59 L 05/04/21 07:36 Resp 17 05/04/21 07:36 BP 103/68 05/04/21 07:36 Pulse Ox 96 05/04/21 07:36
[2021-05-04 16:14] LABS: CREATININE 0.9 mg/dL (0.55-1.02); Estimated GFR 59.51 (mL/min/1.73m2)
[2021-05-04 16:23] LABS: Vancomycin, Trough 25.1 ug/mL (10.0-20.0)
[2021-05-04] MEDS: Enoxaparin 40 MG/0.4 ML SYR SC (17:17)
[2021-05-04 19:40] VITALS: BP 134/71; PULSE 77; RESP 17; TEMP 37.3; O2SAT 96
[2021-05-04] MEDS: Latanoprost 0.005% 2.5 ML BTL OU (21:00)
[2021-05-04 23:23] VITALS: BP 118/68; PULSE 77; RESP 20; TEMP 37.4; O2SAT 96
[2021-05-05] MEDS: Ibuprofen 600 MG TAB PO ×2 (04:21→16:55)
[2021-05-05] MEDS: Normal Saline Flush 10 ML SYR IVP ×3 (05:20→21:01)
[2021-05-05] MEDS: Furosemide 40 MG/4 ML VIAL IVP ×2 (05:20→14:42)
[2021-05-05 07:30] VITALS: BP 96/58; PULSE 63; TEMP 36.7; O2SAT 94
--- NOTE | 2021-05-05 08:34 | PDOC.CMPRO ---
- If Service Date Differs Date of service: 05/05/21 Time of Service: 08:34 Care Management Progress Note S/O: Dinorah remains pleasant and easily engages in conversation. She was sitting up in her chair when CM met with her. She reported having L/T care insurance and stated the information is at her house. She also stated she would like to go to [place], closer to her niece to [facility]. CM printed off information and will review with Dinorah tomorrow; appears both SNF and Assisted living are available. CM will coordinate referral if Dinorah is agreeable-CM will also determine if SNF offers IV ABX at SNF. Dinorah listed other options in [place] including [facility] in [place] and others in [place]. Per MD she will require SNF level care for long-term ABX and PT prior to discharging to SNF-unless SNF in [place] is able to manage IV ABX-CM to outreach tomorrow. CM continues to follow. A: Dinorah is an 86 year old woman admitted on 04/23/21 with sepsis and NSTEMI P: Anticipate Dinorah will transition to [facility] for PT and IV ABX when ready per MD, CM is supporting Dinorah in connecting with SNF/Level 3 options in [place], as above. CM will continue to support Dinorah and assess for ongoing discharge planning concerns.
[2021-05-05] MEDS: Docusate Sodium 100 MG CAP PO ×2 (09:25→21:00)
[2021-05-05] MEDS: Sacubitril/Valsartan 24 mg/26 mg TAB 1 EACH PO ×2 (09:25→21:00)
[2021-05-05] MEDS: Magnesium Oxide 400 MG TAB PO (09:26)
[2021-05-05] MEDS: Aspirin E.C. 81 MG TABEC PO (09:26)
[2021-05-05] MEDS: Protein Nutritional Supplement 16 GM 1 OUNCE PACKET PO ×3 (09:30→21:01)
[2021-05-05] MEDS: cefTRIAXone 2 GM/50 ML BAG IVPB (09:36)
[2021-05-05 10:01] LABS: Anion Gap 10.5 mmol/L (3-11); BUN 39 mg/dL (7-18); C-Reactive Protein 6.99 mg/dL (0.0-0.3); CO2 24.5 mmol/L (21.0-32.0); CREATININE 0.9 mg/dL (0.55-1.02); Calcium 9.3 mg/dL (8.5-10.1); Chloride 103 mmol/L (98-107); Estimated GFR 59.51 (mL/min/1.73m2); Glucose 149 mg/dL (74-106); Magnesium 2.2 mg/dL (1.8-2.4); Potassium 3.7 mmol/L (3.5-5.1); Sodium 138 mmol/L (136-145)
--- NOTE | 2021-05-05 10:10 | INPN_ITS ---
PT Notes Visit Reasons: Sepsis,NSTEMI Date: 05/05/21 Treatment Dates: 04/27/2021 - 05/05/21 Referring Doctor: Matthew Clarke MD PT Orders: PT CONSULT: Status post Ortho surgery. Status post left TKA explant and placement. WBAT with walker. Precautions: WBAT on left LE with AD. Patient Profile/Admitting Diagnosis: Dinorah is a 86-year-old female admitted to this hospital secondary to hypomagnesemia, sepsis, cellulitis and generalized weakness. She is status post left TKA explantation of knee spacer with synovectomy, debridement, and reimplantation of infection antibiotic spacer on postoperative day 1 due to septic arthritis of left knee. She has participated in PT intervention 1-2x/day for the past 9 days. 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) Pes planus of right foot (Acute) Edema (Acute) Non-ST elevation [place] (NSTEMI) (Acute) Hyperlipidemia (Chronic) Obesity (Chronic) Osteoarthritis (Chronic) Hypertension (Chronic) Medical History Glaucoma History of left breast cancer History of right breast cancer Left fibular fracture 2018 Melanoma 2017 Pulmonary embolism following a TKR Surgical History History of appendectomy History of melanoma excision History of total left knee replacement (TKR) S/P cholecystectomy S/P total knee replacement right 11/12/2019 Social History/Home Situation: Dinorah reports that she lives with her sister in a private home in [place]. She reports that her sister is also disabled due to her back and is unable to assist her. She would like to look into an Assisted Living Center more around her family in the [place] area. She has a neighbor who is very helpful and involved. Current Functional Limitations: generalized weakness with limited ability to ambulate. Utilizes a FWW at all times. Reports independence prior to admission with ADL's including showering and dressing with use of shower bench. Equipment Owned/DME: Shower chair, FWW Subjective: Agreeable to PT . States that she has been walking more and more and is feeling more confident. Objective: General Observation: IV access. Dressing over anterior right knee and tobias. Mental Status: Alert and oriented x3 Pain: discomfort in anterior left knee ROM: Right Upper Extremity: Limited right shoulder flexion to 80 degrees with significant crepitation. IR chest wall. ER to neutral. WFL elbow, wrist, and miles nd Left Upper Extremity: Demonstrates WNL AROM L UE Right Lower Extremity: Hip flexion 90 degrees, knee 90 degrees, knee extension lacking 10 degrees, DF limited to neutral Left Lower Extremity: Hip flexion 90 degrees, knee flexion 90 degrees, extension lacking 15 degrees, dorsiflexion neutral Strength: Right Upper Extremity: Shoulder flexion 3/5, bicep 4/5, good functional grasp Left Upper Extremity: Demonstrates 4+/5 left upper extremity strength Right Lower Extremity: Independent straight leg raise with notable extension lag. Hip flexion 3+/5, knee flexion 4 -/5 Left Lower Extremity: Unable to perform independent straight leg raise. Hip flexion 3/5, knee flexion 3+/5. Sensation: Intact light touch Bed Mobility/Transfers: Supine-sit: S with HOB at 40 degrees Sit-stand: SBA Stand-sit: SBA GAIT Assistive Device: FWW Weight bearing: WBAT L Assist: SBA Distance: 30'x1; 60'x1 Deviation: Step-through gait pattern, slow pacing, minimal CASANOVA Balance: Static Sitting: Normal Dynamic Sitting: normal Static Standing: Fair Dynamic Standing: Fair Informed Consent/Education: Patient instructed in purpose of PT consult and plan of care. Therapeutic Activities (12954): Performed gait and transfer training, with patient requiring minimal cues for hand placement during transfers. She requires seated rest between sessions of ambulation, with overall good tolerance and improved distance. Therapeutic Exercises (48092): Patient instructed in therex as noted on flowsheet. Advanced to standing open chain hip PRE on the left, with good tolerance. Continues to require 25% assist with SLR. Assessment: Improving independence and activity tolerance. Continues to lack tolerance for community ambulation, but improving independence with household distances. REquires ongoing PT intervention to maximize independence and allow for safe transition back home once appropriate. Will initiate stair training this week. Goals X1 week 1. Supine-Sit independent (progressing toward) 2. Sit-Supine independent (progressing toward) 3. Sit-Stand standby assist with front wheeled walker (met) 4. Stand-Sit standby assist (met) 5. Bed-Chair contact-guard assist with front wheeled walker (met) 6. Chair-Bed contact-guard assist with front wheel walker(met) 7. Gait contact-guard assist with front wheeled walker x50 feet or greater (met) 8. Stairs up/down 3-5 steps with contact-guard assist (progressing toward) 9. Independent with home exercise program (progressing toward) Plan of Care/Treatment Plan: 1-2x/day, 7 days/week x 1 week. Plan of care has been reviewed with the EMERGENCY MANAGEMENT PROGRAM SPECIALIST providing the service under Physical Therapy direction. Initiate Physical Therapy intervention for strengthening, bed mobility, transfers, gait, stairs, balance training, use of assistive device. DISCHARGE RECOMMENDATIONS: [X] SNF vs FDC depending on patient's progress towards goals. Will update care management as needed regarding D/C recommendatrions TREATMENT CODE/TIME: 30 minutes (56896, [id number]) Thank you for the opportunity to participate in the care of this patient. India De Oliveira PT, DPT [facility] [place], [place]
[2021-05-05 10:28] LABS: Procalcitonin 0.2 ng/mL
--- NOTE | 2021-05-05 14:28 | CHAPLAIN ---
Dinorah was up in the chair when I visited. She said everyone who's come into her room today has mentioned the sunshine coming in through her window. Dinorah has been for nearly two weeks. She is receiving antibiotics for an infected knee. It's likely she'll stay here to finish the course if IV antibiotics. Dinorah lives with her sister in [facility], and is close to a niece who lives in [place]. 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 Dinorah said she thoroughly enjoyed her career and especially loved working with the kids. She said she is receiving great care here.
--- NOTE | 2021-05-05 15:29 | PT.INTREAT ---
Date of service: 05/05/21 Time of Service: 14:34 PT Notes Visit Reasons: Sepsis,NSTEMI Inpatient Physical Therapy Treatment Note [facility] Date: 05/05/2021 PRECAUTIONS: Fall, WBAT L, Activity as tolerated SUBJECTIVE: Dinorah states that she is feeling good today and is happy with the reduction in her LE edema. She reports that she is not willing to return to home and is hoping to transition to SNF or assisted living from here when she is ready. She reports that she has a strained relationship with her sister who also resides in their shared home. OBJECTIVE: PAIN: Patient c/o increased knee discomfort with gait training BED MOBILITY/TRANSFERS Sit-stand: S Stand-sit: S GAIT Assistive Device: FWW Weight bearing: WBAT L Assist: SBA Distance: 80' Deviation: Standing rest x1 THEREX: Patient was instructed in a LE strengthening and stabilization program, completed in both seated and long-sitting positions, as per flow sheet. She ends with cryocuff to L knee. ASSESSMENT: Patient tolerated session with c/o increased L knee discomfort with gait training, although was able to tolerate a progression in gait distance with FWW support and SBA. PLAN: Continue with gait training with FWW support and LE strengthening improved activity tolerance. TREATMENT CODE/TIME: 34 minutes; 50101, 06338 (14:43)
[2021-05-05 15:33] VITALS: BP 146/69; PULSE 76; RESP 19; TEMP 36.8; O2SAT 94
--- NOTE | 2021-05-05 15:57 | PGE_ITS ---
Date of Service Date of service: 05/05/21 Time of Service: 15:57 Assessment and Plan Assessment and plan (1) Septic arthritis of knee, left: Status: Acute Assessment and plan: Improved. No fevers. CRP/procalcitonin are both improving. Continue empiric ceftriaxone 2 g IV (for the knee)/ vancomycin (covering for cellulitis/skin francis). Plan on assessing the skin tomorrow and, if erythema better, will discuss with ortho about possibly discontinuing vancomying. No plans for repeat aspiration/OR at this time. If this becomes necessary, would need xfer to a tertiary care facility. The cement spacer she has implanted currently is impregnated with tobramycin and vancomycin. Qualifiers: Septic arthritis organism: due to unspecified organism Qualified Code(s): M00.9 - Pyogenic arthritis, unspecified (2) Cellulitis of second toe of left foot: Status: Acute Assessment and plan: No evidence of osteomyelitis per XR. 2nd toe erythema is much better today. Seen by Dr Qureshi. Continue above abx. (3) Cellulitis: Status: Acute Assessment and plan: BLEs; Abraded area of the left tobias could have been the port of entry. Continue ceftriaxone/ vancomycin as above. Blood cx neg. Qualifiers: Site of cellulitis: extremity Site of cellulitis of extremity: lower extremity Laterality: left Qualified Code(s): L03.116 - Cellulitis of left lower limb (4) UTI (urinary tract infection): Status: Resolved Assessment and plan: Due to E. coli, present on admission. Repeat UA yesterday is negative. Pansensitive, on high-dose Rocephin. Sweet is out. Possible source of entry for the knee infection - continue ceftriaxone at this time. Qualifiers: Urinary tract infection type: acute cystitis Hematuria presence: without hematuria Qualified Code(s): N30.00 - Acute cystitis without hematuria (5) Elevated troponin: Status: Resolved Assessment and plan: Suspect Type 2 NSTEMI due to sepsis. Negative Cardiac cath in 06/2020. No further workup at this time. (6) Wheezing: Status: Resolved Assessment and plan: Faint on exam today and resolved with clearance of airway. (7) Right heart failure: Status: Acute Assessment and plan: RVSP 34 mm. Will need outpatient workup for MYLES. Continue managing volume status - switch lasix to PO. (8) Constipation: Status: Resolved Assessment and plan: Continue bowel regimen. (9) Iron deficiency anemia: Status: Acute Assessment and plan: Hgb stable, not actively bleeding. S/p IV iron x 2 on this admission. Continue to monitor H/H. (10) DVT prophylaxis: Status: Acute Assessment and plan: SC enoxaparin (11) Discharge planning issues: Status: Acute Assessment and plan: DNR/DNI Continues to require hospitalization. The patient will likely require adjunct faculty for medical terminology IV abx - may require a swing bed level stay. Subjective Subjective Interval history since last seen: I'm feeling better! L knee pain is much better. Redness in the legs is better. No CP/SOB/n. Exam Narrative Exam Narrative: General: Very pleasant elderly female who is sitting comfortably in a chair, A&Ox3 HEENT: EOMI, MMM Heart: RRR, no m/r/g Lungs: faint crackles at L base that resolve with deep inspiration. Abdomen: soft, full, nontender, nondistended Extremities: 2+ BLE edema, improved dince yesterday, L knee incision is dressed - c/d/i. Minimal erythema laterally from the incision. B feet wrapped in lee ann bandages. Objective Last Vital Signs Temp 36.8 C 05/05/21 15:33 Pulse 76 05/05/21 15:33 Resp 19 05/05/21 15:33 BP 146/69 H 05/05/21 15:33 Pulse Ox 94 05/05/21 15:33 Laboratory Results - last 24 hr 05/04/21 05/04/21 05/05/21 15:50 15:50 09:15 Sodium 138 Potassium 3.7 Chloride 103 Carbon Dioxide 24.5 Anion Gap 10.5 BUN 39 H D Creatinine 0.9 0.9 Estimated GFR/1.73 m2 59.51 59.51 Glucose 149 H Calcium 9.3 Magnesium 2.2 C-Reactive Protein 6.99 H Procalcitonin Vancomycin Trough 25.1 H* 05/05/21 09:15 Sodium Potassium Chloride Carbon Dioxide Anion Gap BUN Creatinine Estimated GFR/1.73 m2 Glucose Calcium Magnesium C-Reactive Protein Procalcitonin 0.2 Vancomycin Trough
[2021-05-05] MEDS: Enoxaparin 40 MG/0.4 ML SYR SC (16:32)
[2021-05-05] MEDS: VANCOMYCIN/WATER (PEG) 1 GM/200 ML BAG IV (16:33)
[2021-05-05 20:05] VITALS: BP 110/61; PULSE 68
[2021-05-05] MEDS: Senna TAB 1 TAB PO (21:01)
[2021-05-05] MEDS: Latanoprost 0.005% 2.5 ML BTL OU (21:03)
[2021-05-05 23:20] VITALS: BP 123/65; PULSE 71; RESP 18; TEMP 36; O2SAT 94
[2021-05-06] MEDS: Furosemide 40 MG TAB PO ×2 (05:26→14:24)
[2021-05-06 06:43] LABS: HCT 27.4 % (36.0-46.0); HGB 8.3 g/dL (11.2-15.7); MCH 30.3 pg (27.0-33.0); MCHC 30.3 % (32.0-36.0); Platelet Count 656 10^3/uL (130-400); RBC 2.74 10^6/uL (3.93-5.22); RDW 14.2 % (11.7-14.6); RDW-SD 49.9 fL; WBC 11.15 10^3/uL (4.4-10.8)
[2021-05-06 06:50] VITALS: BP 119/67; PULSE 69; RESP 20; TEMP 36.2; O2SAT 98
--- NOTE | 2021-05-06 08:17 | PT.INTREAT ---
Date of service: 05/06/21 Time of Service: 07:44 PT Notes Visit Reasons: Sepsis,NSTEMI Inpatient Physical Therapy Treatment Note [facility] Date: 05/06/2021 PRECAUTIONS: Fall, WBAT L, Activity as tolerated SUBJECTIVE: Dinorah reports that she slept so-so last night because she has been cold. She is pleasant and agreeable to participating in PT. OBJECTIVE: PAIN: Patient c/o increased knee discomfort with gait training and standing ther ex BED MOBILITY/TRANSFERS Supine-sit: I Sit-stand: S Stand-sit: S GAIT Assistive Device: FWW Weight bearing: WBAT L Assist: SBA-S Distance: 85' Deviation: Standing rest x1 THEREX: Patient was instructed in a LE strengthening and stabilization program, completed in both seated, supine and standing positions, as per flow sheet. She reports increased knee discomfort with standing exercises, specifically. She ends with cryocuff to L knee. ASSESSMENT: Patient tolerated session with c/o increased L knee discomfort with gait training and standing exercises, although was able to tolerate a slight progression in gait distance with FWW support and SBA. PLAN: Issue HEP for LE strengthening and stabilization, and continue with gait training with FWW support and LE strengthening improved activity tolerance. TREATMENT CODE/TIME: 26 minutes; 62575, 46802 (07:44)
[2021-05-06] MEDS: Protein Nutritional Supplement 16 GM 1 OUNCE PACKET PO ×3 (09:15→20:16)
[2021-05-06] MEDS: Normal Saline Flush 10 ML SYR IVP ×2 (09:17→20:17)
[2021-05-06] MEDS: Aspirin E.C. 81 MG TABEC PO (09:17)
[2021-05-06] MEDS: Docusate Sodium 100 MG CAP PO ×2 (09:17→20:16)
[2021-05-06] MEDS: Rosuvastatin 5 MG TAB PO (09:17)
[2021-05-06] MEDS: Magnesium Oxide 400 MG TAB PO (09:17)
[2021-05-06] MEDS: Metoprolol CR 25 MG TABCR PO (09:18)
[2021-05-06] MEDS: Sacubitril/Valsartan 24 mg/26 mg TAB 1 EACH PO ×2 (09:18→20:16)
--- NOTE | 2021-05-06 09:32 | CMPROGNOTE_ITS ---
- If Service Date Differs Date of service: 05/06/21 Time of Service: 09:32 Care Management Progress Note S/O: Dinorah remains pleasant and easily engages in conversation. She was sitting up in her chair when CM met with her. She reported having L/T care insurance and stated the information is at her house. She has asked someone to bring it to her tomorrow so that she can review it with CM. Dinorah again stated she would like to relocate to the [facility], closer to her niece. She identified an assisted living facility in that area that is run by [facility], that she is interested in. CM will coordinate a referral if Dinorah is agreeable. CM will also determine if SNF can accommodate IV antibiotic therapy. Dinorah also listed other options in [place] including [facility] in [place] and [facility] in [place], [place]. which can be pursued. Today, Dinorah indicated that she may be willing to return home and complete her IV antibiotic course there or perhaps at [facility] if that is an option. She is progressing with PT and is able to get up and ambulate independently with supervision. Most of the SNFs in this area are unable to offer IV antibiotic therapy. Dinorah stressed that she is still interested in moving to the [facility] into an assisted living facility after the completion of her treatment. A: Dinorah is an 86 year old woman admitted on 04/23/21 with sepsis and NSTEMI P: Dinorah may transition to [facility] for PT and IV ABX when ready per MD vs discharging home and completing her treatment with home infusions supported by [facility]NA or in an outpatient infusion center. CM is also supporting Dinorah in connecting with SNF/Level 3 options in [place], as above. CM will continue to support Dinorah and assess for ongoing discharge planning concerns.
--- NOTE | 2021-05-06 10:28 | W.PM.PROGNOT ---
Date of Service Date of service: 05/06/21 Time of Service: 10:28 Assessment and Plan Assessment and plan (1) Septic arthritis of knee, left: Status: Acute Assessment and plan: Improving. Remains afebrile. Recheck bloodwork in am. Continue empiric ceftriaxone 2 g IV (for the knee)/ vancomycin (covering for cellulitis/skin francis). Plan on possibly discontinuing vancomycin in 48 hrs and monitoring for worsening of inflammatory markers. No plans for repeat aspiration/OR at this time. If this becomes necessary, would need xfer to a tertiary care facility. The cement spacer she has implanted currently is impregnated with tobramycin and vancomycin. Qualifiers: Septic arthritis organism: due to unspecified organism Qualified Code(s): M00.9 - Pyogenic arthritis, unspecified (2) Cellulitis of second toe of left foot: Status: Acute Assessment and plan: No evidence of osteomyelitis per XR. 2nd toe erythema is improving. Discussed w/ Dr Qureshi yesterday. Continue above abx. (3) Cellulitis: Status: Acute Assessment and plan: of BLEs; Abraded area of the left tobias could have been the port of entry. Continue ceftriaxone/ vancomycin as above. Blood cx neg. Plan to attempt to discontinue vancomycin in 48 hrs if skin exam continues to improve. Qualifiers: Site of cellulitis: extremity Site of cellulitis of extremity: lower extremity Laterality: left Qualified Code(s): L03.116 - Cellulitis of left lower limb (4) UTI (urinary tract infection): Status: Resolved Assessment and plan: Due to E. coli, present on admission. Repeat UA yesterday is negative. Pansensitive, on high-dose Rocephin. Sweet is out. Possible source of entry for the knee infection - continue ceftriaxone at this time. Qualifiers: Urinary tract infection type: acute cystitis Hematuria presence: without hematuria Qualified Code(s): N30.00 - Acute cystitis without hematuria (5) Elevated troponin: Status: Resolved Assessment and plan: Suspect Type 2 NSTEMI due to sepsis. Negative Cardiac cath in 06/2020. No further workup at this time. (6) Wheezing: Status: Resolved Assessment and plan: No wheezing at all today. Continue IS/acapella. Patient is very compliant. (7) Right heart failure: Status: Chronic Assessment and plan: RVSP 34 mm. Will need outpatient workup for MYLES. Monitor volume status on PO lasix. (8) Constipation: Status: Resolved Assessment and plan: Continue bowel regimen. (9) Iron deficiency anemia: Status: Acute Assessment and plan: Hgb stable, not actively bleeding. S/p IV iron x 2 on this admission. Continue to monitor H/H. (10) DVT prophylaxis: Status: Acute Assessment and plan: SC enoxaparin (11) Discharge planning issues: Status: Acute Assessment and plan: DNR/DNI Continues to require hospitalization. The patient will likely require shelter IV abx - may require a swing bed level stay. Subjective Subjective Interval history since last seen: Ms Colbert states she is doing ok. The knee hurts - she is able to deliniate an area across which it hurts in the knee. Denies dizziness, chest pain, nausea. Walked in the hallway with PT. Exam Narrative Exam Narrative: General: Very pleasant elderly female, sitting up in a chair, A&Ox3 HEENT: EOMI, MMM Heart: RRR, no m/r/g Lungs:CTAB Abdomen: soft, nontender, nondistended nondistended Extremities: 1+ BLE edema, improved, L knee incision is dressed - c/d/i. Very minimal erythema laterally from incision. Erythema lower BLEs is significantly better - very mildly pink today. LLE 2nd digit with decreased erythema. Objective Last Vital Signs Temp 36.2 C L 05/06/21 06:50 Pulse 69 05/06/21 06:50 Resp 20 05/06/21 06:50 BP 119/67 05/06/21 06:50 Pulse Ox 98 05/06/21 06:50 Laboratory Results - last 24 hr 05/05/21 05/06/21 09:15 06:15 WBC 11.15 H RBC 2.74 L Hgb 8.3 L Hct 27.4 L MCV 100.0 H MCH 30.3 MCHC 30.3 L RDW 14.2 Plt Count 656 H MPV 8.0 Procalcitonin 0.2
[2021-05-06] MEDS: cefTRIAXone 2 GM/50 ML BAG IVPB (10:31)
[2021-05-06] MEDS: VANCOMYCIN/WATER (PEG) 1 GM/200 ML BAG IV (10:31)
[2021-05-06] MEDS: Ibuprofen 600 MG TAB PO ×2 (14:26→22:23)
[2021-05-06 15:31] VITALS: BP 115/69; PULSE 71; RESP 12; TEMP 36.9; O2SAT 99
[2021-05-06] MEDS: Enoxaparin 40 MG/0.4 ML SYR SC (15:40)
[2021-05-06] MEDS: Acetaminophen 500 MG TAB 1000 MG PO (15:40)
[2021-05-06 20:15] VITALS: BP 103/64; PULSE 63; RESP 16; TEMP 37.1; O2SAT 95
[2021-05-06] MEDS: Latanoprost 0.005% 2.5 ML BTL OU (21:22)
[2021-05-07 00:17] VITALS: BP 111/63; PULSE 65; RESP 17; TEMP 36.6; O2SAT 95
[2021-05-07] MEDS: VANCOMYCIN/WATER (PEG) 1 GM/200 ML BAG IV ×2 (01:24→18:20)
[2021-05-07] MEDS: Normal Saline Flush 10 ML SYR IVP ×4 (01:24→19:50)
[2021-05-07] MEDS: Furosemide 40 MG TAB PO ×2 (05:57→13:42)
[2021-05-07 07:07] LABS: Abs Immature Grans 0.27 10^3/uL (0.0-0.06); Absolute Eosinophil Count 0.56 10^3/uL (0.0-0.7); Absolute Lymphocyte Count 1.74 10^3/uL (1.2-3.4); Absolute Monocyte Count 0.83 10^3/uL (0.1-0.8); Absolute Neutrophil Count 5.99 10^3/uL (1.2-6.7); Basophils % 1.1; Eosinophils % 5.9; HCT 26.7 % (36.0-46.0); HGB 8.2 g/dL (11.2-15.7); Immature Grans % 2.8; Lymphocytes % 18.3; MCH 30.6 pg (27.0-33.0); MCHC 30.7 % (32.0-36.0); MCV 99.6 fL (80-95); Monocytes % 8.7; Neutrophils % 63.2; Nucleated RBC 0 %; Platelet Count 652 10^3/uL (130-400); RBC 2.68 10^6/uL (3.93-5.22); RDW 14.4 % (11.7-14.6); RDW-SD 50.7 fL; WBC 9.49 10^3/uL (4.4-10.8)
[2021-05-07 07:38] LABS: Anion Gap 9.2 mmol/L (3-11); BUN 38 mg/dL (7-18); C-Reactive Protein 2.89 mg/dL (0.0-0.3); CO2 24.8 mmol/L (21.0-32.0); CREATININE 0.7 mg/dL (0.55-1.02); Calcium 8.9 mg/dL (8.5-10.1); Chloride 105 mmol/L (98-107); Glucose 88 mg/dL (74-106); Magnesium 2.3 mg/dL (1.8-2.4); Potassium 3.9 mmol/L (3.5-5.1); Sodium 139 mmol/L (136-145)
[2021-05-07] MEDS: cefTRIAXone 2 GM/50 ML BAG IVPB (07:42)
[2021-05-07] MEDS: Polyethylene Glycol 3350 17 GM PACKET PO (07:42)
[2021-05-07] MEDS: Protein Nutritional Supplement 16 GM 1 OUNCE PACKET PO ×3 (07:42→19:50)
[2021-05-07] MEDS: Docusate Sodium 100 MG CAP PO ×2 (07:42→19:49)
[2021-05-07] MEDS: Sacubitril/Valsartan 24 mg/26 mg TAB 1 EACH PO ×2 (07:42→19:48)
[2021-05-07] MEDS: Metoprolol CR 25 MG TABCR PO (07:43)
[2021-05-07] MEDS: Magnesium Oxide 400 MG TAB PO (07:43)
[2021-05-07] MEDS: Aspirin E.C. 81 MG TABEC PO (07:43)
[2021-05-07 07:45] LABS: Procalcitonin 0.1 ng/mL
--- NOTE | 2021-05-07 08:18 | PDOC.CMPRO ---
- If Service Date Differs Date of service: 05/07/21 Time of Service: 08:19 Care Management Progress Note S/O: Dinorah was sitting up in a chair when CM met with her. She remains pleasant and engaged easily with CM. At Dinorah's request, CM contacted [facility], an assisted living facility in [place], [place] run by [facility]. It was her first choice for an assisted living facility in the [facility]. [facility], a senior living facility, is adjacent to the property. CM shared information about the facility and grounds (26 acres) as well as services provided, crawford structure and availability. The admission coordinator (Eladia) agreed to fax an application to [facility] to begin the admission process. Dinorah was very pleased with the information and stated that she feels that the facility would be ideal and would meet her physical, medical and spiritual support needs. CM will continue to assist Dinorah with the process which will involve an interview, application and physician documentation. Clinically, Dinorah is doing well. She has been getting up in her room and toileting herself as well as ambulating with PT. She continues to receive IV antibiotics and remains afebrile. A: Dinorah is an 86 year old woman admitted on 04/23/21 with sepsis and NSTEMI P: Dinorah may transition to [facility] for PT and IV ABX when ready per MD vs discharging home and completing her treatment with home infusions supported by VNA or in an outpatient infusion center. CM is also supporting Dinorah in connecting with SNF/Level 3 options in [place], as above. Today CM was able to contact Dinorah's first choice for an assisted living facility in the [facility] that has an adjacent SNF. If they are able to provide IVAB, that may be another option for the completion of therapy. CM will continue to support Dinorah and assess for ongoing discharge planning concerns.
[2021-05-07 09:12] VITALS: BP 113/64; PULSE 74; RESP 18; TEMP 37; O2SAT 95
--- NOTE | 2021-05-07 14:41 | PT.INTREAT ---
Date of service: 05/07/21 Time of Service: 07:31 PT Notes Visit Reasons: Sepsis,NSTEMI Inpatient Physical Therapy Treatment Note [facility] Date: 05/07/2021 PRECAUTIONS: Fall, WBAT L, Activity as tolerated SUBJECTIVE: Dinorah reports that she slept better last night. She reports that she ambulated with her walker in her room yesterday independently. She is pleasant and agreeable to participating in PT. OBJECTIVE: PAIN: Patient c/o increased knee discomfort with standing ther ex BED MOBILITY/TRANSFERS Supine-sit: I Sit-stand: I Stand-sit: I Bed-chair: I Chair-bed: I GAIT Assistive Device: FWW Weight bearing: WBAT L Assist: I Distance: 60' (in-room distance) THEREX: Patient was instructed in a LE strengthening and stabilization program, completed in seated, supine and standing positions, as per flow sheet. She reports increased knee discomfort with standing exercises, specifically. She ends with cryocuff to L knee. ASSESSMENT: Patient tolerated session with c/o increased L knee discomfort with standing exercises. She demonstrates independence with bed mobility, transfers, and short (in-room) distances with use of FWW. PLAN: Issue HEP for LE strengthening and stabilization, and continue with gait training with FWW support and LE strengthening improved activity tolerance. Per discussion with primary nurse, Fely, patient has been cleared for independent transfers, bed mobility, and ambulation with FWW at this time. TREATMENT CODE/TIME: 23 minutes; [id number], [id number] (07:31)
[2021-05-07 15:00] VITALS: BP 114/68; PULSE 62; RESP 20; TEMP 36; O2SAT 99
--- NOTE | 2021-05-07 16:06 | W.PM.PROGNOT ---
Date of Service Date of service: 05/07/21 Time of Service: 16:06 Assessment and Plan Assessment and plan (1) Septic arthritis of knee, left: Status: Acute Assessment and plan: Improving. Remains afebrile. Continue empiric ceftriaxone 2 g IV (for the knee)/ vancomycin (covering for cellulitis/skin francis). Discontinue vancomycin tomorrow. No plans for repeat aspiration/OR at this time. If this becomes necessary, would need xfer to a tertiary care facility. The cement spacer she has implanted currently is impregnated with tobramycin and vancomycin. Qualifiers: Septic arthritis organism: due to unspecified organism Qualified Code(s): M00.9 - Pyogenic arthritis, unspecified (2) Cellulitis of second toe of left foot: Status: Acute Assessment and plan: No evidence of osteomyelitis per XR. 2nd toe erythema is improving. Discussed w/ Dr Qureshi. Continue above abx. (3) Cellulitis: Status: Acute Assessment and plan: of BLEs; Abraded area of the left tobias could have been the port of entry. Continue ceftriaxone/ vancomycin with plans to d/c vancomyin tomorrow. Blood cx neg. Qualifiers: Site of cellulitis: extremity Site of cellulitis of extremity: lower extremity Laterality: left Qualified Code(s): L03.116 - Cellulitis of left lower limb (4) UTI (urinary tract infection): Status: Resolved Assessment and plan: Due to E. coli, present on admission. Resolved by repeat UA. Sweet is out. Probable source of entry for the knee infection - continue ceftriaxone at this time. Qualifiers: Urinary tract infection type: acute cystitis Hematuria presence: without hematuria Qualified Code(s): N30.00 - Acute cystitis without hematuria (5) Elevated troponin: Status: Resolved Assessment and plan: Suspect Type 2 NSTEMI due to sepsis. Negative Cardiac cath in 06/2020. No further workup at this time. (6) Wheezing: Status: Resolved Assessment and plan: No wheezing at all today. Continue IS/acapella. Patient is very compliant. (7) Right heart failure: Status: Chronic Assessment and plan: RVSP 34 mm. Will need outpatient workup for MYLES. Monitor volume status on PO lasix. (8) Constipation: Status: Resolved Assessment and plan: Continue bowel regimen. (9) Iron deficiency anemia: Status: Acute Assessment and plan: Hgb stable, not actively bleeding. S/p IV iron x 2 on this admission. Continue to monitor H/H. (10) DVT prophylaxis: Status: Acute Assessment and plan: SC enoxaparin (11) Discharge planning issues: Status: Acute Assessment and plan: DNR/DNI Continues to require hospitalization. The patient will likely require [facility] IV [facility]x - may require a swing bed level stay. Subjective Subjective Interval history since last seen: Ms Colbert states that her knee hurts primarily when she walks on it. Her legs are much less swollen. She denies dizziness, chest pain, shortness of breath, nausea. Not constipated. We discussed the plan to d/c vancomycin tomorrow and recheck labs on Tuesday to see if they are worse. Exam Narrative Exam Narrative: General: Very pleasant elderly female, sitting up in a chair, A&Ox3 HEENT: EOMI, MMM Heart: RRR, no m/r/g Lungs:CTAB Abdomen: soft, nontender, nondistended nondistended Extremities: 1+ BLE edema, improving; L knee incision is dressed - c/d/i. No erythema surrounding incision. Erythema lower BLEs has improved. Objective Last Vital Signs Temp 37 C 05/07/21 09:12 Pulse 74 05/07/21 09:12 Resp 18 05/07/21 09:12 BP 113/64 05/07/21 09:12 Pulse Ox 95 05/07/21 09:12 Laboratory Results - last 24 hr 05/07/21 05/07/21 05/07/21 06:30 06:30 06:30 WBC 9.49 RBC 2.68 L Hgb 8.2 L Hct 26.7 L MCV 99.6 H MCH 30.6 MCHC 30.7 L RDW 14.4 Plt Count 652 H MPV 8.0 Immature Gran % 2.8 Neutrophils % 63.2 Lymphocytes % 18.3 Monocytes % 8.7 Eosinophils % 5.9 Basophils % 1.1 Nucleated RBC % 0 Absolute Neutrophils 5.99 Absolute Lymphocytes 1.74 Absolute Monocytes 0.83 H Absolute Eosinophils 0.56 Absolute Basophils 0.10 Sodium 139 Potassium 3.9 Chloride 105 Carbon Dioxide 24.8 Anion Gap 9.2 BUN 38 H Creatinine 0.7 Estimated GFR/1.73 m2 >= 60.00 Glucose 88 D Calcium 8.9 Magnesium 2.3 C-Reactive Protein 2.89 H Procalcitonin 0.1
[2021-05-07] MEDS: Enoxaparin 40 MG/0.4 ML SYR SC (16:08)
[2021-05-07 17:22] LABS: Vancomycin, Trough 17.5 ug/mL (10.0-20.0)
[2021-05-07] MEDS: Acetaminophen 500 MG TAB 1000 MG PO (18:20)
[2021-05-07 19:21] VITALS: BP 129/66; PULSE 69; RESP 18; TEMP 37.2; O2SAT 97
[2021-05-07] MEDS: Latanoprost 0.005% 2.5 ML BTL OU (22:09)
[2021-05-07 22:30] VITALS: BP 112/66; PULSE 69; RESP 18; TEMP 36.6; O2SAT 94
[2021-05-08] MEDS: Furosemide 40 MG TAB PO ×2 (06:16→13:30)
[2021-05-08] MEDS: Magnesium Oxide 400 MG TAB PO (08:22)
[2021-05-08] MEDS: Sacubitril/Valsartan 24 mg/26 mg TAB 1 EACH PO (08:22)
[2021-05-08] MEDS: Docusate Sodium 100 MG CAP PO (08:22)
[2021-05-08] MEDS: Metoprolol CR 25 MG TABCR PO (08:22)
[2021-05-08] MEDS: Rosuvastatin 5 MG TAB PO (08:22)
[2021-05-08] MEDS: cefTRIAXone 2 GM/50 ML BAG IVPB (08:22)
[2021-05-08] MEDS: Aspirin E.C. 81 MG TABEC PO (08:22)
[2021-05-08] MEDS: Normal Saline Flush 10 ML SYR IVP ×2 (08:23→21:35)
[2021-05-08] MEDS: Protein Nutritional Supplement 16 GM 1 OUNCE PACKET PO ×2 (08:24→13:30)
--- NOTE | 2021-05-08 08:25 | NT_ITS ---
PT Notes Visit Reasons: Sepsis,NSTEMI 05/08/21 Discussed patient status with [facility] [employer] [facility]. Patient has been demonstrating increasing independence this week, and is now transferring and ambulating independently in her room, and completing an independent HEP between PT sessions. Will decrease frequency of visits from 7 days a week down to 5 days per week, with patient completing independent HEP on off days.
--- NOTE | 2021-05-08 08:35 | PT.INTREAT ---
Date of service: 05/08/21 Time of Service: 07:38 PT Notes Visit Reasons: Sepsis,NSTEMI Inpatient Physical Therapy Treatment Note [facility] Date: 05/08/2021 PRECAUTIONS: Fall, WBAT L, Activity as tolerated SUBJECTIVE: Dinorah reports that she is doing well transferring and ambulating independently in her room. She states that she completed her HEP independently twice yesterday. When asked, she states that she does not wish to return back to her home with her sister, I've been punished enough. OBJECTIVE: PAIN: Patient c/o increased knee discomfort with standing ther ex BED MOBILITY/TRANSFERS Sit-stand: I Stand-sit: I Bed-chair: I Chair-bed: I GAIT Assistive Device: FWW Weight bearing: WBAT L Assist: S Distance: 60' x2 Deviation: Seated rest x1, increased L knee discomfort THEREX: Patient completes her LE strengthening and stabilization program independently. Patient will don/doff cryocuff, as needed. ASSESSMENT: Patient tolerated session with c/o increased L knee discomfort with gait training. She demonstrates independence with bed mobility, transfers, and short (in-room) distances with use of FWW. PLAN: Continue with independent completion of HEP for LE strengthening and stabilization. Continue with gait training for improved activity tolerance. TREATMENT CODE/TIME: 20 minutes; [id number] (07:38)
[2021-05-08 08:40] VITALS: BP 112/66; PULSE 95; RESP 18; TEMP 36.7; O2SAT 96
--- NOTE | 2021-05-08 09:19 | PDOC.CMPRO ---
- If Service Date Differs Date of service: 05/08/21 Time of Service: 09:19 Care Management Progress Note S/O: Dinorah was sitting up in a chair when CM met with her. She was pleasant as usual and engaged easily with CM. CM was able to provide Dinorah with an application for admission to the assisted living facility, [facility], she is interested in that is located in [facility]. Dinorah plans to review it and CM will assist as needed. CM contacted the SNF associated with [facility] to determine if they are able to offer IV antibiotic therapy and was informed that they are not accepting patients. The admission director stated that almost all of the SNFs in the [facility] have been closed to admissions due to Covid. BRIDGETT shared this information with Dinorah. She stated that she feels she may decide to go back home after all. She identified concerns about increased Covid cases in the [facility] area and feels that it may be safer to remain in [place]. Dinorah plans to continue to examine her options and will complete the application in the meantime. A: Dinorah is an 86 year old woman admitted on 04/23/21 with sepsis and NSTEMI P: Dinorah may transition to [facility] for PT and IV ABX when ready per MD vs discharging home and completing her treatment with home infusions supported by [facility] or in an outpatient infusion center. Dinorah continues to consider assisted living options as outlined above. CM will continue to support Dinorah and assess for ongoing discharge planning concerns.
--- NOTE | 2021-05-08 14:33 | CHAPLAIN ---
Dinorah was happy to tell me that she's more mobile on the own, although she realizes that the tires very easily. She's been moving around her room by herself. 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 I will continue to visit.
[2021-05-08] MEDS: Enoxaparin 40 MG/0.4 ML SYR SC (15:27)
[2021-05-08 16:03] VITALS: BP 103/63; PULSE 63; RESP 18; TEMP 36.7; O2SAT 96
[2021-05-08] MEDS: Acetaminophen 500 MG TAB 1000 MG PO (18:03)
--- NOTE | 2021-05-08 18:26 | PGE_ITS ---
Date of Service Date of service: 05/08/21 Time of Service: 16:40 Assessment and Plan Assessment and plan (1) Septic arthritis of knee, left: Status: Acute Assessment and plan: Improving. Remains afebrile. Continue empiric ceftriaxone 2 g IV (for the knee). Discontinue vancomycin. Monitor x 48 hrs to see if condition worsens. No plans for repeat aspiration/OR at this time. If this becomes necessary, would need xfer to a tertiary care facility. The cement spacer she has implanted currently is impregnated with tobramycin and vancomycin. Qualifiers: Septic arthritis organism: due to unspecified organism Qualified Code(s): M00.9 - Pyogenic arthritis, unspecified (2) Cellulitis of second toe of left foot: Status: Acute Assessment and plan: No evidence of osteomyelitis per XR. 2nd toe erythema is improving. Evaluated by Dr Qureshi. Abx as above (3) Cellulitis: Status: Acute Assessment and plan: of BLEs; Abraded area of the left tobias could have been the port of entry. Continue ceftriaxone. D/c vancomycin today. Blood cx neg. Qualifiers: Site of cellulitis: extremity Site of cellulitis of extremity: lower extremity Laterality: left Qualified Code(s): L03.116 - Cellulitis of left lower limb (4) UTI (urinary tract infection): Status: Resolved Assessment and plan: Due to E. coli, present on admission. Resolved by repeat UA. Sweet is out. Probable source of entry for the knee infection - continue ceftriaxone at this time. Qualifiers: Urinary tract infection type: acute cystitis Hematuria presence: without hematuria Qualified Code(s): N30.00 - Acute cystitis without hematuria (5) Elevated troponin: Status: Resolved Assessment and plan: Suspect Type 2 NSTEMI due to sepsis. Negative Cardiac cath in 06/2020. No further workup at this time. (6) Wheezing: Status: Resolved Assessment and plan: No wheezing at all today. Continue IS/acapella. Patient is very compliant. (7) Right heart failure: Status: Chronic Assessment and plan: RVSP 34 mm. Will need outpatient workup for MYLES. Monitor volume status on PO lasix. (8) Constipation: Status: Resolved Assessment and plan: Continue bowel regimen. (9) Iron deficiency anemia: Status: Acute Assessment and plan: Hgb stable, not actively bleeding. S/p IV iron x 2 on this admission. Continue to monitor H/H. (10) DVT prophylaxis: Status: Acute Assessment and plan: SC enoxaparin (11) Discharge planning issues: Status: Acute Assessment and plan: DNR/DNI Continues to require hospitalization. The patient will likely require [facility] - will require a swing bed level stay. Subjective Subjective Interval history since last seen: Ms Colbert states her pain is well controlled. She does not feel like she needs a lot of pain medicine. The knee feels stiff when she first wakes up but then feels better. She denies dizziness, chest pain, shortness of breath, nausea. She requested a pickle with her dinner - and we discussed how this may end up in her having to get extra lasix tomorrow. She had expressed to PT as well as to myself that she does not feel comfortable administering her own IV antibiotics at home. At this point, the plan is for Dinorah to complete her IV antibiotics at our facility in swing bed. Exam Narrative Exam Narrative: General: Very pleasant elderly female, sitting up in a chair, A&Ox3 HEENT: EOMI, MMM Heart: RRR, no m/r/g Lungs:CTAB Abdomen: soft, nontender, nondistended nondistended Extremities: 1+ BLE edema, unchanched; L knee incision is dressed - new dressing; c/d/i. Faint erythema BLEs Objective Last Vital Signs Temp 36.7 C 05/08/21 16:03 Pulse 63 05/08/21 16:03 Resp 18 05/08/21 16:03 BP 103/63 05/08/21 16:03 Pulse Ox 96 05/08/21 16:03
[2021-05-08 21:33] VITALS: BP 105/51; PULSE 72; RESP 16; TEMP 37; O2SAT 90
[2021-05-08] MEDS: Latanoprost 0.005% 2.5 ML BTL OU (21:35)
[2021-05-09] MEDS: Ibuprofen 600 MG TAB PO (02:44)
[2021-05-09] MEDS: Normal Saline Flush 10 ML SYR IVP ×2 (06:50→21:45)
[2021-05-09] MEDS: Furosemide 40 MG TAB PO ×2 (06:50→14:46)
[2021-05-09 07:35] VITALS: BP 113/67; PULSE 63; RESP 17; TEMP 36.6; O2SAT 95
[2021-05-09 07:36] LABS: Abs Immature Grans 0.18 10^3/uL (0.0-0.06); Absolute Basophil Count 0.12 10^3/uL (0.0-0.2); Absolute Eosinophil Count 0.63 10^3/uL (0.0-0.7); Absolute Lymphocyte Count 1.66 10^3/uL (1.2-3.4); Absolute Monocyte Count 0.97 10^3/uL (0.1-0.8); Basophils % 1.3; Eosinophils % 6.7; HCT 28.1 % (36.0-46.0); HGB 8.5 g/dL (11.2-15.7); Immature Grans % 1.9; Lymphocytes % 17.7; MCH 30.4 pg (27.0-33.0); MCHC 30.2 % (32.0-36.0); MCV 100.4 fL (80-95); Monocytes % 10.4; Nucleated RBC 0 %; Platelet Count 609 10^3/uL (130-400); RDW 14.5 % (11.7-14.6); RDW-SD 52.2 fL; WBC 9.36 10^3/uL (4.4-10.8)
[2021-05-09] MEDS: cefTRIAXone 2 GM/50 ML BAG IVPB (07:52)
[2021-05-09] MEDS: Metoprolol CR 25 MG TABCR PO (07:52)
[2021-05-09] MEDS: Sacubitril/Valsartan 24 mg/26 mg TAB 1 EACH PO (07:52)
[2021-05-09] MEDS: Aspirin E.C. 81 MG TABEC PO (07:52)
[2021-05-09] MEDS: Docusate Sodium 100 MG CAP PO ×2 (07:52→21:45)
[2021-05-09] MEDS: Magnesium Oxide 400 MG TAB PO (07:53)
[2021-05-09] MEDS: Protein Nutritional Supplement 16 GM 1 OUNCE PACKET PO ×3 (07:55→21:45)
[2021-05-09 08:00] LABS: Anion Gap 6.6 mmol/L (3-11); BUN 34 mg/dL (7-18); C-Reactive Protein 2.16 mg/dL (0.0-0.3); CO2 26.4 mmol/L (21.0-32.0); CREATININE 0.7 mg/dL (0.55-1.02); Calcium 9.2 mg/dL (8.5-10.1); Chloride 105 mmol/L (98-107); Glucose 87 mg/dL (74-106); Magnesium 2.5 mg/dL (1.8-2.4); Sodium 138 mmol/L (136-145)
--- NOTE | 2021-05-09 13:19 | W.PM.PROGNOT ---
Date of Service Date of service: 05/09/21 Time of Service: 13:19 Assessment and Plan Assessment and plan (1) Septic arthritis of knee, left: Status: Acute Assessment and plan: Patient remains on ceftriaxone 2 g IV daily . WBC count normal Remains afebrile. Qualifiers: Septic arthritis organism: due to unspecified organism Qualified Code(s): M00.9 - Pyogenic arthritis, unspecified (2) Cellulitis: Status: Acute Assessment and plan: Abraded area of the left tobias likely the portal of entry. Continue ceftriaxone along with vancomycin for intra-articular knee infection. Cement spacer that was implanted is impregnated with tobramycin and vancomycin. Erythema significantly improved. Wound culture and blood culture with no growth. Qualifiers: Site of cellulitis: extremity Site of cellulitis of extremity: lower extremity Laterality: left Qualified Code(s): L03.116 - Cellulitis of left lower limb (3) UTI (urinary tract infection): Status: Resolved Assessment and plan: Now resolved. Repeat UA was negative. Qualifiers: Urinary tract infection type: acute cystitis Hematuria presence: without hematuria Qualified Code(s): N30.00 - Acute cystitis without hematuria (4) Elevated troponin: Status: Resolved Assessment and plan: echocardiogram showed no RWMA and EKG was unremarkable. Suspect that elevated troponin is d/t sepsis / NSTEMI. Troponin is now normalized. (5) Wheezing: Status: Resolved Assessment and plan: Cont IS/acapella. Has cleared. (6) Right heart failure: Status: Chronic Assessment and plan: echo showed borderline dilated RV but normal RV systolic function. Mild PHTN RVSP 34 mm. Suspected underlying MYLES (never worked up for this per patient). Resume diuretics. (7) Iron deficiency anemia: Status: Acute Assessment and plan: Total iron of 16. Hgb andrew during admission was 7.9. Hgb now 8.5. Venofer 300mg IV x 2 during this admission. Subjective Subjective Patient reports: no new complaints, bowel movement and afebrile; denies nausea, vomiting and shortness of breath Interval history since last seen: Ambulating w/o assistance Exam Narrative Exam Narrative: Sitting in chair. Const General: no acute distress, not ill appearing and not lethargic Nutritional Appearance: overweight Orientation: oriented x3 HENMT Head: normal to inspection Ears: hearing grossly normal bilaterally Mouth: moist mucous membranes Eyes Eyelids: eyelids normal Pupils: PERRL EOM: EOM intact bilaterally Neck Neck: no JVD Resp Effort & Inspection: normal respiratory effort and able to speak in complete sentences Auscultation: clear to auscultation bilaterally, no rales, no rhonchi and no wheezes Cardio Rate: regular rate Rhythm: regular rhythm Heart Sounds: S1 normal, S2 normal and murmur (1/6 LILLY) systolic GI Palpation: soft and nontender Auscultation: normal bowel sounds Skin General skin exam: no rashes or lesions noted Extrem General: no calf tenderness and pedal edema bilaterally non-pitting Left lower extremity: knee (Bandage in place. Cryopack in place.) Psych Appearance: grossly normal Mental Status: mental status grossly normal Affect: normal affect Objective Last Vital Signs Temp 36.6 C 05/09/21 07:35 Pulse 63 05/09/21 07:35 Resp 17 05/09/21 07:35 BP 113/67 05/09/21 07:35 Pulse Ox 95 05/09/21 07:35 Laboratory Results - last 24 hr 05/09/21 05/09/21 07:00 07:00 WBC 9.36 RBC 2.80 L Hgb 8.5 L Hct 28.1 L MCV 100.4 H MCH 30.4 MCHC 30.2 L RDW 14.5 Plt Count 609 H MPV 8.0 Immature Gran % 1.9 Neutrophils % 62.0 Lymphocytes % 17.7 Monocytes % 10.4 Eosinophils % 6.7 Basophils % 1.3 Nucleated RBC % 0 Absolute Neutrophils 5.80 Absolute Lymphocytes 1.66 Absolute Monocytes 0.97 H Absolute Eosinophils 0.63 Absolute Basophils 0.12 Sodium 138 Potassium 4.0 Chloride 105 Carbon Dioxide 26.4 Anion Gap 6.6 BUN 34 H Creatinine 0.7 Estimated GFR/1.73 m2 >= 60.00 Glucose 87 Calcium 9.2 Magnesium 2.5 H C-Reactive Protein 2.16 H
[2021-05-09] MEDS: Enoxaparin 40 MG/0.4 ML SYR SC (14:49)
[2021-05-09 16:04] VITALS: BP 117/69; PULSE 69; RESP 17; TEMP 36.4; O2SAT 97
[2021-05-09 21:36] VITALS: BP 105/43; PULSE 63; RESP 20; TEMP 37.5; O2SAT 94
[2021-05-09] MEDS: Latanoprost 0.005% 2.5 ML BTL OU (21:45)
[2021-05-09] MEDS: Senna TAB 1 TAB PO (21:46)
[2021-05-10] MEDS: Acetaminophen 500 MG TAB 1000 MG PO (00:55)
[2021-05-10] MEDS: Furosemide 40 MG TAB PO ×2 (05:57→14:05)
[2021-05-10 07:26] LABS: C-Reactive Protein 1.82 mg/dL (0.0-0.3)
[2021-05-10 07:35] VITALS: BP 130/67; PULSE 76; RESP 18; TEMP 36.2; O2SAT 94
[2021-05-10] MEDS: Protein Nutritional Supplement 16 GM 1 OUNCE PACKET PO ×3 (07:55→19:47)
[2021-05-10] MEDS: Normal Saline Flush 10 ML SYR IVP ×3 (07:56→19:48)
[2021-05-10] MEDS: Magnesium Oxide 400 MG TAB PO (07:57)
[2021-05-10] MEDS: cefTRIAXone 2 GM/50 ML BAG IVPB (07:57)
[2021-05-10] MEDS: Docusate Sodium 100 MG CAP PO ×2 (07:57→19:47)
[2021-05-10] MEDS: Aspirin E.C. 81 MG TABEC PO (07:57)
[2021-05-10] MEDS: Sacubitril/Valsartan 24 mg/26 mg TAB 1 EACH PO ×2 (07:57→19:47)
[2021-05-10] MEDS: Rosuvastatin 5 MG TAB PO (07:57)
[2021-05-10] MEDS: Metoprolol CR 25 MG TABCR PO (07:58)
[2021-05-10] MEDS: Ibuprofen 600 MG TAB PO (13:10)
--- NOTE | 2021-05-10 15:02 | W.PM.PROGNOT ---
Date of Service Date of service: 05/10/21 Time of Service: 15:03 Assessment and Plan Assessment and plan (1) Septic arthritis of knee, left: Status: Acute Assessment and plan: Patient remains on ceftriaxone 2 g IV daily . WBC count normal Remains afebrile. Qualifiers: Septic arthritis organism: due to unspecified organism Qualified Code(s): M00.9 - Pyogenic arthritis, unspecified (2) Cellulitis: Status: Acute Assessment and plan: Abraded area of the left tobias likely the portal of entry. Healing. Erythema resolving. Continue ceftriaxone Cement spacer that was implanted is impregnated with tobramycin and vancomycin. Erythema significantly improved. Wound culture and blood culture with no growth. Qualifiers: Site of cellulitis: extremity Site of cellulitis of extremity: lower extremity Laterality: left Qualified Code(s): L03.116 - Cellulitis of left lower limb (3) UTI (urinary tract infection): Status: Resolved Assessment and plan: Now resolved. Repeat UA was negative. Qualifiers: Urinary tract infection type: acute cystitis Hematuria presence: without hematuria Qualified Code(s): N30.00 - Acute cystitis without hematuria (4) Elevated troponin: Status: Resolved Assessment and plan: echocardiogram showed no RWMA and EKG was unremarkable. Suspect that elevated troponin is d/t sepsis / NSTEMI. Troponin is now normalized. (5) Wheezing: Status: Resolved Assessment and plan: Cont IS/acapella. Has cleared. (6) Right heart failure: Status: Chronic Assessment and plan: echo showed borderline dilated RV but normal RV systolic function. Mild PHTN RVSP 34 mm. Suspected underlying MYLES (never worked up for this per patient). Resume diuretics. (7) Iron deficiency anemia: Status: Acute Assessment and plan: Total iron of 16. Hgb andrew during admission was 7.9. Hgb now 8.5. Venofer 300mg IV x 2 during this admission. Subjective Subjective Patient reports: no new complaints, bowel movement and afebrile; denies diarrhea, nausea, vomiting and shortness of breath Interval history since last seen: Ambulating w/o assistance Exam Narrative Exam Narrative: Sitting in chair. Const General: no acute distress, not ill appearing and not lethargic Nutritional Appearance: overweight Orientation: oriented x3 HENMT Head: normal to inspection Ears: hearing grossly normal bilaterally Mouth: moist mucous membranes Eyes Eyelids: eyelids normal Pupils: PERRL EOM: EOM intact bilaterally Neck Neck: no JVD Resp Effort & Inspection: normal respiratory effort and able to speak in complete sentences Auscultation: clear to auscultation bilaterally, no rales, no rhonchi and no wheezes Cardio Rate: regular rate Rhythm: regular rhythm Heart Sounds: S1 normal, S2 normal and murmur (1/6 LILLY) systolic GI Palpation: soft and nontender Auscultation: normal bowel sounds Skin General skin exam: no rashes or lesions noted Extrem General: no calf tenderness and pedal edema bilaterally non-pitting Left lower extremity: knee (Bandage in place. ) Psych Appearance: grossly normal Mental Status: mental status grossly normal Affect: normal affect Objective Last Vital Signs Temp 36.2 C L 05/10/21 07:35 Pulse 76 05/10/21 07:35 Resp 18 05/10/21 07:35 BP 130/67 05/10/21 07:35 Pulse Ox 94 05/10/21 07:35 Laboratory Results - last 24 hr 05/10/21 07:00 C-Reactive Protein 1.82 H
[2021-05-10 15:35] VITALS: BP 111/67; PULSE 63; RESP 18; TEMP 36.6; O2SAT 95
[2021-05-10 19:46] VITALS: BP 121/70; PULSE 64; RESP 17; TEMP 36.4; O2SAT 97
[2021-05-10] MEDS: Enoxaparin 40 MG/0.4 ML SYR SC (19:48)
[2021-05-10] MEDS: Latanoprost 0.005% 2.5 ML BTL OU (21:14)
[2021-05-11] MEDS: Acetaminophen 500 MG TAB 1000 MG PO ×2 (02:37→14:11)
[2021-05-11] MEDS: Furosemide 40 MG TAB PO ×2 (05:08→13:35)
[2021-05-11 06:56] LABS: Abs Immature Grans 0.17 10^3/uL (0.0-0.06); Absolute Eosinophil Count 0.68 10^3/uL (0.0-0.7); Absolute Lymphocyte Count 1.49 10^3/uL (1.2-3.4); Absolute Monocyte Count 1.02 10^3/uL (0.1-0.8); Absolute Neutrophil Count 6.37 10^3/uL (1.2-6.7); Eosinophils % 6.9; HCT 29.2 % (36.0-46.0); HGB 8.7 g/dL (11.2-15.7); Immature Grans % 1.7; Lymphocytes % 15.2; MCH 30.2 pg (27.0-33.0); MCHC 29.8 % (32.0-36.0); MCV 101.4 fL (80-95); MPV 8.1 fL (8.0-11.0); Monocytes % 10.4; Neutrophils % 64.8; Nucleated RBC 0 %; Platelet Count 528 10^3/uL (130-400); RBC 2.88 10^6/uL (3.93-5.22); RDW 14.7 % (11.7-14.6); RDW-SD 53.1 fL; WBC 9.83 10^3/uL (4.4-10.8)
[2021-05-11 07:12] VITALS: BP 120/72; PULSE 67; RESP 18; TEMP 36.1; O2SAT 97
[2021-05-11 07:13] LABS: C-Reactive Protein 1.76 mg/dL (0.0-0.3)
[2021-05-11] MEDS: Sacubitril/Valsartan 24 mg/26 mg TAB 1 EACH PO (07:17)
[2021-05-11] MEDS: Aspirin E.C. 81 MG TABEC PO (07:17)
[2021-05-11] MEDS: Magnesium Oxide 400 MG TAB PO (07:18)
[2021-05-11] MEDS: Metoprolol CR 25 MG TABCR PO (07:18)
[2021-05-11] MEDS: cefTRIAXone 2 GM/50 ML BAG IVPB (07:18)
[2021-05-11] MEDS: Protein Nutritional Supplement 16 GM 1 OUNCE PACKET PO ×3 (07:18→20:35)
[2021-05-11] MEDS: Docusate Sodium 100 MG CAP PO ×2 (07:18→20:34)
[2021-05-11] MEDS: Normal Saline Flush 10 ML SYR IVP ×2 (07:19→20:35)
--- NOTE | 2021-05-11 11:14 | WOUNDCARE ---
Wound Care Report One week review of patients wounds. Skin is returning to normal color, though patches of dry flaky skin remain. Edema decreasing to 1-2 +. Patient is now able to be independent in her room. Recommend that current treatment continues for another week.
--- NOTE | 2021-05-11 12:43 | CMPROGNOTE_ITS ---
- If Service Date Differs Date of service: 05/11/21 Time of Service: 12:43 Care Management Progress Note Dinorah will transition to [facility] for ongoing PT and IV ABX, with support for discharge planning as she is hoping to relocate to a SNF or assisted living facility in [place], [place]. BRIDGETT met with Dinorah to review swing bed paperwork. Dinorah was working on application for [facility] 3 in [place]. She reported she had been talking to her sister on the phone who missed her and wanted her to return home. Dinorah described feeling torn as her sister has chronic back pain and can be mean, and anguiano to Dinorah. BRIDGETT provided [place] application to Dinorah who expressed wanting to go to more local level 3 at least for the winter months. She stated that she loved Spring and Summer in [place] as well as her multiple doctors and the health care system, locally. BRIDGETT reviewed [facility] contract and forms- reported later in the day that Dinorah will not enter swing bed until tomorrow. No change to overall plan.
--- NOTE | 2021-05-11 14:09 | PT.INTREAT ---
Date of service: 05/11/21 Time of Service: 13:20 PT Notes Visit Reasons: Sepsis,NSTEMI Inpatient Physical Therapy Treatment Note [facility] Date: 05/11/2021 PRECAUTIONS: Fall, WBAT L, Activity as tolerated SUBJECTIVE: Dinorah is pleasant and agreeable to participating in PT. She states that she has been completing her I HEP over the weekend. She states that she is feeling much better. She reports that she is completing an application to [facility]. OBJECTIVE: PAIN: No c/o pain BED MOBILITY/TRANSFERS Sit-stand: I Stand-sit: I Bed-chair: I Chair-bed: I GAIT Assistive Device: FWW Weight bearing: WBAT L Assist: S Distance: 110' Deviation: Standing rest x1, L LE fatigue THEREX: Patient was instructed in a standing LE strengthening program, as per flow sheet. Patient will don/doff cryocuff, as needed. ASSESSMENT: Patient tolerated session with c/o increased L LE fatigue with gait training and ther ex. She continues to demonstrate independence with bed mobility, transfers, and short (in-room) distances with use of FWW. PLAN: Continue with independent completion of HEP for LE strengthening and stabilization. Continue with gait training for improved activity tolerance. TREATMENT CODE/TIME: 27 minutes; [id number] (13:20)
--- NOTE | 2021-05-11 14:49 | PGE_ITS ---
Date of Service Date of service: 05/11/21 Time of Service: 12:32 Assessment and Plan Assessment and plan (1) Septic arthritis of knee, left: Status: Acute Assessment and plan: Dinorah is an 86-year-old who is just over 2 weeks status post explantation of infected left knee spacer with revision replacement using a low friction spacer model, impregnated with therapeutic doses of vancomycin and tobramycin. She is doing very well. There was some concern about continued elevated lab levels but those have improved significantly and she has no concerning features on her exam. She is mobilizing well at this point needs the IV antibiotics. Given the trend of her C-reactive protein and the likely chronic nature of this, I do think transitioning to oral antibiotics could be considered once we find that the numbers continue to trend down. Our assumption is that this is a genitourinary source with all previous cultures being pansensitive, therefore making this amenable to oral treatments. However, I would default infectious disease before making that transition. From my perspective she is doing quite well. I would recommend we have the elle out by Tuesday of this week. I would default to wound care for her leg it is imperative that we continue to perform daily care to the legs to decrease the amount of exudate and scaling which was present on the legs. From an orthopedic standpoint she is now stable and this spacer will stay in with her for life unless there is a future issue as revision surgery would be challenging and presents a significant risk for reinfection. Qualifiers: Septic arthritis organism: due to unspecified organism Qualified C ode(s): M00.9 - Pyogenic arthritis, unspecified Subjective Subjective Patient reports: no new complaints Interval history since last seen: Dinorah reports to be doing well. She is moving mostly independently throughout her room. She requires minimal assistance. She feels that the knee is 30 and does not have any issues with buckling. She actually mentions that she thinks is better now than it has been in quite a few years and she is walking better now than she was. She still reports to be weak but does not have any significant pain, only achiness and discomfort around the knee. She denies fevers or chills. Her vancomycin has been discontinued and she is only on ceftriaxone at this time with a continually decreasing CRP. Exam Narrative Exam Narrative: Dinorah is sitting up in the chair. She is in no acute distress. Alert and oriented x3. Evaluation of the left knee shows the leg is wrapped with an Hiren wrap. Swelling has come down significantly. A brief examination of the wound shows a well- healed and approximated incision with elle in place. No surrounding erythema. She is able to demonstrate a straight leg raise although with some weakness. Range of motion was not tested. The knee is stable to varus and stress. He has intact great toe extension and flexion as well as ankle dorsiflexion and plantarflexion. Sensation intact to light touch over the deep and posterior peroneal nerve and tibial nerves. Objective Last Vital Signs Temp 36.7 C 05/11/21 20:20 Pulse 69 05/11/21 20:20 Resp 18 05/11/21 20:20 BP 100/67 05/11/21 20:20 Pulse Ox 97 05/11/21 20:20
[2021-05-11 15:00] VITALS: BP 110/69; PULSE 65; RESP 17; TEMP 36.6; O2SAT 93
[2021-05-11] MEDS: Enoxaparin 40 MG/0.4 ML SYR SC (15:50)
--- NOTE | 2021-05-11 16:54 | W.PM.PROGNOT ---
Date of Service Date of service: 05/11/21 Time of Service: 16:54 Assessment and Plan Assessment and plan (1) Septic arthritis of knee, left: Status: Acute Assessment and plan: Patient remains on ceftriaxone 2 g IV daily . WBC count normal Remains afebrile. Qualifiers: Septic arthritis organism: due to unspecified organism Qualified Code(s): M00.9 - Pyogenic arthritis, unspecified (2) Cellulitis: Status: Acute Assessment and plan: Abraded area of the left tobias likely the portal of entry. Healing. Erythema resolving. Continue ceftriaxone Cement spacer that was implanted is impregnated with tobramycin and vancomycin. Erythema significantly improved. Wound culture and blood culture with no growth. Qualifiers: Site of cellulitis: extremity Site of cellulitis of extremity: lower extremity Laterality: left Qualified Code(s): L03.116 - Cellulitis of left lower limb (3) UTI (urinary tract infection): Status: Resolved Assessment and plan: Now resolved. Repeat UA was negative. Qualifiers: Urinary tract infection type: acute cystitis Hematuria presence: without hematuria Qualified Code(s): N30.00 - Acute cystitis without hematuria (4) Elevated troponin: Status: Resolved Assessment and plan: echocardiogram showed no RWMA and EKG was unremarkable. Suspect that elevated troponin is d/t sepsis / NSTEMI. Troponin is now normalized. (5) Wheezing: Status: Resolved Assessment and plan: Cont IS/acapella. Has cleared. (6) Right heart failure: Status: Chronic Assessment and plan: echo showed borderline dilated RV but normal RV systolic function. Mild PHTN RVSP 34 mm. Suspected underlying MYLES (never worked up for this per patient). Resume diuretics. (7) Iron deficiency anemia: Status: Acute Assessment and plan: Total iron of 16. Hgb andrew during admission was 7.9. Hgb now 8.7. Venofer 300mg IV x 2 during this admission. (8) Discharge planning issues: Status: Acute Assessment and plan: Planning to convert to swing bed status on 05/12. Subjective Subjective Patient reports: no new complaints, tolerating a regular diet, bowel movement and afebrile; denies nausea and vomiting Exam Narrative Exam Narrative: Sitting in chair. Const General: no acute distress, not ill appearing and not lethargic Nutritional Appearance: overweight Orientation: oriented x3 HENMT Head: normal to inspection Ears: hearing grossly normal bilaterally Mouth: moist mucous membranes Eyes Eyelids: eyelids normal Pupils: PERRL EOM: EOM intact bilaterally Neck Neck: no JVD Resp Effort & Inspection: normal respiratory effort and able to speak in complete sentences Auscultation: clear to auscultation bilaterally, no rales, no rhonchi and no wheezes Cardio Rate: regular rate Rhythm: regular rhythm Heart Sounds: S1 normal, S2 normal and murmur (1/6 LILLY) systolic GI Palpation: soft and nontender Auscultation: normal bowel sounds Skin General skin exam: no rashes or lesions noted Extrem General: no calf tenderness and pedal edema bilaterally non-pitting Left lower extremity: knee (Bandage in place. ) Psych Appearance: grossly normal Mental Status: mental status grossly normal Affect: normal affect Objective Last Vital Signs Temp 36.6 C 05/11/21 15:00 Pulse 65 05/11/21 15:00 Resp 17 05/11/21 15:00 BP 110/69 05/11/21 15:00 Pulse Ox 93 05/11/21 15:00 Laboratory Results - last 24 hr 05/11/21 05/11/21 06:30 06:30 WBC 9.83 RBC 2.88 L Hgb 8.7 L Hct 29.2 L MCV 101.4 H MCH 30.2 MCHC 29.8 L RDW 14.7 H Plt Count 528 H MPV 8.1 Immature Gran % 1.7 Neutrophils % 64.8 Lymphocytes % 15.2 Monocytes % 10.4 Eosinophils % 6.9 Basophils % 1.0 Nucleated RBC % 0 Absolute Neutrophils 6.37 Absolute Lymphocytes 1.49 Absolute Monocytes 1.02 H Absolute Eosinophils 0.68 Absolute Basophils 0.10 C-Reactive Protein 1.76 H
[2021-05-11 20:20] VITALS: BP 100/67; PULSE 69; RESP 18; TEMP 36.7; O2SAT 97
[2021-05-11] MEDS: Latanoprost 0.005% 2.5 ML BTL OU (21:57)
[2021-05-12] MEDS: Furosemide 40 MG TAB PO ×2 (05:13→12:57)
[2021-05-12] MEDS: Acetaminophen 500 MG TAB 1000 MG PO (07:25)
[2021-05-12] MEDS: Metoprolol CR 25 MG TABCR PO (07:26)
[2021-05-12] MEDS: Sacubitril/Valsartan 24 mg/26 mg TAB 1 EACH PO (07:26)
[2021-05-12] MEDS: Rosuvastatin 5 MG TAB PO (07:26)
[2021-05-12] MEDS: Magnesium Oxide 400 MG TAB PO (07:26)
[2021-05-12] MEDS: Docusate Sodium 100 MG CAP PO (07:26)
[2021-05-12] MEDS: Protein Nutritional Supplement 16 GM 1 OUNCE PACKET PO ×2 (07:26→12:57)
[2021-05-12] MEDS: Aspirin E.C. 81 MG TABEC PO (07:26)
[2021-05-12] MEDS: cefTRIAXone 2 GM/50 ML BAG IVPB (07:27)
[2021-05-12] MEDS: Normal Saline Flush 10 ML SYR IVP (07:27)
[2021-05-12 07:30] VITALS: BP 102/65; PULSE 66; RESP 18; TEMP 36.4; O2SAT 94
--- NOTE | 2021-05-12 08:37 | INPN_ITS ---
PT Notes Visit Reasons: Sepsis,NSTEMI Inpatient Physical Therapy Progress Note Date: 05/12/21 Dates of Service: 05/05- PRECAUTIONS: WBAT on left LE with AD. Dinorah is an 86-year-old female admitted to this hospital secondary to hypomagnesemia, sepsis, cellulitis and generalized weakness. She is status post left TKA explantation of knee spacer with synovectomy, debridement, and reimplantation of infection antibiotic spacer due to septic arthritis of left knee. She is post op day 16 and has been participating in PT intervention 1- 2x/day. 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) Pes planus of right foot (Acute) Edema (Acute) Non-ST elevation [place] (NSTEMI) (Acute) Hyperlipidemia (Chronic) Obesity (Chronic) Osteoarthritis (Chronic) Hypertension (Chronic) Medical History Glaucoma History of left breast cancer History of right breast cancer Left fibular fracture 2018 Melanoma 2017 Pulmonary embolism following a TKR Surgical History History of appendectomy History of melanoma excision History of total left knee replacement (TKR) S/P cholecystectomy S/P total knee replacement right 11/12/2019 Social History/Home Situation: Dinorah reports that she lives with her sister in a private home in [place]. She reports that her sister is also disabled due to her back and is unable to assist her. She would like to look into an Assisted Living Center more around her family in the [place] area. She has a neighbor who is very helpful and involved. Current Functional Limitations: generalized weakness with limited ability to ambulate. Utilizes a FWW at all times. Reports independence prior to admission with ADL's including showering and dressing with use of shower bench. Equipment Owned/DME: Shower chair, FWW Subjective: Agreeable to PT. Objective: General Observation: IV access. Dressing over anterior right knee and tobias. Mental Status: Alert and oriented x3 Pain: discomfort in anterior left knee ROM: Right Upper Extremity: Limited right shoulder flexion to 80 degrees with significant crepitation. IR chest wall. ER to neutral. WFL elbow, wrist, and hand Left Upper Extremity: Demonstrates WNL AROM L UE Right Lower Extremity: Hip flexion 100 degrees, knee 90 degrees, knee extension lacking 10 degrees, dorsiflexion limited to neutral Left Lower Extremity: Hip flexion 100 degrees, knee flexion 90 degrees, extension lacking 15 degrees, dorsiflexion neutral Strength: Right Upper Extremity: Shoulder flexion 3/5, bicep 4/5, good functional grasp Left Upper Extremity: Demonstrates 4+/5 left upper extremity strength Right Lower Extremity: Independent straight leg raise with notable extension lag. Hip flexion 4+/5, knee extension 4/5, knee flexion 4-/5 Left Lower Extremity: Unable to perform independent straight leg raise. Hip flexion 4/5, knee extension 2/5, knee flexion 4/5 Sensation: Intact light touch Bed Mobility/Transfers: Sit-stand: Supervision Stand-sit: Supervision GAIT Assistive Device: FWW Weight bearing: WBAT L Assist: Supervision Distance: 80' Deviation: Step-through gait pattern, slow pacing, minimal [place] Balance: Static Sitting: Normal Dynamic Sitting: normal Static Standing: Fair Dynamic Standing: Fair Informed Consent/Education: Patient instructed in purpose of PT consult and plan of care. Therapeutic Activities ([id number]): Performed gait and transfer training as well as hygiene at sink. Step through gait with FWW and did not need rest with ambulation of 80 ft. Decreased left knee active extension. Improving tolerances and ambulation distance. Assessment: Improving independence and activity tolerance. Patient reports feeling stronger with less fatigue. Continues to lack tolerance for community ambulation, but improving independence with household distances. Requires ongoing PT intervention to maximize independence and allow for safe transition to [facility] once appropriate. GOALS Goals X1 week 1. Supine-Sit independent (progressing toward) 2. Sit-Supine independent (progressing toward) 3. Sit-Stand standby assist with front wheeled walker (met) 4. Stand-Sit standby assist (met) 5. Bed-Chair contact-guard assist with front wheeled walker (met) 6. Chair-Bed contact-guard assist with front wheel walker(met) 7. Gait contact-guard assist with front wheeled walker x50 feet or greater (met) NEW GOAL 150ft SBA 8. Stairs up/down 3-5 steps with contact-guard assist (progressing toward) DISCONTINUE 9. Independent with home exercise program (progressing toward) PLAN OF CARE/TREATMENT PLAN: 1x/day, 5 days/week x1 week Plan of care has been reviewed with the SYSTEM VALIDATION ENGINEER providing the service under Physical therapy direction. Initiate physical therapy intervention for strengthening, bed mobility, transfers, gait, stairs, balance training, use of assistive device. DISCHARGE RECOMMENDATIONS: OUMAR with [facility] TREATMENT CODE/TIME: 8:44-9:10 (26 minutes) [id number] Arminda Swan, PT, DPT, OCS [facility] [place], [place]
--- NOTE | 2021-05-12 12:58 | DSE_ITS ---
Date of service: 05/12/21 Time of Service: 12:58 DS: Diagnosis Discharge Diagnosis (1) Septic arthritis of knee, left: Status: Acute Discharge Plan Disposition Patient Disposition: [facility] SWING BED LEVEL 1 Condition: Stable Discharge Details Reason For Visit: Sepsis,NSTEMI Admit Date/Time: 04/23/21 00:29 Admit Provider: Nicholas Baron Attending Provider: Nicholas Baron [facility] Hospital Course: This 86-year-old female came emergency department with some chest tightness, nausea vomiting and weakness. She went to her eye doctor's appointment [place] yesterday and said she felt fine before going there but she states after her eyes were dilated she began feeling poorly. She had some chest tightness with weakness, nausea and vomiting and dizziness. She presented to the emergency department last night because of the symptoms. She said her eye doctor's appointment was at 11 AM. She began having shakiness of her arms and legs with chills following the appointment. She checked her temperature at home it is about 99.1?F. She says that her sister who she lives with has been sick with the flu. She and her sister both received 2 chronic virus vaccines but has not received a booster yet. The patient did have a NSTEMI in June of this year and went to [facility] and had a cardiac catheterization but she says they did not need to do any stents. She has been having trouble walking for about 1 year. She says she has not talked to her doctor about this problem. 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 She said she is homebound now and is considering moving to an assisted living facility. She acknowledges both she and her sister not well and will likely need more care soon. They do have some friends that help them with various needs that they have. She does not use tobacco or alcohol. She has no children and was never . She did have some central chest discomfort associated with this illness. Emergency department did a CT of her chest abdomen pelvis without any abnormalities noted except for a large hepatic cyst. She has some nitrates in her urine and was treated with levofloxacin. She was noted to have an elevated white blood cell count and an elevated lactate and troponins. Rocephin 2 gram IV daily and IV vancomycin initiated. Her left knee that has a polymer spacer implant that was placed in the distant past after a previous prosthetic knee joint septic joint. The knee was aspirated by orthopedics. She subsequently went to the OR with orthopedics for removal of the spacer and placement of an antibiotic impregnated spacer. Cultures, knee joint and blood, were negative. Urine grew E. Coli. She did have an elevated initial troponin. Echocardiogram showed no RWMA and EKG was unremarkable. Suspect that elevated troponin was due to sepsis. Troponin normalized. Post-operatively her intermittent fevers abated and her WBC count normalized. [facility] regarding ongoing antibiotics was obtained. There are studies that indicate a longer (appx 3 months) oral antibiotic course following initial IV is not inferior to a 6 week IV course. However, given we don't have a specific organism to target, changing to oral antibioitic may not be prudent. She is going into a swing bed status at [facility] today with ongoing Rocephin. She is walking with a walker independently with ongoing PT for strengthening and endurance. Home Meds and New Rx's Prescriptions: No Action calcium carb,[id number] D3 500-250-200 mg-mg-unit tablet PO DAILY RF: 0 magnesium 250 mg tablet 250 mg PO DAILY RF: 0 docusate sodium [Colace] 100 mg capsule 100 mg PO DAILY RF: 0 metoprolol succinate 25 mg tablet extended release 24 hr 25 mg PO DAILY Qty: 90 RF: 4 rosuvastatin [Crestor] 5 mg tablet 5 mg PO .Every other day Qty: 90 RF: 4 latanoprost 0.005 % drops 1 drp OU HS Qty: 2.5 RF: 5 furosemide [Lasix] 20 mg tablet 20 mg PO BID Qty: 180 RF: 3 (DME) Ankle Foot Orthosis See Rx Instructions .Route .MEDSUPPLY Qty: 1 RF: 0 losartan 50 mg tablet 50 mg PO DAILY Qty: 90 RF: 3 aspirin 81 mg Tablet,Delayed Release (Dr/Ec) 81 mg PO DAILY RF: 0 ascorbic acid-ascorbate sodium 500 MG wafer 1 wafer PO DAILY RF: 0 Discharge Instructions Activity:: Activity as Tolerated Equipment/Supplies:: No Equipment Needed Diet:: Heart Healthy Discharge Orders Discharge Orders: Discharge Order (Routine); Ordered 05/12/21 Ordered By: Toro Narvaez DS: Summary Time Spent with Patient providing and/or coordinating discharge services: Greater than 30 minutes Status at Discharge Functional status at discharge: uses cane/walker Overall status at discharge: patient is progressing back to baseline Mental Status: mental status grossly normal Speech and Movement: speech clear Mood: congruent mood Affect: normal affect Exam Narrative Exam Narrative: Sitting in chair. Const General: no acute distress, not ill appearing and not lethargic Nutritional Appearance: overweight Orientation: oriented x3 HENMT Head: normal to inspection Ears: hearing grossly normal bilaterally Mouth: moist mucous membranes Eyes Eyelids: eyelids normal Pupils: PERRL EOM: EOM intact bilaterally Neck Neck: no JVD Resp Effort & Inspection: normal respiratory effort and able to speak in complete sentences Auscultation: clear to auscultation bilaterally, no rales, no rhonchi and no wheezes Cardio Rate: regular rate Rhythm: regular rhythm Heart Sounds: S1 normal, S2 normal and murmur (1/6 LILLY) systolic GI Palpation: soft and nontender Auscultation: normal bowel sounds Skin General skin exam: no rashes or lesions noted Extrem General: no calf tenderness and pedal edema bilaterally non-pitting Left lower extremity: knee (Bandage in place. ) Psych Appearance: grossly normal Mental Status: mental status grossly normal Speech and Movement: speech clear Mood: congruent mood Affect: normal affect DS: Data Vitals/I&O Vitals and I&O: Vital Signs Temperature 36.4 C L 05/12/21 07:30 Temperature Source Tympanic 05/12/21 07:30 Pulse 66 05/12/21 07:30 Pulse Rhythm Regular 05/12/21 09:40 Pulse 76 04/23/21 14:00 Respiratory Rate 18 05/12/21 07:30 Respiratory Effort Non-Labored 05/12/21 09:40 Respiratory Depth Normal 05/12/21 09:40 Respiratory Pattern Normal 05/12/21 09:40 Blood Pressure 102/65 05/12/21 07:30 Blood Pressure Mean 66 04/23/21 08:01 Blood Pressure Position Supine 04/23/21 04:15 Pulse Oximetry 94 05/12/21 07:30 Respiratory End-tidal CO2 31 04/26/21 13:35 Oxygen Delivery Method Room Air 05/12/21 07:30 Oxygen Flow Rate 0 05/12/21 07:30 Pain Level 4 05/12/21 07:25 Comment 05/09/21 07:35 Intake & Output 05/11/21 05/12/21 05/12/21 23:59 11:59 23:59 Intake Total 480 / 770 240 / 240 Output Total 200 / 200 Balance 480 / 670 40 / 40 Weight 98.9 kg Intake: Oral 480 / 720 240 / 240 Output: Urine 200 / 200 Other: Urine Color Yellow Urine Appearance Clear Clear Comment voiding independently voiding independently Voiding Methods Toilet Toilet Data Completed and Pending Labs on day of discharge: Preliminary micro results at discharge 04/26/21 09:02 Surgical Culture - Preliminary Knee - Left Joint 04/26/21 09:02 Anaerobic Culture - Preliminary Knee - Left Joint 04/26/21 09:02 Body Fluid Culture - Preliminary Synovial - Left Knee 04/26/21 10:03 Body Fluid Culture - Preliminary Bone Marrow 04/26/21 10:18 Surgical Culture - Preliminary Tibia - Left 04/26/21 10:15 Body Fluid Culture - Preliminary Bone Marrow 04/24/21 11:50 Body Fluid Culture - Preliminary Synovial - Left Knee PFSH All Active Problems Cellulitis of second toe of left foot (Acute) Discharge planning issues (Acute) DVT prophylaxis (Acute) Iron deficiency anemia (Acute) Right heart failure (Chronic) Septic arthritis of knee, left (Acute) Painful total knee replacement, left (Acute) Sepsis (Acute) Cellulitis (Acute) Bacteremia (Acute) Hypomagnesemia (Acute) Hypokalemia (Acute) Generalized weakness (Acute) Right knee pain (Acute) 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) Pes planus of right foot (Acute) Edema (Acute) Non-ST elevation [place] (NSTEMI) (Acute) Hyperlipidemia (Chronic) Obesity (Chronic) Osteoarthritis (Chronic) Hypertension (Chronic) Medical History Glaucoma History of left breast cancer History of right breast cancer Left fibular fracture 2018 Melanoma 2017 Pulmonary embolism following a TKR Surgical History History of appendectomy History of melanoma excision History of total left knee replacement (TKR) S/P cholecystectomy S/P total knee replacement right 11/12/2019 Family History Mother , age 100 Heart disease Hypertension Dementia Father , age 78 Non-Hodgkin lymphoma Hyperlipidemia Sister Breast cancer Brother Bladder cancer Alcohol abuse Maternal Grandfather , age 58 Heart disease Paternal Grandfather , age 75 No problems noted. Maternal Grandmother , age 63 Thyroid cancer Heart disease Hyperlipidemia Hypertension Stroke Paternal Grandmother , age 93 Heart disease Social History Smoking/Tobacco Use Status: Never Second Hand Exposure: Yes Smoking risk assessment performed?: Yes Alcohol Intake: never Drug use: Never Substance use type: does not use Caregiver/Support person: No Household members: family and other Details: Sister Housing: house Communication Needs: Corrective Lenses Do you need help understanding health information?: Never Pets and animals: Yes Pets and animals: dog(s) Sexually active: No Do you think of yourself as: straight/heterosexual Current gender identity: female What is your relationship status?: never How often do you talk on the phone with friends or family?: three or more times per week How often do you get together with friends or relatives?: twice per week How often do you attend jehovah's witness or moravian services?: 4 or more times per year Do you belong to any clubs or organized social groups?: yes Panel score (0-1 are the most socially isolated patients): 3 Duration: 45-60 minutes/day Frequency: daily Annia/Gnosticist: Oriental Orthodox Special annia needs: Yes ([facility] 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
--- NOTE | 2021-05-12 13:24 | W.PM.HP.N ---
Date of service: 05/12/21 Time of Service: 13:24 Assessment and Plan Assessment and plan (1) Septic arthritis of knee, left: Status: Acute Assessment and plan: Patient remains on ceftriaxone 2 g IV daily . WBC count normal Remains afebrile. Planning on a 6 week total IV antibiotic course. Qualifiers: Septic arthritis organism: due to unspecified organism Qualified Code(s): M00.9 - Pyogenic arthritis, unspecified (2) Discharge planning issues: Status: Acute Assessment and plan: Pt does have a referral in for transition to assisted living at [facility]. She could potentially finish the course of IV antibiotics there with home health. (3) Cellulitis of second toe of left foot: Status: Acute Assessment and plan: Improved after debridement of an eschar that had formed. (4) Iron deficiency anemia: Status: Acute Assessment and plan: Hgb 8.7; improving after 2 doses of Venofer, 300mg each. (5) Hyperlipidemia: Status: Chronic Assessment and plan: Cont Rosuvastatin. (6) Hypertension: Status: Chronic Assessment and plan: On metoprolol as well as Entresto. (7) Obesity: Status: Chronic Assessment and plan: A contributing factor to her knee DJD that initially required a knee replacement. Encourage mobilization and portion control. (8) Right heart failure: Status: Chronic Assessment and plan: Since admission her oral lasix increased from 20mg BID to 40mg BID. Cont Entresto and metoprolol. History of Present Illness History of Present Illness Chief Complaint: Septic knee arthritis Narrative: This 86-year-old female came emergency department with some chest tightness, nausea vomiting and weakness. She went to her eye doctor's appointment [place] yesterday and said she felt fine before going there but she states after her eyes were dilated she began feeling poorly. She had some chest tightness with weakness, nausea and vomiting and dizziness. She presented to the emergency department last night because of the symptoms. She said her eye doctor's appointment was at 11 AM. She began having shakiness of her arms and legs with chills following the appointment. She checked her temperature at home it is about 99.1?F. She says that her sister who she lives with has been sick with the flu. She and her sister both received 2 chronic virus vaccines but has not received a booster yet. The patient did have a NSTEMI in June of this year and went to [facility] and had a cardiac catheterization but she says they did not need to do any stents. She has been having trouble walking for about 1 year. She says she has not talked to her doctor about this problem. 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 She said she is homebound now and is considering moving to an assisted living facility. She acknowledges both she and her sister not well and will likely need more care soon. They do have some friends that help them with various needs that they have. She does not use tobacco or alcohol. She has no children and was never . She did have some central chest discomfort associated with this illness. Emergency department did a CT of her chest abdomen pelvis without any abnormalities noted except for a large hepatic cyst. She has some nitrates in her urine and was treated with levofloxacin. She was noted to have an elevated white blood cell count and an elevated lactate and troponins. Rocephin 2 gram IV daily and IV vancomycin initiated. Her left knee that has a polymer spacer implant that was placed in the distant past after a previous prosthetic knee joint septic joint. The knee was aspirated by orthopedics. She subsequently went to the OR with orthopedics for removal of the spacer and placement of an antibiotic impregnated spacer. Cultures, knee joint and blood, were negative. Urine grew E. Coli. She did have an elevated initial troponin. Echocardiogram showed no RWMA and EKG was unremarkable. Suspect that elevated troponin was due to sepsis. Troponin normalized. Post-operatively her intermittent fevers abated and her WBC count normalized[place] [facility] [place] regarding ongoing antibiotics was obtained. There are studies that indicate a longer (appx 3 months) oral antibiotic course following initial IV is not inferior to a 6 week IV course. However, given we don't have a specific organism to target, changing to oral antibioitic may not be prudent. She is going into a swing bed status at [facility] today with ongoing Rocephin. She is walking with a walker independently with ongoing PT for strengthening and endurance. 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) Pes planus of right foot (Acute) Edema (Acute) Non-ST elevation [place] (NSTEMI) (Acute) Hyperlipidemia (Chronic) Obesity (Chronic) Osteoarthritis (Chronic) Hypertension (Chronic) Medical History Glaucoma History of left breast cancer History of right breast cancer Left fibular fracture 2018 Melanoma 2017 Pulmonary embolism following a TKR Surgical History History of appendectomy History of melanoma excision History of total left knee replacement (TKR) S/P cholecystectomy S/P total knee replacement right 11/12/2019 Family History Mother , age 100 Heart disease Hypertension Dementia Father , age 78 Non-Hodgkin lymphoma Hyperlipidemia Sister Breast cancer Brother Bladder cancer Alcohol abuse Maternal Grandfather , age 58 Heart disease Paternal Grandfather , age 75 No problems noted. Maternal Grandmother , age 63 Thyroid cancer Heart disease Hyperlipidemia Hypertension Stroke Paternal Grandmother , age 93 Heart disease Social History Smoking/Tobacco Use Status: Never Second Hand Exposure: Yes Smoking risk assessment performed?: Yes Alcohol Intake: never Drug use: Never Substance use type: does not use Caregiver/Support person: No Household members: family and other Details: Sister Housing: house Communication Needs: Corrective Lenses Do you need help understanding health information?: Never Pets and animals: Yes Pets and animals: dog(s) Sexually active: No Do you think of yourself as: straight/heterosexual Current gender identity: female What is your relationship status?: never How often do you talk on the phone with friends or family?: three or more times per week How often do you get together with friends or relatives?: twice per week How often do you attend worship or judaism services?: 4 or more times per year Do you belong to any clubs or organized social groups?: yes Panel score (0-1 are the most socially isolated patients): 3 Duration: 45-60 minutes/day Frequency: daily Annia/Zoroastrianism: Moravian Special annia needs: Yes (priestly visits for [employer] administrator, [facility] of sick) Seatbelt use: always Helmet use: No Drive intox or ride w/intox road driver: No Do you feel safe at home: Yes (pt states sometimes her and her sister become verbal) Do you feel safe in your relationship?: Yes Additional Social history: Lives in [place], [place] having moved up from [facility]. 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 [employer] Meds Allergies and Home Medications Allergies Allergy/AdvReac Type Severity Reaction Status Date / Time demeclocycline HCl Allergy Intermediate Hives Verified 03/26/21 11:55 [From Declomycin] acetaminophen [From Percocet] Allergy Mild Hives Verified 04/27/21 06:19 oxycodone [From Percocet] Allergy Mild Hives Verified 03/26/21 11:55 Penicillins Allergy Mild Hives Verified 03/26/21 11:55 Cuxaqok-HWX-IpA Reductase AdvReac Intermediate nauesa Verified 03/26/21 11:55 Inhibitor /vomiting [Qhlzwzh-Ipa-Jba Reductase Inhibitor] Home Medications Medication Instructions Recorded Confirmed Type ascorbic acid-ascorbate sodium 1 wafer PO DAILY 08/16/17 04/23/21 History calcium carb,citrat 500 tab PO DAILY tab 06/04/19 03/26/21 History mg-magnesium #12 250 mg-vit D3 200 unit tablet magnesium 250 mg tablet 250 mg PO DAILY 06/04/19 04/23/21 History docusate sodium 100 mg capsule 100 mg PO DAILY 12/14/19 04/23/21 History latanoprost 0.005 % eye drops 1 drp OU HS #2.5 ml 07/03/20 04/23/21 Rx metoprolol succinate 25 mg 25 mg PO DAILY #90 tab 07/03/20 04/23/21 Rx tablet,extended release 24 hr rosuvastatin 5 mg tablet 5 mg PO .Every other day #90 tab 07/03/20 04/23/21 Rx furosemide 20 mg tablet 20 mg PO BID #180 tab 08/22/20 04/23/21 Rx Ankle Foot Orthosis #1 ea 10/29/20 03/26/21 Rx losartan 50 mg tablet 50 mg PO DAILY #90 tab 03/26/21 04/23/21 Rx aspirin 81 mg PO DAILY 04/23/21 04/23/21 History Exam Narrative Exam Narrative: Sitting in chair. Const General: no acute distress, not ill appearing and not lethargic Nutritional Appearance: overweight Orientation: oriented x3 HENMT Head: normal to inspection Ears: hearing grossly normal bilaterally Mouth: moist mucous membranes Eyes Eyelids: eyelids normal Pupils: PERRL EOM: EOM intact bilaterally Neck Neck: no JVD Resp Effort & Inspection: normal respiratory effort and able to speak in complete sentences Auscultation: clear to auscultation bilaterally, no rales, no rhonchi and no wheezes Cardio Rate: regular rate Rhythm: regular rhythm Heart Sounds: S1 normal, S2 normal and murmur (1/6 LILLY) systolic GI Palpation: soft and nontender Auscultation: normal bowel sounds Skin General skin exam: no rashes or lesions noted Extrem General: no calf tenderness and pedal edema bilaterally non-pitting Left lower extremity: knee (Bandage in place. ) Psych Appearance: grossly normal Mental Status: mental status grossly normal Speech and Movement: speech clear Mood: congruent mood Affect: normal affect Results Labs Result diagrams: 05/11/21 06:30 05/09/21 07:00 Last Vital Signs Temp 36.4 C L 05/12/21 07:30 Pulse 66 05/12/21 07:30 Resp 18 05/12/21 07:30 BP 102/65 05/12/21 07:30 Pulse Ox 94 05/12/21 07:30
--- NOTE | 2021-05-13 12:00 | PT.INDS ---
Date of service: 05/13/21 Time of Service: 12:00 PT Notes Visit Reasons: Sepsis,NSTEMI Physical Therapy Inpatient Discharge Summary Date: 05/13/21 Date of service: 04/27/2020 through 05/12/2021 This is a clinical summary of care provided for the duration of dates listed above. No charge was made in the completion of this documentation. Referring Doctor: Matthew Clarke MD PT Orders: PT CONSULT: Status post Ortho surgery. Status post left TKA explant and placement. WBAT with walker. Precautions: WBAT on left LE with AD. Patient Profile/Admitting Diagnosis: Dinorah is a 86-year-old female admitted to this hospital secondary to hypomagnesemia, sepsis, cellulitis and generalized weakness. She is status post left TKA explantation of knee spacer with synovectomy, debridement, and reimplantation of infection antibiotic spacer on postoperative day 18 due to septic arthritis of left knee. She converts to swing bed level 1 of care as of today. 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) Pes planus of right foot (Acute) Edema (Acute) Non-ST elevation [place] (NSTEMI) (Acute) Hyperlipidemia (Chronic) Obesity (Chronic) Osteoarthritis (Chronic) Hypertension (Chronic) Medical History Glaucoma History of left breast cancer History of right breast cancer Left fibular fracture 2018 Melanoma 2017 Pulmonary embolism following a TKR Surgical History History of appendectomy History of melanoma excision History of total left knee replacement (TKR) S/P cholecystectomy S/P total knee replacement right 11/12/2019 Social History/Home Situation: Dinorah reports that she lives with her sister in a private home in [place]. She reports that her sister is also disabled due to her back and is unable to assist her. She would like to look into an Assisted Living Center more around her family in the [facility]. She has a neighbor who is very helpful and involved. Equipment Owned/DME: Shower chair, FWW Subjective: States that she has been performing well with PT. Reports no pain in her L knee during ambulation. Did indicate that it is the bending that happens during sitting down and standing up that bothers her now but once she is up she feels a lot better. Objective: General Observation: ARETHA wrap over Mepilex Ag on the L LE and L knee Mental Status: Alert and oriented x3 Pain: Denies ROM: Right Upper Extremity: Limited right shoulder flexion to 80 degrees with significant crepitation. IR chest wall. ER to neutral. WFL elbow, wrist, and hand Left Upper Extremity: Demonstrates WNL AROM L UE Right Lower Extremity: Hip flexion 100 degrees, knee 90 degrees, knee extension lacking about 5 degrees, dorsiflexion limited to neutral Left Lower Extremity: Hip flexion 100 degrees, knee flexion 90 degrees, extension lacking 10 degrees, dorsiflexion neutral Strength: Right Upper Extremity: Shoulder flexion 3-/5, bicep 4/5, good functional grasp Left Upper Extremity: Demonstrates 4+/5 left upper extremity strength, good functional grasp Right Lower Extremity: Independent straight leg raise with notable extension lag. Hip flexion 4+/5, knee extension 4/5, knee flexion 4-/5 Left Lower Extremity: SLR to about 30 degrees. Hip flexion 4/5, knee extension 3-/5, knee flexion 3-/5 Sensation: Intact light touch Bed Mobility/Transfers: Sit-stand: Independent Stand-sit: Independent Bed-chair: Independent Cahir-bed: Independent GAIT Assistive Device: FWW Weight bearing: WBAT L Assist: Supervision Distance: 100 feet +150 feet Deviation: Step-through gait pattern. Denies pain in L knee. Reported mild fatigue that resolved with rest. Increased R foot pronation and R tibila external rotation (chronic). Trunk anteroflexed (chronic). Patient is able to fully extend at knee on midstance. Balance: Static Sitting: Normal Dynamic Sitting: Normal Static Standing: Fair Dynamic Standing: Fair Assessment: Agreeable to goals set with her today under swing bed level 1. Happy about how well she did for this session. Patient has been independent with in-room ambulation using the FWW. Demosntrates much improved confidence about ability of L knee to hold her up. Active knee flexion while in supine to about 90 degrees with no end of range pain. Quadriceps strength remains limited but improving compared to start of care, able to straight leg raise to about 30 degrees today. Activity tolerance improving. Pain level diminishing, walked with no report of pain on re-evaluation. Will continue to work on new goals mentioned below to facilitate independence. GOALS x 1 week 1. Supine-Sit independent MET. Patient is now independent. D/C as of 05/13/2021. 2. Sit-Supine independent MET. Patient is now independent. D/C as of 05/13/2021. 3. Sit-Stand standby assist with front wheeled walker MET. Patient is now independent. D/C as of 05/13/2021. 4. Stand-Sit standby assist MET. Patient is now independent. D/C as of 05/13/2021. 5. Bed-Chair contact-guard assist with front wheeled walker MET. Patient is now independent. D/C as of 05/13/2021. 6. Chair-Bed contact-guard assist with front wheel walker MET. Patient is now independent. D/C as of 05/13/2021. 7. Gait contact-guard assist with front-wheeled walker x 50 feet or greater MET. UPGRADE as of 05/13/2021: Independent with level surface ambulation using the FWW for 200 feet with no report of pain in the L knee. 8. Stairs up/down 3-5 steps with contact-guard assist. NOT MET. CONTINUE. 9. Independent with home exercise program. CONTINUE with EXERCISE PROGRESSION. 10. PATIENT GOAL: Be able to use the NuStep safely following parameters given by PT/LEARNING OFFICER as part of maintenance program. DISCHARGE RECOMMENDATIONS: [] Home with no services [] [X] Home with services. Patient will benefit from home health PT services in order to progress mobility level using least restrictive assistive ambulatory device, assess home safety, identify additional equipment needs, and establish a functional maintenance program that will increase ability of patient to remain at home. [] Home with outpatient PT [] [] SNF for continued rehabilitation [] [] [facility] [] [] SNF versus LTC based on ability to participate and progress [] TREATMENT CODE/TIME: MS Thank you for the opportunity to participate in the care of this patient. Jagruti Nelson PT, DPT, CLT [facility], [place]
[2021-05-24 09:54] LABS: Fungus Smear No Fungi Seen
== END 2021-05-12 14:39 | disposition swing bed (61) | DRG 854 ==
LOC: ER 04-23 01:51 → ICU 04-23 01:53 → MS 04-23 15:58
PROVIDERS: Family Medicine; Internal Medicine; Student in an Organized Health Care Education/Training Program; Admitting Provider Family Medicine; Emergency Provider Nurse Practitioner Family; PCP Nurse Practitioner; Visit Provider Family Medicine
PROC: 0SHD08Z Insertion of Spacer into Left Knee Joint, Open Approach (ICD-10-PCS; CPT 27488; principal; 2021-04-26 08:30)
DX: A41.9 Sepsis, unspecified organism (principal); T84.54XA Infection and inflammatory reaction due to internal left knee prosthesis, initial encounter; L03.116 Cellulitis of left lower limb; T84.84XA Pain due to internal orthopedic prosthetic devices, implants and grafts, initial encounter; N30.00 Acute cystitis without hematuria; M00.862 Arthritis due to other bacteria, left knee; I50.30 Unspecified diastolic (congestive) heart failure; I50.811 Acute right heart failure; E83.42 Hypomagnesemia; E87.6 Hypokalemia; I25.2 Old myocardial infarction; E78.5 Hyperlipidemia, unspecified; E66.9 Obesity, unspecified; Z68.35 Body mass index [BMI] 35.0-35.9, adult; I87.2 Venous insufficiency (chronic) (peripheral); Z96.653 Presence of artificial knee joint, bilateral; R74.8 Abnormal levels of other serum enzymes; B96.20 Unspecified Escherichia coli [E. coli] as the cause of diseases classified elsewhere; I11.0 Hypertensive heart disease with heart failure; K59.00 Constipation, unspecified; D50.9 Iron deficiency anemia, unspecified; L03.032 Cellulitis of left toe
CPT/HCPCS: 20610; 27488; 11721; 36410; 36415; 36569; 51701; 74177; 76942; 80048; 80053; 80061; 82550; 83690; 84145; 85027; 85652; 86850; 86900; 86901; 87040; 87077; 87102; 87206; 87635; 93005; 93306; 96361; 96365; 96366; 96368; 97110; 97162; 97530; 99222; 99232; 99285; 99306; J1650; 71045; 71260; 73560; 73620; 80202; 81003; 81015; 82565; 82607; 82728; 82746; 83540; 83550; 83605; 83735; 83880; 84132; 84443; 84484; 85014; 85018; 85025; 86140; 87070; 87075; 87086; 87186; 87205; 89051; 93010; 93971; 99223; 99233; 99239; J0131; J0690; J1756; J1885; J1940; J1941; J1956; J2250; J2370; J2405; J3480; J3490; J7620

== ENCOUNTER 2021-05-12 13:05 | Inpatient (IN) | payer MEDICARE, BC, SELFPAY ==
--- NOTE | 2021-05-11 12:42 | CM.SBPSYCH ---
- If Service Date Differs Date of service: 05/12/21 Time of Service: 16:31 SB Psychosocial/Act.Assessment - Hospital Admission Admission Date: 04/23/21 Admission From:: Home Diagnosis:: Sepsis - Swing Bed Admission Swing Bed Admit Date:: 05/12/21 Swing Bed Level of Care: Level 1/SNF - Social Supports PREVIOUS FUNCTIONAL STATUS/SOCIAL/FAMILY SUPPORTS:: Dinorah lives with her sister Bette Vallejo in [place], [place]. Her sister is disabled and unable to help Dinorah at all at this time. 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 where she is from. - Prior to Admission Living Arrangements/Environment Prior to Admission:: Dinorah resides with her sister in [place], she reports her sister has chronic pain and is sometimes difficult to live with. She reports loving [place] in Spring and Summer but struggles through the Winter. She loves to garden, do embroidery and needlepoint, read magazines, and cook. She used to love to walk but now reports it hurts to stand. 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 Dinorah reports her Bernese Mtn dog Candelaria last October and she misses her. 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 - Interests Hobbies:: Gardening Other Activities:: embroidery and needlepoint, read magazines, and cook - Present Functional Status Physical Abilities:: Progressing in mobility, presented with generalized weakness. Cognitive:: Intact Communication:: Client is alert and oriented x3, cognition grossly intact, and appears to be of average or higher intelligence. Sensory Systems: Intact Behavior:: Cooperative, friendly, calm - Medical History PAST MEDICAL HISTORY/PAST SURGICAL HISTORY:: All Active Problems (Updated 04/23/21 @ 06:44 by Nicholas Baron MD). Elevated troponin (Acute). Sepsis (Acute). Cellulitis (Acute). Bacteremia (Acute). Hypomagnesemia (Acute). Hypokalemia (Acute). Generalized weakness (Acute). Right knee pain (Acute). 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 Pes planus of right foot (Acute). Edema (Acute). Non-ST elevation [place] (NSTEMI) (Acute). Hyperlipidemia (Chronic). Obesity (Chronic). Osteoarthritis (Chronic). Hypertension (Chronic). Medical History . Glaucoma. History of left breast cancer. History of right breast cancer. Left fibular fracture. 2018. Melanoma. 2017. Pulmonary embolism. following a TKR. Surgical History . History of appendectomy. History of melanoma excision. History of total left knee replacement (TKR). S/P cholecystectomy. S/P total knee replacement. right 11/12/2019 General Health:: Developmentally as expected. - Admission Data Reason for Swing Bed Admission:: IV ABX Discharge Plan:: Home with new [facility]NA Blocking Machine Tender: Karely Ladd Date Assessment was completed:: 05/12/21
--- NOTE | 2021-05-11 12:42 | CM.SWINGPC ---
- If Service Date Differs Date of service: 05/11/21 Time of Service: 14:58 Swingbed Plan of Care Plan of care: SWING BED PROGRAM ACTIVITIES/DISCHARGE PLAN OF CARE ACTIVITIES PLAN Date: 05/11/21 Identified Need: Life enrichment during extended hospitalization. Intervention/Plan: Activity cart, television, reiki, plant to be offered (enjoys gardening), talking on the phone with friends and family. 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
--- NOTE | 2021-05-12 13:22 | HPE_ITS ---
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) Pes planus of right foot (Acute) Edema (Acute) Non-ST elevation [place] (NSTEMI) (Acute) Hyperlipidemia (Chronic) Obesity (Chronic) Osteoarthritis (Chronic) Hypertension (Chronic) Medical History Glaucoma History of left breast cancer History of right breast cancer Left fibular fracture 2018 Melanoma 2017 Pulmonary embolism following a TKR Surgical History History of appendectomy History of melanoma excision History of total left knee replacement (TKR) S/P cholecystectomy S/P total knee replacement right 11/12/2019 Family History Mother , age 100 Heart disease Hypertension Dementia Father , age 78 Non-Hodgkin lymphoma Hyperlipidemia Sister Breast cancer Brother Bladder cancer Alcohol abuse Maternal Grandfather , age 58 Heart disease Paternal Grandfather , age 75 No problems noted. Maternal Grandmother , age 63 Thyroid cancer Heart disease Hyperlipidemia Hypertension Stroke Paternal Grandmother , age 93 Heart disease Social History Smoking/Tobacco Use Status: Never Second Hand Exposure: Yes Smoking risk assessment performed?: Yes Alcohol Intake: never Drug use: Never Substance use type: does not use Caregiver/Support person: No Household members: family and other Details: Sister Housing: house Communication Needs: Corrective Lenses Do you need help understanding health information?: Never Pets and animals: Yes Pets and animals: dog(s) Sexually active: No Do you think of yourself as: straight/heterosexual Current gender identity: female What is your relationship status?: never How often do you talk on the phone with friends or family?: three or more times per week How often do you get together with friends or relatives?: twice per week How often do you attend scientology or nondenominational services?: 4 or more times per year Do you belong to any clubs or organized social groups?: yes Panel score (0-1 are the most socially isolated patients): 3 Duration: 45-60 minutes/day Frequency: daily Annia/Restoration: Restorationist Special annia needs: Yes ([facility] 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 [employer] Meds Allergies and Home Medications Allergies Allergy/AdvReac Type Severity Reaction Status Date / Time demeclocycline HCl Allergy Intermediate Hives Verified 03/26/21 11:55 [From Declomycin] acetaminophen [From Percocet] Allergy Mild Hives Verified 04/27/21 06:19 oxycodone [From Percocet] Allergy Mild Hives Verified 03/26/21 11:55 Penicillins Allergy Mild Hives Verified 03/26/21 11:55 [id number] Reductase AdvReac Intermediate nauesa Verified 03/26/21 11:55 Inhibitor /vomiting [[id number]-[id number] Reductase Inhibitor] Home Medications Medication Instructions Recorded Confirmed Type ascorbic acid-ascorbate sodium 1 wafer PO DAILY 08/16/17 04/23/21 History calcium carb,citrat 500 tab PO DAILY tab 06/04/19 03/26/21 History mg-magnesium #12 250 mg-vit D3 200 unit tablet magnesium 250 mg tablet 250 mg PO DAILY 06/04/19 04/23/21 History docusate sodium 100 mg capsule 100 mg PO DAILY 12/14/19 04/23/21 History latanoprost 0.005 % eye drops 1 drp OU HS #2.5 ml 07/03/20 04/23/21 Rx metoprolol succinate 25 mg 25 mg PO DAILY #90 tab 07/03/20 04/23/21 Rx tablet,extended release 24 hr rosuvastatin 5 mg tablet 5 mg PO .Every other day #90 tab 07/03/20 04/23/21 Rx furosemide 20 mg tablet 20 mg PO BID #180 tab 08/22/20 04/23/21 Rx Ankle Foot Orthosis #1 ea 10/29/20 03/26/21 Rx losartan 50 mg tablet 50 mg PO DAILY #90 tab 03/26/21 04/23/21 Rx aspirin 81 mg PO DAILY 04/23/21 04/23/21 History
[2021-05-12] MEDS: Enoxaparin 40 MG/0.4 ML SYR SC (15:18)
--- NOTE | 2021-05-12 16:12 | PCNE_ITS ---
Date of service: 05/12/21 Time of Service: 12:16 History of Present Illness History of Present Illness Chief Complaint: Cellulitis Narrative: 86 y/o MsRadha Guzman consents to a PALC consult today at [facility] 2/2 cellulitis and L septic knee arthritis; pt was admitted on 04/22, is on day 19 of inpatient stay, receiving IV ceftriaxone 2 g daily, ID consult recommends remain on IV abx for at least 2 more weeks prior to considering transition to oral abx; - she is extremely pleased with the care she has received throughout her stay at [facility], is happy to be working w/the staff pt had previously been independently living at home w/sister Bette [address] w/no complaints or need for additional assistance; pt has application for [email or web address] which she is considering as she does not want to return home to care for sister who has increased care needs, concerned for increased COVID exposures; considering moving to [place] however is happy w/her care team here in [place]; has h/o HH in home and is agreeable to them returning to home upon discharge for help w/transition; reports since in hospital has had improved urinary continence, at home will have occassional urinary incontinence w/urgency after Lasix dosing; reports improved energy; improved ambulation, she uses a walker while in home, feels walking longer distances while continuing to work w/PT w/decreased SOB w/ambulation; reports pain in L knee controlled w/tylenol/ibuprofen, pain worse when weight bearing; has not completed COLST or HCA, willing to do so today; [facility] Rajani Colbert, niece, does not have phone or address; would like to be DNR/I, if its my time, its my time; 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; Assessment and Plan Assessment and plan (1) Palliative care status: Status: Acute Assessment and plan: continue to follow while inpt weekly, continue to assist in discharge planning; (2) DNR (do not resuscitate): Status: Acute Assessment and plan: DNR/I status updated, COLST completed and submitted to record, faxed to PCP and pt provided original copy (3) Septic arthritis of knee, left: Status: Acute Assessment and plan: continue ceftriaxone 2g IV daily, 6 wk abx course planned Qualifiers: Septic arthritis organism: due to unspecified organism Qualified Code(s): M00.9 - Pyogenic arthritis, unspecified (4) Cellulitis: Status: Acute Qualifiers: Site of cellulitis: extremity Site of cellulitis of extremity: lower extremity Laterality: left Qualified Code(s): L03.116 - Cellulitis of left lower limb (5) Edema: Status: Acute Assessment and plan: legs elevated and wrapped, on Lasix 40mg BID (6) Generalized weakness: Status: Acute Assessment and plan: improving, continue in house PT, consider HH PT upon discharge Review of Systems Constitutional Constitutional: Denies difficulty sleeping ENT Ears, Nose, Mouth, and Throat: Denies dysphagia Cardiovascular Cardiovascular: Reports dyspnea on exertion (improving) Respiratory Respiratory: Denies cough, Reports dyspnea on exertion (improving) and Denies wheezing Gastrointestinal Gastrointestinal: Denies constipation, Denies dysphagia, Denies diarrhea, Denies nausea and Denies vomiting Genitourinary Genitourinary: Reports as per HPI Musculoskeletal Comments: L knee pain, worse w/ambulation, controlled w/OTC meds Psychiatric Psychiatric: Denies anxiety and Denies depression Allergic/Immunologic Allergic/Immunologic: Denies wheezing PFSH All Active Problems (Updated 05/12/21 @ 16:46 by Cleopatra Reina NP) Palliative care status (Acute) DNR (do not resuscitate) (Acute) Cellulitis of second toe of left foot (Acute) Discharge planning issues (Acute) DVT prophylaxis (Acute) Iron deficiency anemia (Acute) Right heart failure (Chronic) Septic arthritis of knee, left (Acute) Painful total knee replacement, left (Acute) Sepsis (Acute) Cellulitis (Acute) Bacteremia (Acute) Hypomagnesemia (Acute) Hypokalemia (Acute) Generalized weakness (Acute) Right knee pain (Acute) 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) Pes planus of right foot (Acute) Edema (Acute) Non-ST elevation [place] (NSTEMI) (Acute) Hyperlipidemia (Chronic) Obesity (Chronic) Osteoarthritis (Chronic) Hypertension (Chronic) Medical History Glaucoma History of left breast cancer History of right breast cancer Left fibular fracture 2018 Melanoma 2017 Pulmonary embolism following a TKR Surgical History History of appendectomy History of melanoma excision History of total left knee replacement (TKR) S/P cholecystectomy S/P total knee replacement right 11/12/2019 Family History Mother , age 100 Heart disease Hypertension Dementia Father , age 78 Non-Hodgkin lymphoma Hyperlipidemia Sister Breast cancer Brother Bladder cancer Alcohol abuse Maternal Grandfather , age 58 Heart disease Paternal Grandfather , age 75 No problems noted. Maternal Grandmother , age 63 Thyroid cancer Heart disease Hyperlipidemia Hypertension Stroke Paternal Grandmother , age 93 Heart disease Social History Smoking/Tobacco Use Status: Never Second Hand Exposure: Yes Smoking risk assessment performed?: Yes Alcohol Intake: never Drug use: Never Substance use type: does not use Caregiver/Support person: No Household members: family and other Details: Sister Housing: house Communication Needs: Corrective Lenses Do you need help understanding health information?: Never Pets and animals: Yes Pets and animals: dog(s) Sexually active: No Do you think of yourself as: straight/heterosexual Current gender identity: female What is your relationship status?: never How often do you talk on the phone with friends or family?: three or more times per week How often do you get together with friends or relatives?: twice per week How often do you attend tenriism or buddhist services?: 4 or more times per year Do you belong to any clubs or organized social groups?: yes Panel score (0-1 are the most socially isolated patients): 3 Duration: 45-60 minutes/day Frequency: daily Annia/Mosque: Yarsani Special annia needs: Yes ([facility] visits for [facility] trust administrator, [facility] of sick) Seatbelt use: always Helmet use: No Drive intox or ride w/intox refuse driver: No Do you feel safe at home: Yes (pt states sometimes her and her sister become verbal) Do you feel safe in your relationship?: Yes Additional Social history: Lives in [place], [place] having moved up from [facility] [place]. 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 [employer] Exam Const General: cooperative, comfortable and no acute distress Orientation: alert, awake and oriented x3 HENMT Head: normal to inspection, normocephalic and no acral cyanosis Resp Effort & Inspection: normal respiratory effort, able to speak in complete sentences, no audible wheezes and no cough Auscultation: clear to auscultation bilaterally Cardio Jugular venous pressure: no JVD Rate: regular rate Rhythm: regular rhythm Pulses: radial pulses present on the left 2+ GI Palpation: soft, no guarding and nontender Auscultation: normal bowel sounds Skin Other: BLE wrapped 2/2 cellulitis; no other visible lesions/rashes Neuro General: patient alert, patient awake and patient oriented x3 Cognition: normal cognition Speech: speech normal Gait: other (sitting in chair throughout visit) Psych Appearance: grossly normal Mental Status: mental status grossly normal Speech and Movement: speech and movement normal Mood: congruent mood Affect: normal affect Attitude: cooperative Thought Process: normal Thought Content: normal Insight: insight good Judgment: judgment good
[2021-05-12 20:17] VITALS: BP 128/53; RESP 18
[2021-05-12] MEDS: Docusate Sodium 100 MG CAP PO (20:18)
[2021-05-12] MEDS: Normal Saline Flush 10 ML SYR IVP (20:18)
[2021-05-12] MEDS: Protein Nutritional Supplement 16 GM 1 OUNCE PACKET PO (20:18)
[2021-05-12] MEDS: Sacubitril/Valsartan 24 mg/26 mg TAB 1 EACH PO (20:18)
[2021-05-12 20:54] VITALS: BP 108/49; PULSE 63; RESP 18; TEMP 36.6; O2SAT 96
[2021-05-12] MEDS: Senna TAB 1 TAB PO (21:08)
[2021-05-12] MEDS: Latanoprost 0.005% 2.5 ML BTL OU (21:09)
[2021-05-13] MEDS: Acetaminophen 500 MG TAB 1000 MG PO (01:58)
[2021-05-13 02:01] VITALS: BP 120/72; PULSE 65; RESP 19; TEMP 36.6; O2SAT 93
[2021-05-13] MEDS: Furosemide 40 MG TAB PO ×2 (05:15→13:54)
[2021-05-13 05:16] VITALS: BP 115/66; PULSE 70; RESP 18; TEMP 36.6; O2SAT 93
[2021-05-13 08:10] VITALS: BP 122/61; PULSE 69; RESP 17; TEMP 36.1; O2SAT 92
[2021-05-13] MEDS: Protein Nutritional Supplement 16 GM 1 OUNCE PACKET PO ×3 (08:17→19:48)
[2021-05-13] MEDS: cefTRIAXone 2 GM/50 ML BAG IVPB (08:18)
[2021-05-13] MEDS: Metoprolol CR 25 MG TABCR PO (08:19)
[2021-05-13] MEDS: Magnesium Oxide 400 MG TAB PO (08:19)
[2021-05-13] MEDS: Aspirin E.C. 81 MG TABEC PO (08:19)
[2021-05-13] MEDS: Docusate Sodium 100 MG CAP PO ×2 (08:19→19:47)
[2021-05-13] MEDS: Normal Saline Flush 10 ML SYR IVP ×2 (08:19→19:48)
[2021-05-13] MEDS: Sacubitril/Valsartan 24 mg/26 mg TAB 1 EACH PO ×2 (08:20→19:47)
--- NOTE | 2021-05-13 10:27 | CMPROGNOTE_ITS ---
- If Service Date Differs Date of service: 05/13/21 Time of Service: 10:27 Care Management Progress Note S/O:Dinorah was sitting up in a chair when CM met with her. She was pleasant as usual and interacted well with CM. Dinorah was provided with information about additional assisted living facilities in the area. Dinorah informed CM that after much soul searching she has decided that she wants to return to her own home. She shared that she understands that her sister has health issues that can affect her temperament but also that every family has some issues to deal with. She informed CM that she loves her home and that she is looking forward to spending the spring and summer months there. Dinorah and CM also talked about options for additional support in the community such as private caregivers and housekeepers. A: Dinorah is an 86 year old woman admitted on 05/12/21 with sepsis P:Dinorah will likely be discharged home with new home health services. She has investigated several assisted living facilities both locally and in the [place] area but has decided that she prefers to return to her own home. CM will continue to support Dinorah through her SB stay for rn long term care IVAB.
--- NOTE | 2021-05-13 12:01 | CHAPLAIN ---
Dinorah was up in her chair as usual. She said she's getting her stitches out today and will be here the rest of this week and next finishing her course of IV antibiotics. She said she doesn't mind being here, and continues to tell me that she is getting good care and that staff at [facility] have been very pleasant with her. 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 She is close to a niece in [place], where Dinorah is from [facility] and is considering moving to an assisted living place closer to her.
--- NOTE | 2021-05-13 12:43 | PT.INIE ---
Date of service: 05/13/21 Time of Service: 12:43 PT Notes Visit Reasons: Sepsis Swing Bed Level 1 Physical Therapy Initial Evaluation Date: 05/13/21 Referring Doctor: Matthew Clarke MD PT Orders: PT CONSULT: Status post Ortho surgery. Status post left TKA explant and placement. WBAT with walker. Precautions: WBAT on left LE with AD. Patient Profile/Admitting Diagnosis: Dinorah is a 86-year-old female admitted to this hospital secondary to hypomagnesemia, sepsis, cellulitis and generalized weakness. She is status post left TKA explantation of knee spacer with synovectomy, debridement, and reimplantation of infection antibiotic spacer on postoperative day 18 due to septic arthritis of left knee. She converts to swing bed level of care as of today. 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) Pes planus of right foot (Acute) Edema (Acute) Non-ST elevation [place] (NSTEMI) (Acute) Hyperlipidemia (Chronic) Obesity (Chronic) Osteoarthritis (Chronic) Hypertension (Chronic) Medical History Glaucoma History of left breast cancer History of right breast cancer Left fibular fracture 2018 Melanoma 2017 Pulmonary embolism following a TKR Surgical History History of appendectomy History of melanoma excision History of total left knee replacement (TKR) S/P cholecystectomy S/P total knee replacement right 11/12/2019 Social History/Home Situation: Dinorah reports that she lives with her sister in a private home in [place]. She reports that her sister is also disabled due to her back and is unable to assist her. She would like to look into an Assisted Living Center more around her family in the [place] area. She has a neighbor who is very helpful and involved. Equipment Owned/DME: Shower chair, FWW Subjective: States that she has been performing well with PT. Reports no pain in her L knee during ambulation. Did indicate that it is the bending that happens during sitting down and standing up that bothers her now but once she is up she feels a lot better. Objective: General Observation: ARETHA wrap over Mepilex Ag on the L LE and L knee Mental Status: Alert and oriented x3 Pain: Denies ROM: Right Upper Extremity: Limited right shoulder flexion to 80 degrees with significant crepitation. IR chest wall. ER to neutral. WFL elbow, wrist, and hand Left Upper Extremity: Demonstrates WNL AROM L UE Right Lower Extremity: Hip flexion 100 degrees, knee 90 degrees, knee extension lacking about 5 degrees, dorsiflexion limited to neutral Left Lower Extremity: Hip flexion 100 degrees, knee flexion 90 degrees, extension lacking 10 degrees, dorsiflexion neutral Strength: Right Upper Extremity: Shoulder flexion 3-/5, bicep 4/5, good functional grasp Left Upper Extremity: Demonstrates 4+/5 left upper extremity strength, good functional grasp Right Lower Extremity: Independent straight leg raise with notable extension lag. Hip flexion 4+/5, knee extension 4/5, knee flexion 4-/5 Left Lower Extremity: SLR to about 30 degrees. Hip flexion 4/5, knee extension 3-/5, knee flexion 3-/5 Sensation: Intact light touch Bed Mobility/Transfers: Sit-stand: Independent Stand-sit: Independent Bed-chair: Independent Cahir-bed: Independent GAIT Assistive Device: FWW Weight bearing: WBAT L Assist: Supervision Distance: 100 feet +150 feet Deviation: Step-through gait pattern. Denies pain in L knee. Reported mild fatigue that resolved with rest. Increased R foot pronation and R tibila external rotation (chronic). Trunk anteroflexed (chronic). Patient is able to fully extend at knee on midstance. Balance: Static Sitting: Normal Dynamic Sitting: Normal Static Standing: Fair Dynamic Standing: Fair Informed Consent/Education: Patient instructed in purpose of PT consult and plan of care. Assessment: Agreeable to goals set with her today under swing bed level 1. Happy about how well she did for this session. Patient has been independent with in-room ambulation using the FWW. Demosntrates much improved confidence about ability of L knee to hold her up. Active knee flexion while in supine to about 90 degrees with no end of range pain. Quadriceps strength remains limited but improving compared to start of care, able to straight leg raise to about 30 degrees today. Activity tolerance improving. Pain level diminishing, walked with no report of pain on re-evaluation. Will continue to work on new goals mentioned below to facilitate independence. GOALS x 1 week 1. Supine-Sit independent MET. Patient is now independent. D/C as of 05/13/2021. 2. Sit-Supine independent MET. Patient is now independent. D/C as of 05/13/2021. 3. Sit-Stand standby assist with front wheeled walker MET. Patient is now independent. D/C as of 05/13/2021. 4. Stand-Sit standby assist MET. Patient is now independent. D/C as of 05/13/2021. 5. Bed-Chair contact-guard assist with front wheeled walker MET. Patient is now independent. D/C as of 05/13/2021. 6. Chair-Bed contact-guard assist with front wheel walker MET. Patient is now independent. D/C as of 05/13/2021. 7. Gait contact-guard assist with front-wheeled walker x 50 feet or greater MET. UPGRADE as of 05/13/2021: Independent with level surface ambulation using the FWW for 200 feet with no report of pain in the L knee. 8. Stairs up/down 3-5 steps with contact-guard assist. NOT MET. CONTINUE. 9. Independent with home exercise program. CONTINUE with EXERCISE PROGRESSION. 10. PATIENT GOAL: Be able to use the NuStep safely following parameters given by PT/HOME WEATHERIZING WORKER as part of maintenance program. Plan of Care/Treatment Plan: 1/day, 5 days/week x 1 week. Plan of care has been reviewed with the HOME WEATHERIZING WORKER providing the service under Physical Therapy direction. Initiate Physical Therapy intervention for strengthening, bed mobility, transfers, gait, stairs, balance training, use of assistive device. DISCHARGE RECOMMENDATIONS: [] Home with no services [] [X] Home with services. Patient will benefit from home health PT services in order to progress mobility level using least restrictive assistive ambulatory device, assess home safety, identify additional equipment needs, and establish a functional maintenance program that will increase ability of patient to remain at home. [] Home with outpatient PT [] [] SNF for continued rehabilitation [] [] [employer] [facility] [] [] SNF versus LTC based on ability to participate and progress [] TREATMENT CODE/TIME: 19495 x 20 minutes, 35410 x 27 minutes beginning at 12:43 PM. Thank you for the opportunity to participate in the care of this patient. Jagruti Nelson PT, DPT, CLT [facility] [place], [place]
[2021-05-13] MEDS: Enoxaparin 40 MG/0.4 ML SYR SC (15:55)
[2021-05-13 19:10] VITALS: BP 125/62; PULSE 72; RESP 18; TEMP 37; O2SAT 93
[2021-05-13] MEDS: Latanoprost 0.005% 2.5 ML BTL OU (21:41)
[2021-05-13] MEDS: Senna TAB 1 TAB PO (21:41)
[2021-05-13 23:56] VITALS: BP 108/62; PULSE 76; RESP 18; TEMP 36.7; O2SAT 94
[2021-05-14] MEDS: Acetaminophen 500 MG TAB 1000 MG PO ×3 (02:06→21:29)
[2021-05-14 05:07] VITALS: BP 100/55; PULSE 69; RESP 19; TEMP 36.6; O2SAT 94
[2021-05-14] MEDS: Furosemide 40 MG TAB PO ×2 (05:10→14:41)
[2021-05-14 07:09] LABS: Anion Gap 6.4 mmol/L (3-11); BUN 41 mg/dL (7-18); CO2 28.6 mmol/L (21.0-32.0); CREATININE 0.8 mg/dL (0.55-1.02); Calcium 9.1 mg/dL (8.5-10.1); Chloride 103 mmol/L (98-107); Glucose 85 mg/dL (74-106); Potassium 3.8 mmol/L (3.5-5.1); Sodium 138 mmol/L (136-145)
[2021-05-14 07:17] VITALS: BP 107/66; PULSE 63; RESP 16; TEMP 35.9; O2SAT 95
[2021-05-14] MEDS: cefTRIAXone 2 GM/50 ML BAG IVPB (07:49)
[2021-05-14] MEDS: Protein Nutritional Supplement 16 GM 1 OUNCE PACKET PO ×3 (07:49→20:16)
[2021-05-14] MEDS: Normal Saline Flush 10 ML SYR IVP ×2 (07:49→20:17)
[2021-05-14] MEDS: Metoprolol CR 25 MG TABCR PO (07:50)
[2021-05-14] MEDS: Sacubitril/Valsartan 24 mg/26 mg TAB 1 EACH PO ×2 (07:50→20:15)
[2021-05-14] MEDS: Magnesium Oxide 400 MG TAB PO (07:51)
[2021-05-14] MEDS: Aspirin E.C. 81 MG TABEC PO (07:51)
[2021-05-14] MEDS: Rosuvastatin 5 MG TAB PO (07:51)
[2021-05-14] MEDS: Docusate Sodium 100 MG CAP PO ×2 (07:51→20:15)
--- NOTE | 2021-05-14 10:15 | OT.INIE ---
Occupational Therapy Notes Inpatient Occupational Therapy SWG B1 Evaluation Date: 05/14/21 Referring Doctor: Toro Narvaez MD OT Orders: Non Urgent- SWG Evaluation Precautions: Fall, standard, DNR/DNI PATIENT PROFILE/ADMITTING DIAGNOSIS: Pt is a 86 year old female who was admitted through the ED for a dx of hypomagnesemia, sepsis, cellulitis and generalized weakness. She is status post (L) TKA explantation of knee spacer with synovectomy, debridement, and reimplantation of infection antibiotic spacer on postoperative day 18 due to septic arthritis of left knee. 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) Pes planus of right foot (Acute) Edema (Acute) Non-ST elevation [place] (NSTEMI) (Acute) Hyperlipidemia (Chronic) Obesity (Chronic) Osteoarthritis (Chronic) Hypertension (Chronic) Medical History Glaucoma History of left breast cancer History of right breast cancer Left fibular fracture 2018 Melanoma 2017 Pulmonary embolism following a TKR Surgical History History of appendectomy History of melanoma excision History of total left knee replacement (TKR) S/P cholecystectomy S/P total knee replacement right 11/12/2019 Social History/Home Situation: Pt states that she lives in a private home with her sister. 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 She states that it is bothersome for her to be on her feet a lot but does it because her sister needs her. She states that her laundry is accessible. She has a shower bench for bathing and states that she can transfer in and out (I). She had HH at one point but states that it did not last long. She is not against having them come back to do an assessment of DME needs. Equipment owned/DME: Shower bench, grab bars, dressing stick SUBJECTIVE: Pt was sitting in bed when OT arrived. She notes that she is agreeable to OT consult. OBJECTIVE: General Observation: Pleasant, IV in (R) UE Mental Status: A&Ox4 Pain: no c/o pain ROM: RUE Shoulder flexion to ~85*, wrist, elbow and digits WNL L UE AROM WFL STRENGTH: RUE 4-/5 throughout, wrist flex/extensors 4/5 LUE 4-/5 throughout FUNCTIONAL MOBILITY/ADLS: BATHING Pt denies as she performed this prior to OT session with TESTER SOUND DRESSING sitting in bed Max (A) don and doffing (B) socks, uses dressing stick for (A) with pants, shirt. BALANCE: Static sitting Normal Dynamic Sitting Normal SPECIAL TESTS: Daily Activity Limitations Standardized Measure [facility] AM -PAC ?6 clicks? Daily Activity Inpatient Short Form: Raw score: 19 Standardized score: 40.22 CMS score: 42.80% INFORMED CONSENT/EDUCATION: Pt instructed in purpose of OT Consult and plan of care. ASSESSMENT: Patient is a 86-year-old female referred to occupational therapy services with diagnosis of hypomagnesemia, sepsis, cellulitis and generalized weakness. She is status post left TKA explantation of knee spacer with synovectomy, debridement, and reimplantation of infection antibiotic spacer on postop procedure due to septic arthritis of left knee. Patient presents with clinical signs and symptoms consistent with dx, as demonstrated by the following impairment level findings/ functional limitations: Impairments in ADL/IADL and leisure activities, decreased functional activity tolerance, modifications for LE dressing and bathing, decreased ADL tolerance. AMPAC score 19 Patient is assessed as a Low 48683 complexity based on the following: History: see above Examination: see functional limitations as noted above Presentation: evolving Decision Making: AMPAC score 19 GOALS Goals x1 week 1. Transfers (I) 2. Dressing mod (I) for LE and (I) UE 3. Bathing (I) 4. Toileting on toilet (I) PLAN OF CARE/TREATMENT PLAN: 1x/day, 3-5 days/ week x 1week Initiate Occupational Therapy Services for bathing, dressing, grooming, toileting, eating, transfer training. DISCHARGE RECOMMENDATIONS Home with HH services for support of her ADLs in the home setting as needed. As well as Meals on Wheels as pt does not drive, set up with [facility] for community transportation as needed. TREATMENT TIME/MINUTES/CODES 88850, 15 minutes (10:00) Zohra Marion OTR/L [facility]
--- NOTE | 2021-05-14 10:32 | W.NUTCONSULT ---
Date of service: 05/14/21 Time of Service: 10:32 Nutritional Consult ASSESSMENT: Ms. Colbert has now lost 10% of her body weight in the past month however she continues on lasix so this is intentional. Her PO intake remains excellent. She continues on 1 oz. liquid protein, tid. She is on a heart healthy diet. NUTRITIONAL DIAGNOSIS: Intentional significant weight loss. INTERVENTION: Would recommend changing diet order back to regular without a therapeutic modifier given advanced age as it will increase some of her food selection. Otherwise, I do not recommend any changes in her nutrition care plan. MONITORING AND EVALUATION: Will continue to monitor weight, PO. Will evaluate nutrition care plan ongoing and adjust as needed. Time Spent in Nutritional Counseling and Treatment: 0
--- NOTE | 2021-05-14 14:09 | PT.INTREAT ---
Date of service: 05/14/21 Time of Service: 13:07 PT Notes Visit Reasons: Sepsis Inpatient Physical Therapy Treatment Note [facility] Date: 05/14/2021 PRECAUTIONS: Fall, WBAT R SUBJECTIVE: Dinorah is pleasant and agreeable to participating in PT. She states I've thought about it and I want to go home to my beautiful home on [address]. She states that she will allow patellar glides once her elle have been removed, but not before. OBJECTIVE: PAIN: No c/o pain BED MOBILITY/TRANSFERS Sit-stand: I Stand-sit: I Bed-chair: I Chair-bed: I GAIT Assistive Device: FWW Weight bearing: WBAT R Assist: S Distance: 120' + 140' Deviation: Step-through, forward flexed trunk posture, cueing for posture and to look ahead. THEREX: Patient completes independent HEP, as instructed. STAIRS: Patient declined stair training today. ASSESSMENT: Patient tolerated a progression in gait distance with FWW support and supervision. She requires seated rest x1 due to wobbly legs. PLAN: Continue with independent completion of LE strengthening and continue with gait training for improved mobility and activity tolerance. TREATMENT CODE/TIME: 24 minutes; 08742 x2 (13:07)
[2021-05-14 15:07] VITALS: BP 100/60; PULSE 66; RESP 16; TEMP 36.4; O2SAT 95
[2021-05-14] MEDS: Enoxaparin 40 MG/0.4 ML SYR SC (16:05)
[2021-05-14] MEDS: Senna TAB 1 TAB PO (21:25)
[2021-05-14] MEDS: Latanoprost 0.005% 2.5 ML BTL OU (21:25)
[2021-05-14 23:32] VITALS: BP 104/61; PULSE 72; RESP 17; TEMP 36.8; O2SAT 93
[2021-05-15] MEDS: Furosemide 40 MG TAB PO ×2 (06:11→14:21)
[2021-05-15 07:22] VITALS: BP 112/68; PULSE 69; RESP 17; TEMP 36.4; O2SAT 95
[2021-05-15] MEDS: Protein Nutritional Supplement 16 GM 1 OUNCE PACKET PO ×3 (08:31→20:05)
[2021-05-15] MEDS: cefTRIAXone 2 GM/50 ML BAG IVPB (08:31)
[2021-05-15] MEDS: Sacubitril/Valsartan 24 mg/26 mg TAB 1 EACH PO ×2 (08:32→20:05)
[2021-05-15] MEDS: Metoprolol CR 25 MG TABCR PO (08:32)
[2021-05-15] MEDS: Aspirin E.C. 81 MG TABEC PO (08:32)
[2021-05-15] MEDS: Normal Saline Flush 10 ML SYR IVP ×2 (08:32→20:06)
[2021-05-15] MEDS: Magnesium Oxide 400 MG TAB PO (08:32)
[2021-05-15] MEDS: Docusate Sodium 100 MG CAP PO ×2 (08:32→20:05)
--- NOTE | 2021-05-15 09:47 | OT.INTREAT ---
Date of service: 05/15/21 Time of Service: 08:35 Occupational Therapy Notes Occupational Therapy Inpatient Treatment Note Date: 05/15/21 PRECAUTIONS: Fall, standard, DNR/DNI SUBJECTIVE: Pt was sitting in chair when OT arrived, she notes that she is receptive to performance of her ADLs but with modifications as her legs just got wrapped. OBJECTIVE: PAIN:no c/o pain. Self Care Training [id number]: OT educated and trained pt in adaptive equipment and energy conservation techniques for performance of her ADLs with use of sock aid, dressing stick, long handled shoe horn, elastic laces, long handled sponge, information management officer and modified sitting position for performance. Pt was receptive to education and training. OT provided pt with adaptive equipment to use as needed. TREATMENT CODES/TIME: 23707y1, 25 minutes (08:35) Zohra Marion OTR/[facility]
--- NOTE | 2021-05-15 10:31 | PT.INTREAT ---
Date of service: 05/15/21 Time of Service: 07:43 PT Notes Visit Reasons: Sepsis Inpatient Physical Therapy Treatment Note [facility] Date: 05/15/2021 PRECAUTIONS: Fall, WBAT R SUBJECTIVE: Dinorah is pleasant and agreeable to participating in PT. She reports that she feels that she is moving and functioning better than prior to her admission. She feels proud of the progress she's made. OBJECTIVE: PAIN: No c/o pain BED MOBILITY/TRANSFERS Supine-sit: I with HOB flat Sit-supine: I with HOB flat Sit-stand: I Stand-sit: I Bed-chair: I Chair-bed: I GAIT Assistive Device: FWW Weight bearing: WBAT R Assist: S Distance: 150' x2 Deviation: Step-through, anteroflexed trunk posture (chronic), R foot inversion (chronic), cueing for posture THEREX: Patient completes independent HEP, as instructed. STAIRS: Up/down 3x4 using B rails and a step-to pattern with supervision and minimal cueing. MAUNAL THERAPY: With patient in supine, performed patellar mobilization in all directions, with appropriate range, without pain. ASSESSMENT: Patient tolerated a progression in gait distance with FWW support and supervision. She also completed stair training, requiring supervision only. PLAN: Continue with independent completion of LE strengthening and continue with gait training for improved mobility and activity tolerance. TREATMENT CODE/TIME: 40 minutes; 42237 x3 (07:43)
[2021-05-15 15:03] VITALS: BP 125/70; PULSE 78; RESP 18; TEMP 37.1; O2SAT 94
[2021-05-15] MEDS: Enoxaparin 40 MG/0.4 ML SYR SC (15:30)
[2021-05-15 19:15] VITALS: BP 118/64; PULSE 72; RESP 18; TEMP 36.3; O2SAT 93
[2021-05-15] MEDS: Latanoprost 0.005% 2.5 ML BTL OU (21:55)
[2021-05-16 02:54] VITALS: BP 100/59; PULSE 76; RESP 18; TEMP 37; O2SAT 94
[2021-05-16] MEDS: Furosemide 40 MG TAB PO ×2 (05:42→13:59)
[2021-05-16 07:07] VITALS: BP 104/61; PULSE 70; RESP 16; TEMP 36.4; O2SAT 95
[2021-05-16] MEDS: Acetaminophen 500 MG TAB 1000 MG PO (07:08)
[2021-05-16] MEDS: Magnesium Oxide 400 MG TAB PO (07:09)
[2021-05-16] MEDS: Docusate Sodium 100 MG CAP PO ×2 (07:10→19:46)
[2021-05-16] MEDS: Rosuvastatin 5 MG TAB PO (07:10)
[2021-05-16] MEDS: Metoprolol CR 25 MG TABCR PO (07:10)
[2021-05-16] MEDS: Protein Nutritional Supplement 16 GM 1 OUNCE PACKET PO ×3 (07:11→19:46)
[2021-05-16] MEDS: Aspirin E.C. 81 MG TABEC PO (07:11)
[2021-05-16] MEDS: Normal Saline Flush 10 ML SYR IVP ×2 (08:11→19:45)
[2021-05-16] MEDS: cefTRIAXone 2 GM/50 ML BAG IVPB (08:12)
[2021-05-16] MEDS: Sacubitril/Valsartan 24 mg/26 mg TAB 1 EACH PO ×2 (08:15→19:46)
[2021-05-16 15:22] VITALS: BP 120/70; PULSE 68; RESP 14; TEMP 36.7; O2SAT 96
[2021-05-16] MEDS: Enoxaparin 40 MG/0.4 ML SYR SC (16:27)
[2021-05-16] MEDS: Polyethylene Glycol 3350 17 GM PACKET PO (19:46)
[2021-05-16] MEDS: Latanoprost 0.005% 2.5 ML BTL OU (21:33)
[2021-05-16] MEDS: Senna TAB 1 TAB PO (21:33)
[2021-05-16 23:37] VITALS: BP 109/51; PULSE 71; RESP 18; TEMP 36.9; O2SAT 94
[2021-05-17] MEDS: Furosemide 40 MG TAB PO ×2 (05:46→13:46)
[2021-05-17 07:12] VITALS: BP 117/67; PULSE 74; RESP 14; TEMP 36.8; O2SAT 91
[2021-05-17 07:19] LABS: Abs Immature Grans 0.05 10^3/uL (0.0-0.06); Absolute Basophil Count 0.06 10^3/uL (0.0-0.2); Absolute Eosinophil Count 0.76 10^3/uL (0.0-0.7); Absolute Lymphocyte Count 1.37 10^3/uL (1.2-3.4); Absolute Monocyte Count 0.95 10^3/uL (0.1-0.8); Absolute Neutrophil Count 6.39 10^3/uL (1.2-6.7); Basophils % 0.6; Eosinophils % 7.9; HCT 29.5 % (36.0-46.0); HGB 9.1 g/dL (11.2-15.7); Immature Grans % 0.5; Lymphocytes % 14.3; MCH 30.4 pg (27.0-33.0); MCHC 30.8 % (32.0-36.0); MCV 98.7 fL (80-95); MPV 8.7 fL (8.0-11.0); Monocytes % 9.9; Neutrophils % 66.8; Nucleated RBC 0 %; Platelet Count 321 10^3/uL (130-400); RBC 2.99 10^6/uL (3.93-5.22); RDW 14.7 % (11.7-14.6); RDW-SD 53.4 fL; WBC 9.58 10^3/uL (4.4-10.8)
[2021-05-17 07:28] LABS: Anion Gap 9.2 mmol/L (3-11); BUN 39 mg/dL (7-18); C-Reactive Protein 2.23 mg/dL (0.0-0.3); CO2 25.8 mmol/L (21.0-32.0); CREATININE 0.7 mg/dL (0.55-1.02); Calcium 9.1 mg/dL (8.5-10.1); Chloride 104 mmol/L (98-107); Glucose 88 mg/dL (74-106); Magnesium 2.5 mg/dL (1.8-2.4); Potassium 3.8 mmol/L (3.5-5.1); Sodium 139 mmol/L (136-145)
[2021-05-17] MEDS: Magnesium Oxide 400 MG TAB PO (07:45)
[2021-05-17] MEDS: Acetaminophen 500 MG TAB 1000 MG PO ×2 (07:45→21:17)
[2021-05-17] MEDS: Docusate Sodium 100 MG CAP PO ×2 (07:45→21:17)
[2021-05-17] MEDS: Aspirin E.C. 81 MG TABEC PO (07:45)
[2021-05-17] MEDS: cefTRIAXone 2 GM/50 ML BAG IVPB (07:46)
[2021-05-17] MEDS: Protein Nutritional Supplement 16 GM 1 OUNCE PACKET PO ×3 (07:46→21:17)
[2021-05-17] MEDS: Sacubitril/Valsartan 24 mg/26 mg TAB 1 EACH PO ×2 (07:46→21:16)
[2021-05-17] MEDS: Normal Saline Flush 10 ML SYR IVP ×2 (07:46→21:17)
[2021-05-17] MEDS: Metoprolol CR 25 MG TABCR PO (07:46)
[2021-05-17 07:54] LABS: Procalcitonin 0.1 ng/mL
[2021-05-17 08:27] VITALS: RESP 16; O2SAT 94
[2021-05-17 15:20] VITALS: BP 109/53; PULSE 68; RESP 16; TEMP 36.8; O2SAT 95
[2021-05-17] MEDS: Enoxaparin 40 MG/0.4 ML SYR SC (15:27)
[2021-05-17] MEDS: Latanoprost 0.005% 2.5 ML BTL OU (21:16)
[2021-05-17] MEDS: Senna TAB 1 TAB PO (21:17)
[2021-05-17 21:35] VITALS: BP 118/63; PULSE 65; RESP 16; TEMP 36.4; O2SAT 95
[2021-05-18] MEDS: Furosemide 40 MG TAB PO ×2 (05:32→13:11)
[2021-05-18 08:03] VITALS: BP 104/59; PULSE 64; RESP 18; TEMP 36.7; O2SAT 95
[2021-05-18] MEDS: Rosuvastatin 5 MG TAB PO (08:04)
[2021-05-18] MEDS: Protein Nutritional Supplement 16 GM 1 OUNCE PACKET PO ×3 (08:04→19:50)
[2021-05-18] MEDS: Acetaminophen 500 MG TAB 1000 MG PO ×2 (08:04→18:56)
[2021-05-18] MEDS: Normal Saline Flush 10 ML SYR IVP ×2 (08:05→19:50)
[2021-05-18] MEDS: Docusate Sodium 100 MG CAP PO ×2 (08:05→19:50)
[2021-05-18] MEDS: Sacubitril/Valsartan 24 mg/26 mg TAB 1 EACH PO ×2 (08:05→19:50)
[2021-05-18] MEDS: Metoprolol CR 25 MG TABCR PO (08:05)
[2021-05-18] MEDS: Aspirin E.C. 81 MG TABEC PO (08:05)
[2021-05-18] MEDS: Magnesium Oxide 400 MG TAB PO (08:05)
[2021-05-18] MEDS: cefTRIAXone 2 GM/50 ML BAG IVPB (08:06)
--- NOTE | 2021-05-18 08:19 | OTTR_ITS ---
Date of service: 05/18/21
--- NOTE | 2021-05-18 08:19 | OT.INTREAT ---
Date of service: 05/18/21
--- NOTE | 2021-05-18 08:21 | OT.INDS ---
Date of service: 05/18/21 Time of Service: 07:35 Occupational Therapy Notes Occupational Therapy Inpatient Discharge Summary Date: 05/18/21 Dates of Service: 05/14/21-05/18/21 Referring Doctor: Toro Narvaez MD OT Orders: Non Urgent- SWG Evaluation Precautions: Fall, standard, DNR/DNI PATIENT PROFILE/ADMITTING DIAGNOSIS: Pt is a 86 year old female who was admitted through the ED for a dx of hypomagnesemia, sepsis, cellulitis and generalized weakness. She is status post (L) TKA explantation of knee spacer with synovectomy, debridement, and reimplantation of infection antibiotic spacer on postoperative day 18 due to septic arthritis of left knee. 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) Pes planus of right foot (Acute) Edema (Acute) Non-ST elevation [place] (NSTEMI) (Acute) Hyperlipidemia (Chronic) Obesity (Chronic) Osteoarthritis (Chronic) Hypertension (Chronic) Medical History Glaucoma History of left breast cancer History of right breast cancer Left fibular fracture 2018 Melanoma 2017 Pulmonary embolism following a TKR Surgical History History of appendectomy History of melanoma excision History of total left knee replacement (TKR) S/P cholecystectomy S/P total knee replacement right 11/12/2019 Social History/Home Situation: Pt states that she lives in a private home with her sister. 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 She states that it is bothersome for her to be on her feet a lot but does it because her sister needs her. She states that her laundry is accessible. She has a shower bench for bathing and states that she can transfer in and out (I). She had HH at one point but states that it did not last long. She is not against having them come back to do an assessment of DME needs. Equipment owned/DME: Shower bench, grab bars, dressing stick SUBJECTIVE: Pt was sitting in bed when OT arrived. She notes that she is agreeable to OT consult and states that she feels that she is at her baseline level of function at this time. OBJECTIVE: General Observation: Pleasant Mental Status: A&Ox4 Pain: no c/o pain ROM: RUE Shoulder flexion to ~85*, wrist, elbow and digits WNL L UE AROM WFL STRENGTH: RUE 4-/5 throughout, wrist flex/extensors 4/5 LUE 4-/5 throughout FUNCTIONAL MOBILITY/ADLS: BATHING sitting on side of the bed (I) face, (B) UE, (B) LE and devendra area DRESSING sitting in bed Mod (I) don and doffing (B) socks, uses dressing stick for (A) LE dressing pt is able to perform this BALANCE: Static sitting Normal Dynamic Sitting Normal ASSESSMENT: Patient is a 86-year-old female referred to occupational therapy services with diagnosis of hypomagnesemia, sepsis, cellulitis and generalized weakness. She is status post left TKA explantation of knee spacer with synovectomy, debridement, and reimplantation of infection antibiotic spacer on postop procedure due to septic arthritis of left knee. Pt was seen for 3 skilled OT sessions and feels that she is at her baseline level of function at this time. She states that she is able to perform her ADLS (I) and is just waiting to return home after her antibiotic tx. GOALS- Met 1. Transfers (I) 2. Dressing mod (I) for LE and (I) UE 3. Bathing (I) 4. Toileting on toilet (I) PLAN OF CARE/TREATMENT PLAN: Discharge from skilled OT services. DISCHARGE RECOMMENDATIONS Home with HH services for support of her ADLs in the home setting as needed as she is (I) in the hospital setting at this time. As well as Meals on Wheels as pt does not drive, set up with [facility] for community transportation as needed. TREATMENT TIME/MINUTES/CODES [id number], 25 minutes (07:35) Zohra Marion OTR/L [facility]
[2021-05-18 12:59] VITALS: BP 113/69
--- NOTE | 2021-05-18 13:29 | PT.INTREAT ---
Date of service: 05/18/21 Time of Service: 11:42 PT Notes Visit Reasons: Sepsis Inpatient Physical Therapy Treatment Note [facility] Date: 05/18/2021 PRECAUTIONS: Fall, WBAT R SUBJECTIVE: Dinorah is pleasant and agreeable to participating in PT. She states that she has not walked in the hallway independently yet, but feels that she is ready to try if she can be cleared to do so. OBJECTIVE: PAIN: Patient c/o pain across anterior knee with gait training BED MOBILITY/TRANSFERS Supine-sit: I with HOB flat Sit-supine: I with HOB flat Sit-stand: I Stand-sit: I Bed-chair: I Chair-bed: I GAIT Assistive Device: FWW Weight bearing: WBAT R Assist: S Distance: 150' x2 Deviation: Step-through, anteroflexed trunk posture (chronic), R foot inversion (chronic), cueing for posture THEREX: Patient completed 10 minutes of NuStep biking at resistance level 2 with close supervision. Patient completes independent HEP, as instructed. STAIRS: Up 3x4 and down 2x6 using B rails and a step-to pattern with supervision and minimal cueing. ASSESSMENT: Patient tolerated a progression in gait distance with FWW support and supervision. She completes NuStep biking with relief of anterior knee discomfort. PLAN: Continue with independent completion of LE strengthening and continue with gait training for improved mobility and activity tolerance. TREATMENT CODE/TIME: 34 minutes; [id number] x2 (11:42)
[2021-05-18] MEDS: Enoxaparin 40 MG/0.4 ML SYR SC (15:26)
[2021-05-18 15:31] VITALS: BP 116/71; PULSE 77; RESP 16; TEMP 37.1; O2SAT 92
[2021-05-18] MEDS: Ibuprofen 600 MG TAB PO (18:56)
[2021-05-18] MEDS: Senna TAB 1 TAB PO (22:26)
[2021-05-18] MEDS: Latanoprost 0.005% 2.5 ML BTL OU (22:26)
[2021-05-19 02:11] VITALS: BP 110/65; PULSE 66; RESP 20; TEMP 36.5; O2SAT 94
[2021-05-19] MEDS: Furosemide 40 MG TAB PO ×2 (06:02→13:10)
[2021-05-19] MEDS: Acetaminophen 500 MG TAB 1000 MG PO ×2 (06:02→13:56)
[2021-05-19] MEDS: Ibuprofen 600 MG TAB PO ×2 (06:02→13:55)
[2021-05-19 07:14] VITALS: BP 106/70; PULSE 64; RESP 16; TEMP 36.2; O2SAT 94
[2021-05-19] MEDS: Sacubitril/Valsartan 24 mg/26 mg TAB 1 EACH PO ×2 (08:07→21:12)
[2021-05-19] MEDS: Metoprolol CR 25 MG TABCR PO (08:07)
[2021-05-19] MEDS: Aspirin E.C. 81 MG TABEC PO (08:07)
[2021-05-19] MEDS: Protein Nutritional Supplement 16 GM 1 OUNCE PACKET PO ×3 (08:07→21:12)
[2021-05-19] MEDS: Magnesium Oxide 400 MG TAB PO (08:07)
[2021-05-19] MEDS: Docusate Sodium 100 MG CAP PO ×2 (08:07→21:12)
[2021-05-19] MEDS: cefTRIAXone 2 GM/50 ML BAG IVPB (08:08)
[2021-05-19] MEDS: Normal Saline Flush 10 ML SYR IVP ×2 (08:08→21:12)
[2021-05-19] MEDS: Normal Saline 500 ML 30 ML IV (08:10)
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
--- NOTE | 2021-05-19 15:15 | W.PM.PROGNOT ---
Date of Service Date of service: 05/19/21 Time of Service: 15:16 Assessment and Plan Assessment and plan (1) Septic arthritis of knee, left: Status: Acute Assessment and plan: Continue ceftriaxone x 6 weeks from the day of surgery. End date will be 06/07/21. She may require longer term oral suppressive abx. Qualifiers: Septic arthritis organism: due to unspecified organism Qualified Code(s): M00.9 - Pyogenic arthritis, unspecified (2) Cellulitis of second toe of left foot: Status: Resolved (3) Edema: Status: Acute Assessment and plan: of BLEs. Continue furosemide 40 mg PO BID. No DVTs by venous doppler BLEs (4) Hypertension: Status: Chronic Assessment and plan: BPs are well controlled on current regimen. No change in therapy. (5) DVT prophylaxis: Status: Acute Assessment and plan: SC enoxaparin (6) Discharge planning issues: Status: Acute Assessment and plan: DNR/DNI The plan is to finish IV abx at the hospital with discharge home following this. Subjective Subjective Interval history since last seen: Ms Colbert states that she is doing good. She denies dizziness, chest pain, shortness of breath, nausea, abdominal pain, constipation, dysuria. She says that there have been a couple of episodes of low urinary volume - she attributes it to drinking less water on those days. Today, her UOP is fine. We discussed that the last day of her abx, based on day of her surgery (04/26/21) would be 06/07/21. Exam Narrative Exam Narrative: General: Pleasant elderly female who is laying comfortably in bed HEENT: EOMI, MMM Heart: RRR, no m/r/g Lungs: CTAB Abdomen: nondistended Extremities: 2+ edema BLEs, L knee incision healing well, 2nd toe LLE has no erythema. - c/d/i. Objective Last Vital Signs Temp 36.2 C L 05/19/21 07:14 Pulse 64 05/19/21 07:14 Resp 16 05/19/21 07:14 BP 106/70 05/19/21 07:14 Pulse Ox 94 05/19/21 07:14
--- NOTE | 2021-05-19 15:36 | PHA.REVIEW ---
Pharmacy Admission Review - Admission Clinical Review (Last Reviewed 05/12/21 @ 13:25 by Toro Narvaez MD) Palliative care status (Acute) DNR (do not resuscitate) (Acute) Discharge planning issues (Acute) DVT prophylaxis (Acute) Septic arthritis of knee, left (Acute) Edema (Acute) demeclocycline HCl [From Declomycin] Allergy (Intermediate, Verified 03/26/21 11:55) Hives acetaminophen [From Percocet] Allergy (Mild, Verified 04/27/21 06:19) Hives oxycodone [From Percocet] Allergy (Mild, Verified 03/26/21 11:55) Hives Penicillins Allergy (Mild, Verified 03/26/21 11:55) Hives Qcmjctl-YVT-GmU Reductase Inhibitor [Jmunmmz-Txo-Qcl Reductase Inhibitor] Adverse Reaction (Intermediate, Verified 03/26/21 11:55) nauesa /vomiting Resuscitation Status DNR/DNI Height 5 ft 6 in Weight 98.9 kg - Renal Dosing Renal Dosing: BUN 39 mg/dL (7-18) H 05/17/21 06:20 Creatinine 0.7 mg/dL (0.55-1.02) 05/17/21 06:20 Medications needing adjustments: Reviewed List of meds needing interventions: eCrCl 69ml/min using adj bw - Anticoagulation Anticoagulation: Hgb 9.1 g/dL (11.2-15.7) L 05/17/21 06:20 Hct 29.5 % (36.0-46.0) L 05/17/21 06:20 Plt Count 321 10^3/uL (130-400) D 05/17/21 06:20 Creatinine 0.7 mg/dL (0.55-1.02) 05/17/21 06:20 DVT Prophylaxis: Reviewed Medications: Enoxaparin - Opiate Usage Evaluate Pain Scale/Pains Meds: N/A Scheduled Bowel Reg ordered if on Opiates?: Yes - Relevant Labs Sodium 139 mmol/L (136-145) 05/17/21 06:20 Potassium 3.8 mmol/L (3.5-5.1) 05/17/21 06:20 Chloride 104 mmol/L (98-107) 05/17/21 06:20 Magnesium 2.5 mg/dL (1.8-2.4) H 05/17/21 06:20 C-Reactive Protein 2.23 mg/dL (0.0-0.3) H 05/17/21 06:20 Electrolytes, C-Reactive P, ESR: Reviewed - DM Control DM Control: Glucose 88 mg/dL (74-106) 05/17/21 06:20 Insulin Dosing: N/A - Heart Failure/CA EF%, ARETHA's, B-Blockers, Diuretics: N/A - BP Control BP Control: Blood Pressure 106/70 If elevated: Reviewed - Qtc Review If Elevated: N/A - IV to PO Switch IV Medications: Reviewed - Home Meds Home Med List reviewed: Reviewed Relevent Home Meds Not ordered & why?: all ordered (lasix recently dc'd per nursing... last filled 20mg BID in march) - Current meds Current Medication Order Review: Intervened (will continue ceftriaxone for 6 weeks from date of surgery which will be 06/07/21, added stop time to order)
[2021-05-19 16:12] VITALS: BP 113/64; PULSE 67; RESP 18; TEMP 36.4; O2SAT 93
[2021-05-19] MEDS: Enoxaparin 40 MG/0.4 ML SYR SC (16:14)
[2021-05-19] MEDS: Senna TAB 1 TAB PO (21:12)
[2021-05-19] MEDS: Latanoprost 0.005% 2.5 ML BTL OU (21:13)
[2021-05-19 23:05] VITALS: BP 103/65; PULSE 68; RESP 16; TEMP 36.3; O2SAT 94
[2021-05-20] MEDS: Acetaminophen 500 MG TAB 1000 MG PO (02:59)
[2021-05-20] MEDS: Ibuprofen 600 MG TAB PO (02:59)
[2021-05-20] MEDS: Furosemide 40 MG TAB PO ×2 (06:23→13:48)
[2021-05-20 07:30] VITALS: BP 106/64; PULSE 71; RESP 16; TEMP 36.2; O2SAT 96
[2021-05-20] MEDS: cefTRIAXone 2 GM/50 ML BAG IVPB (08:28)
[2021-05-20] MEDS: Normal Saline Flush 10 ML SYR IVP ×2 (08:28→20:03)
[2021-05-20] MEDS: Aspirin E.C. 81 MG TABEC PO (08:29)
[2021-05-20] MEDS: Protein Nutritional Supplement 16 GM 1 OUNCE PACKET PO ×3 (08:29→20:02)
[2021-05-20] MEDS: Rosuvastatin 5 MG TAB PO (08:29)
[2021-05-20] MEDS: Metoprolol CR 25 MG TABCR PO (08:30)
[2021-05-20] MEDS: Magnesium Oxide 400 MG TAB PO (08:30)
[2021-05-20] MEDS: Docusate Sodium 100 MG CAP PO ×2 (08:30→20:02)
[2021-05-20] MEDS: Sacubitril/Valsartan 24 mg/26 mg TAB 1 EACH PO ×2 (08:30→20:02)
--- NOTE | 2021-05-20 15:04 | PT.INPN ---
Date of service: 05/20/21 Time of Service: 15:04 PT Notes Visit Reasons: Sepsis Swing Bed Level 1 Physical Therapy Progress Note Date: 05/20/21 Date of Service: 05/13/2021 through 05/20/2021 Precautions: WBAT on left LE with AD. Subjective: Very happy with how much she has achieved so far with her mobility level. Objective: General Observation: ARETHA wrap L LE and L knee. There is a half staple left on the lower tip of the surgical incision which nurse restaurant shift supervisor Milla was told about. Erythema to the lateral distal thigh and medial proximal tibial area on the L side. Scabbed area about the size of a cent seen on the lower tip of surgical incision Mental Status: Alert and oriented x3 Pain: Denies ROM: Right Upper Extremity: Limited right shoulder flexion to 80 degrees with significant crepitation. IR chest wall. ER to neutral. WFL elbow, wrist, and hand Left Upper Extremity: Demonstrates WNL AROM L UE Right Lower Extremity: Hip flexion 100 degrees, knee 90 degrees, knee extension lacking about 5 degrees, dorsiflexion limited to neutral Left Lower Extremity: Hip flexion 100 degrees, knee flexion 100 degrees, extension lacking about 30 degrees when measured seated on chair, dorsiflexion to neutral Strength: Right Upper Extremity: Shoulder flexion 3-/5, bicep 4/5, good functional grasp Left Upper Extremity: Demonstrates 4+/5 left upper extremity strength, good functional grasp Right Lower Extremity: Independent straight leg raise with notable extension lag. Hip flexion 4+/5, knee extension 4/5, knee flexion 4-/5 Left Lower Extremity: SLR to about 45 degrees still with extension lag. Hip flexion 4/5, knee extension 3-/5, knee flexion 3-/5 Sensation: Intact light touch and pain Bed Mobility/Transfers: Sit-stand: Independent Stand-sit: Independent Bed-chair: Independent Cahir-bed: Independent GAIT Assistive Device: FWW Weight bearing: WBAT L Assist: Independent Distance: UP to 200 feet Deviation: Step-through gait pattern. Denies pain in L knee. Reported mild fatigue that resolved with rest. Increased R foot pronation and R tibila external rotation (chronic). Trunk anteroflexed (chronic). Patient is able to fully extend at knee on midstance but ability to sustain it with increasing distance diminishes. Balance: Static Sitting: Normal Dynamic Sitting: Normal Static Standing: Fair Dynamic Standing: Fair Informed Consent/Education: Patient instructed in purpose of PT consult and plan of care. Assessment: Now independent in room and in the hallway for up to 200 feet using her front-wheeled walker. Requires continued services for AROM and quad strength progression, scar management, edema management to facilitate healing of revision TKA while maximizing mobility ADL performance. GOALS x 1 week 1. Supine-Sit independent MET. Patient is now independent. D/C as of 05/13/2021. 2. Sit-Supine independent MET. Patient is now independent. D/C as of 05/13/2021. 3. Sit-Stand standby assist with front wheeled walker MET. Patient is now independent. D/C as of 05/13/2021. 4. Stand-Sit standby assist MET. Patient is now independent. D/C as of 05/13/2021. 5. Bed-Chair contact-guard assist with front wheeled walker MET. Patient is now independent. D/C as of 05/13/2021. 6. Chair-Bed contact-guard assist with front wheel walker MET. Patient is now independent. D/C as of 05/13/2021. 7. Gait contact-guard assist with front-wheeled walker x 50 feet or greater MET. UPGRADE as of 05/13/2021: Independent with level surface ambulation using the FWW for 200 feet with no report of pain in the L knee. MET as of 05/20/2021 8. Stairs up/down 3-5 steps with contact-guard assist. NOT MET. CONTINUE. 9. Independent with home exercise program. CONTINUE with EXERCISE PROGRESSION. 10. PATIENT GOAL: Be able to use the NuStep safely following parameters given by PT/FURNITURE SALESPERSON as part of maintenance program. NEW GOALS OF 05/20/2021: 1. Patient will achieve full knee extension on the L side with increase in strength of the L quadriceps to eliminate buckling of L knee and progress mobility level. 2. Patient will have flat scar to eliminate skin adhesions that may decrease AROM for flexion. 3. Patient will decrease edema on L knee for symmetrical limb girth to reduce infection recurrence, allow achievement of full AROM for extension and flexion, and facilitate full healing of revision TKA site. 4. Patient will be independent with use of 4WW for up to 300 feet to prgress mobility level and reduce fall risk. Plan of Care/Treatment Plan: Patient will be seen 2x/week for the next two weeks for scar management, for L knee mobilization to achieve full L knee AROM, for edema management, for continued L quadriceps strengthening and or hamstring gentle passive stretching, and mobility progression as tolerated. Plan of care has been reviewed with the FURNITURE SALESPERSON providing the service under Physical Therapy direction. DISCHARGE RECOMMENDATIONS: [] Home with no services [] [X] Home with services. Patient will benefit from home health PT services in order to progress mobility level using least restrictive assistive ambulatory device, assess home safety, identify additional equipment needs, and establish a functional maintenance program that will increase ability of patient to remain at home. [] Home with outpatient PT [] [] SNF for continued rehabilitation [] [] Shelter Care [] [] SNF versus LTC based on ability to participate and progress [] TREATMENT CODE/TIME: [id number] x 25 minutes beginning at 15:04 PM. Thank you for the opportunity to participate in the care of this patient. Jagruti Nelson PT, DPT, CLT [facility] [place], [place]
[2021-05-20 15:05] VITALS: BP 109/57; PULSE 69; RESP 18; TEMP 36.5; O2SAT 96
--- NOTE | 2021-05-20 15:11 | CHAPLAIN ---
Dinorah is familiar at many staff as she has been here for a few weeks. She said she's here until to finish her IV antibiotics. 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 She said that she is receiving good care here and that staff have been very kind. She lives in [facility] with her sister but is originally from [place]. Dinorah said she plans on going home rather than to a rehab because it'll be spring when she discharged next month.
[2021-05-20] MEDS: Enoxaparin 40 MG/0.4 ML SYR SC (16:54)
[2021-05-20] MEDS: Senna TAB 1 TAB PO (21:06)
[2021-05-20] MEDS: Latanoprost 0.005% 2.5 ML BTL OU (21:06)
[2021-05-21 00:04] VITALS: BP 102/62; PULSE 70; RESP 18; TEMP 36.6; O2SAT 94
[2021-05-21] MEDS: Acetaminophen 500 MG TAB 1000 MG PO ×2 (02:02→21:32)
[2021-05-21] MEDS: Ibuprofen 600 MG TAB PO ×2 (02:03→21:32)
[2021-05-21] MEDS: Furosemide 40 MG TAB PO ×2 (05:43→14:20)
[2021-05-21 07:27] VITALS: BP 112/68; PULSE 67; RESP 16; TEMP 36.2; O2SAT 94
[2021-05-21] MEDS: cefTRIAXone 2 GM/50 ML BAG IVPB (08:38)
[2021-05-21] MEDS: Magnesium Oxide 400 MG TAB PO (08:38)
[2021-05-21] MEDS: Sacubitril/Valsartan 24 mg/26 mg TAB 1 EACH PO ×2 (08:38→20:01)
[2021-05-21] MEDS: Protein Nutritional Supplement 16 GM 1 OUNCE PACKET PO ×3 (08:38→20:00)
[2021-05-21] MEDS: Aspirin E.C. 81 MG TABEC PO (08:38)
[2021-05-21] MEDS: Metoprolol CR 25 MG TABCR PO (08:38)
[2021-05-21] MEDS: Docusate Sodium 100 MG CAP PO (08:38)
[2021-05-21] MEDS: Normal Saline Flush 10 ML SYR IVP ×2 (08:39→20:00)
--- NOTE | 2021-05-21 12:45 | PDOC.CMPRO ---
- If Service Date Differs Date of service: 05/21/21 Time of Service: 12:45 Care Management Progress Note S/O:Dinorah was sitting up in a chair when CM met with her. She was pleasant as usual and interacted well with CM. Dinorah informed CM that after much soul searching she has decided that she wants to return to her own home vs going to an assisted living facility. She shared that she and her sister have had many conversations over the past few weeks and her sister has had some medication changes that have had a positive impact on her mood and energy level. She and Dinorah are working out their differences and Dinorah is looking forward to returning home. Her anticipated day of discharge is 06/08/21. A: Dinorah is an 86 year old woman admitted on 05/12/21 with sepsis P:Dinorah will likely be discharged home with new home health services. She has investigated several assisted living facilities both locally and in the [place] area but has decided that she prefers to return to her own home. She will follow up with her community providers and transport home via private vehicle with a friend. CM will continue to support Dinorah through her SB stay for fdc IVAB.
--- NOTE | 2021-05-21 12:57 | CMACTNOTE_ITS ---
- If Service Date Differs Date of service: 05/21/21 Time of Service: 12:57 Care Management Activity Note S/O:Dinorah has a deep mosque slava and spends much of her time in prayer and reading spiritual passages. She enjoys visiting with staff and talks to friends and family on the phone. She would enjoy pet therapy and music therapy were thet to become available. A: Dinorah is an 86 year old woman admitted on 04/23/21 with cellulitis. She was transitioned into SB-1 status on 05/12/21 to complete a 6 week course of IV antibiotics. P:Dinorah will likely be discharged home with new home health services. She has investigated several assisted living facilities both locally and in the [place] area but has decided that she prefers to return to her own home. She will follow up with her community providers and transport home via private vehicle with a friend. 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
[2021-05-21 15:39] VITALS: BP 146/68; PULSE 72; RESP 16; TEMP 36.8; O2SAT 95
[2021-05-21] MEDS: Ondansetron 4 MG/2 ML VIAL IVP (16:12)
[2021-05-21] MEDS: Enoxaparin 40 MG/0.4 ML SYR SC (16:12)
[2021-05-21 16:17] LABS: Abs Immature Grans 0.05 10^3/uL (0.0-0.06); Absolute Basophil Count 0.06 10^3/uL (0.0-0.2); Absolute Eosinophil Count 0.89 10^3/uL (0.0-0.7); Absolute Lymphocyte Count 1.24 10^3/uL (1.2-3.4); Absolute Monocyte Count 0.97 10^3/uL (0.1-0.8); Absolute Neutrophil Count 5.84 10^3/uL (1.2-6.7); Basophils % 0.7; Eosinophils % 9.8; HCT 32.3 % (36.0-46.0); HGB 9.9 g/dL (11.2-15.7); Immature Grans % 0.6; Lymphocytes % 13.7; MCH 30.8 pg (27.0-33.0); MCHC 30.7 % (32.0-36.0); MCV 100.6 fL (80-95); MPV 8.5 fL (8.0-11.0); Monocytes % 10.7; Neutrophils % 64.5; Nucleated RBC 0 %; Platelet Count 277 10^3/uL (130-400); RBC 3.21 10^6/uL (3.93-5.22); RDW 14.4 % (11.7-14.6); RDW-SD 52.4 fL; WBC 9.05 10^3/uL (4.4-10.8)
[2021-05-21 16:29] LABS: BUN 47 mg/dL (7-18); C-Reactive Protein 1.36 mg/dL (0.0-0.3); Calcium 9.1 mg/dL (8.5-10.1); Chloride 103 mmol/L (98-107); Estimated GFR 52.69 (mL/min/1.73m2); Glucose 108 mg/dL (74-106); Potassium 3.7 mmol/L (3.5-5.1); Sodium 139 mmol/L (136-145)
[2021-05-21 17:02] LABS: Procalcitonin < 0.1 ng/mL
[2021-05-21 18:02] LABS: Bilirubin Negative (Negative); Blood Negative (Negative); Clarity Clear (Clear); Glucose Negative (Negative); Ketones Negative (Negative); Leukocyte Esterase Negative (Negative); Nitrite Negative (Negative); Urobilinogen 0.2 EU/dL (Up TO 0.2)
[2021-05-21] MEDS: Latanoprost 0.005% 2.5 ML BTL OU (21:23)
[2021-05-21 23:33] VITALS: BP 110/51; PULSE 72; RESP 18; TEMP 36.5; O2SAT 96
[2021-05-22] MEDS: Furosemide 40 MG TAB PO ×2 (05:50→13:48)
[2021-05-22 07:00] VITALS: BP 108/61; PULSE 61; RESP 18; TEMP 36.2; O2SAT 95
[2021-05-22] MEDS: Normal Saline Flush 10 ML SYR IVP ×2 (08:09→19:37)
[2021-05-22] MEDS: Protein Nutritional Supplement 16 GM 1 OUNCE PACKET PO ×3 (08:10→19:37)
[2021-05-22] MEDS: cefTRIAXone 2 GM/50 ML BAG IVPB (08:10)
[2021-05-22] MEDS: Aspirin E.C. 81 MG TABEC PO (08:10)
[2021-05-22] MEDS: Rosuvastatin 5 MG TAB PO (08:10)
[2021-05-22] MEDS: Sacubitril/Valsartan 24 mg/26 mg TAB 1 EACH PO ×2 (08:10→19:37)
[2021-05-22] MEDS: Magnesium Oxide 400 MG TAB PO (08:11)
[2021-05-22] MEDS: Metoprolol CR 25 MG TABCR PO (08:11)
--- NOTE | 2021-05-22 11:35 | PTTR_ITS ---
Date of service: 05/22/21 Time of Service: 11:35 PT Notes Visit Reasons: Sepsis Swing Bed Level 1 Physical Therapy Treatment Note Date: 05/22/21 Precautions: WBAT on left LE with AD. Subjective: Agreeable to new PT plan of care. Objective: General Observation: Erythema to the lateral distal thigh and medial proximal tibial area on the L side diminishing. Loose scabbed area at tip of incsion removed with cross-fiber massage. Mental Status: Alert and oriented x3 Pain: Denies PT INTERVENTION PROVIDED TODAY: 1. EDEMA management: Lymph drainage combined with retrograde massage to L thigh and knee to decrease swelling with good response. 2. CROSS-FIBER massage: Performed over sirgical incision to help flaten scar and loosen adhesions. 3. GENTLE PASSIVE STRETCHING: Performed to L hamstrings x 20-sec hold x 3 reps to increase L knee extension and maximize quadriceps sterngth training. 4.SEATED HEEL SLIDES: Performed on L side while seated at edge of bed with careful instruction to keep the heel on the floor to allow for stretching of L quads muscle and anterior joint capsule: 5. MOISTURIZATION: Done on L LE to minimize dryness and skin breakdown. 6. READJUSTED TEDS: To allow for optimal management of L LE swelling. TEDS were too long and were creating tourniquet effect at proximal leg and needed to be readjusted by PT. Bed Mobility/Transfers: Sit-stand: Independent Stand-sit: Independent Bed-chair: Independent Cahir-bed: Independent Balance: Static Sitting: Normal Dynamic Sitting: Normal Static Standing: Fair Dynamic Standing: Fair Assessment: Now independent in room and in the hallway for up to 200 feet using her front-wheeled walker. Requires continued services for AROM and quad strength progression, scar management, edema management to facilitate healing of revision TKA while maximizing mobility ADL performance. DISCHARGE RECOMMENDATIONS: [] Home with no services [] [] Home with services. [X] Home with outpatient PT. Home when medically cleared by hospitalist/orthopedic surgeon. Will benfit from OP PT services to continue L knee rehab and mobility progression in the community. [] SNF for continued rehabilitation [] [] Judicial Administrative Assistant Care [] [] SNF versus LTC based on ability to participate and progress [] TREATMENT CODE/TIME: 99316 x 25 minutes, 15363 x 17 minutes beginning at 11:35 AM.
[2021-05-22 15:26] VITALS: BP 104/63; PULSE 66; RESP 18; TEMP 37; O2SAT 93
[2021-05-22] MEDS: Enoxaparin 40 MG/0.4 ML SYR SC (16:05)
[2021-05-22] MEDS: Docusate Sodium 100 MG CAP PO (19:36)
[2021-05-22 19:39] VITALS: BP 123/68; PULSE 65
[2021-05-22] MEDS: Latanoprost 0.005% 2.5 ML BTL OU (22:18)
[2021-05-22 23:03] VITALS: BP 103/44; PULSE 65; RESP 20; TEMP 36.5; O2SAT 95
[2021-05-23] MEDS: Furosemide 40 MG TAB PO ×2 (05:15→13:51)
[2021-05-23 07:10] VITALS: BP 99/64; PULSE 68; RESP 16; TEMP 36.2; O2SAT 94
[2021-05-23] MEDS: cefTRIAXone 2 GM/50 ML BAG IVPB (08:05)
[2021-05-23] MEDS: Protein Nutritional Supplement 16 GM 1 OUNCE PACKET PO ×3 (08:06→19:27)
[2021-05-23] MEDS: Aspirin E.C. 81 MG TABEC PO (08:06)
[2021-05-23] MEDS: Metoprolol CR 25 MG TABCR PO (08:06)
[2021-05-23] MEDS: Normal Saline Flush 10 ML SYR IVP ×2 (08:06→19:32)
[2021-05-23] MEDS: Docusate Sodium 100 MG CAP PO ×2 (08:06→19:28)
[2021-05-23] MEDS: Magnesium Oxide 400 MG TAB PO (08:07)
[2021-05-23] MEDS: Ibuprofen 600 MG TAB PO (11:39)
[2021-05-23 15:35] VITALS: BP 135/76; PULSE 68; RESP 18; TEMP 36.7; O2SAT 94
[2021-05-23] MEDS: Enoxaparin 40 MG/0.4 ML SYR SC (16:44)
[2021-05-23 19:20] VITALS: BP 102/60; PULSE 71; RESP 16; TEMP 36.7; O2SAT 95
[2021-05-23] MEDS: Lactobacillus Acidophilus CAP 1 CAP PO (19:27)
[2021-05-23] MEDS: Latanoprost 0.005% 2.5 ML BTL OU (21:58)
[2021-05-24] MEDS: Furosemide 40 MG TAB PO ×2 (05:06→15:51)
[2021-05-24 06:27] VITALS: BP 103/61; PULSE 77; RESP 16; TEMP 36.7; O2SAT 94
[2021-05-24] MEDS: cefTRIAXone 2 GM/50 ML BAG IVPB (07:56)
[2021-05-24] MEDS: Protein Nutritional Supplement 16 GM 1 OUNCE PACKET PO ×3 (07:57→20:19)
[2021-05-24] MEDS: Docusate Sodium 100 MG CAP PO ×2 (07:58→20:19)
[2021-05-24] MEDS: Rosuvastatin 5 MG TAB PO (07:58)
[2021-05-24] MEDS: Metoprolol CR 25 MG TABCR PO (07:58)
[2021-05-24] MEDS: Sacubitril/Valsartan 24 mg/26 mg TAB 1 EACH PO ×2 (07:58→20:19)
[2021-05-24] MEDS: Lactobacillus Acidophilus CAP 1 CAP PO ×3 (07:58→20:19)
[2021-05-24] MEDS: Magnesium Oxide 400 MG TAB PO (07:58)
[2021-05-24] MEDS: Aspirin E.C. 81 MG TABEC PO (07:58)
[2021-05-24] MEDS: Normal Saline Flush 10 ML SYR IVP ×3 (08:02→20:20)
[2021-05-24] MEDS: Enoxaparin 40 MG/0.4 ML SYR SC (15:51)
[2021-05-24 15:55] VITALS: BP 125/68; PULSE 69; RESP 17; TEMP 36.8; O2SAT 95
[2021-05-24 20:18] VITALS: BP 126/74; PULSE 67; RESP 17; TEMP 36.4; O2SAT 95
[2021-05-24] MEDS: Latanoprost 0.005% 2.5 ML BTL OU (21:44)
[2021-05-25] MEDS: Furosemide 40 MG TAB PO ×2 (06:02→14:57)
[2021-05-25 07:30] VITALS: BP 108/61; PULSE 73; RESP 17; TEMP 36.7; O2SAT 94
[2021-05-25] MEDS: Protein Nutritional Supplement 16 GM 1 OUNCE PACKET PO ×3 (09:00→20:54)
[2021-05-25] MEDS: Docusate Sodium 100 MG CAP PO ×2 (09:00→20:54)
[2021-05-25] MEDS: Metoprolol CR 25 MG TABCR PO (09:00)
[2021-05-25] MEDS: cefTRIAXone 2 GM/50 ML BAG IVPB (09:00)
[2021-05-25] MEDS: Magnesium Oxide 400 MG TAB PO (09:00)
[2021-05-25] MEDS: Lactobacillus Acidophilus CAP 1 CAP PO ×3 (09:00→20:54)
[2021-05-25] MEDS: Aspirin E.C. 81 MG TABEC PO (09:00)
[2021-05-25] MEDS: Sacubitril/Valsartan 24 mg/26 mg TAB 1 EACH PO ×2 (09:00→20:54)
[2021-05-25] MEDS: Normal Saline Flush 10 ML SYR IVP ×2 (09:01→20:55)
[2021-05-25] MEDS: Ondansetron 4 MG/2 ML VIAL IVP ×2 (10:00→20:54)
[2021-05-25 16:24] VITALS: BP 101/63; PULSE 65; RESP 18; TEMP 36.7; O2SAT 96
[2021-05-25] MEDS: Enoxaparin 40 MG/0.4 ML SYR SC (17:17)
[2021-05-25 20:53] VITALS: BP 106/63; PULSE 69; RESP 17; TEMP 36.6; O2SAT 95
[2021-05-25] MEDS: Latanoprost 0.005% 2.5 ML BTL OU (21:05)
[2021-05-26] MEDS: Furosemide 40 MG TAB PO (05:26)
[2021-05-26 07:02] VITALS: BP 112/65; PULSE 78; RESP 17; TEMP 36.2; O2SAT 95
[2021-05-26] MEDS: Protein Nutritional Supplement 16 GM 1 OUNCE PACKET PO (08:44)
[2021-05-26] MEDS: Rosuvastatin 5 MG TAB PO (08:45)
[2021-05-26] MEDS: Magnesium Oxide 400 MG TAB PO (08:46)
[2021-05-26] MEDS: Lactobacillus Acidophilus CAP 1 CAP PO (08:46)
[2021-05-26] MEDS: cefTRIAXone 2 GM/50 ML BAG IVPB (08:46)
[2021-05-26] MEDS: Sacubitril/Valsartan 24 mg/26 mg TAB 1 EACH PO (08:46)
[2021-05-26] MEDS: Metoprolol CR 25 MG TABCR PO (08:46)
[2021-05-26] MEDS: Docusate Sodium 100 MG CAP PO (08:46)
[2021-05-26] MEDS: Normal Saline Flush 10 ML SYR IVP (08:46)
[2021-05-26] MEDS: Aspirin E.C. 81 MG TABEC PO (08:46)
[2021-05-26] MEDS: Ibuprofen 600 MG TAB PO (09:58)
--- NOTE | 2021-05-26 10:33 | DSE_ITS ---
Date of service: 05/26/21 Time of Service: 10:33 DS: Diagnosis Discharge Diagnosis (1) Septic arthritis of knee, left: Status: Acute (2) Cellulitis of second toe of left foot: Status: Resolved (3) Edema: Status: Chronic (4) Hypertension: Status: Chronic (5) DVT prophylaxis: Status: Resolved (6) Discharge planning issues: Status: Resolved Discharge Plan Disposition Patient Disposition: HOME W/HOME HEALTH SERVICE Condition: Improving Discharge Details Reason For Visit: Sepsis Admit Date/Time: 05/12/21 13:05 Admit Provider: Toro Narvaez Attending Provider: Toro Narvaez Hospital Course Hospital Course: This 86-year-old female with a past medical history of osteoarthritis and previous left knee TKA has had a history of previous left knee periprosthetic joint infection for which she has had prior revision in which she had a antibiotic spacer placed in her left knee. She did well with this for some time and she and her previous orthopedic surgeon Dr. Brown from [facility], decided to leave the spacer and with plans for revision at a later date. She presented to [facility] emergency department 04/22/21 with symptoms of nausea vomiting generalized weakness and chest tightness and had a fever of 99.1 and rigors left knee pain. Patient comorbidities include obesity, essential pretension, osteoarthritis, pes planus right foot, NSTEMI in June 2020 for which she was evaluated at [facility] and had a cardiac catheterization and was found to have no hemodynamically significant lesions. Orthopedic consultation was obtained during her acute hospitalization with Dr. Matthew Clarke (see his note from 04/23/2021). He performed arthrocentesis on 04/23/21 that showed many white blood cells but no bacteria and no growth. the hospitalist service spoke with Dr. Warren from cardiology it was determined based on the patient's negative cardiac catheterization that her acute troponin elevation was due to stress from sepsis. Her troponin peaked at 195 ng/L and by 04/25/21 declined to normal <50. Echocardiogram was performed and demonstrated normal LV function, LVEF 60% w/ no RWMA. She was medically cleared for surgery to evaluate and treat for periprosthetic infection. Dr. Clarke performed an explantation of the left knee prosthesis along with aggressive debridement and synovectomy and placement of an antibiotic spacer with intramedullary rods in the patient's left knee on April 26, 2021. Patient had blood cultures obtained on admission as well as urine cultures and in addition to the arthrocentesis culture cultures were sent from her explantation. All of her blood cultures and synovial fluid cultures and surgical cultures came back showing no growth. Initial urine culture did grow E. coli which was pansensitive. Patient was treated with broad-spectrum antibiotics including ceftriaxone 2 g daily along with vancomycin which was dosed by his pharmacist based on her trough levels. Because of her poor mobility from her knee infection she required swing bed stay for P.T. and for ongoing antibiotic treatment. She went into swing bed status on 05/12/2021. She requires 6 weeks of antibiotics (through ). Her ambulatory function improved greatly and is willing to return for daily outpatient infusions of Rocephin 2 gm daily. She did receive Vancomycin from 04/23 through 05/08/21. While hospitalized the patient was put on Entresto for treatment of her HFPEF and her lasix dose was adjusted. Patient will follow up w/ Dr. Clarke regarding her knee surgery and follow up with her PCP regarding her CHF. Patient was found to be anemic during her hospitalizations but her hemoglobin levels were improving as her sepsis improved, she was also treated w/ Mabel. Her hemoglobin on discharge was 9.9 gm. Home Meds and New Rx's Prescriptions: New magnesium oxide 400 mg (241.3 mg magnesium) Tablet 400 mg PO DAILY Qty: 30 RF: 0 Entresto 24-26 mg tablet 1 tab PO BID Qty: 60 RF: 0 Continued docusate sodium [Colace] 100 mg capsule 100 mg PO DAILY RF: 0 metoprolol succinate 25 mg tablet extended release 24 hr 25 mg PO DAILY Qty: 90 RF: 4 rosuvastatin [Crestor] 5 mg tablet 5 mg PO .Every other day Qty: 90 RF: 4 latanoprost 0.005 % drops 1 drp OU HS Qty: 2.5 RF: 5 aspirin 81 mg Tablet,Delayed Release (Dr/Ec) 81 mg PO DAILY RF: 0 Changed furosemide 20 mg tablet 40 mg PO BID Qty: 0 RF: 0 No Action (DME) Ankle Foot Orthosis See Rx Instructions .Route .MEDSUPPLY Qty: 1 RF: 0 Discharge Instructions Instructions: Septic Arthritis (DC) Additional Instructions: Knee Discharge Instructions Activity: The most important activity is to walk. You should try to take short walks a few times a day. It is important that when resting you work on keeping the knee straight. Avoid putting a pillow behind the knee as this will encourage flexion. Work on range of motion exercises as provided by Physical Therapy. Home Health Physical Therapy should be started. You should continue to aggressive work on quadriceps strengthening (knee extensions and quad sets). Dressing: No dressing required to the knee. Medications: - Continue to take the antibiotics as described. I would recommend infectious disease make determinations of medications. However, you should be on an antibiotic for life. Follow-up: 4 weeks If you have any acute concerns or questions, please do not hesitate to contact the office at [phone]. You may contact Dr. Clarke with any questions after hours through the hospital at [phone] or on his cell phone at [phone]. Antibiotic treatment: You will follow up in the outpatient infusion center on 2nd floor of [facility] daily through May.28 to complete your 6 weeks of Rocephin 2 gm daily. Upon completion of this you should discuss w/ your orthopedic surgeon and your primary care provider about going on life long antibiotic suppressive therapy to prevent future joint infections. They may want to consult w/ infectious disease expert to determine the best course of assisted treatment particularly with your allergies to demeclocycline and penicillin. Stand Alone Forms: Nursing Discharge Form Referrals: Luisa Rivera NP [NURSE PRACTITIONER] - 06/05/21 2:40 pm Matthew Clarke MD [ [facility] STAFF PHYSICIAN] - 06/22/21 9:45 am Activity:: Activity as Tolerated Equipment/Supplies:: Walker Diet:: Normal Diet Discharge Orders Discharge Orders: Discharge Order (Routine); Ordered 05/26/21 Ordered By: Teodoro Hernandes Other Ambulatory Orders: Basic Metabolic Panel (Routine) Timeframe: 1 Week Facility: [facility] - Location: Laboratory Outpatient Ordered By: Teodoro Hernandes Discharge Data Discharge Date/Time-TO BE ENTERED AT DEPARTURE: 05/26/21 11:35 DS: Summary Time Spent with Patient providing and/or coordinating discharge services: Greater than 30 minutes Status at Discharge Functional status at discharge: uses cane/walker Overall status at discharge: patient is progressing back to baseline Mental Status: mental status grossly normal Speech and Movement: speech and movement normal Mood: congruent mood Affect: normal affect Exam Narrative Exam Narrative: Elderly female who is dressed and sitting on her bed, ready for discharge Lungs: clear to auscultation Heart: RRR, no murmur, rub or gallop Abdomen: soft, nontender Left knee wound is healing w/ no redness or pain on palpation; she has 1+ pitting edema of her lower legs and 2+ edema of her feet; pedal pulses are intact Psych Mental Status: mental status grossly normal Speech and Movement: speech and movement normal Mood: congruent mood Affect: normal affect DS: Data Vitals/I&O Vitals and I&O: Vital Signs Temperature 36.2 C L 05/26/21 07:02 Temperature Source Tympanic 05/26/21 07:02 Pulse 78 05/26/21 07:02 Pulse Rhythm Regular 05/26/21 09:59 Respiratory Rate 17 05/26/21 07:02 Respiratory Effort 05/26/21 09:59 Respiratory Depth Normal 05/26/21 09:59 Respiratory Pattern Normal 05/26/21 09:59 Blood Pressure 112/65 05/26/21 07:02 Pulse Oximetry 95 05/26/21 07:02 Oxygen Delivery Method Room Air 05/26/21 07:02 Oxygen Flow Rate 0 05/26/21 07:02 Pain Level 0 05/23/21 20:00 Comment 05/19/21 02:11 Intake & Output 05/25/21 05/25/21 05/26/21 11:59 23:59 11:59 Intake Total 500 / 790 290 / 790 600 / 600 Output Total 300 / 300 Balance 200 / 490 290 / 490 600 / 600 Intake: IV 50 / 50 Oral 500 / 740 240 / 740 600 / 600 Output: Urine 300 / 300 Other: Urine Color Yellow Urine Appearance Clear Clear Clear Urine Odor Normal Comment voiding idependently voiding independently voiding independently Stool Size Moderate Stool Characteristics Formed Voiding Methods Toilet Toilet Toilet PFSH All Active Problems (Updated 05/27/21 @ 09:22 by Teodoro Hernandes) Medication monitoring encounter (Acute) Palliative care status (Acute) DNR (do not resuscitate) (Acute) Iron deficiency anemia (Acute) Right heart failure (Chronic) Septic arthritis of knee, left (Acute) Right knee pain (Acute) 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) Pes planus of right foot (Acute) Edema (Chronic) Non-ST elevation MO (NSTEMI) (Acute) Hyperlipidemia (Chronic) Obesity (Chronic) Osteoarthritis (Chronic) Hypertension (Chronic) Medical History Glaucoma History of left breast cancer History of right breast cancer Left fibular fracture 2018 Melanoma 2017 Pulmonary embolism following a TKR Surgical History History of appendectomy History of melanoma excision History of total left knee replacement (TKR) S/P cholecystectomy S/P total knee replacement right 11/12/2019 Family History Mother , age 100 Heart disease Hypertension Dementia Father , age 78 Non-Hodgkin lymphoma Hyperlipidemia Sister Breast cancer Brother Bladder cancer Alcohol abuse Maternal Grandfather , age 58 Heart disease Paternal Grandfather , age 75 No problems noted. Maternal Grandmother , age 63 Thyroid cancer Heart disease Hyperlipidemia Hypertension Stroke Paternal Grandmother , age 93 Heart disease Social History Smoking/Tobacco Use Status: Never Second Hand Exposure: Yes Smoking risk assessment performed?: Yes Alcohol Intake: never Drug use: Never Substance use type: does not use Caregiver/Support person: No Household members: family and other Details: Sister Housing: house Communication Needs: Corrective Lenses Do you need help understanding health information?: Never Pets and animals: Yes Pets and animals: dog(s) Sexually active: No Do you think of yourself as: straight/heterosexual Current gender identity: female What is your relationship status?: never How often do you talk on the phone with friends or family?: three or more times per week How often do you get together with friends or relatives?: twice per week How often do you attend gnosticist or jainism services?: 4 or more times per year Do you belong to any clubs or organized social groups?: yes Panel score (0-1 are the most socially isolated patients): 3 Duration: 45-60 minutes/day Frequency: daily Annia/Buddhism: Jewish Special annia needs: Yes (priestly visits for sacrament collection systems administrator, [facility]) Seatbelt use: always Helmet use: No Drive intox or ride w/intox cmv driver: No Do you feel safe at home: Yes (pt states sometimes her and her sister become verbal) Do you feel safe in your relationship?: Yes Additional Social history: Lives in [place], [place] having moved up from [facility]. 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
--- NOTE | 2021-05-26 10:39 | PDOC.HHF2F_ITS ---
Home Health Certification Home Health Certification: 1. Encounter Date and Reason I certify that Dinorah Colbert was seen by Teodoro Hernandes on 05/26/21 and that I had a [id number] encounter with this patient that meets the physician face to face encounter requirements. 2. Clinical Findings Supporting Skilled Need and Homebound Status I certify that home health services are medically necessary, include either intermittent detention and/or physical/speech therapy, and that this patient is homebound in that absences from the home require considerable and taxing effort and are infrequent or of short duration, or are attributable to the need to receive medical care. [X] (a) Attached documentation from encounter provides clinical findings supporting skilled need and homebound status (including what assistance patient requires to leave the home). The encounter with the patient was in whole, or in part, for the following medical condition, which is the primary reason for home health care: Sepsis Assisted: Nursing to monitor patient's response to antibiotics for treatment of septic periprosthetic joint; obtain labs prn PCP/orthopedic discretion; coordinate any med changes w/ PCP and specialists; M.S.W. to coordinate services for patient Physical Therapy: P.T. and O.T. to provide in home treatment regarding generalized weakness, ambulatory dysfunction related to recent Explantation of Left Knee Prosthesis, Aggressive Debridement and Synovectomy, Placement of Antiobiotic Spacer with Intramedullary Rods (); coordinate w/ Dr. Clarke regarding any limitations in her function Speech Therapy: Homebound: patient's ambulatory dysfunction d/t recent knee operation makes is unsafe for patient to obtain above services outside of the home 3. Certification and Authentication I certify that I composed the above information based on my clinical judgement relating to this patient's medical condition and, if applicable, clinical findings communicated to me by the NPP or inpatient physician who performed the Home Health Referral. All further orders will be obtained through ___Luisa Rivera (Community Based Physician - PCP)
--- NOTE | 2021-05-26 11:51 | PDOC.CMDIS ---
- If Service Date Differs Date of service: 05/26/21 Time of Service: 11:51 LACE Index Scoring Tool - Questions: Length of Stay (in days): 14 or more Acuity (Admit via E.D.?): Yes Comorbidities: Congestive Heart Failure, Any Tumor E.D. Visits: 1 - Answers: Total Score: 16 Risk of Readmission: High Risk Care Management Discharge Reason for Hospitalization: septic arthritis of left knee Discharge Plan: Dinorah will be discharged home with new home health services for nursing, PT, OT and MINILAB OPERATOR through [facility]. She will return to the [facility] Infusion Center at 9 am daily until her IVAB therapy is conmpleted. LD anticipated to be 06/07/21. Dinorah will follow up with her PCP and plan of care and transport with a friend. Patient/Family Education Needs: Review of discharge instructions, activity, medications, limitations and discuss Ask Me Three
--- NOTE | 2021-05-26 18:30 | PT.INDS ---
Date of service: 05/29/21 PT Notes Visit Reasons: Sepsis Physical Therapy Inpatient Discharge Summary Date: 05/26/21 Dates of service: 05/13/2021 through 05/26/2021 This is a clinical summary of care provided for the duration of dates listed above. No charge was made in the completion of this documentation. Referring Doctor: Matthew Clarke MD PT Orders: PT CONSULT: Status post Ortho surgery. Status post left TKA explant and placement. WBAT with walker. Precautions: WBAT on left LE with AD. Patient Profile/Admitting Diagnosis: Dinorah is a 86-year-old female admitted to this hospital secondary to hypomagnesemia, sepsis, cellulitis and generalized weakness. She is status post left TKA explantation of knee spacer with synovectomy, debridement, and reimplantation of infection antibiotic spacer on postoperative day 18 due to septic arthritis of left knee. She converts to swing bed level of care as of today. 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) Pes planus of right foot (Acute) Edema (Acute) Non-ST elevation HI (NSTEMI) (Acute) Hyperlipidemia (Chronic) Obesity (Chronic) Osteoarthritis (Chronic) Hypertension (Chronic) Medical History Glaucoma History of left breast cancer History of right breast cancer Left fibular fracture 2018 Melanoma 2017 Pulmonary embolism following a TKR Surgical History History of appendectomy History of melanoma excision History of total left knee replacement (TKR) S/P cholecystectomy S/P total knee replacement right 11/12/2019 Social History/Home Situation: Dinorah reports that she lives with her sister in a private home in [place]. She reports that her sister is also disabled due to her back and is unable to assist her. She would like to look into an Assisted Living Center more around her family in the [facility]. She has a neighbor who is very helpful and involved. Equipment Owned/DME: Shower chair, FWW Subjective: NT. See most recent ADMISSIONS COUNSELOR notes. Objective: General Observation: NT. See most recent ADMISSIONS COUNSELOR notes. Mental Status: NT. See most recent ADMISSIONS COUNSELOR notes. Pain: NT. See most recent ADMISSIONS COUNSELOR notes. ROM: Right Upper Extremity: Limited right shoulder flexion to 80 degrees with significant crepitation. IR chest wall. ER to neutral. WFL elbow, wrist, and hand Left Upper Extremity: Demonstrates WNL AROM L UE Right Lower Extremity: Hip flexion 100 degrees, knee 90 degrees, knee extension lacking about 5 degrees, dorsiflexion limited to neutral Left Lower Extremity: Hip flexion 100 degrees, knee flexion 90 degrees, extension lacking 10 degrees, dorsiflexion neutral Strength: Right Upper Extremity: Shoulder flexion 3-/5, bicep 4/5, good functional grasp Left Upper Extremity: Demonstrates 4+/5 left upper extremity strength, good functional grasp Right Lower Extremity: Independent straight leg raise with notable extension lag. Hip flexion 4+/5, knee extension 4/5, knee flexion 4-/5 Left Lower Extremity: SLR to about 30 degrees. Hip flexion 4/5, knee extension 3-/5, knee flexion 3-/5 Sensation: Intact light touch Bed Mobility/Transfers: Sit-stand: Independent Stand-sit: Independent Bed-chair: Independent Cahir-bed: Independent GAIT Assistive Device: FWW Weight bearing: WBAT L Assist: Supervision Distance: UP to 200 feet Deviation: Step-through gait pattern. Denies pain in L knee. Reported mild fatigue that resolved with rest. Increased R foot pronation and R tibila external rotation (chronic). Trunk anteroflexed (chronic). Patient is able to fully extend at knee on midstance. Balance: Static Sitting: Normal Dynamic Sitting: Normal Static Standing: Fair Dynamic Standing: Fair Assessment: Demosntrates much improved confidence about ability of L knee to hold her up. Active knee flexion while in supine to about 90 degrees with no end of range pain. Quadriceps strength remains limited but much improved compared to start of care, able to straight leg raise to about 45 degrees today. Activity tolerance improving. GOALS x 1 week 1. Supine-Sit independent MET. Patient is now independent. D/C as of 05/13/2021. 2. Sit-Supine independent MET. Patient is now independent. D/C as of 05/13/2021. 3. Sit-Stand standby assist with front wheeled walker MET. Patient is now independent. D/C as of 05/13/2021. 4. Stand-Sit standby assist MET. Patient is now independent. D/C as of 05/13/2021. 5. Bed-Chair contact-guard assist with front wheeled walker MET. Patient is now independent. D/C as of 05/13/2021. 6. Chair-Bed contact-guard assist with front wheel walker MET. Patient is now independent. D/C as of 05/13/2021. 7. Gait contact-guard assist with front-wheeled walker x 50 feet or greater MET. UPGRADE as of 05/13/2021: Independent with level surface ambulation using the FWW for 200 feet with no report of pain in the L knee. 8. Stairs up/down 3-5 steps with contact-guard assist. NOT MET. CONTINUE. MET OF D/C DATE. 9. Independent with home exercise program. MET OF D/C DATE. 10. PATIENT GOAL: Be able to use the NuStep safely following parameters given by PT/ADMISSIONS COUNSELOR as part of maintenance program. MET OF D/C DATE. DISCHARGE RECOMMENDATIONS: [] Home with no services [] [] Home with services. [] Home with outpatient PT. Patient will benefit from home health PT services in order to progress mobility level using least restrictive assistive ambulatory device, assess home safety, identify additional equipment needs, and establish a functional maintenance program that will increase ability of patient to remain at home. Patient will require prescription for orthopeduic shoes to accommodate B feet swelling. [] SNF for continued rehabilitation [] [] Care Home Care [] [] SNF versus LTC based on ability to participate and progress [] TREATMENT CODE/TIME: AR Thank you for the opportunity to participate in the care of this patient. Jagruti Nelson PT, DPT, CLT [facility] [place], [place]
== END 2021-05-26 11:35 | disposition home health service (06) | DRG 560 ==
PROVIDERS: Internal Medicine; Admitting Provider Family Medicine; Visit Provider Family Medicine
DX: Z47.89 Encounter for other orthopedic aftercare (principal); L03.116 Cellulitis of left lower limb; M00.9 Pyogenic arthritis, unspecified; T84.84XA Pain due to internal orthopedic prosthetic devices, implants and grafts, initial encounter; T84.54XD Infection and inflammatory reaction due to internal left knee prosthesis, subsequent encounter; R53.1 Weakness; L03.032 Cellulitis of left toe; Z66 Do not resuscitate; I50.810 Right heart failure, unspecified; D50.9 Iron deficiency anemia, unspecified; Z96.652 Presence of left artificial knee joint; E83.42 Hypomagnesemia; E87.6 Hypokalemia; I11.0 Hypertensive heart disease with heart failure; E66.9 Obesity, unspecified; Z68.35 Body mass index [BMI] 35.0-35.9, adult; I25.2 Old myocardial infarction; Z85.3 Personal history of malignant neoplasm of breast; Z86.711 Personal history of pulmonary embolism
CPT/HCPCS: 36415; 80048; 84145; 97110; 97162; 97165; 97530; 97535; 99306; 99316; J1650; 81003; 83735; 85025; 86140; 87086; 99239; 99308; J2405; J3490

== ENCOUNTER 2021-06-06 01:12 | Outpatient (RCR) | payer MEDICARE, BC, SELFPAY ==
[2021-05-27] MEDS: Normal Saline Flush 10 ML SYR IVP (08:49)
[2021-05-27] MEDS: cefTRIAXone 2 GM/50 ML BAG IVPB (08:49)
[2021-05-28] MEDS: cefTRIAXone 2 GM/50 ML BAG IV (09:09)
[2021-05-28] MEDS: Normal Saline Flush 10 ML SYR IVP (09:31)
[2021-05-29] MEDS: cefTRIAXone 2 GM/50 ML BAG IV (09:00)
[2021-05-29] MEDS: Normal Saline Flush 10 ML SYR IVP (09:01)
[2021-05-30] MEDS: cefTRIAXone 2 GM/50 ML BAG IV (08:53)
[2021-05-30] MEDS: Normal Saline Flush 10 ML SYR IVP (08:54)
[2021-05-31] MEDS: Normal Saline Flush 10 ML SYR IVP (08:39)
[2021-05-31] MEDS: cefTRIAXone 2 GM/50 ML BAG IV (08:39)
[2021-06-01] MEDS: cefTRIAXone 2 GM/50 ML BAG IV (08:44)
[2021-06-01] MEDS: Normal Saline Flush 10 ML SYR IVP (08:48)
[2021-06-02] MEDS: Normal Saline Flush 10 ML SYR IVP (08:38)
[2021-06-02] MEDS: cefTRIAXone 2 GM/50 ML BAG IV (08:38)
[2021-06-03] MEDS: cefTRIAXone 2 GM/50 ML BAG IV (08:43)
[2021-06-03] MEDS: Normal Saline Flush 10 ML SYR IVP (08:43)
[2021-06-04] MEDS: cefTRIAXone 2 GM/50 ML BAG IV (08:50)
[2021-06-04] MEDS: Normal Saline Flush 10 ML SYR IVP (08:51)
[2021-06-05] MEDS: Normal Saline Flush 10 ML SYR IVP (08:56)
[2021-06-05] MEDS: cefTRIAXone 2 GM/50 ML BAG IV (08:56)
[2021-06-06] MEDS: cefTRIAXone 2 GM/50 ML BAG IV (08:44)
[2021-06-06] MEDS: Normal Saline Flush 10 ML SYR IVP (08:44)
[2021-06-07] MEDS: Normal Saline Flush 10 ML SYR IVP (08:39)
[2021-06-07] MEDS: cefTRIAXone 2 GM/50 ML BAG IV (08:39)
== END 2021-06-22 23:59 | disposition home or self-care (01) ==
LOC: INF 01:12
PROVIDERS: PCP Nurse Practitioner; Visit Provider Internal Medicine
DX: M00.9 Pyogenic arthritis, unspecified (principal)
CPT/HCPCS: 96365

== ENCOUNTER 2021-06-22 11:04 | Outpatient (CLI) | payer MEDICARE, BC, SELFPAY ==
--- NOTE | 2021-06-22 10:00 | DI.RAD_ITS ---
Exam(s) XR KNEE LT 2V AP,LAT EXAM: XR KNEE LT 2V AP,LAT INDICATION: follow up. COMPARISON: CR,XR XR KNEE LT 2V AP,LAT from 04/27/2021 TECHNIQUE: 2D digital imaging was performed. FINDINGS: There of eyes knee prosthesis appears unchanged. No bony changes. The skin elle has have been re moved. There is decreased soft tissue swelling. DATA REPOSITORY: RADIATION DOSE DELIVERED:
== END 2021-06-22 11:05 | disposition home or self-care (01) ==
LOC: DIORS 11:04
PROVIDERS: PCP Nurse Practitioner; Referring Provider Nurse Practitioner; Visit Provider Student in an Organized Health Care Education/Training Program
DX: Z96.652 Presence of left artificial knee joint (principal); Z98.890 Other specified postprocedural states; Z01.89 Encounter for other specified special examinations
CPT/HCPCS: 73560

== ENCOUNTER → 2021-09-10 10:33 | Outpatient (BNVA) | payer MEDICARE, BC, SELFPAY | PROVIDERS: PCP Nurse Practitioner; Visit Provider Internal Medicine Cardiovascular Disease | DX: I25.2 Old myocardial infarction (principal); R60.0 Localized edema; I10 Essential (primary) hypertension | CPT/HCPCS: 99213 ==

== ENCOUNTER → 2021-09-28 09:05 | Outpatient (BNVA) | payer MEDICARE, BC, SELFPAY | PROVIDERS: PCP Nurse Practitioner; Referring Provider Nurse Practitioner; Visit Provider Student in an Organized Health Care Education/Training Program | DX: Z96.652 Presence of left artificial knee joint (principal) ==

== ENCOUNTER 2022-11-04 02:56 | Outpatient (CLI) | payer MEDICARE, BC, SELFPAY ==
[2022-11-04 12:19] LABS: HGB 11.3 g/dL (11.2-15.7); MCH 30.5 pg (27.0-33.0); MCHC 32.3 % (32.0-36.0); MCV 95 fL (80-95); MPV 9.5 fL (8.0-11.0); Platelet Count 274 10^3/uL (130-400); RDW 12.9 % (11.7-14.6); RDW-SD 44.7 fL; WBC 9.18 10^3/uL (4.4-10.8)
[2022-11-04 12:35] LABS: ALT 20 U/L (14-59); AST 22 U/L (15-37); Albumin 3.6 g/dL (3.4-5.0); Alkaline Phosphatase 92 U/L (46-116); BUN 23 mg/dL (7-18); Bilirubin, Total 0.6 mg/dL (0.2-1.0); CREATININE 1.1 mg/dL (0.55-1.02); Calcium 10.1 mg/dL (8.5-10.1); Calculated LDL 79 mg/dL (<100); Chloride 104 mmol/L (98-107); Cholesterol 172 mg/dL (<200); Estimated GFR 48.94 (mL/min/1.73m2); Glucose 97 mg/dL (74-106); HDL Cholesterol 72 mg/dL (40-60); Triglyceride 107 mg/dL (<150)
[2022-11-04 12:40] LABS: Sodium 144 mmol/L (136-145)
[2022-11-04 13:11] LABS: Potassium 2.9 mmol/L (3.5-5.1)
== END 2022-11-04 02:57 | disposition home or self-care (01) ==
LOC: LOS 02:56
PROVIDERS: PCP Nurse Practitioner Family; Visit Provider Nurse Practitioner Family
DX: D50.9 Iron deficiency anemia, unspecified (principal); I10 Essential (primary) hypertension; E78.5 Hyperlipidemia, unspecified
CPT/HCPCS: 36415; 80053; 80061; 85027

== ENCOUNTER 2022-11-11 02:35 | Outpatient (CLI) | payer MEDICARE, BC, SELFPAY ==
[2022-11-11 12:31] LABS: Potassium 3.6 mmol/L (3.5-5.1)
== END 2022-11-11 02:36 | disposition home or self-care (01) ==
LOC: LOS 02:35
PROVIDERS: Family Medicine; PCP Nurse Practitioner Family; Visit Provider Nurse Practitioner Family
DX: I10 Essential (primary) hypertension (principal)
CPT/HCPCS: 36415; 84132

== ENCOUNTER 2023-01-17 10:39 | Emergency (ER) | payer MEDICARE, BC, SELFPAY ==
[2023-01-17 10:46] VITALS: BP 140/45; PULSE 71; RESP 22; TEMP 36.9; O2SAT 95
--- NOTE | 2023-01-17 13:06 | NUR.NOTE ---
Referral faxed to [facility] for mouth lesion, within the next couple weeks. Nursing Note:
[2023-01-17 13:31] LABS: Abs Immature Grans 0.05 10^3/uL (0.0-0.06); Absolute Basophil Count 0.07 10^3/uL (0.0-0.2); Absolute Eosinophil Count 0.36 10^3/uL (0.0-0.7); Absolute Lymphocyte Count 1.35 10^3/uL (1.2-3.4); Absolute Monocyte Count 1.09 10^3/uL (0.1-0.8); Absolute Neutrophil Count 7.34 10^3/uL (1.2-6.7); Basophils % 0.7; Eosinophils % 3.5; HCT 33.7 % (36.0-46.0); HGB 10.9 g/dL (11.2-15.7); Immature Grans % 0.5; Lymphocytes % 13.2; MCH 30.6 pg (27.0-33.0); MCHC 32.3 % (32.0-36.0); MCV 95 fL (80-95); MPV 9.3 fL (8.0-11.0); Monocytes % 10.6; Neutrophils % 71.5; Platelet Count 228 10^3/uL (130-400); RBC 3.56 10^6/uL (3.93-5.22); RDW 13.2 % (11.7-14.6); RDW-SD 46.4 fL; WBC 10.26 10^3/uL (4.4-10.8)
[2023-01-17 13:47] LABS: ALT 14 U/L (14-59); AST 12 U/L (15-37); Albumin 3.1 g/dL (3.4-5.0); Alkaline Phosphatase 103 U/L (46-116); Anion Gap 8.2 mmol/L (3-11); BUN 20 mg/dL (7-18); Bilirubin, Total 0.3 mg/dL (0.2-1.0); CO2 27.8 mmol/L (21.0-32.0); Calcium 10.1 mg/dL (8.5-10.1); Chloride 107 mmol/L (98-107); Estimated GFR 54.87 (mL/min/1.73m2); Glucose 91 mg/dL (74-106); Potassium 3.4 mmol/L (3.5-5.1); Sodium 143 mmol/L (136-145); Total Protein 6.7 g/dL (6.4-8.2)
--- NOTE | 2023-01-17 14:30 | DI.RAD_ITS ---
Exam(s) XR TIB/FIB RT EXAM: XR TIB/FIB RT CLINICAL HISTORY: cellulitis, eval for fb, fracture. TECHNIQUE: 2D digital imaging was performed. COMPARISON: No exams were available for comparison FINDINGS: Two views: There is soft tissue swelling throughout the calf. Also calcified phleboliths noted in the posterola teral aspect. Also calcification in soft tissues anteriorly. There does not appear to be radiopaque foreign body. There is a knee prosthesis. No fracture or loosening evident. No evidence of osteomyelitis. IMPRESSION: As above. DATA REPOSITORY: RADIATION DOSE DELIVERED:
--- NOTE | 2023-01-17 15:56 | ED.GENADUL_ITS ---
Discharge Plan Disposition Patient Disposition: Home Discharge Details Clinical Impression: Cellulitis, Ecchymosis, Blister Primary Care Provider: Ricarda Cabezas ED Provider: Uma Valerio Home Meds and New Rx's Prescriptions: New cephalexin 500 mg capsule 500 mg PO Q6H 7 Days Qty: 28 0RF Continued docusate sodium [Colace] 100 mg capsule 100 mg PO DAILY PRN latanoprost 0.005 % drops 1 drp OU HS Qty: 2.5 5RF magnesium oxide [MagOx] 400 mg (241.3 mg magnesium) tablet 400 mg PO DAILY furosemide 40 mg tablet 40 mg PO BID Qty: 180 4RF losartan 25 mg tablet 25 mg PO DAILY Qty: 90 3RF metoprolol succinate 25 mg tablet extended release 24 hr 25 mg PO DAILY Qty: 90 4RF rosuvastatin [Crestor] 5 mg tablet 5 mg PO .Every other day Qty: 90 4RF polyethylene glycol 3350 [Miralax] 17 gram/dose powder 17 g PO DAILY 30 Days Qty: 119 3RF (DME) Ankle Foot Orthosis See Rx Instructions .Route .MEDSUPPLY Qty: 1 0RF Rx Instructions: Please measure and fit for an ankle foot orthosis for Stage 3 PTTD, rigid flatfoot of RIGHT. Custom device likely necessary due to patient habitus and deformity. multivitamin with iron [Daily Multiple Vitamins/Iron] Tablet 1 tab PO DAILY (DME) Custom Shoes See Rx Instructions .Route .MEDSUPPLY Qty: 1 0RF Rx Instructions: Please advise, evaluate, and fabricate custom shoes to accommodate severe posterior tibial tendon dysfunction with pes planus and inability to tolerate regular shoes due to foot deformity. potassium chloride [Klor-Con M10] 10 mEq tablet,ER particles/crystals 10 meq PO BID Qty: 60 2RF aspirin 81 mg Tablet,Delayed Release (Dr/Ec) 81 mg PO DAILY Discharge Instructions Instructions: Cellulitis (ED) Additional Instructions: Take antibiotics as prescribed Change dressing every 24-48 hours Return with spreading discoloration, fever, chills, try to elevate your feet as much as possible Return earlier with new or worsening complaints including fever, spreading discoloration Discharge Data Discharge Date/Time-TO BE ENTERED AT DEPARTURE: 01/17/23 15:59 Medical Decision Making This 87-year-old female presents with blister to right leg with redness, secondary to age and comorbidities, I did order blood work, wound culture, and x-ray Patient with anemia, baseline per prior review, potassium 3.4, encouraged to take multivitamin Placed on Keflex, wound culture pending X-ray does not show evidence of soft tissue gas, recheck in 48 hours recommended Return precautions reviewed and patient expressed understanding HPI General Date/Time Provider Initiated Documentation: 01/17/23 12:40 . HPI Narrative: This 87-year-old female presents with a past medical history of,, non-ST elevation [place], breast cancer, PE with report of blister on her right leg for the past 2 days. Denies any pain associated but does have neuropathy. Denies any increased swelling. Has some redness around it which concerned the patient. Denies any chest pain or shortness of breath. Denies any fever or chills. Related Data Home Medications Medication Instructions Recorded Confirmed latanoprost 0.005 % eye drops 1 drp OU HS #2.5 mL 07/03/20 11/11/22 Ankle Foot Orthosis #1 ea 10/29/20 11/11/22 aspirin 81 mg tablet,delayed 81 mg PO DAILY 04/23/21 11/11/22 release Custom Shoes #1 ea 02/18/22 11/11/22 docusate sodium 100 mg capsule 100 mg PO DAILY PRN 05/06/22 11/11/22 (Colace) magnesium oxide 400 mg (241.3 mg 400 mg PO DAILY 05/06/22 11/11/22 magnesium) tablet (MagOx) furosemide 40 mg tablet 40 mg PO BID #180 tabs 08/31/22 11/11/22 losartan 25 mg tablet 25 mg PO DAILY #90 tabs 08/31/22 11/11/22 metoprolol succinate 25 mg 25 mg PO DAILY #90 tabs 08/31/22 11/11/22 tablet,extended release 24 hr polyethylene glycol 3350 17 17 g PO DAILY 30 days #119 grams 08/31/22 11/11/22 gram/dose oral powder (Miralax) rosuvastatin 5 mg tablet (Crestor) 5 mg PO .Every other day #90 tabs 08/31/22 11/11/22 multivitamin with iron (Daily 1 tab PO DAILY 11/11/22 11/11/22 Multiple Vitamins with Iron tablet) potassium chloride 10 mEq 10 meq PO BID #60 tabs 11/11/22 11/11/22 tablet,extended release(part/cryst) (Klor-Con M) cephalexin 500 mg capsule 500 mg PO Q6H 7 days #28 caps 01/17/23 Previous Rx's Medication Instructions Recorded latanoprost 0.005 % eye drops 1 drp OU HS #2.5 mL 07/03/20 Ankle Foot Orthosis #1 ea 10/29/20 Custom Shoes #1 ea 02/18/22 furosemide 40 mg tablet 40 mg PO BID #180 tabs 08/31/22 losartan 25 mg tablet 25 mg PO DAILY #90 tabs 08/31/22 metoprolol succinate 25 mg 25 mg PO DAILY #90 tabs 08/31/22 tablet,extended release 24 hr polyethylene glycol 3350 17 17 g PO DAILY 30 days #119 grams 08/31/22 gram/dose oral powder (Miralax) rosuvastatin 5 mg tablet (Crestor) 5 mg PO .Every other day #90 tabs 08/31/22 potassium chloride 10 mEq 10 meq PO BID #60 tabs 11/11/22 tablet,extended release(part/cryst) (Klor-Con M) cephalexin 500 mg capsule 500 mg PO Q6H 7 days #28 caps 01/17/23 Allergies Allergy/AdvReac Type Severity Reaction Status Date / Time demeclocycline HCl Allergy Intermediate Hives Verified 11/11/22 13:26 [From Declomycin] acetaminophen [From Percocet] Allergy Mild Hives Verified 11/11/22 13:26 oxycodone [From Percocet] Allergy Mild Hives Verified 11/11/22 13:26 Penicillins Allergy Mild Hives Verified 11/11/22 13:26 Ekrcloh-KDP-DhG Reductase AdvReac Intermediate nauesa Verified 11/11/22 13:26 Inhibitor /vomiting [Apkeezl-Wfe-Vqg Reductase Inhibitor] General Stated Complaint: Cellulitis ADE: 3 PFSH All Active Problems (Updated 01/17/23 @ 15:07 by BECKY Sepulveda) Cellulitis (Acute) Ecchymosis (Acute) Blister (Acute) Localized edema (Acute) Nail dystrophy (Acute) DNR (do not resuscitate) (Acute) Iron deficiency anemia (Acute) Right heart failure (Chronic) Right knee pain (Acute) Pes planus of right foot (Acute) Edema (Chronic) Hyperlipidemia (Chronic) Obesity (Chronic) Osteoarthritis (Chronic) Hypertension (Chronic) Medical History (Updated 01/17/23 @ 15:07 by BECKY Sepulveda) Glaucoma History of left breast cancer History of right breast cancer Left fibular fracture 2018 Melanoma 2017 Non-ST elevation [place] (NSTEMI) Palliative care status Pulmonary embolism following a TKR Septic arthritis of knee, left 2021 Surgical History (Updated 09/29/21 @ 13:03 by Luisa Rivera NP) History of appendectomy History of melanoma excision History of total left knee replacement (TKR) S/P cholecystectomy S/P total knee replacement right 11/12/2019 Status post revision of total replacement of left knee (04/26/21) Family History Mother , age 100 Heart disease Hypertension Dementia Father , age 78 Non-Hodgkin lymphoma Hyperlipidemia Sister Breast cancer Brother Bladder cancer Alcohol abuse Maternal Grandfather , age 58 Heart disease Paternal Grandfather , age 75 No problems noted. Maternal Grandmother , age 63 Thyroid cancer Heart disease Hyperlipidemia Hypertension Stroke Paternal Grandmother , age 93 Heart disease Social History Smoking/Tobacco Use Status: Never Second Hand Exposure: Yes Smoking risk assessment performed?: Yes Alcohol Intake: never Drug use: Never Substance use type: does not use Caregiver/Support person: No Household members: family and other Details: Sister Housing: house Communication Needs: Corrective Lenses Do you need help understanding health information?: Never Pets and animals: Yes Pets and animals: dog(s) Sexually active: No Do you think of yourself as: straight/heterosexual Current gender identity: female What is your relationship status?: never How often do you talk on the phone with friends or family?: three or more times per week How often do you get together with friends or relatives?: twice per week How often do you attend buddhism or denominational services?: 4 or more times per year Do you belong to any clubs or organized social groups?: yes Panel score (0-1 are the most socially isolated patients): 3 Duration: 45-60 minutes/day Frequency: daily Annia/Orthodox: Confucianism Special annia needs: Yes (priestly visits for [facility] credit administrator, [facility]) Seatbelt use: always Helmet use: No Drive intox or ride w/intox 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 [employer] Course Vital Signs Vital signs: Vital Signs Temperature 36.9 C 01/17/23 10:46 Pulse 71 01/17/23 10:46 Respiratory Rate 22 01/17/23 10:46 Blood Pressure 140/45 L 01/17/23 10:46 Pulse Oximetry 95 01/17/23 10:46 Temperature 36.9 C 01/17/23 10:46 Temperature Source Temporal Artery Scan 01/17/23 10:46 Pulse 71 01/17/23 10:46 Respiratory Rate 22 01/17/23 10:46 Respiratory Effort Short of Breath 01/17/23 11:57 Blood Pressure 140/45 L 01/17/23 10:46 Blood Pressure Position Sitting 01/17/23 10:46 Pulse Oximetry 95 01/17/23 10:46 Oxygen Delivery Method Room Air 01/17/23 10:46 Oxygen Flow Rate 0 01/17/23 10:46 Pain Level 0 01/17/23 11:57 Lab/Test Results Lab/Test Results: 01/17/23 13:47 Leg - Right Lower Wound Culture - Pending 01/17/23 13:47 Leg - Right Lower Gram Stain - Pending Laboratory Tests Range/Units 01/17/23 01/17/23 13:15 13:15 WBC (4.4-10.8) 10^3/uL 10.26 RBC (3.93-5.22) 10^6/uL 3.56 L Hgb (11.2-15.7) g/dL 10.9 L Hct (36.0-46.0) % 33.7 L MCV (80-95) fL 95 MCH (27.0-33.0) pg 30.6 MCHC (32.0-36.0) % 32.3 RDW (11.7-14.6) % 13.2 Plt Count (130-400) 10^3/uL 228 MPV (8.0-11.0) fL 9.3 Immature Gran % 0.5 Neutrophils % 71.5 Lymphocytes % 13.2 Monocytes % 10.6 Eosinophils % 3.5 Basophils % 0.7 Nucleated RBC % (0.0-0.3) % 0.0 Absolute Neutrophils (1.2-6.7) 10^3/uL 7.34 H Absolute Lymphocytes (1.2-3.4) 10^3/uL 1.35 Absolute Monocytes (0.1-0.8) 10^3/uL 1.09 H Absolute Eosinophils (0.0-0.7) 10^3/uL 0.36 Absolute Basophils (0.0-0.2) 10^3/uL 0.07 Sodium (136-145) mmol/L 143 Potassium (3.5-5.1) mmol/L 3.4 L Chloride (98-107) mmol/L 107 Carbon Dioxide (21.0-32.0) mmol/L 27.8 Anion Gap (3-11) mmol/L 8.2 BUN (7-18) mg/dL 20 H Creatinine (0.55-1.02) mg/dL 1.0 Est GFR (CKD-EPI 2020) (mL/min/1.73m2) 54.87 Glucose (74-106) mg/dL 91 Calcium (8.5-10.1) mg/dL 10.1 Total Bilirubin (0.2-1.0) mg/dL 0.3 AST (15-37) U/L 12 L ALT (14-59) U/L 14 Alkaline Phosphatase (46-116) U/L 103 Total Protein (6.4-8.2) g/dL 6.7 Albumin (3.4-5.0) g/dL 3.1 L
== END 2023-01-17 15:59 | disposition home or self-care (01) ==
PROVIDERS: Emergency Provider Physician Assistant; PCP Nurse Practitioner Family
DX: L03.115 Cellulitis of right lower limb; D64.9 Anemia, unspecified; I25.2 Old myocardial infarction; S80.821A Blister (nonthermal), right lower leg, initial encounter; X58.XXXA Exposure to other specified factors, initial encounter
CPT/HCPCS: 80053; 99284; 73590; 85025; 87070; 87205

== ENCOUNTER 2023-05-19 17:12 | Outpatient (REF) | payer MEDICARE, BC, SELFPAY | END 2023-05-19 17:13 | disposition home or self-care (01) | LOC: LBN 17:12 | PROVIDERS: PCP Nurse Practitioner Family; Visit Provider Nurse Practitioner Family | DX: B95.61 Methicillin susceptible Staphylococcus aureus infection as the cause of diseases classified elsewhere (principal); L97.128 Non-pressure chronic ulcer of left thigh with other specified severity | CPT/HCPCS: 87077; 87070; 87186; 87205 ==

== ENCOUNTER 2023-05-26 04:13 | Outpatient (CLI) | payer MEDICARE, BC, SELFPAY ==
[2023-05-26 12:20] LABS: Abs Immature Grans 0.07 10^3/uL (0.0-0.06); Absolute Basophil Count 0.07 10^3/uL (0.0-0.2); Absolute Eosinophil Count 0.44 10^3/uL (0.0-0.7); Absolute Lymphocyte Count 1.66 10^3/uL (1.2-3.4); Absolute Monocyte Count 0.82 10^3/uL (0.1-0.8); Absolute Neutrophil Count 7.34 10^3/uL (1.2-6.7); Basophils % 0.7; Eosinophils % 4.2; HCT 34.1 % (36.0-46.0); HGB 10.8 g/dL (11.2-15.7); Immature Grans % 0.7; MCH 29.8 pg (27.0-33.0); MCHC 31.7 % (32.0-36.0); MCV 94 fL (80-95); MPV 9.4 fL (8.0-11.0); Monocytes % 7.9; Neutrophils % 70.5; Platelet Count 234 10^3/uL (130-400); RBC 3.63 10^6/uL (3.93-5.22); RDW 13.2 % (11.7-14.6); RDW-SD 45.2 fL
[2023-05-26 12:37] LABS: ALT 23 U/L (14-59); AST 15 U/L (15-37); Albumin 3.3 g/dL (3.4-5.0); Alkaline Phosphatase 93 U/L (46-116); Anion Gap 9.9 mmol/L (3-11); BUN 34 mg/dL (7-18); Bilirubin, Total 0.3 mg/dL (0.2-1.0); CO2 26.1 mmol/L (21.0-32.0); CREATININE 1.1 mg/dL (0.55-1.02); Calcium 10.4 mg/dL (8.5-10.1); Chloride 106 mmol/L (98-107); Estimated GFR 48.63 (mL/min/1.73m2); Glucose 93 mg/dL (74-106); NT-proBNP 303 pg/mL (<300); Sodium 142 mmol/L (136-145); Total Protein 7.1 g/dL (6.4-8.2)
[2023-05-26 12:39] LABS: Hemoglobin A1C 5.6 % (<5.7)
== END 2023-05-26 04:14 | disposition home or self-care (01) ==
LOC: LOS 04:14
PROVIDERS: PCP Nurse Practitioner Family; Visit Provider Nurse Practitioner Family
DX: D50.9 Iron deficiency anemia, unspecified (principal); I10 Essential (primary) hypertension; I50.810 Right heart failure, unspecified; R60.9 Edema, unspecified; R73.09 Other abnormal glucose
CPT/HCPCS: 36415; 80053; 83036; 83880; 85025

== ENCOUNTER 2023-06-15 01:25 | Outpatient (CLI) | payer MEDICARE, BC, SELFPAY ==
[2023-06-15 12:57] LABS: Anion Gap 8.6 mmol/L (3-11); BUN 23 mg/dL (7-18); CO2 28.4 mmol/L (21.0-32.0); Calcium 10.7 mg/dL (8.5-10.1); Chloride 107 mmol/L (98-107); Estimated GFR 54.53 (mL/min/1.73m2); Glucose 101 mg/dL (74-106); Potassium 3.6 mmol/L (3.5-5.1); Sodium 144 mmol/L (136-145)
== END 2023-06-15 01:26 | disposition home or self-care (01) ==
LOC: LOS 01:25
PROVIDERS: PCP Nurse Practitioner Family; Visit Provider Nurse Practitioner Family
DX: I10 Essential (primary) hypertension (principal); R60.0 Localized edema
CPT/HCPCS: 36415; 80048

== ENCOUNTER 2023-08-29 05:31 | Outpatient (CLI) | payer MEDICARE, BC, SELFPAY ==
[2023-08-29 12:23] LABS: HCT 37.2 % (36.0-46.0); HGB 11.6 g/dL (11.2-15.7); MCH 30.1 pg (27.0-33.0); MCHC 31.2 % (32.0-36.0); MCV 96 fL (80-95); MPV 10.4 fL (8.0-11.0); Platelet Count 243 10^3/uL (130-400); RBC 3.86 10^6/uL (3.93-5.22); RDW 13.3 % (11.7-14.6); RDW-SD 47.2 fL; WBC 9.04 10^3/uL (4.4-10.8)
[2023-08-29 13:05] LABS: Anion Gap 11.2 mmol/L (3-11); BUN 34 mg/dL (7-18); CO2 25.8 mmol/L (21.0-32.0); CREATININE 1.1 mg/dL (0.55-1.02); Calcium 10.5 mg/dL (8.5-10.1); Chloride 107 mmol/L (98-107); Estimated GFR 48.63 (mL/min/1.73m2); Glucose 95 mg/dL (74-106); Potassium 4.1 mmol/L (3.5-5.1); Sodium 144 mmol/L (136-145)
== END 2023-08-29 05:32 | disposition home or self-care (01) ==
LOC: LOS 05:31
PROVIDERS: PCP Nurse Practitioner Family; Visit Provider Nurse Practitioner Family
DX: D50.9 Iron deficiency anemia, unspecified (principal); I10 Essential (primary) hypertension; I50.810 Right heart failure, unspecified; R60.0 Localized edema
CPT/HCPCS: 36415; 80048; 85027

== ENCOUNTER 2023-09-21 23:40 | Emergency (ER) | payer MEDICARE, BC, SELFPAY ==
--- NOTE | 2023-09-21 22:45 | W.ED.GENAD ---
Discharge Plan Disposition Patient Disposition: Home Condition: Good Discharge Details Clinical Impression: Epistaxis Primary Care Provider: Ricarda Cabezas ED Provider: Aidan Hu and New Rx's Prescriptions: Continued docusate sodium [Colace] 100 mg capsule 100 mg PO DAILY PRN latanoprost 0.005 % drops 1 drp OU HS Qty: 2.5 5RF magnesium oxide [MagOx] 400 mg (241.3 mg magnesium) tablet 400 mg PO DAILY losartan 25 mg tablet 25 mg PO DAILY Qty: 90 3RF metoprolol succinate 25 mg tablet extended release 24 hr 25 mg PO DAILY Qty: 90 4RF rosuvastatin [Crestor] 5 mg tablet 5 mg PO .Every other day Qty: 90 4RF polyethylene glycol 3350 [Miralax] 17 gram/dose powder 17 g PO DAILY 30 Days Qty: 119 3RF potassium chloride 20 mEq tablet,ER particles/crystals 20 meq PO DAILY Qty: 90 2RF furosemide 40 mg tablet 40 mg PO DAILY (DME) Ankle Foot Orthosis See Rx Instructions .Route .MEDSUPPLY Qty: 1 0RF Rx Instructions: Please measure and fit for an ankle foot orthosis for Stage 3 PTTD, rigid flatfoot of RIGHT. Custom device likely necessary due to patient habitus and deformity. multivitamin with iron [Daily Multiple Vitamins/Iron] Tablet 1 tab PO DAILY ferrous sulfate 325 mg (65 mg iron) tablet 325 mg PO DAILY Qty: 90 1RF (DME) Custom Shoes See Rx Instructions .Route .MEDSUPPLY Qty: 1 0RF Rx Instructions: Please advise, evaluate, and fabricate custom shoes to accommodate severe posterior tibial tendon dysfunction with pes planus and inability to tolerate regular shoes due to foot deformity. aspirin 81 mg Tablet,Delayed Release (Dr/Ec) 81 mg PO DAILY Discharge Instructions Instructions: Nosebleed (ED) Additional Instructions: You were seen in the ED for nosebleed which resolved in the ambulance on your way to the ED. You were observed with no recurrent bleed and no identifiable source from previous bleed. As we discussed a humidifier, saline nasal spray, bacitracin gently placed to the inside of your nose may help prevent recurrent bleeds. Would avoid blowing your nose over the next couple of days. If you continue to have nosebleeds follow-up with your PCP or ENT is appropriate. If you have recurrent uncontrolled nosebleed please return to the ED or return for any lightheadedness, chest pain, shortness of breath. HPI General Mode of arrival: EMS. Limitations to Documentation: no limitations. Information obtained by: patient. HPI Narrative: Patient presents to ED from home with nosebleed. Patient developed bleeding from her left nostril tonight after blowing her nose. She was unable to control it at home. EMS was called. Initial attempts at controlling it at home failed. On arrival to ED she is no longer bleeding. She denies any trauma. She denies any recent illnesses. She has had allergy related runny nose but has not been blowing excessively. She is on aspirin but no other anticoagulation. Denies any fever or cough. Feels well at this time. Related Data Home Medications Medication Instructions Recorded Confirmed latanoprost 0.005 % eye drops 1 drp OU HS #2.5 mL 07/03/20 09/21/23 Ankle Foot Orthosis #1 ea 10/29/20 08/08/23 aspirin 81 mg tablet,delayed 81 mg PO DAILY 04/23/21 09/21/23 release Custom Shoes #1 ea 02/18/22 08/08/23 docusate sodium 100 mg capsule 100 mg PO DAILY PRN 05/06/22 09/21/23 (Colace) magnesium oxide 400 mg (241.3 mg 400 mg PO DAILY 05/06/22 09/21/23 magnesium) tablet (MagOx) losartan 25 mg tablet 25 mg PO DAILY #90 tabs 08/31/22 09/21/23 metoprolol succinate 25 mg 25 mg PO DAILY #90 tabs 08/31/22 09/21/23 tablet,extended release 24 hr polyethylene glycol 3350 17 17 g PO DAILY 30 days #119 grams 08/31/22 09/21/23 gram/dose oral powder (Miralax) rosuvastatin 5 mg tablet (Crestor) 5 mg PO .Every other day #90 tabs 08/31/22 09/21/23 multivitamin with iron (Daily 1 tab PO DAILY 11/11/22 09/21/23 Multiple Vitamins with Iron tablet) potassium chloride 20 mEq 20 meq PO DAILY #90 tabs 02/01/23 09/21/23 tablet,extended release(part/cryst) ferrous sulfate 325 mg (65 mg 325 mg PO DAILY #90 tabs 05/31/23 09/21/23 iron) tablet furosemide 40 mg tablet 40 mg PO DAILY 06/20/23 09/21/23 Previous Rx's Medication Instructions Recorded latanoprost 0.005 % eye drops 1 drp OU HS #2.5 mL 07/03/20 Ankle Foot Orthosis #1 ea 10/29/20 Custom Shoes #1 ea 02/18/22 losartan 25 mg tablet 25 mg PO DAILY #90 tabs 08/31/22 metoprolol succinate 25 mg 25 mg PO DAILY #90 tabs 08/31/22 tablet,extended release 24 hr polyethylene glycol 3350 17 17 g PO DAILY 30 days #119 grams 08/31/22 gram/dose oral powder (Miralax) rosuvastatin 5 mg tablet (Crestor) 5 mg PO .Every other day #90 tabs 08/31/22 potassium chloride 20 mEq 20 meq PO DAILY #90 tabs 02/01/23 tablet,extended release(part/cryst) ferrous sulfate 325 mg (65 mg 325 mg PO DAILY #90 tabs 05/31/23 iron) tablet Allergies Allergy/AdvReac Type Severity Reaction Status Date / Time demeclocycline HCl Allergy Intermediate Hives Verified 09/21/23 22:58 [From Declomycin] acetaminophen [From Percocet] Allergy Mild Hives Verified 09/21/23 22:58 oxycodone [From Percocet] Allergy Mild Hives Verified 09/21/23 22:58 Penicillins Allergy Mild Hives Verified 09/21/23 22:58 Mcxdauf-MRN-HiQ Reductase AdvReac Intermediate nauesa Verified 09/21/23 22:58 Inhibitor /vomiting [Ixbkgqw-Kvu-Vbm Reductase Inhibitor] brimodidine eye drops AdvReac Severe Swelling/Ed Uncoded 09/21/23 22:58 odell General ADE: 3 Review of Systems Narrative: per HPI Exam Narrative Exam Narrative: Const: WDWN elderly female in NAD. VS per triage. HEENT: NC/AT. Normal facial exam. Both nostrils without active bleeding. No obvious area of previous bleeding visualized. No clots in the posterior oropharynx. Neck: Supple. Trachea midline. Lungs: Normal respiratory effort. Neuro: A+O x 3. Normal speech, mentation. Cranial nerves II - XII grossly intact. No gross motor or sensory deficit. Medical Decision Making Patient presenting to ED due to nosebleed. Patient with no active bleeding on arrival. No obvious area of previous bleeding in either nostril on inspection. Will apply Afrin nasal spray to both nostrils and reevaluate. Currently no indication for cauterization or packing. 11:30 PM?patient with no further bleeding. She has been up and use the commode with no dizziness, lightheadedness, chest pain, shortness of breath. Reinspection of her nose continues to reveal no identifiable source of prior bleeding. Anterior septum looks completely normal. Discussed use of humidifier, saline nasal spray, bacitracin ointment to prevent drying out or potential rebleeding. Discussed measures to stop bleeding at home. If continues to have recurrent nosebleeds should follow-up with PCP and/your ENT. Return ED precautions provided. PFSH All Active Problems (Updated 09/21/23 @ 23:36 by Aidan Hu MD) Epistaxis (Acute) Lymphedema (Acute) Ulcer of leg, chronic (Acute) Buccal mass (Acute) Localized edema (Acute) Nail dystrophy (Acute) DNR (do not resuscitate) (Acute) Iron deficiency anemia (Acute) Right heart failure (Chronic) Right knee pain (Acute) Pes planus of right foot (Acute) Edema (Chronic) Obesity (Chronic) Osteoarthritis (Chronic) Medical History Hyperlipidemia Hypertension Palliative care status Septic arthritis of knee, left 2021 Non-ST elevation [place] (NSTEMI) Left fibular fracture 2018 Melanoma 2017 Pulmonary embolism following a TKR Glaucoma History of left breast cancer History of right breast cancer Surgical History History of tonsillectomy and adenoidectomy Status post revision of total replacement of left knee (04/26/21) S/P total knee replacement right 11/12/2019 History of total left knee replacement (TKR) History of appendectomy S/P cholecystectomy History of melanoma excision Family History Mother , age 100 Heart disease Hypertension Dementia Father , age 78 Non-Hodgkin lymphoma Hyperlipidemia Sister Breast cancer Brother Bladder cancer Alcohol abuse Maternal Grandfather , age 58 Heart disease Paternal Grandfather , age 75 No problems noted. Maternal Grandmother , age 63 Thyroid cancer Heart disease Hyperlipidemia Hypertension Stroke Paternal Grandmother , age 93 Heart disease Social History Smoking/Tobacco Use Status: Never Second Hand Exposure: Yes Smoking risk assessment performed?: Yes Alcohol Intake: never Drug use: Never Substance use type: does not use Caregiver/Support person: No Household members: family and other Details: Sister Housing: house Communication Needs: Corrective Lenses Do you need help understanding health information?: Never Pets and animals: Yes Pets and animals: dog(s) Sexually active: No Do you think of yourself as: straight/heterosexual Current gender identity: female What is your relationship status?: never How often do you talk on the phone with friends or family?: three or more times per week How often do you get together with friends or relatives?: twice per week How often do you attend quaker or moravian services?: 4 or more times per year Do you belong to any clubs or organized social groups?: yes Panel score (0-1 are the most socially isolated patients): 3 Duration: 45-60 minutes/day Frequency: daily Annia/Buddhism: Jainism Special annia needs: Yes ([facility], [facility]) Seatbelt use: always Helmet use: No Drive intox or ride w/intox milk 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
[2023-09-21 22:47] VITALS: BP 132/45; PULSE 65; RESP 18; TEMP 36.4; O2SAT 97
[2023-09-21 22:51] VITALS: RESP 18
[2023-09-21] MEDS: Oxymetazolone 0.05% SPRAY 15 ML BTL NS (23:06)
--- NOTE | 2023-09-22 00:07 | NUR.NOTE ---
PT does not have a ride home. staff is working on arranging transportation. Nursing Note:
[2023-09-22] MEDS: Acetaminophen 325 MG TAB (00:27)
[2023-09-22 00:30] VITALS: BP 162/51; PULSE 78; RESP 18; O2SAT 98
== END 2023-09-22 00:30 | disposition home or self-care (01) ==
PROVIDERS: Emergency Provider Emergency Medicine; PCP Nurse Practitioner Family
DX: R04.0 Epistaxis (principal); I10 Essential (primary) hypertension; E78.5 Hyperlipidemia, unspecified; I25.2 Old myocardial infarction; Z86.711 Personal history of pulmonary embolism; Z79.82 Long term (current) use of aspirin; Z66 Do not resuscitate
CPT/HCPCS: 99283

== ENCOUNTER 2023-10-31 14:23 | Outpatient (REF) | payer MEDICARE, BC, SELFPAY ==
--- NOTE | 2023-10-31 13:30 | SKI_PTH ---
PATIENT: Dinorah Colbert LOC: [facility] U#:[id number] AGE/SX: 88/F ROOM: RE10/31/[address]: Simone Fuchs MD : [id number] BED: DIS: 10/31/2023 SPEC #: [id number] RECD: 10/31/23 18:20 STATUS: MATHIEU REArnav #: [id number] CATIA: 10/31/23 13:[address]: Simone Fuchs DEPT: Surgical Specimen RECD BY: Uma Parham ENTERED: 10/31/23 18:21 SP TYPE: LETY BOONE DR: Ricarda Cabezas, MACHINE REPAIR PERSON Tissues: 1 - SKIN BIOPSY(SHAVE/PUNCH) Procedures: GROSS AND MICRO LEVEL 4 Comments: [id number]
== END 2023-10-31 14:24 | disposition home or self-care (01) ==
LOC: LBN 14:23
PROVIDERS: PCP Nurse Practitioner Family; Visit Provider Otolaryngology
DX: K13.5 Oral submucous fibrosis (principal); D22.0 Melanocytic nevi of lip
CPT/HCPCS: 88305

== ENCOUNTER 2025-03-14 16:54 | Outpatient (REF) | payer MEDICARE, BC, SELFPAY ==
[2025-03-14 20:29] LABS: HCT 38.4 % (36.0-46.0); HGB 12.3 g/dL (11.2-15.7); MCH 30.2 pg (27.0-33.0); MCHC 32.0 % (32.0-36.0); MCV 94 fL (80-95); MPV 9.5 fL (8.0-11.0); Platelet Count 267 10^3/uL (130-400); RBC 4.07 10^6/uL (3.93-5.22); RDW 13.2 % (11.7-14.6); RDW-SD 45.6 fL; WBC 9.16 10^3/uL (4.4-10.8)
[2025-03-14 20:42] LABS: ALT 17 U/L (10-49); AST 23 U/L (<34); Albumin 4.1 g/dL (3.4-5.0); Alkaline Phosphatase 114 U/L (46-116); Anion Gap 8.6 mmol/L (3-11); BUN 26 mg/dL (9-23); Bilirubin, Total 0.30 mg/dL (0.2-1.2); CO2 27.4 mmol/L (20.0-31.0); Calcium 9.5 mg/dL (8.3-10.6); Chloride 109 mmol/L (98-107); Cholesterol 196 mg/dL (<200); Glucose 109 mg/dL (74-106); HDL Cholesterol 62 mg/dL (>40); Potassium 3.9 mmol/L (3.5-5.1); Sodium 145 mmol/L (136-145); Total Protein 6.5 g/dL (5.7-8.2)
[2025-03-14 20:46] LABS: Iron 44 ug/dL (50-170); Total Iron Binding Capacity 295 ug/dL (250-425); Transferrin Sat 15 % (15-50)
[2025-03-14 20:54] LABS: Hemoglobin A1C 5.5 % (<5.7)
== END 2025-03-14 16:55 | disposition home or self-care (01) ==
LOC: LBN 16:54
PROVIDERS: PCP Nurse Practitioner Family; Visit Provider Nurse Practitioner Family
DX: D50.9 Iron deficiency anemia, unspecified (principal); Z00.00 Encounter for general adult medical examination without abnormal findings; I50.810 Right heart failure, unspecified; I10 Essential (primary) hypertension; R73.01 Impaired fasting glucose
CPT/HCPCS: 80053; 80061; 85027; 83036; 83540; 83550